=== PATIENT | female | born 1955 | race Caucasian/White ===

== ENCOUNTER 2017-12-08 15:15 | Emergency (ER) | payer OTHER, MEDICAID, SELFPAY ==
[2017-12-08 15:16] VITALS: BP 130/62; PULSE 95; RESP 18; TEMP 36.2; O2SAT 95; BMI 46.3
--- NOTE | 2017-12-08 15:51 | VDLE_ITS ---
Reason For Study: DVT RIGHT LEFT GSV is normal. GSV is normal. FV is compressible, spontaneous, phasic, FV is compressible, spontaneous, phasic, competent and demonstrates normal competent and demonstrates normal augmentation. augmentation. POP V is compressible, spontaneous, phasic, POP V is compressible, spontaneous, phasic, competent and demonstrates normal competent and demonstrates normal augmentation. augmentation. T/P Trunk is compressible. T/P Trunk is compressible. RT PTV is DILATED and noncompressible. PTV is compressible. *Unable to accurately assess CFV, SFJ and Unable to assess CFV, SFJ and PeroV d/t body PeroV d/t body habitus. habitus. Procedure Exam performed portable in ED. A preliminary report was called and/or faxed to ED. Interpretation Summary Acute deep vein thrombosis is noted in the right posterior tibial vein. The right femoral vein, popliteal vein, and tibio-peroneal trunk are patent and compressible. The left femoral vein, popliteal vein, tibio-peroneal trunk, and posterior tibial vein are patent and compressible. There is no evidence of acute deep vein thrombosis in the left lower extremity. The common femoral veins, peroneal veins, and sapheno-femoral junctions could not be assessed on either side due to the patient's body habitus. The greater saphenous veins appear bilaterally patent and compressible segmentally. Ordering Physician: Kamar Mcgrath Performed By: Roseann Gonzalez, BJ, RVT
--- NOTE | 2017-12-08 15:51 | CT_ITS ---
STUDY: CTA CHEST REASON FOR EXAM: Female, 62 years old. Short of breath with chest tightness and productive cough RADIATION DOSAGE (If Supplied By Facility): CTDIvol = ( 14.43 ) mGy, DLP = ( 620.66 ) mGycm TECHNIQUE: The examination was performed with the intravenous administration of 100 ml of Isovue 370 contrast material. Post-processing of the angiographic images was performed, with multiplanar reformation and 3D reconstruction. Individualized dose optimization techniques were used for this CT. COMPARISON: None. FINDINGS: Pulmonary arteries are mildly dilated which may be consistent with pulmonary hypertension. Normal enhancement of the main pulmonary artery and right and left pulmonary arteries. Normal enhancement of the bilateral peripheral pulmonary arteries. There is no demonstrated pulmonary embolism. Normal thoracic aorta and visualized great vessels. There is no demonstrated aortic dissection. Normal heart and pericardium. Normal mediastinum. Normal hilar regions. Normal visualized trachea and bronchi. The lungs are well expanded. Mild diffuse interstitial thickening noted most pronounced in the lower lobes. Lungs are clear of acute infiltration. There is a large calcified granuloma in right middle lobe. Normal pleura. Normal chest wall structures. Dorsal spine demonstrates spondylosis. Small hiatal hernia is present Normal visualized upper abdomen. CT/CTA Chest W/WO Contrast IMPRESSION: No evidence for pulmonary embolus Mild diffuse interstitial thickening but no focal infiltration Old granulomatous disease. Electronically Signed: Mg Ordaz MD at 18:38 EDT , Service support ,
--- NOTE | 2017-12-08 15:53 | EKG12_ITS ---
Test Reason : CP Blood Pressure : / mmHG Vent. Rate : 095 BPM Atrial Rate : 095 BPM P-R Int : 168 ms QRS Dur : 082 ms QT Int : 354 ms P-R-T Axes : 068 023 063 degrees QTc Int : 444 ms Normal sinus rhythm Low voltage QRS Borderline ECG Confirmed by LEN WICK ([id number]), online content editor ROMEL LUCAS ([id number]) on 12/20/2017 5:35:18 PM Referred By: BRIANNE Confirmed By:LEN WICK
--- NOTE | 2017-12-08 15:56 | ED.VISSUMM ---
- ER Visit Summary Date of Service: 12/08/17 Chief Complaint: Shortness of breath, cough History of Present Illness: The patient is a 62 F with a history of asthma, DVT, diabetes, and hypertension. She reports burning chest pain and shortness of breath that started 3 days ago and gradually got worse. Worse with exertion. She also reports a cough with occasional green sputum. She takes Eliquis for DVTs. She is not sure if she had a PE before. She does report increasing swelling and pain in her legs especially on the left. She also reports redness and swelling on her right foot. No fevers. No nausea or vomiting. She is out of her inhalers. Physical Examination: Afebrile and vital signs unremarkable. Patient is sitting and appears in no acute distress. HEENT exam unremarkable. Lungs show wheezing throughout all blankenship. Heart regular. Abdomen soft. Legs are diffusely tender especially on the left near her medial thigh. She also has some minimal erythema and tenderness to her right dorsal foot. Pulses strong and equal. Test Results: EKG, labs, CTA, and ultrasound pending. Emergency Department Course and Treatment: Was placed on a monitor and treated with a DuoNeb while awaiting results. EKG showed sinus rhythm at a rate of 95. No sign of acute ischemia or infarction. Hemoglobin 10.8, roughly stable. Chem panel and troponin normal. Ultrasound showed a right side posterior tibial DVT. The patient had this previously. The rest of the US exam was limited. CTA showed no PE, no infiltrate. She does have old chronic changes. Patient was improved on reevaluation. She was complaining of her cough and sore throat. This is likely an infectious process, possibly bronchitis. She had a normal stress test about 8 months ago. She was 95% on room air. I will have her follow-up with her doctor as an outpatient. Treatment Plan: Symptomatic care at home, albuterol Disposition: Discharged Impression: 1. Acute bronchitis This note was generated with [employer] dictation software. It may contain incorrect words, spelling, and punctuation that were not noted in review of the chart prior to signing ED Disposition - Plan for ED Patient: Disposition: Home or Assisted Living Chief Complaint: Shortness of Breath Instructions: ED Bronchitis Asthmatic Prescriptions: Albuterol Inhaler [Ventolin Hfa] 2 puff INHALATION Q4H PRN PRN #1 inhaler PRN Reason: Wheezing Referrals: Bronson Hunt DO [Primary Care Provider] -
--- NOTE | 2017-12-08 15:59 | ED.DCSUM_ITS ---
- ER Visit Summary Date of Service: 12/08/17 Chief Complaint: Shortness of breath, cough History of Present Illness: The patient is a 62 F with a history of asthma, DVT , diabetes, and hypertension. She reports burning chest pain and shortness of breath that started 3 days ago and gradually got worse. Worse with exertion. She also reports a cough with occasional green sputum. She takes Eliquis for DVTs. She is not sure if she had a PE before. She does report increasing swelling and pain in her legs especially on the left. She also reports redness and swelling on her right foot. No fevers. No nausea or vomiting. She is out of her inhalers. Physical Examination: Afebrile and vital signs unremarkable. Patient is sitting and appears in no acute distress. HEENT exam unremarkable. Lungs show wheezing throughout all blankenship. Heart regular. Abdomen soft. Legs are diffusely tender especially on the left near her medial thigh. She also has some minimal erythema and tenderness to her right dorsal foot. Pulses strong and equal. Test Results: EKG, labs, CTA, and ultrasound pending. Emergency Department Course and Treatment: Was placed on a monitor and treated with a DuoNeb while awaiting results. EKG showed sinus rhythm at a rate of 95. No sign of acute ischemia or infarction. Hemoglobin 10.8, roughly stable. Chem panel and troponin normal. Ultrasound showed a right side posterior tibial DVT. The patient had this previously. The rest of the US exam was limited. CTA showed no PE, no infiltrate. She does have old chronic changes. Patient was improved on reevaluation. She was complaining of her cough and sore throat. This is likely an infectious process, possibly bronchitis. She had a normal stress test about 8 months ago. She was 95% on room air. I will have her follow-up with her doctor as an outpatient. Treatment Plan: Symptomatic care at home, albuterol Disposition: Discharged Impression: 1. Acute bronchitis This note was generated with [employer] dictation software. It may contain incorrect words, spelling, and punctuation that were not noted in review of the chart prior to signing ED Disposition - Plan for ED Patient: Disposition: Home or Assisted Living Chief Complaint: Shortness of Breath Instructions: ED Bronchitis Asthmatic Prescriptions: Albuterol Inhaler [Ventolin Hfa] 2 puff INHALATION Q4H PRN PRN #1 inhaler PRN Reason: Wheezing Referrals: Bronson Hunt DO [Primary Care Provider] -
[2017-12-08 16:02] VITALS: PULSE 90; RESP 18; O2SAT 95
[2017-12-08] MEDS: Ipratropium/Albuterol Sulfate 3 ML AMPUL.NEB INHALATION (16:02)
[2017-12-08 16:47] LABS: Absolute Lymphocyte Count 1.93 X10^3/ul (0.83-4.51); Absolute Neutrophil Count 5.1 X10^3/uL (2.0-7.7); Basophil# 0.03 X10^3/uL; Basophil% 0.4 % (0-1); Eosinophil# 0.73 X10^3/uL; Eosinophils% 8.6 % (0-5); Hematocrit 35.8 % (37-47); Hemoglobin 10.8 g/dl (12.0-15.0); Lymphocyte # 1.93 X10^3/ul (4.0); Lymphocyte % 22.6 % (19-41); Mean Corp Hgb Conc 30.2 g/gl (32-36); Mean Corpuscular Hgb 27.7 pg (27.0-32.0); Mean Corpuscular Volume 91.8 fL (81-99); Mean Platelet Vol. 8.7 fl (6.2-12.0); Monocyte# 0.74 X10^3/uL; Monocyte% 8.7 % (0-10); Neutrophil # 5.09 X10^3/uL (2.7-7.7); Neutrophil % 59.6 % (47-70); Platelet Count 172 K/mm3 (150-450); RBC Distribution Width CV 15.7 % (11.6-14.6); RBC Distribution Width SD 51.2 fl (35.1-43.9); White Blood Count 8.5 K/mm3 (4.4-11.0)
[2017-12-08 16:58] LABS: POSITIVE COUNT NO; POSITIVE DIFFERENTIAL NO; POSITIVE MORPHOLOGY NO
[2017-12-08 17:06] LABS: Anion Gap 10 (5-15); BUN 19 mg/dL (7-18); BUN/Creat Ratio 18.6 RATIO (10-20); Calcium,Total 8.8 mg/dL (8.5-10.1); Chloride 105 mmol/L (98-107); Creatinine, Serum 1.02 mg/dL (0.55-1.02); EST Glomerular Filtration Rate 59 mL/min (>60); Est Glom Filt Rate - Afr Amer 71 mL/min (>60); Estimated Creatinine Clearance 96.39 ml/min; Glucose 95 mg/dL (74-106); Potassium 4.8 mmol/L (3.5-5.1); Sodium Level 144 mmol/L (136-145)
[2017-12-08 17:38] VITALS: BP 110/86; PULSE 91; RESP 15; O2SAT 94
--- NOTE | 2017-12-08 19:34 | ED.DEP ---
ED Disposition - Plan for ED Patient: Chief Complaint: Shortness of Breath Instructions: ED Bronchitis Asthmatic Prescriptions: Albuterol Inhaler [Ventolin Hfa] 2 puff INHALATION Q4H PRN PRN #1 inhaler PRN Reason: Wheezing Referrals: Bronson Hunt DO [Primary Care Provider] -
[2017-12-08 19:47] VITALS: BP 112/52; PULSE 80; RESP 18; O2SAT 94
--- NOTE | 2017-12-09 10:28 | CM.ED ---
ED CALLBACK: Follow-up call placed to patient. Patient states she is feeling about the same as yesterday. She states her cough is more productive today, with thick green mucus. Patient states her roommate currently has bronchitis, but is unsure if her roommate is being treated with antibiotics or not. She denies shortness of breath and fever. Patient states she did use her inhaler about one hour ago and it did help open things up a bit. Encouraged patient to schedule an appointment with Dr. Hunt. Offered to make appointment for the patient. The patient states her roommate drives her to her appointments usually and is not home right now. She will talk to her roommate prior to scheduling. I informed patient that if she calls [facility], her [employer] insurance is likely to offer free transportation with 24-48 hour notice. Patient states understanding. Patient accepts my call back number with instruction to call if she needs any assistance at all.
== END 2017-12-08 19:55 | disposition home or self-care (01) ==
LOC: ED 16:42
PROVIDERS: Emergency Provider Emergency Medicine; Family Provider Student in an Organized Health Care Education/Training Program; PCP Student in an Organized Health Care Education/Training Program
DX: J20.9 Acute bronchitis, unspecified (principal); J45.909 Unspecified asthma, uncomplicated; E11.9 Type 2 diabetes mellitus without complications; I10 Essential (primary) hypertension; M79.89 Other specified soft tissue disorders; M79.605 Pain in left leg; M79.604 Pain in right leg; D64.9 Anemia, unspecified; Z79.01 Long term (current) use of anticoagulants; Z79.84 Long term (current) use of oral hypoglycemic drugs; Z79.82 Long term (current) use of aspirin; Z79.899 Other long term (current) drug therapy; Z86.718 Personal history of other venous thrombosis and embolism; Z87.891 Personal history of nicotine dependence
CPT/HCPCS: 71275; 80048; 84484; 85025; 93005; 93970; 94640; 99285; J7030; J7040; Q9967

== ENCOUNTER 2017-12-30 16:13 | Inpatient (IN) | payer OTHER, MEDICAID, SELFPAY ==
[2017-12-30] VITALS (13 sets, daily range): BP systolic 67–104; BP diastolic 41–71; PULSE 71–100; RESP 12–24; TEMP 36.2–36.8; O2SAT 92–98; BMI 44.4; BMI 45.0
--- NOTE | 2017-12-30 16:50 | EKG12_ITS ---
Test Reason : HYPOTENSION Blood Pressure : / mmHG Vent. Rate : 079 BPM Atrial Rate : 079 BPM P-R Int : 180 ms QRS Dur : 078 ms QT Int : 384 ms P-R-T Axes : 051 023 056 degrees QTc Int : 440 ms Normal sinus rhythm Low voltage QRS Borderline ECG Confirmed by LEN WICK ([id number]), legal editor SRINI ADAMS ([id number]) on 01/03/2018 10:20:01 AM Referred By: AMY Confirmed By:LEN WICK
--- NOTE | 2017-12-30 16:52 | ED.VISSUMM ---
- ER Visit Summary Date of Service: 12/30/17 Chief Complaint: Low blood pressure History of Present Illness: The patient is a 62 F sent from office of Dr. Kwon for blood pressure in the 70s. Patient normal blood pressure in the 90s. Complains of lightheaded symptoms. No recent vomiting or diarrhea. States decrease oral fluid intake. No urinary symptoms. States had a nonproductive cough for a week. No fever, chills, sweats. Denies accidentally taken extra medications from home. Denies any recent changes in her medications. She had a cortisone injection to her left knee today in the office. She ambulate with a cane, she is able to ambulate from the office to the emergency department. Physical Examination: General: Alert and oriented ?3, no acute distress HEENT: Normocephalic, atraumatic. Moist mucosa membranes Neck: supple, nontender. Cardiovascular: Regular rate and rhythm, no murmurs Respiratory: Normal breath sounds, symmetric, no distress Abdomen: Soft, nontender, nondistended Extremities: Nontender, no edema, pulses intact ?4 Neuro: no focal neurological deficits. Test Results: EKG sinus rate of [address] or T-wave changes. Chest x-ray no acute findings. Labs no white count 10.3 hemoglobin 0.1. Creatinine 1.39. INR 1.4. Lactic acid 3.1. Blood culture ?2 pending. Urine did no leukocytes nitrites and rate in 100 WBCs. Urine culture pending. Emergency Department Course and Treatment: Patient blood pressure was low in the ED, she was given IV fluid bolus. Orthostatics were negative. Workup initiated with sepsis protocol due to her low blood pressure. She responded to fluids, however workup no lactic acidosis with a UTI. She is meeting severe sepsis criteria. Reevaluation patient blood pressure 100/71. This is higher than her reported baseline. However, with patient meeting severe sepsis and UTI, I do feel she will benefit from inpatient management. Spoke with hospitalist, Dr. Leigh who will admit. Treatment Plan: [] Disposition: Admission Impression: Severe sepsis, UTI, transient hypotension This note was generated with [employer] software. It may contain incorrect words, spelling, and punctuation that were not noted in review of the chart prior to signing ED Disposition - Plan for ED Patient: Disposition: Acute Care Hospital [facility] Chief Complaint: Hypotension Diagnosis: Severe sepsis, Urinary tract infection, Transient hypotension Referrals: Bronson Hunt DO [Primary Care Provider] -
--- NOTE | 2017-12-30 16:58 | RAD_ITS ---
STUDY: X-RAY CHEST REASON FOR EXAM: Female, 62 years old. Hypertension TECHNIQUE: AP portable COMPARISON: April 07, 2016 FINDINGS: The lungs are clear and expanded. Small calcified granuloma in the right middle lobe There is no demonstrated pleural abnormality. Borderline cardiomegaly.. Normal mediastinum and maxine. Normal visualized pulmonary arteries. Normal visualized aortic arch and descending thoracic aorta. Dorsal spine demonstrates spondylosis Normal visualized ribs, clavicles, and shoulders. There is no demonstrated abnormality of the visualized soft tissue structures of the upper abdomen. RAD/Chest 1 View (Portable) IMPRESSION: Old granulomatous disease. No acute cardiopulmonary pathology Electronically Signed: Mg Ordaz MD at 17:28 EDT , Service support ,
[2017-12-30] MEDS: 0.9% Normal Saline 1,000 ML IV.SOLN. 1000 ML IV (17:02)
[2017-12-30 17:14] LABS: Absolute Lymphocyte Count 3.42 X10^3/ul (0.83-4.51); Absolute Neutrophil Count 5.7 X10^3/uL (2.0-7.7); Basophil# 0.03 X10^3/uL; Basophil% 0.3 % (0-1); Eosinophils% 2.9 % (0-5); Hematocrit 36.2 % (37-47); Hemoglobin 11.2 g/dl (12.0-15.0); Lymphocyte # 3.42 X10^3/ul (4.0); Lymphocyte % 33.1 % (19-41); Mean Corp Hgb Conc 30.9 g/gl (32-36); Mean Corpuscular Hgb 27.2 pg (27.0-32.0); Mean Corpuscular Volume 87.9 fL (81-99); Mean Platelet Vol. 9.1 fl (6.2-12.0); Monocyte# 0.88 X10^3/uL; Monocyte% 8.5 % (0-10); Neutrophil % 55.1 % (47-70); Platelet Count 201 K/mm3 (150-450); RBC Distribution Width CV 15.4 % (11.6-14.6); RBC Distribution Width SD 49.6 fl (35.1-43.9); Red Blood Count 4.12 M/mm3 (4.2-5.4); White Blood Count 10.3 K/mm3 (4.4-11.0)
[2017-12-30 17:15] LABS: POSITIVE COUNT NO; POSITIVE DIFFERENTIAL NO; POSITIVE MORPHOLOGY NO
[2017-12-30 17:19] LABS: International Normalized Ratio 1.4; Prothrombin Time (Protime)PT. 16.7 SECONDS (11.7-14.9)
[2017-12-30 17:20] LABS: Partial Thromboplast Time 27.9 Seconds (24.1-36.2)
[2017-12-30 17:36] LABS: ALB/GLOB Ratio 0.8 RATIO (0.9-2.4); AST(SGOT) 18 U/L (15-37); Alanine Aminotransfer ALT/SGPT 38 U/L (13-56); Albumin, Serum 3.4 g/dL (3.2-5.0); Alkaline Phosphatase 91 U/L (45-117); Anion Gap 6 (5-15); BUN 28 mg/dL (7-18); BUN/Creat Ratio 20.1 RATIO (10-20); Calcium,Total 9.3 mg/dL (8.5-10.1); Chloride 105 mmol/L (98-107); Creatinine, Serum 1.39 mg/dL (0.55-1.02); EST Glomerular Filtration Rate 41 mL/min (>60); Est Glom Filt Rate - Afr Amer 50 mL/min (>60); Estimated Creatinine Clearance 67.74 ml/min; Globulin 4.1 g/dL (2.2-4.2); Glucose 145 mg/dL (74-106); Potassium 4.9 mmol/L (3.5-5.1); Protein, Total 7.5 g/dL (6.4-8.2); Sodium Level 136 mmol/L (136-145)
[2017-12-30 17:40] LABS: Lactic Acid 3.1 mmol/L (0.4-2.0)
--- NOTE | 2017-12-30 17:41 | ED.RN ---
LAB CALLED LACTIC 3.1
[2017-12-30] MEDS: 0.9% Normal Saline 1,000 ML 999 ML IV (18:00)
[2017-12-30 19:05] LABS: Mucous, Urine 0 SEEN /hpf (<or=2+); Red Blood Cells-Urine 0 SEEN /hpf (0-5)
[2017-12-30 19:15] LABS: Color, Urine Yellow (Yellow); Glucose, Dipstick Normal (Normal); Ketone-Dipstick Negative (Negative); Leukocyte Esterase-Dipstick 500 /ul (Negative); Nitrite-Dipstick Positive (Negative); Occult Blood-Urine 25 /ul (Negative); Protein-Dipstick 100 mg/dl (Negative); Urine Clarity Sl. Cloudy (Clear); Urine Urobilinogen 1 mg/dl (Normal)
[2017-12-30 19:16] LABS: Urine Bilirubin Dipstick 6 mg/dL (Negative)
[2017-12-30 19:33] LABS: White Blood Cells >100 SEEN /hpf (0-5)
[2017-12-30 19:34] LABS: Bacteria 3+ /hpf (None Seen); Squamous Epithelial Cells - UA 10-25 SEEN /hpf (5-10)
[2017-12-30] MEDS: 0.9% Normal Saline 1,000 ML 150 ML IV (20:02)
[2017-12-30] MEDS: Ceftriaxone 1 GM/50 ML BAG IV (20:02)
[2017-12-30 20:04] LABS: Reflex Lactate? Y
--- NOTE | 2017-12-30 20:27 | HP.PCM_ITS ---
Problem List (1) Severe sepsis Status: Acute (2) Urinary tract infection Status: Acute (3) Transient hypotension Status: Inactive (4) Hypertension Status: Inactive (5) Type II diabetes mellitus Status: Chronic (6) Fibromyalgia Status: Chronic (7) Chest pain Status: Inactive (8) Microcytic anemia Status: Inactive (9) Hypocalcemia Status: Inactive (10) Hypokalemia Status: Inactive (11) Abdominal pain Status: Inactive (12) Shortness of breath Status: Resolved (13) Nonproductive cough Status: Resolved History of Present Illness Date of Admission: 12/30/17 Chief Complaint: Hypotension in physician office today The patient is a 62 year old F with history of recurrent UTI, last one a few months ago was sent to ER by Dr. Kwon office hypotension. In the office today, her blood pressure was recorded systolic 70 mmHg ?2. Patient has lightheadedness, dizziness since morning today. Patient had left knee steroid injection today. Patient denies lower urinary tract symptoms including increased frequency, urgency, nocturia or burning micturition. Patient is chronically incontinent. She was transferred to [facility] for septic shock secondary to UTI in [facility] last year 2016. She does not remember the UTI organism but probably she was on vasopressor had a right jugular line as per the daughter. As per the daughter, no urinary tract obstruction was found on detail workup there In ER today, her blood pressure was low 87/45 but no tachycardia. She has second liter of normal saline bolus in progress and last blood pressure is 102/ 54. Her orthostatic changes was negative. Blood work in the ER is remarkable for creatinine 1.39, BUN 28 suggestive of dehydration. Lactic acid 3.1. Glucose 145. UA is positive of leukocyte esterase, nitrite and WBC more than 100 cells per hpf. [] Past Medical History Past Medical History (Chronic Problems): Chronic Problems (This Medical Record has been edited. Action required.) Type II diabetes mellitus (Chronic) Fibromyalgia (Chronic) Medical History: Medical History (This Medical Record has been edited. Action required.) Diabetes E11.9 Hypertension I10 Allergies aztreonam Allergy (Verified 12/30/17 16:16) Unknown Carbapenems Allergy (Verified 12/30/17 16:16) Unknown meperidine Allergy (Verified 12/30/17 16:16) Unknown Penicillins Allergy (Verified 12/30/17 16:16) Unknown Quinolones Allergy (Verified 12/30/17 16:16) Unknown talampicillin Allergy (Verified 12/30/17 16:16) Unknown tetracycline Allergy (Verified 12/30/17 16:16) Anaphylaxis tigecycline Allergy (Verified 12/30/17 16:16) Unknown Home Medications: Ambulatory Orders Medication Instructions Recorded Albuterol Inhaler [Ventolin Hfa] 1 - 2 puff INHALATION Q4H PRN PRN 10/01/15 Fenofibrate [Lofibra] 160 mg PO DAILY 10/01/15 Loratadine [Claritin] 10 mg PO DAILY 10/01/15 Nitrofurantoin Macrocrystals 100 mg PO Q12 04/07/16 [Macrobid] Guaifenesin/Codeine [Robitussin AC] 10 ml PO Q6H PRN PRN #240 ml 04/09/16 apixaban 5 mg tablet 5 mg PO BID 07/14/17 aspirin 81 mg tablet,delayed 81 mg PO DAILY 07/14/17 release atorvastatin 80 mg tablet 80 mg PO QHS 07/14/17 cholecalciferol (vitamin D3) 50,000 unit PO MO 07/14/17 50,000 unit capsule fluoxetine 20 mg capsule 20 mg PO DAILY 07/14/17 fluticasone 50 mcg/actuation nasal 2 spray INTRANASAL DAILY 07/14/17 spray,suspension ipratropium-albuterol 0.5 mg-3 3 ml INHALATION Q8H 07/14/17 mg(2.5 mg base)/3 mL nebulization soln isosorbide mononitrate ER 30 mg 30 mg PO QAM 07/14/17 tablet,extended release 24 hr lisinopril 20 mg tablet 20 mg PO DAILY 07/14/17 magnesium oxide 400 mg capsule 400 mg PO BID cap 07/14/17 metformin 1,000 mg tablet 1,000 mg PO BID 07/14/17 multivitamin tablet 1 tab PO DAILY 07/14/17 nitroglycerin 0.4 mg sublingual 0.4 mg SUBLINGUAL Q5M PRN 07/14/17 tablet omega-3 fatty acids 1,000 mg 1,000 mg PO BID 07/14/17 capsule omeprazole 40 mg capsule,delayed 40 mg PO DAILY 07/14/17 release spironolactone 25 mg tablet 25 mg PO DAILY 07/14/17 tizanidine 4 mg capsule 4 mg PO Q6H PRN PRN 07/14/17 Albuterol Inhaler [Ventolin Hfa] 2 puff INHALATION Q4H PRN PRN #1 12/08/17 inhaler Diclofenac Sodium [Voltaren] 2 gm TP 4X/DAY 12/08/17 Epinephrine [Epi Pen] 0.3 mg SQ PRN PRN 12/08/17 Ezetimibe [Zetia] 10 mg PO DAILY 12/08/17 Ferrous Sulfate 325 mg PO TIDCM 12/08/17 Gabapentin [Neurontin] 900 mg PO TID 12/08/17 Glimepiride [Amaryl] 4 mg PO BID 12/08/17 Hydrocodone Bitart/Apap 5-325 1 tablet PO Q4H PRN PRN 12/08/17 [[place] 5MG-325MG] Multivitamins,Ther W-Minerals 1 tablet PO BIDCM 12/08/17 [Multivitamin With Minerals] Surgical History: tonsillectomy, - - Right knee surgery, left foot surgery, tubal ligation Psychiatric History: No pertinent psych hx CHILD MONITOR History: No pertinent CHILD MONITOR history Smoking Status: Former smoker - *Family History Maternal Family History: Family History (This Medical Record has been edited. Action required.) Mother Hypertension History Items: Hypertension Paternal Family History: Family History (This Medical Record has been edited. Action required.) Mother Hypertension History Items: High Cholesterol, Heart Disease, - - anemia Review of Systems Constitutional: Reports: Malaise, Weakness. Denies: Chills, Fever HEENT: Denies: Head Aches, Sinus Congestion, Sinus Drainage Cardiovascular: Reports: Edema, Light Headedness. Denies: Chest Pain, Chest Pressure, Chest Tightness, Palpitations Respiratory: Denies: Cough, Shortness of breath at rest, Sputum production Gastrointestinal: Denies: Abdominal Pain, Nausea, Vomiting Genitourinary: Denies: Dysuria Musculoskeletal: Reports: Joint Pain, Joint stiffness. Denies: Joint Tenderness Skin: Denies: Rash, Wounds Neurological: Denies: Numbness, Tingling, Focal weakness Psychiatric: Denies: Anxiety, Depression, Homicidal Ideations, Suicidal Ideations Hematologic/ Lymphatic: Denies: Easy Bruising, Easy Bleeding VTE Information - Inpt Only VTE Present on Admission: No VTE Mechan Device Prophylaxis: Thigh High SONDRA Hose VTE Pharm Prophylaxis ordered?: No Reason prophylaxis not ordered:: Procedure Not Indicated - On Eliquis for chronic DVT. Patient Problems: Active and Suspected Problems (This Medical Record has been edited. Action required.) Severe sepsis (Acute) Urinary tract infection (Acute) - Physical Exam General: Alert, Oriented x3, Cooperative HEENT: Atraumatic, PERRLA, EOMI, Normocephalic Oral: Dry Mucosa Neck: Supple, No JVD, Negative Carotid Bruits Lungs: Clear to auscultation, No rhonchi, No wheeze, No rales, Diminished Cardiovascular: Regular rate, Regular Rhythm, Normal S1, Normal S2, No murmurs Abdomen: Bowel Sounds Present, Soft, Non Tender, Non-Distended Extremities: Capillary Refill Less than 3 Seconds, Edema Skin: No rashes, No breakdown Musculoskeletal: Arthritic Changes, Muscle Wasting, Tenderness - Mild tenderness at the left knee because he has steroid injection today Neurological: Cranial nerves II-XII grossly intact Psych/Mental Status: Normal Affect, Appropriate Vital Signs Temp Pulse Resp BP Pulse Ox 98.3 F 73 19 H 102/54 L 98 12/30/17 17:01 12/30/17 20:20 12/30/17 20:20 12/30/17 20:20 12/30/17 20:20 Oxygen Flow Rate (L/min) 2 Oxygen Delivery Method Room Air Weight: 219 lb 12.814 oz Body Mass Index (BMI) 44.4 Laboratory Tests Past 24 Hrs 12/30/17 12/30/17 12/30/17 16:46 16:46 16:46 WBC 10.3 RBC 4.12 L Hgb 11.2 L Hct 36.2 L MCV 87.9 MCH 27.2 MCHC 30.9 L RDW 15.4 H RDW Differential 49.6 H Plt Count 201 MPV 9.1 Immature Gran % (Auto) 0.100 Neut % (Auto) 55.1 Lymph % (Auto) 33.1 [place] % (Auto) 8.5 Eos % (Auto) 2.9 Baso % (Auto) 0.3 Absolute Neuts (auto) 5.7 Absolute Lymphs (auto) 3.42 Total Counted Not Reportable PT 16.7 H INR 1.4 APTT 27.9 Sodium 136 Potassium 4.9 Chloride 105 Carbon Dioxide 25.0 Anion Gap 6 BUN 28 H Creatinine 1.39 H Estim Creat Clear Calc 67.74 Est GFR (MDRD) Af Amer 50 L Est GFR (MDRD) Non-Af 41 L BUN/Creatinine Ratio 20.1 H Glucose 145 H Lactic Acid Calcium 9.3 Total Bilirubin 0.20 AST 18 ALT 38 Alkaline Phosphatase 91 Total Protein 7.5 Albumin 3.4 Globulin 4.1 Albumin/Globulin Ratio 0.8 L Urine Color Urine Clarity Urine pH Ur Specific [place] Urine Protein Urine Glucose (UA) Urine Ketones Urine Occult Blood Urine Nitrite Urine Bilirubin Urine Urobilinogen Ur Leukocyte Esterase Urine RBC Urine WBC Ur Squamous Epith Cells Urine Bacteria Urine Mucus 12/30/17 12/30/17 16:46 18:53 WBC RBC Hgb Hct MCV MCH MCHC RDW RDW Differential Plt Count MPV Immature Gran % (Auto) Neut % (Auto) Lymph % (Auto) [place] % (Auto) Eos % (Auto) Baso % (Auto) Absolute Neuts (auto) Absolute Lymphs (auto) Total Counted PT INR APTT Sodium Potassium Chloride Carbon Dioxide Anion Gap BUN Creatinine Estim Creat Clear Calc Est GFR (MDRD) Af Amer Est GFR (MDRD) Non-Af BUN/Creatinine Ratio Glucose Lactic Acid 3.1 H Calcium Total Bilirubin AST ALT Alkaline Phosphatase Total Protein Albumin Globulin Albumin/Globulin Ratio Urine Color Yellow Urine Clarity Sl. Cloudy Urine pH 6.0 Ur Specific [place] 1.020 Urine Protein 100 H Urine Glucose (UA) Normal Urine Ketones Negative Urine Occult Blood 25 H Urine Nitrite Positive H Urine Bilirubin 6 H Urine Urobilinogen 1 H Ur Leukocyte Esterase 500 H Urine RBC 0 SEEN Urine WBC >100 SEEN Ur Squamous Epith Cells 10-25 SEEN Urine Bacteria 3+ Urine Mucus 0 SEEN Assessment/Plan All Active Problems (This Medical Record has been edited. Action required.) Severe sepsis (Acute) Urinary tract infection (Acute) Shortness of breath (Resolved) Nonproductive cough (Resolved) The patient is a 62 year old F with history of recurrent UTI, last one a few months ago was sent to ER by Dr. Kwon office hypotension. In the office today, her blood pressure was recorded systolic 70 mmHg ?2. Patient has lightheadedness, dizziness since morning today. Patient had left knee steroid injection today. Patient denies lower urinary tract symptoms including increased frequency, urgency, nocturia or burning micturition. Patient is chronically incontinent. She was transferred to [facility] for septic shock secondary to UTI in [place] last year 2016. She does not remember the UTI organism but probably she was on vasopressor had a right jugular line as per the daughter. As per the daughter, no urinary tract obstruction was found on detail workup there In ER today, her blood pressure was low 87/45 but no tachycardia. She has second liter of normal saline bolus in progress and last blood pressure is 102/ 54. Her orthostatic changes was negative. Blood work in the ER is remarkable for creatinine 1.39, BUN 28 suggestive of dehydration. Lactic acid 3.1. Glucose 145. UA is positive of leukocyte esterase, nitrite and WBC more than 100 cells per hpf. 1. Severe sepsis (hypotension, lactic acid 3.1), most probably secondary to UTI : Patient is being admitted on PCU. On child monitor. Monitor intake and output. 2. Acute on recurrent UTI: Based on the previous culture in September 2015 and November 2016 when urine culture grew E. coli sensitive to cephalosporin and she tolerated Rocephin in the past, started on Rocephin in the ER and will continue it. 3. Prerenal azotemia and acute kidney injury probably from dehydration and hypotension/prerenal etiology: Creatinine is mildly elevated 1.39 from baseline 1.0. On IV fluid normal saline. If kidney function does not improve or features of obstructive uropathy, can order kidney and bladder ultrasound . 4. Diabetes mellitus type 2: Hold metformin and glimepiride. Accu-Chek before meals and at bedtime and cover with NovoLog sliding scale. A1c tomorrow a.m. 5. Other chronic comorbidities include dyslipidemia, rheumatoid arthritis/ degenerative joint disease, history of hypertension but currently hypotension, multiple allergies: Patient is on EpiPen. Home medication reconciliation done. 6. History of chronic and recurrent DVT: Patient on Eliquis 5 mg twice daily. Continue Eliquis. Bilateral SONDRA hose. Laboratory Results 12/30/17 16:46: WBC 10.3, RBC 4.12 L, Hgb 11.2 L, Hct 36.2 L, MCV 87.9, MCH 27.2 , MCHC 30.9 L, RDW 15.4 H, RDW Differential 49.6 H, Plt Count 201, MPV 9.1, Immature Gran % (Auto) 0.100, Neut % (Auto) 55.1, Lymph % (Auto) 33.1, [place] % ( Auto) 8.5, Eos % (Auto) 2.9, Baso % (Auto) 0.3, Absolute Neuts (auto) 5.7, Absolute Lymphs (auto) 3.42, Total Counted Not Reportable 12/30/17 16:46: PT 16.7 H, INR 1.4, APTT 27.9 12/30/17 16:46: Sodium 136, Potassium 4.9, Chloride 105, Carbon Dioxide 25.0, Anion Gap 6, BUN 28 H, Creatinine 1.39 H, Estim Creat Clear Calc 67.74, Est GFR (MDRD) Af Amer 50 L, Est GFR (MDRD) Non-Af 41 L, BUN/Creatinine Ratio 20.1 H, Glucose 145 H, Calcium 9.3, Total Bilirubin 0.20, AST 18, ALT 38, Alkaline Phosphatase 91, Total Protein 7.5, Albumin 3.4, Globulin 4.1, Albumin/Globulin Ratio 0.8 L 12/30/17 16:46: Lactic Acid 3.1 H 12/30/17 18:53: Urine Color Yellow, Urine Clarity Sl. Cloudy, Urine pH 6.0, Ur Specific [place] 1.020, Urine Protein 100 H, Urine Glucose (UA) Normal, Urine Ketones Negative, Urine Occult Blood 25 H, Urine Nitrite Positive H, Urine Bilirubin 6 H, Urine Urobilinogen 1 H, Ur Leukocyte Esterase 500 H, Urine RBC 0 SEEN, Urine WBC >100 SEEN, Ur Squamous Epith Cells 10-25 SEEN, Urine Bacteria 3+ , Urine Mucus 0 SEEN 12/30/17 20:27: Lactic Acid Pending Clinical Impression(s) from Imaging Studies Chest X-Ray 12/30/17 16:58 IMPRESSION: Old granulomatous disease. No acute cardiopulmonary pathology Code Visit Inpatient E&M: 62672 Init Hosp L3
[2017-12-30 21:06] LABS: Lactic Acid 2.4 mmol/L (0.4-2.0)
--- NOTE | 2017-12-30 21:10 | ED.RN ---
lab called with critical lab results. lactic acid 2.4. Dr. Leigh made aware. verbal order to repeat in the morning
[2017-12-30] MEDS: Atorvastatin Calcium 80 MG Tablet PO (21:47)
[2017-12-30] MEDS: oxyCODONE 5 MG Tablet PO (21:47)
[2017-12-30] MEDS: Insulin Lispro 100 UNIT/ML INSULN.PEN SQ (22:19)
[2017-12-30 22:46] LABS: Bedside Glucose 312 mg/dL (70-110)
[2017-12-30] MEDS: Gabapentin 600 MG Tablet PO (22:59)
[2017-12-30] MEDS: Magnesium Oxide 400 MG Tablet PO (22:59)
[2017-12-30] MEDS: Omega-3 Acid Ethyl Esters 1 GM Capsule PO (22:59)
[2017-12-30 23:32] LABS: Reflex Lactate? Y
[2017-12-31] VITALS (15 sets, daily range): BP systolic 88–140; BP diastolic 35–77; PULSE 64–89; RESP 16–20; TEMP 36.4–37.3; O2SAT 94–96
[2017-12-31 00:51] LABS: Lactic Acid 2.9 mmol/L (0.4-2.0)
[2017-12-31] MEDS: 0.9% Normal Saline 1,000 ML 150 ML IV ×4 (02:01→23:23)
[2017-12-31 06:55] LABS: Bedside Glucose 376 mg/dL (70-110)
[2017-12-31] MEDS: Ipratropium/Albuterol Sulfate 3 ML AMPUL.NEB INHALATION ×3 (07:04→23:12)
[2017-12-31 07:47] LABS: Absolute Lymphocyte Count 0.71 X10^3/ul (0.83-4.51); Absolute Neutrophil Count 7.9 X10^3/uL (2.0-7.7); Hematocrit 32.3 % (37-47); Hemoglobin 9.8 g/dl (12.0-15.0); Lymphocyte # 0.71 X10^3/ul (4.0); Lymphocyte % 8.1 % (19-41); Mean Corp Hgb Conc 30.3 g/gl (32-36); Mean Corpuscular Hgb 27.7 pg (27.0-32.0); Mean Corpuscular Volume 91.2 fL (81-99); Mean Platelet Vol. 9.4 fl (6.2-12.0); Monocyte# 0.14 X10^3/uL; Monocyte% 1.6 % (0-10); Neutrophil # 7.93 X10^3/uL (2.7-7.7); Neutrophil % 90.3 % (47-70); Platelet Count 155 K/mm3 (150-450); RBC Distribution Width CV 15.2 % (11.6-14.6); RBC Distribution Width SD 49.4 fl (35.1-43.9); Red Blood Count 3.54 M/mm3 (4.2-5.4); White Blood Count 8.8 K/mm3 (4.4-11.0)
[2017-12-31 07:49] LABS: POSITIVE COUNT NO; POSITIVE DIFFERENTIAL NO; POSITIVE MORPHOLOGY NO
[2017-12-31 08:03] LABS: Anion Gap 7 (5-15); BUN 33 mg/dL (7-18); BUN/Creat Ratio 26.8 RATIO (10-20); Calcium,Total 7.8 mg/dL (8.5-10.1); Chloride 108 mmol/L (98-107); Creatinine, Serum 1.23 mg/dL (0.55-1.02); EST Glomerular Filtration Rate 47 mL/min (>60); Est Glom Filt Rate - Afr Amer 57 mL/min (>60); Estimated Creatinine Clearance 77.63 ml/min; Glucose 378 mg/dL (74-106); Potassium 6.7 mmol/L (3.5-5.1); Sodium Level 137 mmol/L (136-145)
[2017-12-31] MEDS: Insulin Lispro 100 UNIT/ML INSULN.PEN SQ ×4 (08:11→21:52)
[2017-12-31] MEDS: Ferrous Sulfate 325 MG Tablet PO ×3 (08:12→15:46)
[2017-12-31] MEDS: Aspirin E.C. 81 MG Tablet PO (08:12)
[2017-12-31] MEDS: Multivitamins,Ther W-Minerals Tablet 1 TABLET PO ×2 (08:12→15:46)
[2017-12-31] MEDS: Gabapentin 300 MG Capsule PO (08:13)
[2017-12-31] MEDS: APIXABAN 5 MG TABLET PO ×2 (08:13→21:52)
[2017-12-31 08:32] LABS: Hemoglobin A1c 7.7 % (4.2-6.3)
[2017-12-31 09:53] LABS: Anion Gap 4 (5-15); BUN 32 mg/dL (7-18); BUN/Creat Ratio 28.8 RATIO (10-20); Calcium,Total 7.5 mg/dL (8.5-10.1); Chloride 109 mmol/L (98-107); Creatinine, Serum 1.11 mg/dL (0.55-1.02); EST Glomerular Filtration Rate 53 mL/min (>60); Est Glom Filt Rate - Afr Amer 64 mL/min (>60); Estimated Creatinine Clearance 86.02 ml/min; Glucose 368 mg/dL (74-106); Potassium 5.9 mmol/L (3.5-5.1); Sodium Level 135 mmol/L (136-145)
[2017-12-31 10:50] LABS: Bedside Glucose 348 mg/dL (70-110)
[2017-12-31] MEDS: Ceftriaxone 1 GM/50 ML BAG IV (11:05)
[2017-12-31] MEDS: Loratadine 10 MG Tablet PO (11:09)
[2017-12-31] MEDS: Ezetimibe 10 MG Tablet PO (11:10)
[2017-12-31] MEDS: Fluticasone 0.05% 1 SPRAY NASAL.SRY 2 SPRAY NASAL (11:10)
[2017-12-31] MEDS: Fenofibrate 145 MG Tablet PO (11:11)
[2017-12-31] MEDS: Omega-3 Acid Ethyl Esters 1 GM Capsule PO ×2 (11:12→21:52)
[2017-12-31] MEDS: FLUoxetine 20 MG Capsule PO (11:12)
[2017-12-31] MEDS: Magnesium Oxide 400 MG Tablet PO ×2 (11:12→21:52)
[2017-12-31] MEDS: Pantoprazole Sodium 40 MG Tablet PO (11:12)
[2017-12-31] MEDS: Sodium Polystyrene Sulfonate 15 GM/60 ML UDC 30 GM PO (11:35)
--- NOTE | 2017-12-31 12:33 | PN_ITS ---
Patient Problems: Active and Suspected Problems (This Medical Record has been edited. Action required.) Severe sepsis (Acute) Urinary tract infection (Acute) Subjective: Patient seen and examined. Resting in chair in no acute distress. Patient states she feels tired. Denies urinary symptoms. Denies fever, chills. No other complaints at this time. - Physical Exam General: Alert, Oriented x3, Cooperative, No apparent distress HEENT: Atraumatic, PERRLA, EOMI, Normocephalic Neck: Supple, No JVD, Negative Carotid Bruits Lungs: Clear to auscultation, Normal air movement Cardiovascular: Regular rate, Regular Rhythm, Normal S1, Normal S2, No murmurs Abdomen: Bowel Sounds Present, Soft, Non Tender, Non-Distended, Obese Extremities: No clubbing, No cyanosis, No edema, Capillary Refill Less than 3 Seconds Skin: No rashes, No breakdown Musculoskeletal: No Tenderness to Palpation of Joints or Extremities Neurological: Cranial nerves II-XII grossly intact, Neuro grossly intact Psych/Mental Status: Normal Affect, Appropriate Vital Signs Temp Pulse Resp BP Pulse Ox 98.3 F 69 16 140/77 H 94 12/31/17 12:00 12/31/17 12:00 12/31/17 12:00 12/31/17 12:00 12/31/17 12:00 Oxygen Flow Rate (L/min) 2 Oxygen Delivery Method Room Air Weight: 101.1 kg Body Mass Index (BMI) 45.0 Intake and Output for Last 24 Hours 12/29/17 12/30/17 12/31/17 23:59 23:59 23:59 Intake Total 634 / 634 2341 / 2341 Balance 634 / 634 2341 / 2341 Laboratory Tests Past 24 Hrs 12/30/17 12/31/17 12/31/17 20:27 00:09 05:52 WBC Cancelled Corrected WBC Cancelled RBC Cancelled Hgb Cancelled Hct Cancelled MCV Cancelled MCH Cancelled MCHC Cancelled RDW Cancelled RDW Differential Cancelled Plt Count Cancelled MPV Cancelled Immature Gran % (Auto) Cancelled Neut % (Auto) Cancelled Lymph % (Auto) Cancelled [place] % (Auto) Cancelled Eos % (Auto) Cancelled Baso % (Auto) Cancelled Immature Gran # (Auto) Cancelled Absolute Neuts (auto) Cancelled Absolute Lymphs (auto) Cancelled Absolute Monos (auto) Cancelled Total Counted Cancelled Neutrophils % (Manual) Cancelled Band Neutrophils % Cancelled Lymphocytes % (Manual) Cancelled Monocytes % (Manual) Cancelled Eosinophils % (Manual) Cancelled Basophils % (Manual) Cancelled Metamyelocytes % Cancelled Myelocytes % Cancelled Promyelocytes % Cancelled Blast Cells % Cancelled Plasma Cell % (Manual) Cancelled Other Cells % Cancelled Lymphocytes # Cancelled Nucleated RBCs/100 WBC Cancelled Differential Comment Cancelled Diff Path Review Cancelled Hypersegmented Neuts Cancelled Atypical Lymphocytes Cancelled Reactive Lymphocytes Cancelled Smudge Cells Cancelled Eosinophilia # Cancelled Basophilia # Cancelled Toxic Granulation Cancelled Dohle Bodies Cancelled Patience Rods Cancelled Platelet Estimate Cancelled Plt Morphology Comment Cancelled RBC Morphology Cancelled Polychromasia Cancelled Hypochromasia Cancelled Poikilocytosis Cancelled Basophilic Stippling Cancelled Anisocytosis Cancelled Microcytosis Cancelled Macrocytosis Cancelled Spherocytes Cancelled Sickle Cells Cancelled Target Cells Cancelled Tear Drop Cells Cancelled Ovalocytes Cancelled Stomatocytes Cancelled [place] Bodies Cancelled Fabiola Cells Cancelled Bite Cells Cancelled Acanthocytes (Spur) Cancelled Rouleaux Cancelled Schistocytes Cancelled Sodium Potassium Chloride Carbon Dioxide Anion Gap BUN Creatinine Estim Creat Clear Calc Est GFR (MDRD) Af Amer Est GFR (MDRD) Non-Af BUN/Creatinine Ratio Glucose Hemoglobin A1c Lactic Acid 2.4 H 2.9 H Calcium 12/31/17 12/31/17 12/31/17 05:52 05:52 05:52 WBC Corrected WBC RBC Hgb Hct MCV MCH MCHC RDW RDW Differential Plt Count MPV Immature Gran % (Auto) Neut % (Auto) Lymph % (Auto) [place] % (Auto) Eos % (Auto) Baso % (Auto) Immature Gran # (Auto) Absolute Neuts (auto) Absolute Lymphs (auto) Absolute Monos (auto) Total Counted Neutrophils % (Manual) Band Neutrophils % Lymphocytes % (Manual) Monocytes % (Manual) Eosinophils % (Manual) Basophils % (Manual) Metamyelocytes % Myelocytes % Promyelocytes % Blast Cells % Plasma Cell % (Manual) Other Cells % Lymphocytes # Nucleated RBCs/100 WBC Differential Comment Diff Path Review Hypersegmented Neuts Atypical Lymphocytes Reactive Lymphocytes Smudge Cells Eosinophilia # Basophilia # Toxic Granulation Dohle Bodies Patience Rods Platelet Estimate Plt Morphology Comment RBC Morphology Polychromasia Hypochromasia Poikilocytosis Basophilic Stippling Anisocytosis Microcytosis Macrocytosis Spherocytes Sickle Cells Target Cells Tear Drop Cells Ovalocytes Stomatocytes [place] Bodies Fabiola Cells Bite Cells Acanthocytes (Spur) Rouleaux Schistocytes Sodium Cancelled Potassium Cancelled Chloride Cancelled Carbon Dioxide Cancelled Anion Gap Cancelled BUN Cancelled Creatinine Cancelled Estim Creat Clear Calc Cancelled Est GFR (MDRD) Af Amer Cancelled Est GFR (MDRD) Non-Af Cancelled BUN/Creatinine Ratio Cancelled Glucose Cancelled Hemoglobin A1c Cancelled Lactic Acid Cancelled Calcium Cancelled 12/31/17 12/31/17 12/31/17 07:30 07:30 07:30 WBC 8.8 Corrected WBC RBC 3.54 L Hgb 9.8 L Hct 32.3 L MCV 91.2 MCH 27.7 MCHC 30.3 L RDW 15.2 H RDW Differential 49.4 H Plt Count 155 MPV 9.4 Immature Gran % (Auto) 0.000 Neut % (Auto) 90.3 H Lymph % (Auto) 8.1 L [place] % (Auto) 1.6 Eos % (Auto) 0.0 Baso % (Auto) 0.0 Immature Gran # (Auto) Absolute Neuts (auto) 7.9 H Absolute Lymphs (auto) 0.71 L Absolute Monos (auto) Total Counted Not Reportable Neutrophils % (Manual) Band Neutrophils % Lymphocytes % (Manual) Monocytes % (Manual) Eosinophils % (Manual) Basophils % (Manual) Metamyelocytes % Myelocytes % Promyelocytes % Blast Cells % Plasma Cell % (Manual) Other Cells % Lymphocytes # Nucleated RBCs/100 WBC Differential Comment Diff Path Review Hypersegmented Neuts Atypical Lymphocytes Reactive Lymphocytes Smudge Cells Eosinophilia # Basophilia # Toxic Granulation Dohle Bodies Patience Rods Platelet Estimate Plt Morphology Comment RBC Morphology Polychromasia Hypochromasia Poikilocytosis Basophilic Stippling Anisocytosis Microcytosis Macrocytosis Spherocytes Sickle Cells Target Cells Tear Drop Cells Ovalocytes Stomatocytes [place] Bodies Fabiola Cells Bite Cells Acanthocytes (Spur) Rouleaux Schistocytes Sodium 137 Potassium 6.7 H* Chloride 108 H Carbon Dioxide 22.0 Anion Gap 7 BUN 33 H Creatinine 1.23 H Estim Creat Clear Calc 77.63 Est GFR (MDRD) Af Amer 57 L Est GFR (MDRD) Non-Af 47 L BUN/Creatinine Ratio 26.8 H Glucose 378 H Hemoglobin A1c 7.7 H Lactic Acid Calcium 7.8 L 12/31/17 12/31/17 07:30 09:32 WBC Corrected WBC RBC Hgb Hct MCV MCH MCHC RDW RDW Differential Plt Count MPV Immature Gran % (Auto) Neut % (Auto) Lymph % (Auto) [place] % (Auto) Eos % (Auto) Baso % (Auto) Immature Gran # (Auto) Absolute Neuts (auto) Absolute Lymphs (auto) Absolute Monos (auto) Total Counted Neutrophils % (Manual) Band Neutrophils % Lymphocytes % (Manual) Monocytes % (Manual) Eosinophils % (Manual) Basophils % (Manual) Metamyelocytes % Myelocytes % Promyelocytes % Blast Cells % Plasma Cell % (Manual) Other Cells % Lymphocytes # Nucleated RBCs/100 WBC Differential Comment Diff Path Review Hypersegmented Neuts Atypical Lymphocytes Reactive Lymphocytes Smudge Cells Eosinophilia # Basophilia # Toxic Granulation Dohle Bodies Patience Rods Platelet Estimate Plt Morphology Comment RBC Morphology Polychromasia Hypochromasia Poikilocytosis Basophilic Stippling Anisocytosis Microcytosis Macrocytosis Spherocytes Sickle Cells Target Cells Tear Drop Cells Ovalocytes Stomatocytes [place] Bodies [place] Cells Bite Cells Acanthocytes (Spur) Rouleaux Schistocytes Sodium 135 L Potassium 5.9 H Chloride 109 H Carbon Dioxide 22.0 Anion Gap 4 L BUN 32 H Creatinine 1.11 H Estim Creat Clear Calc 86.02 Est GFR (MDRD) Af Amer 64 Est GFR (MDRD) Non-Af 53 L BUN/Creatinine Ratio 28.8 H Glucose 368 H Hemoglobin A1c Lactic Acid 3.0 H Calcium 7.5 L POC Glucose 12/31/17 12/31/17 12/30/17 10:47 06:51 22:14 POC Glucose 348 H 376 H 312 H Medical Necessity - Tobacco Use Smoking Status: Former smoker Assessment/Plan All Active Problems (This Medical Record has been edited. Action required.) Severe sepsis (Acute) Urinary tract infection (Acute) Shortness of breath (Resolved) Nonproductive cough (Resolved) Patient is a 62-year-old female admitted 12/30/2017 due to hypotension which was found in her primary care physician's office. 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 1. Severe sepsis secondary to acute gram-negative UTI-urine culture showing gram-negative nehemias. Patient has history of E. coli in the previous urine cultures. Continue IV Rocephin. Recommend follow-up with urologist as outpatient given frequent UTIs with history of septic shock secondary to UTI November 2016. Patient states she had a mesh implant placed in 2003 or 2004 and states that mesh implants failed to work. She states she has had urinary incontinence since that time as well as recurrent UTIs. 2. Hyperkalemia-home spironolactone regimen on hold. Patient received Kayexalate 30 g ?1. Repeat potassium in a.m. 3. Acute kidney injury-suspect secondary to #1. Improved with IV fluids. Continue IV fluids. Trend BMP. 4. Hypotension-secondary to #1. Resolved. Continue IV fluids. 5. Type 2 diabetes mellitus-hold home oral regimen. Accu-Cheks before meals at bedtime with sliding scale insulin. Hemoglobin A1c 7.7%. 6. Hypertension-stable, continue current regimen. 7. Hyperlipidemia-continue statin, fenofibrate. 8. History of recurrent DVT on chronic anticoagulation with Eliquis-continue home Eliquis regimen. 9. Rheumatoid arthritis/degenerative joint disease/fibromyalgia-PRN pain regimen. PT/OT. 10. Chronic normochromic normocytic anemia-stable. Continue iron supplementation. 11. Depression-continue home fluoxetine regimen. DVT prophylaxis-Eliquis. This patient was seen by ORALIA Platt under the supervision of Dr. Tong.
--- NOTE | 2017-12-31 14:06 | CASEMGMT ---
See RN JOSE link. D/C PLAN: Undetermined. Pt would like to return home. Awaiting PT/OT eval. Pt had [facility] in the past and skilled stay @ [facility]. CM will continue to follow and assist with Discharge needs. Adrián BSN RN CM
[2017-12-31] MEDS: Acetaminophen 325 MG Tablet 650 MG PO (15:44)
[2017-12-31 16:25] LABS: Bedside Glucose 205 mg/dL (70-110)
[2017-12-31 18:22] LABS: Anion Gap 8 (5-15); BUN 24 mg/dL (7-18); BUN/Creat Ratio 21.6 RATIO (10-20); Calcium,Total 7.2 mg/dL (8.5-10.1); Chloride 111 mmol/L (98-107); Creatinine, Serum 1.11 mg/dL (0.55-1.02); EST Glomerular Filtration Rate 53 mL/min (>60); Est Glom Filt Rate - Afr Amer 64 mL/min (>60); Estimated Creatinine Clearance 86.02 ml/min; Glucose 201 mg/dL (74-106); Potassium 4.8 mmol/L (3.5-5.1); Sodium Level 138 mmol/L (136-145)
[2017-12-31] MEDS: Atorvastatin Calcium 80 MG Tablet PO (21:51)
[2017-12-31] MEDS: Gabapentin 600 MG Tablet PO (21:52)
[2017-12-31 22:00] LABS: Bedside Glucose 240 mg/dL (70-110)
[2018-01-01] VITALS (12 sets, daily range): BP systolic 115–166; BP diastolic 42–73; PULSE 78–91; RESP 16–18; TEMP 36.3–37; O2SAT 96–98
[2018-01-01] MEDS: 0.9% Normal Saline 1,000 ML 150 ML IV ×3 (05:55→19:37)
[2018-01-01 05:58] LABS: Hematocrit 33.3 % (37-47); Hemoglobin 9.9 g/dl (12.0-15.0); Mean Corp Hgb Conc 29.7 g/gl (32-36); Mean Corpuscular Hgb 27.5 pg (27.0-32.0); Mean Corpuscular Volume 92.5 fL (81-99); Mean Platelet Vol. 9.1 fl (6.2-12.0); Platelet Count 147 K/mm3 (150-450); RBC Distribution Width CV 15.2 % (11.6-14.6); RBC Distribution Width SD 49.6 fl (35.1-43.9); White Blood Count 5.7 K/mm3 (4.4-11.0)
[2018-01-01 05:59] LABS: Scan Indicated on CBC? Y/N NO
[2018-01-01 06:16] LABS: Anion Gap 4 (5-15); BUN 20 mg/dL (7-18); BUN/Creat Ratio 24.7 RATIO (10-20); Calcium,Total 7.6 mg/dL (8.5-10.1); Chloride 112 mmol/L (98-107); Creatinine, Serum 0.81 mg/dL (0.55-1.02); EST Glomerular Filtration Rate 77 mL/min (>60); Est Glom Filt Rate - Afr Amer 93 mL/min (>60); Estimated Creatinine Clearance 117.88 ml/min; Glucose 183 mg/dL (74-106); Potassium 4.4 mmol/L (3.5-5.1); Sodium Level 143 mmol/L (136-145)
[2018-01-01 06:51] LABS: Bedside Glucose 165 mg/dL (70-110)
[2018-01-01] MEDS: Ipratropium/Albuterol Sulfate 3 ML AMPUL.NEB INHALATION ×2 (07:43→15:03)
[2018-01-01] MEDS: oxyCODONE 5 MG Tablet PO ×3 (08:12→22:05)
[2018-01-01] MEDS: Magnesium Oxide 400 MG Tablet PO ×2 (08:13→22:06)
[2018-01-01] MEDS: APIXABAN 5 MG TABLET PO ×2 (08:13→22:04)
[2018-01-01] MEDS: Multivitamins,Ther W-Minerals Tablet 1 TABLET PO ×2 (08:13→16:36)
[2018-01-01] MEDS: Ferrous Sulfate 325 MG Tablet PO ×3 (08:14→16:36)
[2018-01-01] MEDS: Loratadine 10 MG Tablet PO (08:14)
[2018-01-01] MEDS: Omega-3 Acid Ethyl Esters 1 GM Capsule PO ×2 (08:14→22:07)
[2018-01-01] MEDS: FLUoxetine 20 MG Capsule PO (08:14)
[2018-01-01] MEDS: Gabapentin 300 MG Capsule PO (08:14)
[2018-01-01] MEDS: Ezetimibe 10 MG Tablet PO (08:14)
[2018-01-01] MEDS: Insulin Lispro 100 UNIT/ML INSULN.PEN SQ ×4 (08:15→22:05)
[2018-01-01] MEDS: Aspirin E.C. 81 MG Tablet PO (08:15)
[2018-01-01] MEDS: Pantoprazole Sodium 40 MG Tablet PO (08:15)
[2018-01-01] MEDS: Fluticasone 0.05% 1 SPRAY NASAL.SRY 2 SPRAY NASAL (08:15)
[2018-01-01] MEDS: Fenofibrate 145 MG Tablet PO (08:15)
[2018-01-01] MEDS: Ceftriaxone 1 GM/50 ML BAG IV (10:49)
--- NOTE | 2018-01-01 10:54 | CASEMGMT ---
Addendum entered by Jess Yen 01/01/18 12:59: SW spoke w/pt again this afternoon, her daughter Nalini is not yet here. SW asked pt about discharge plan, pt does not feel she can manage at home and wants a referral sent to [facility]. SW explained will have the SW on Wednesday follow up on this, send referral to [facility] and if they can take her, can start the precert. SW also explained will come back Wednesday and we can complete the POA forms at that time once pt has spoken w/her daughter. Pt in agreement with this plan. SW will follow up Wednesday w/referral to [facility] and to complete POA forms. THANIA Aguilar, ARCHITECTURE TECHNICIAN Original Note: SW met w/pt in room in regard to POA, pt would like to complete POA forms. Pt put her daughter Valentina as POA and Xin as alternate. Pt would like to ask her daughter Nalini if she can put her as the 2nd alternate. Pt does not want to complete living will at this time. Pt's daughter Nalini is to be here shortly, SW will check back w/pt. SW also asked pt about discharge plan, pt is not certain if she is able to return home or not. SW/JOSE will follow up on Wednesday if pt is still here and not able to return home. THANIA Aguilar, ARCHITECTURE TECHNICIAN
[2018-01-01] MEDS: Acetaminophen 325 MG Tablet 650 MG PO ×2 (10:55→22:05)
[2018-01-01 11:40] LABS: Bedside Glucose 213 mg/dL (70-110)
[2018-01-01 16:45] LABS: Bedside Glucose 220 mg/dL (70-110)
--- NOTE | 2018-01-01 16:48 | PN_ITS ---
Patient Problems: Active and Suspected Problems (This Medical Record has been edited. Action required.) Severe sepsis (Acute) Urinary tract infection (Acute) - Physical Exam General: Alert, Oriented x3, Cooperative HEENT: Atraumatic, PERRLA, EOMI, Normocephalic Oral: Moist Mucosa, No Gingival or Mucosal Lesions/ Ulcerations Neck: Supple, No JVD Lungs: Clear to auscultation, Normal air movement, No rhonchi, No wheeze Cardiovascular: Regular rate, Regular Rhythm, No murmurs, No Ectopic Activity Abdomen: Bowel Sounds Present, Soft, Non Tender, Non-Distended, No Hepato- splenomegaly, Obese Extremities: No clubbing, No cyanosis, No edema Skin: No rashes Musculoskeletal: No Tenderness to Palpation of Joints or Extremities, Arthritic Changes Lymphatic: No Cervical, Supraclavicular, or Inguinal Adenopathy Neurological: Cranial nerves II-XII grossly intact, Neuro grossly intact Psych/Mental Status: Normal Affect, Appropriate Vital Signs Temp Pulse Resp BP Pulse Ox 97.4 F L 81 16 166/68 H 96 01/01/18 08:24 01/01/18 15:13 01/01/18 15:05 01/01/18 08:24 01/01/18 08:24 Oxygen Flow Rate (L/min) 2 Oxygen Delivery Method Room Air Weight: 222 lb 14.197 oz Body Mass Index (BMI) 45.0 Intake and Output for Last 24 Hours 12/30/17 12/31/17 01/01/18 23:59 23:59 23:59 Intake Total 634 / 634 3783 / 3783 2061 Balance 634 / 634 3783 / 3783 2061 Laboratory Tests Past 24 Hrs 12/31/17 01/01/18 01/01/18 17:29 05:45 05:45 WBC 5.7 RBC 3.60 L Hgb 9.9 L Hct 33.3 L MCV 92.5 MCH 27.5 MCHC 29.7 L RDW 15.2 H RDW Differential 49.6 H Plt Count 147 L MPV 9.1 Sodium 138 143 Potassium 4.8 4.4 Chloride 111 H 112 H Carbon Dioxide 19.0 L 27.0 Anion Gap 8 4 L BUN 24 H 20 H Creatinine 1.11 H 0.81 Estim Creat Clear Calc 86.02 117.88 Est GFR (MDRD) Af Amer 64 93 Est GFR (MDRD) Non-Af 53 L 77 BUN/Creatinine Ratio 21.6 H 24.7 H Glucose 201 H 183 H Calcium 7.2 L 7.6 L POC Glucose 01/01/18 01/01/18 12/31/17 11:25 06:44 21:44 POC Glucose 213 H 165 H 240 H Diagnostic Data Chest X-Ray 12/30/17 16:58 IMPRESSION: Old granulomatous disease. No acute cardiopulmonary pathology Electronically Signed: Mg Ordaz MD at 17:28 EDT , Service support , Medical Necessity - Tobacco Use Smoking Status: Former smoker Assessment/Plan All Active Problems (This Medical Record has been edited. Action required.) Severe sepsis (Acute) Urinary tract infection (Acute) Shortness of breath (Resolved) Nonproductive cough (Resolved) Patient is a 62-year-old female admitted 12/30/2017 due to hypotension which was found in her primary care physician's office. 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 1. Severe sepsis secondary to acute gram-negative UTI-urine culture showing gram-negative nehemias. Patient has history of E. coli in the previous urine cultures. Continue IV Rocephin. Recommend follow-up with urologist as outpatient given frequent UTIs with history of septic shock secondary to UTI November 2016. Patient states she had a mesh implant placed in 2003 or 2004 and states that mesh implants failed to work. She states she has had urinary incontinence since that time as well as recurrent UTIs. 2. Hyperkalemia-home spironolactone regimen on hold. Patient received Kayexalate 30 g ?1. Repeat potassium in a.m. 3. Acute kidney injury-suspect secondary to #1. Improved with IV fluids. Continue IV fluids. Trend BMP. 4. Hypotension-secondary to #1. Resolved. Continue IV fluids. 5. Type 2 diabetes mellitus-hold home oral regimen. Accu-Cheks before meals at bedtime with sliding scale insulin. Hemoglobin A1c 7.7%. 6. Hypertension-stable, continue current regimen. 7. Hyperlipidemia-continue statin, fenofibrate. 8. History of recurrent DVT on chronic anticoagulation with Eliquis-continue home Eliquis regimen. 9. Rheumatoid arthritis/degenerative joint disease/fibromyalgia-PRN pain regimen. PT/OT. 10. Chronic normochromic normocytic anemia-stable. Continue iron supplementation. 11. Depression-continue home fluoxetine regimen. VTE prophylaxis: Eliquis PO GI prophylaxis: PPI po Patient is full code Disposition: patient had changed her mind, she now wants to go to SNF for rehab. Code Visit Inpatient E&M: 21910 Subs Hosp L2
[2018-01-01] MEDS: Docusate Sodium 100 MG Capsule 200 MG PO (22:05)
[2018-01-01] MEDS: Atorvastatin Calcium 80 MG Tablet PO (22:06)
[2018-01-01] MEDS: Gabapentin 600 MG Tablet PO (22:07)
[2018-01-01 22:16] LABS: Bedside Glucose 237 mg/dL (70-110)
[2018-01-02] VITALS (13 sets, daily range): BP systolic 140–155; BP diastolic 63–72; PULSE 71–87; RESP 16–18; TEMP 36.4–37.1; O2SAT 92–96
[2018-01-02] MEDS: 0.9% Normal Saline 1,000 ML 150 ML IV ×4 (01:50→23:15)
[2018-01-02 03:00] LABS: Bedside Glucose 157 mg/dL (70-110)
[2018-01-02 06:03] LABS: Hematocrit 33.9 % (37-47); Hemoglobin 10.2 g/dl (12.0-15.0); Mean Corp Hgb Conc 30.1 g/gl (32-36); Mean Corpuscular Hgb 27.9 pg (27.0-32.0); Mean Corpuscular Volume 92.9 fL (81-99); Mean Platelet Vol. 9.2 fl (6.2-12.0); Platelet Count 139 K/mm3 (150-450); RBC Distribution Width CV 15.5 % (11.6-14.6); RBC Distribution Width SD 50.3 fl (35.1-43.9); Red Blood Count 3.65 M/mm3 (4.2-5.4); White Blood Count 6.3 K/mm3 (4.4-11.0)
[2018-01-02 06:30] LABS: Anion Gap 4 (5-15); BUN 16 mg/dL (7-18); BUN/Creat Ratio 23.5 RATIO (10-20); Calcium,Total 7.9 mg/dL (8.5-10.1); Chloride 110 mmol/L (98-107); Creatinine, Serum 0.68 mg/dL (0.55-1.02); EST Glomerular Filtration Rate 93 mL/min (>60); Est Glom Filt Rate - Afr Amer 113 mL/min (>60); Estimated Creatinine Clearance 140.42 ml/min; Glucose 158 mg/dL (74-106); Potassium 4.9 mmol/L (3.5-5.1); Sodium Level 141 mmol/L (136-145)
[2018-01-02 06:42] LABS: Scan Indicated on CBC? Y/N NO
[2018-01-02 06:51] LABS: Bedside Glucose 147 mg/dL (70-110)
[2018-01-02] MEDS: Ipratropium/Albuterol Sulfate 3 ML AMPUL.NEB INHALATION ×3 (07:39→22:28)
[2018-01-02] MEDS: oxyCODONE 5 MG Tablet PO (09:02)
[2018-01-02] MEDS: Ezetimibe 10 MG Tablet PO (09:02)
[2018-01-02] MEDS: Ceftriaxone 1 GM/50 ML BAG IV (09:02)
[2018-01-02] MEDS: Pantoprazole Sodium 40 MG Tablet PO (09:03)
[2018-01-02] MEDS: Omega-3 Acid Ethyl Esters 1 GM Capsule PO ×2 (09:03→21:23)
[2018-01-02] MEDS: FLUoxetine 20 MG Capsule PO (09:03)
[2018-01-02] MEDS: Multivitamins,Ther W-Minerals Tablet 1 TABLET PO ×2 (09:03→16:26)
[2018-01-02] MEDS: Ferrous Sulfate 325 MG Tablet PO ×3 (09:03→16:26)
[2018-01-02] MEDS: Aspirin E.C. 81 MG Tablet PO (09:03)
[2018-01-02] MEDS: APIXABAN 5 MG TABLET PO ×2 (09:03→21:22)
[2018-01-02] MEDS: Magnesium Oxide 400 MG Tablet PO ×2 (09:03→21:24)
[2018-01-02] MEDS: Loratadine 10 MG Tablet PO (09:03)
[2018-01-02] MEDS: Gabapentin 300 MG Capsule PO (09:03)
[2018-01-02] MEDS: Fenofibrate 145 MG Tablet PO (09:03)
[2018-01-02] MEDS: Fluticasone 0.05% 1 SPRAY NASAL.SRY 2 SPRAY NASAL (09:04)
[2018-01-02] MEDS: Insulin Lispro 100 UNIT/ML INSULN.PEN SQ ×3 (11:37→21:22)
[2018-01-02 11:50] LABS: Bedside Glucose 193 mg/dL (70-110)
[2018-01-02] MEDS: DICLOFENAC SODIUM 100 GM GEL..GRAM. 2 APPLIC TP ×3 (13:20→21:25)
[2018-01-02 16:51] LABS: Bedside Glucose 195 mg/dL (70-110)
--- NOTE | 2018-01-02 17:17 | PN_ITS ---
Patient Problems: Active and Suspected Problems (This Medical Record has been edited. Action required.) Severe sepsis (Acute) Urinary tract infection (Acute) Subjective: She feels well this morning. No additional complains. She is afebrile, WBC is normal. - Physical Exam General: Alert, Oriented x3, Cooperative HEENT: Atraumatic, PERRLA, EOMI, Normocephalic Oral: Moist Mucosa, No Gingival or Mucosal Lesions/ Ulcerations Neck: Supple, No JVD Lungs: Clear to auscultation, Normal air movement, No rhonchi, No wheeze Cardiovascular: Regular rate, Regular Rhythm, No murmurs, No Ectopic Activity Abdomen: Bowel Sounds Present, Soft, Non Tender, Non-Distended, No Hepato- splenomegaly, Obese Extremities: No clubbing, No cyanosis, No edema Skin: No rashes Musculoskeletal: No Tenderness to Palpation of Joints or Extremities, Arthritic Changes Lymphatic: No Cervical, Supraclavicular, or Inguinal Adenopathy Neurological: Cranial nerves II-XII grossly intact, Neuro grossly intact Psych/Mental Status: Normal Affect, Appropriate - Physical Exam Vital Signs Temp Pulse Resp BP Pulse Ox 98.1 F 75 18 140/72 H 92 01/02/18 15:00 01/02/18 15:55 01/02/18 15:00 01/02/18 15:00 01/02/18 15:00 Oxygen Flow Rate (L/min) 2 Oxygen Delivery Method Room Air Weight: 222 lb 14.197 oz Body Mass Index (BMI) 45.0 Intake and Output for Last 24 Hours 12/31/17 01/01/18 01/02/18 23:59 23:59 23:59 Intake Total 3783 / 3783 3325 / 3325 3242 / 3242 Balance 3783 / 3783 3325 / 3325 3242 / 3242 Laboratory Tests Past 24 Hrs 01/02/18 01/02/18 05:40 05:40 WBC 6.3 RBC 3.65 L Hgb 10.2 L Hct 33.9 L MCV 92.9 MCH 27.9 MCHC 30.1 L RDW 15.5 H RDW Differential 50.3 H Plt Count 139 L MPV 9.2 Sodium 141 Potassium 4.9 Chloride 110 H Carbon Dioxide 27.0 Anion Gap 4 L BUN 16 Creatinine 0.68 Estim Creat Clear Calc 140.42 Est GFR (MDRD) Af Amer 113 Est GFR (MDRD) Non-Af 93 BUN/Creatinine Ratio 23.5 H Glucose 158 H Calcium 7.9 L POC Glucose 01/02/18 01/02/18 01/02/18 16:24 11:32 06:39 POC Glucose 195 H 193 H 147 H 01/02/18 01/01/18 02:55 22:03 POC Glucose 157 H 237 H Diagnostic Data Chest X-Ray 12/30/17 16:58 IMPRESSION: Old granulomatous disease. No acute cardiopulmonary pathology Electronically Signed: Mg Ordaz MD at 17:28 EDT , Service support , Medical Necessity - Tobacco Use Smoking Status: Former smoker Assessment/Plan All Active Problems (This Medical Record has been edited. Action required.) Severe sepsis (Acute) Urinary tract infection (Acute) Shortness of breath (Resolved) Nonproductive cough (Resolved) Patient is a 62-year-old female admitted 12/30/2017 due to hypotension which was found in her primary care physician's office. 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 1. Severe sepsis secondary to acute gram-negative UTI-urine culture showing gram-negative nehemias. Patient has history of E. coli in the previous urine cultures. Continue IV Rocephin. Recommend follow-up with urologist as outpatient given frequent UTIs with history of septic shock secondary to UTI November 2016. Patient states she had a mesh implant placed in 2003 or 2004 and states that mesh implants failed to work. She states she has had urinary incontinence since that time as well as recurrent UTIs. Culture showed klebsiella pneumoniae, sensitive to most of abx except for ampicillin, nitrofurantoin, and Bactrim. Continue ceftriaxone while in the hospital, and plan to discharge with oral cephalosporin. 2. Hyperkalemia-She was given Kayexalate x 1. Spironolactone 12.5 mg po qd is on hold. Monitor BMP. 3. Acute kidney injury-suspect secondary to #1. Improved with IV fluids. Continue IV fluids. Trend BMP. 4. Hypotension-secondary to #1. Resolved. Continue IV fluids. 5. Type 2 diabetes mellitus-hold home oral regimen. Accu-Cheks before meals at bedtime with sliding scale insulin. Hemoglobin A1c 7.7%. 6. Hypertension-stable, continue current regimen. 7. Hyperlipidemia-continue statin, fenofibrate. 8. History of recurrent DVT on chronic anticoagulation with Eliquis-continue home Eliquis regimen. 9. Rheumatoid arthritis/degenerative joint disease/fibromyalgia-PRN pain regimen. PT/OT. 10. Chronic normochromic normocytic anemia-stable. Continue iron supplementation. 11. Depression-continue home fluoxetine regimen. VTE prophylaxis: Eliquis PO GI prophylaxis: PPI po Patient is full code Disposition: patient had changed her mind, she now wants to go to SNF for rehab. Social service is aware. Code Visit Inpatient E&M: 38463 Subs Hosp L2
[2018-01-02] MEDS: Atorvastatin Calcium 80 MG Tablet PO (21:23)
[2018-01-02] MEDS: Gabapentin 600 MG Tablet PO (21:24)
[2018-01-02 21:35] LABS: Bedside Glucose 213 mg/dL (70-110)
[2018-01-02] MEDS: HYDROcodone Bitartrate/Apap 5/325 Tablet PO (22:48)
[2018-01-03 03:00] VITALS: BP 131/73; PULSE 78; RESP 16; TEMP 36.9; O2SAT 95
[2018-01-03 03:21] VITALS: PULSE 76
[2018-01-03] MEDS: 0.9% Normal Saline 1,000 ML 150 ML IV (06:05)
[2018-01-03 06:22] LABS: Hematocrit 35.1 % (37-47); Hemoglobin 10.5 g/dl (12.0-15.0); Mean Corp Hgb Conc 29.9 g/gl (32-36); Mean Corpuscular Hgb 27.1 pg (27.0-32.0); Mean Corpuscular Volume 90.7 fL (81-99); Mean Platelet Vol. 8.8 fl (6.2-12.0); Platelet Count 125 K/mm3 (150-450); RBC Distribution Width CV 15.6 % (11.6-14.6); RBC Distribution Width SD 51.5 fl (35.1-43.9); Red Blood Count 3.87 M/mm3 (4.2-5.4); White Blood Count 5.6 K/mm3 (4.4-11.0)
[2018-01-03 06:41] LABS: Scan Indicated on CBC? Y/N NO
[2018-01-03 06:42] LABS: Anion Gap 4 (5-15); BUN 13 mg/dL (7-18); BUN/Creat Ratio 19.1 RATIO (10-20); Calcium,Total 8.3 mg/dL (8.5-10.1); Chloride 109 mmol/L (98-107); Creatinine, Serum 0.68 mg/dL (0.55-1.02); EST Glomerular Filtration Rate 94 mL/min (>60); Est Glom Filt Rate - Afr Amer 113 mL/min (>60); Estimated Creatinine Clearance 140.42 ml/min; Glucose 165 mg/dL (74-106); Potassium 5.1 mmol/L (3.5-5.1); Sodium Level 142 mmol/L (136-145)
[2018-01-03 06:56] VITALS: PULSE 84
[2018-01-03 07:00] LABS: Bedside Glucose 146 mg/dL (70-110)
[2018-01-03 07:22] VITALS: PULSE 82; RESP 16; O2SAT 96
[2018-01-03] MEDS: Ipratropium/Albuterol Sulfate 3 ML AMPUL.NEB INHALATION (07:22)
[2018-01-03 09:00] VITALS: BP 154/56; PULSE 88; RESP 16; TEMP 36.9; O2SAT 94
[2018-01-03] MEDS: Fluticasone 0.05% 1 SPRAY NASAL.SRY 2 SPRAY NASAL (09:41)
[2018-01-03] MEDS: Ceftriaxone 1 GM/50 ML BAG IV (09:42)
[2018-01-03] MEDS: HYDROcodone Bitartrate/Apap 5/325 Tablet PO (09:42)
[2018-01-03] MEDS: DICLOFENAC SODIUM 100 GM GEL..GRAM. 2 APPLIC TP (09:42)
[2018-01-03] MEDS: Loratadine 10 MG Tablet PO (09:45)
[2018-01-03] MEDS: Multivitamins,Ther W-Minerals Tablet 1 TABLET PO (09:45)
[2018-01-03] MEDS: Ferrous Sulfate 325 MG Tablet PO ×2 (09:45→11:17)
[2018-01-03] MEDS: Gabapentin 300 MG Capsule PO (09:45)
[2018-01-03] MEDS: Magnesium Oxide 400 MG Tablet PO (09:45)
[2018-01-03] MEDS: Pantoprazole Sodium 40 MG Tablet PO (09:45)
[2018-01-03] MEDS: FLUoxetine 20 MG Capsule PO (09:45)
[2018-01-03] MEDS: Aspirin E.C. 81 MG Tablet PO (09:45)
[2018-01-03] MEDS: Ezetimibe 10 MG Tablet PO (09:45)
[2018-01-03] MEDS: APIXABAN 5 MG TABLET PO (09:45)
[2018-01-03] MEDS: Fenofibrate 145 MG Tablet PO (09:45)
[2018-01-03] MEDS: Omega-3 Acid Ethyl Esters 1 GM Capsule PO (09:45)
--- NOTE | 2018-01-03 09:55 | CASEMGMT ---
SW met w/pt, assisted pt in completing POA forms. Original and copies given to pt and copy placed on chart. We also reviewed discharge plan, pt now states she can return home, would like [facility], she has had [facility] in the past. SW let the SW and CM on PCU know that pt would like home health care w/[facility]. THANIA Aguilar, UTILITY WORKER PRODUCTION
[2018-01-03 11:05] VITALS: PULSE 82
[2018-01-03] MEDS: Insulin Lispro 100 UNIT/ML INSULN.PEN SQ (11:17)
--- NOTE | 2018-01-03 11:21 | PCM.DC ---
- Discharge Diagnoses Current Active Problems: Current Active and Chronic Problems (This Medical Record has been edited. Action required.) Severe sepsis (Acute) Urinary tract infection (Acute) Reason(s) for Visit for Discharge Instructions: Hypotension You will use the following diet at home:: Cardiac Your food should be the consistency of: Regular Your liquids should be the consistency of: Regular/Thin Discharge Activity: Return to Normal Activity Additional Instructions: Note changes to your medications. You have been taken off your spironolactone. Follow-up with your doctor on your blood pressure and blood work. He/she may want to restart this medication. You will be followed up also by home health team. Allergies/Adverse Reactions: Allergies aztreonam Allergy (Verified 12/30/17 16:16) Unknown Carbapenems Allergy (Verified 12/30/17 16:16) Unknown meperidine Allergy (Verified 12/30/17 16:16) Unknown Penicillins Allergy (Verified 12/30/17 16:16) Unknown Quinolones Allergy (Verified 12/30/17 16:16) Unknown talampicillin Allergy (Verified 12/30/17 16:16) Unknown tetracycline Allergy (Verified 12/30/17 16:16) Anaphylaxis tigecycline Allergy (Verified 12/30/17 16:16) Unknown Medications to take at Discharge Albuterol Inhaler [Ventolin Hfa] 1 - 2 puff INHALATION Q4H PRN PRN 10/01/15 Fenofibrate [Lofibra] 160 mg PO DAILY 10/01/15 Loratadine [Claritin] 10 mg PO QHS 10/01/15 Nitrofurantoin Macrocrystals [Macrobid] 100 mg PO Q12 04/07/16 Guaifenesin/Codeine [Robitussin AC] 10 ml PO Q6H PRN PRN #240 ml 04/09/16 apixaban 5 mg tablet 5 mg PO BID 07/14/17 aspirin 81 mg tablet,delayed release 81 mg PO DAILY 07/14/17 atorvastatin 80 mg tablet 80 mg PO QHS 07/14/17 cholecalciferol (vitamin D3) 50,000 unit capsule 50,000 unit PO MO 07/14/17 fluoxetine 20 mg capsule 20 mg PO DAILY 07/14/17 fluticasone 50 mcg/actuation nasal spray,suspension 2 spray INTRANASAL DAILY 07/14/17 ipratropium-albuterol 0.5 mg-3 mg(2.5 mg base)/3 mL nebulization soln 3 ml INHALATION Q8H 07/14/17 isosorbide mononitrate ER 30 mg tablet,extended release 24 hr 30 mg PO DAILY 07/14/17 lisinopril 20 mg tablet 20 mg PO DAILY 07/14/17 metformin 1,000 mg tablet 1,000 mg PO BID 07/14/17 multivitamin tablet 1 tab PO DAILY 07/14/17 nitroglycerin 0.4 mg sublingual tablet 0.4 mg SUBLINGUAL Q5M PRN 07/14/17 omega-3 fatty acids 1,000 mg capsule 1,000 mg PO BID 07/14/17 omeprazole 40 mg capsule,delayed release 40 mg PO QHS 07/14/17 tizanidine 4 mg capsule 4 mg PO Q6H PRN PRN 07/14/17 Albuterol Inhaler [Ventolin Hfa] 2 puff INHALATION Q4H PRN PRN #1 inhaler 12/08/17 Epinephrine [Epi Pen] 0.3 mg SQ PRN PRN 12/08/17 Ezetimibe [Zetia] 10 mg PO DAILY 12/08/17 Ferrous Sulfate 325 mg PO TIDCM 12/08/17 Gabapentin [Neurontin] 300 mg PO DAILY 12/08/17 Glimepiride [Amaryl] 4 mg PO BID 12/08/17 Hydrocodone Bitart/Apap 5-325 [[place] 5/325] 1 tablet PO Q4H PRN PRN 12/08/17 Multivitamins,Ther W-Minerals [Multivitamin With Minerals] 1 tablet PO BID 12/08/17 Gabapentin [Neurontin] 600 mg PO QHS 12/30/17 Amoxicillin/Potassium Clav [Augmentin 875-125 Tablet] 1 ea PO BID #10 tab 01/03/18 Magnesium Oxide [Mag-Ox 400] 400 mg PO BID #30 tab 01/03/18 The following prescriptions were given: Amoxicillin/Potassium Clav [Augmentin 875-125 Tablet] 1 ea PO BID #10 tab Magnesium Oxide [Mag-Ox 400] 400 mg PO BID #30 tab Orders to be completed after discharge: Basic Metabolic Profile (BMP) Location: Laboratory Primary Care Physician: Bronson Hunt DO [Primary Care Provider] - Please follow up with your Primary Care Physician in: in 1 week Please Follow Up With: Clifford Greco MD When: within 2 weeks Proposed Discharge Date: 01/03/18
--- NOTE | 2018-01-03 11:25 | DCINST_ITS ---
- Discharge Diagnoses Current Active Problems: Current Active and Chronic Problems (This Medical Record has been edited. Action required.) Severe sepsis (Acute) Urinary tract infection (Acute) Reason(s) for Visit for Discharge Instructions: Hypotension You will use the following diet at home:: Cardiac Your food should be the consistency of: Regular Your liquids should be the consistency of: Regular/Thin Discharge Activity: Return to Normal Activity Additional Instructions: Note changes to your medications. You have been taken off your spironolactone. Follow-up with your doctor on your blood pressure and blood work. He/she may want to restart this medication. You will be followed up also by home health team. Allergies/Adverse Reactions: Allergies aztreonam Allergy (Verified 12/30/17 16:16) Unknown Carbapenems Allergy (Verified 12/30/17 16:16) Unknown meperidine Allergy (Verified 12/30/17 16:16) Unknown Penicillins Allergy (Verified 12/30/17 16:16) Unknown Quinolones Allergy (Verified 12/30/17 16:16) Unknown talampicillin Allergy (Verified 12/30/17 16:16) Unknown tetracycline Allergy (Verified 12/30/17 16:16) Anaphylaxis tigecycline Allergy (Verified 12/30/17 16:16) Unknown Medications to take at Discharge Albuterol Inhaler [Ventolin Hfa] 1 - 2 puff INHALATION Q4H PRN PRN 10/01/15 Fenofibrate [Lofibra] 160 mg PO DAILY 10/01/15 Loratadine [Claritin] 10 mg PO QHS 10/01/15 Nitrofurantoin Macrocrystals [Macrobid] 100 mg PO Q12 04/07/16 Guaifenesin/Codeine [Robitussin AC] 10 ml PO Q6H PRN PRN #240 ml 04/09/16 apixaban 5 mg tablet 5 mg PO BID 07/14/17 aspirin 81 mg tablet,delayed release 81 mg PO DAILY 07/14/17 atorvastatin 80 mg tablet 80 mg PO QHS 07/14/17 cholecalciferol (vitamin D3) 50,000 unit capsule 50,000 unit PO MO 07/14/17 fluoxetine 20 mg capsule 20 mg PO DAILY 07/14/17 fluticasone 50 mcg/actuation nasal spray,suspension 2 spray INTRANASAL DAILY 09/26 ipratropium-albuterol 0.5 mg-3 mg(2.5 mg base)/3 mL nebulization soln 3 ml INHALATION Q8H 07/14/17 isosorbide mononitrate ER 30 mg tablet,extended release 24 hr 30 mg PO DAILY 09/26 lisinopril 20 mg tablet 20 mg PO DAILY 07/14/17 metformin 1,000 mg tablet 1,000 mg PO BID 07/14/17 multivitamin tablet 1 tab PO DAILY 07/14/17 nitroglycerin 0.4 mg sublingual tablet 0.4 mg SUBLINGUAL Q5M PRN 07/14/17 omega-3 fatty acids 1,000 mg capsule 1,000 mg PO BID 07/14/17 omeprazole 40 mg capsule,delayed release 40 mg PO QHS 07/14/17 tizanidine 4 mg capsule 4 mg PO Q6H PRN PRN 07/14/17 Albuterol Inhaler [Ventolin Hfa] 2 puff INHALATION Q4H PRN PRN #1 inhaler Epinephrine [Epi Pen] 0.3 mg SQ PRN PRN 12/08/17 Ezetimibe [Zetia] 10 mg PO DAILY 12/08/17 Ferrous Sulfate 325 mg PO TIDCM 12/08/17 Gabapentin [Neurontin] 300 mg PO DAILY 12/08/17 Glimepiride [Amaryl] 4 mg PO BID 12/08/17 Hydrocodone Bitart/Apap 5-325 [[place] 5/325] 1 tablet PO Q4H PRN PRN 12/08/17 Multivitamins,Ther W-Minerals [Multivitamin With Minerals] 1 tablet PO BID 12/08 Gabapentin [Neurontin] 600 mg PO QHS 12/30/17 Amoxicillin/Potassium Clav [Augmentin 875-125 Tablet] 1 ea PO BID #10 tab Magnesium Oxide [Mag-Ox 400] 400 mg PO BID #30 tab 01/03/18 The following prescriptions were given: Amoxicillin/Potassium Clav [Augmentin 875-125 Tablet] 1 ea PO BID #10 tab Magnesium Oxide [Mag-Ox 400] 400 mg PO BID #30 tab Orders to be completed after discharge: Basic Metabolic Profile (BMP) Location: Laboratory Primary Care Physician: Bronson Hunt DO [Primary Care Provider] - Please follow up with your Primary Care Physician in: in 1 week Please Follow Up With: Clifford Greco MD When: within 2 weeks Proposed Discharge Date: 01/03/18
--- NOTE | 2018-01-03 11:28 | PCM.DC.SUM ---
Discharge Date and Diagnosis Date of Admission: 12/30/17 Date of Discharge: 01/03/18 - Primary Discharge Diagnosis Active and Suspected Problems (This Medical Record has been edited. Action required.) Severe sepsis (Acute) Klebsiella pneumoniae urinary tract infection (Acute) Hyperkalemia Acute kidney injury Hypotension - Secondary Discharge Diagnosis Chronic Problems (This Medical Record has been edited. Action required.) Type II diabetes mellitus (Chronic) Fibromyalgia (Chronic) My thought arthritis Degenerative joint disease Chronic normocytic normochromic anemia Depression Hospital Course and Treatment Imaging Results: Clinical Impression(s) from Imaging Studies Chest X-Ray 12/30/17 16:58 IMPRESSION: Old granulomatous disease. No acute cardiopulmonary pathology Electronically Signed: Mg Ordaz MD at 17:28 EDT , Service support , None Operations: None Procedures: None Summary of Care Provided: 62-year-old female admitted on 12/30/2017 due to hypotension which was found in her primary care physician's office. 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 1. Severe sepsis secondary to acute Klebsiella pneumoniae UTI, managed on IV Rocephin. Discharged on p.o. Augmentin . Recommend follow-up with urologist as outpatient given frequent UTIs with history of septic shock secondary to UTI November 2016. Patient states she had a mesh implant placed in 2003 or 2004 and states that mesh implants failed to work. She states she has had urinary incontinence since that time as well as recurrent UTIs. 2. Hyperkalemia-She was given Kayexalate x 1. Spironolactone 12.5 mg po qd is on hold, will need repeat BMP in 3 days 3. Acute kidney injury-suspect secondary to #1. Improved with IV fluids. BMP in 3 days 4. Hypotension-secondary to #1. Resolved. Resumed on lisinopril, spironolactone was still held. 5. Type 2 diabetes mellitus, HbA1c 7.7, managed with Accu-Cheks before meals at bedtime with sliding scale insulin the hospital, home medications resumed on discharge. 6. Hypertension, regimen 7. Hyperlipidemia-continue statin, fenofibrate. 8. History of recurrent DVT on chronic anticoagulation with Eliquis-continue home Eliquis regimen. 9. Rheumatoid arthritis/degenerative joint disease/fibromyalgia-PRN pain regimen. PT/OT. 10. Chronic normochromic normocytic anemia-stable. Continue iron supplementation. 11. Depression-continue home fluoxetine regimen. Discharge Diet: Low fat/ Low Cholesterol, 2000 mg Sodium Diet, Carb Control Diet Discharge Activity: Return to Normal Activity Home Medications: Medications to take at Discharge Albuterol Inhaler [Ventolin Hfa] 1 - 2 puff INHALATION Q4H PRN PRN 10/01/15 Fenofibrate [Lofibra] 160 mg PO DAILY 10/01/15 Loratadine [Claritin] 10 mg PO QHS 10/01/15 Nitrofurantoin Macrocrystals [Macrobid] 100 mg PO Q12 04/07/16 Guaifenesin/Codeine [Robitussin AC] 10 ml PO Q6H PRN PRN #240 ml 04/09/16 apixaban 5 mg tablet 5 mg PO BID 07/14/17 aspirin 81 mg tablet,delayed release 81 mg PO DAILY 07/14/17 atorvastatin 80 mg tablet 80 mg PO QHS 07/14/17 cholecalciferol (vitamin D3) 50,000 unit capsule 50,000 unit PO MO 07/14/17 fluoxetine 20 mg capsule 20 mg PO DAILY 07/14/17 fluticasone 50 mcg/actuation nasal spray,suspension 2 spray INTRANASAL DAILY 07/14/17 ipratropium-albuterol 0.5 mg-3 mg(2.5 mg base)/3 mL nebulization soln 3 ml INHALATION Q8H 07/14/17 isosorbide mononitrate ER 30 mg tablet,extended release 24 hr 30 mg PO DAILY 07/14/17 lisinopril 20 mg tablet 20 mg PO DAILY 07/14/17 metformin 1,000 mg tablet 1,000 mg PO BID 07/14/17 multivitamin tablet 1 tab PO DAILY 07/14/17 nitroglycerin 0.4 mg sublingual tablet 0.4 mg SUBLINGUAL Q5M PRN 07/14/17 omega-3 fatty acids 1,000 mg capsule 1,000 mg PO BID 07/14/17 omeprazole 40 mg capsule,delayed release 40 mg PO QHS 07/14/17 tizanidine 4 mg capsule 4 mg PO Q6H PRN PRN 07/14/17 Albuterol Inhaler [Ventolin Hfa] 2 puff INHALATION Q4H PRN PRN #1 inhaler 12/08/17 Epinephrine [Epi Pen] 0.3 mg SQ PRN PRN 12/08/17 Ezetimibe [Zetia] 10 mg PO DAILY 12/08/17 Ferrous Sulfate 325 mg PO TIDCM 12/08/17 Gabapentin [Neurontin] 300 mg PO DAILY 12/08/17 Glimepiride [Amaryl] 4 mg PO BID 12/08/17 Hydrocodone Bitart/Apap 5-325 [[place] 5/325] 1 tablet PO Q4H PRN PRN 12/08/17 Multivitamins,Ther W-Minerals [Multivitamin With Minerals] 1 tablet PO BID 12/08/17 Gabapentin [Neurontin] 600 mg PO QHS 12/30/17 Amoxicillin/Potassium Clav [Augmentin 875-125 Tablet] 1 ea PO BID #10 tab 01/03/18 Magnesium Oxide [Mag-Ox 400] 400 mg PO BID #30 tab 01/03/18 Following Prescrptions Were Given to Patient: Amoxicillin/Potassium Clav [Augmentin 875-125 Tablet] 1 ea PO BID #10 tab Magnesium Oxide [Mag-Ox 400] 400 mg PO BID #30 tab Other Amb Orders: Basic Metabolic Profile (BMP) Location: Laboratory Primary Care Physician: Bronson Hunt DO [Primary Care Provider] - Please follow up with your Primary Care Physician in: in 1 week Please Follow Up With: Clifford Greco MD When: within 2 weeks Disposition: Home Minutes spent on discharge:: 40 Patient Condition:: Stable Medical Necessity - Tobacco Use Smoking Status: Former smoker Tobacco Use: Non-smoker Meaningful Use Info Meaningful Use Diagnoses (Choose all that apply): None applicable Code Visit Inpatient E&M: 29440 Disch Hosp
[2018-01-03 11:40] LABS: Bedside Glucose 233 mg/dL (70-110)
--- NOTE | 2018-01-03 11:53 | CASEMGMT ---
Addendum entered by Nalini Meek 01/03/18 15:04: Call back from [facility] and they are unsure if they can take pt at this time. This RN CM placed a call to [facility] to see what [facility] is in-network for pt at this time. Per Sarah at [facility], there is 'no network' and provides reference to [facility] guide at this time. [facility] updated on all at this time, voices understanding and states still unsure if able to take pt at this time. Referral faxed to [facility] at this time and call placed to Dorothy Harley at [facility] to notify her of referral, voices understanding. This RN CM then received a call back from Dorothy at [facility] at this time and she states that they will now take pt for RN, PT/OT. Dorothy Harley at [facility] notified at this time. Agustin SANCHEZ CM Original Note: Per Felipe IVORY, pt would now like to go home with HHC set up through [facility]. Call to [facility] and per representatives, [facility] is going out of business, will be closing in January, and can no longer take any further referrals. Pt updated at this time and states no preference on new [facility] at this time. Call to Maday at [facility] and she states that they can take pt at this time. Order in [facility] for RN, PT/OT at this time. Agustin SANCHEZ CM
--- NOTE | 2018-01-04 15:54 | CASEMGMT ---
LAURA GARCIA Discharge F/U Phone Call LACE: 13 Strata: 4 Discharge date: 01/03/18 Call date: 01/04/18 Call time: 1555 Attempted to reach pt without success at this time. Message left for pt to call this RN CM back when able. SStaten RN CM Admission dx: Severe Sepsis
== END 2018-01-03 14:28 | disposition home health service (06) | DRG 872 ==
LOC: ED 20:10 → PCU 20:25
PROVIDERS: Hospitalist; Internal Medicine; Nurse Practitioner Family; Admitting Provider Internal Medicine; Emergency Provider Emergency Medicine; Family Provider Student in an Organized Health Care Education/Training Program; PCP Student in an Organized Health Care Education/Training Program; Visit Provider Internal Medicine
DX: A41.9 Sepsis, unspecified organism (principal); N39.0 Urinary tract infection, site not specified; N17.9 Acute kidney failure, unspecified; Z68.42 Body mass index [BMI] 45.0-49.9, adult; R65.20 Severe sepsis without septic shock; E87.5 Hyperkalemia; E11.9 Type 2 diabetes mellitus without complications; I10 Essential (primary) hypertension; E78.5 Hyperlipidemia, unspecified; D64.9 Anemia, unspecified; F32.9 Major depressive disorder, single episode, unspecified; B96.1 Klebsiella pneumoniae [K. pneumoniae] as the cause of diseases classified elsewhere; R32 Unspecified urinary incontinence; Z87.440 Personal history of urinary (tract) infections; I95.9 Hypotension, unspecified; Z79.01 Long term (current) use of anticoagulants; M79.7 Fibromyalgia; M19.90 Unspecified osteoarthritis, unspecified site; Z87.891 Personal history of nicotine dependence; M06.9 Rheumatoid arthritis, unspecified; Z86.718 Personal history of other venous thrombosis and embolism; Z79.899 Other long term (current) drug therapy; Z79.84 Long term (current) use of oral hypoglycemic drugs; E66.9 Obesity, unspecified
CPT/HCPCS: 36415; 71045; 80048; 80053; 81001; 82962; 83036; 83605; 85025; 85027; 85610; 85730; 87040; 87077; 87086; 87088; 87186; 93005; 94640; 97110; 97116; 97162; 97166; 97530; 97535; 99285; J7030; J7040; A4216

== ENCOUNTER 2018-01-05 13:56 | Emergency (ER) | payer OTHER, MEDICAID, SELFPAY ==
[2018-01-05 14:01] VITALS: BP 96/53; PULSE 76; RESP 18; TEMP 36.8; O2SAT 94; BMI 44.4
--- NOTE | 2018-01-05 14:27 | EKG12_ITS ---
Test Reason : CP Blood Pressure : / mmHG Vent. Rate : 075 BPM Atrial Rate : 075 BPM P-R Int : 162 ms QRS Dur : 078 ms QT Int : 392 ms P-R-T Axes : 015 035 076 degrees QTc Int : 437 ms Normal sinus rhythm Normal ECG Confirmed by NOHEMI CHAU MD ([id number]), purchase request editor SRINI ADAMS ([id number] on 01/07/2018 9:16:59 AM Referred By: Confirmed By:NOHEMI CHUA MD
--- NOTE | 2018-01-05 14:27 | RAD_ITS ---
STUDY: X-RAY CHEST REASON FOR EXAM: Female, 62 years old. Chest pain. TECHNIQUE: Single frontal view of the chest. COMPARISON: December 30, 2017 FINDINGS: There is no new focal consolidation. There is a stable right infrahilar calcified nodule consistent with an underlying granuloma. The lungs remain hyperinflated. Normal size heart. Normal mediastinum and maxine. Normal visualized pulmonary arteries. Normal visualized aortic arch and descending thoracic aorta. Normal visualized thoracic spine. Normal visualized ribs, clavicles, and shoulders. There is no demonstrated abnormality of the visualized soft tissue structures of the upper abdomen. RAD/Chest 1 View (Portable) IMPRESSION: Stable examination demonstrating no acute cardiopulmonary process. Electronically Signed: Anne Marie Tapia MD at 14:57 EDT Tel , Service support ,
[2018-01-05 14:39] LABS: Absolute Lymphocyte Count 1.97 X10^3/ul (0.83-4.51); Absolute Neutrophil Count 4.1 X10^3/uL (2.0-7.7); Basophil# 0.02 X10^3/uL; Basophil% 0.3 % (0-1); Eosinophil# 0.45 X10^3/uL; Eosinophils% 6.4 % (0-5); Hematocrit 36.2 % (37-47); Hemoglobin 10.9 g/dl (12.0-15.0); Lymphocyte # 1.97 X10^3/ul (4.0); Lymphocyte % 27.8 % (19-41); Mean Corp Hgb Conc 30.1 g/gl (32-36); Mean Corpuscular Hgb 26.9 pg (27.0-32.0); Mean Corpuscular Volume 89.4 fL (81-99); Mean Platelet Vol. 9.2 fl (6.2-12.0); Monocyte# 0.56 X10^3/uL; Monocyte% 7.9 % (0-10); Neutrophil # 4.07 X10^3/uL (2.7-7.7); Neutrophil % 57.5 % (47-70); Platelet Count 163 K/mm3 (150-450); RBC Distribution Width CV 15.5 % (11.6-14.6); RBC Distribution Width SD 49.8 fl (35.1-43.9); Red Blood Count 4.05 M/mm3 (4.2-5.4); White Blood Count 7.1 K/mm3 (4.4-11.0)
[2018-01-05 14:41] LABS: POSITIVE COUNT NO; POSITIVE DIFFERENTIAL NO; POSITIVE MORPHOLOGY NO
[2018-01-05] MEDS: 0.9% Normal Saline 1,000 ML 150 ML IV (14:49)
[2018-01-05 14:53] LABS: Anion Gap 5 (5-15); BUN 9 mg/dL (7-18); BUN/Creat Ratio 11.6 RATIO (10-20); Calcium,Total 9.2 mg/dL (8.5-10.1); Chloride 101 mmol/L (98-107); Creatinine, Serum 0.77 mg/dL (0.55-1.02); EST Glomerular Filtration Rate 81 mL/min (>60); Est Glom Filt Rate - Afr Amer 98 mL/min (>60); Glucose 121 mg/dL (74-106); Sodium Level 141 mmol/L (136-145)
[2018-01-05 15:22] VITALS: BP 101/54; PULSE 80; RESP 20; O2SAT 95
[2018-01-05 16:24] LABS: Bacteria 0 SEEN /hpf (None Seen); Mucous, Urine 0 SEEN /hpf (<or=2+); Red Blood Cells-Urine 0 SEEN /hpf (0-5)
[2018-01-05 16:31] LABS: Color, Urine Yellow (Yellow); Glucose, Dipstick Normal (Normal); Ketone-Dipstick Negative (Negative); Leukocyte Esterase-Dipstick 25 /ul (Negative); Nitrite-Dipstick Negative (Negative); Occult Blood-Urine Negative /ul (Negative); Protein-Dipstick Negative (Negative); Specific Gravity, Urine 1.015 (1.002-1.030); Urine Bilirubin Dipstick Negative (Negative); Urine Clarity Cloudy (Clear); Urine Urobilinogen 1 mg/dl (Normal)
--- NOTE | 2018-01-05 16:36 | ED.DCSUM_ITS ---
- ER Visit Summary Date of Service: 01/05/18 Chief Complaint: Chest pain History of Present Illness: The patient is a 62 F reports onset of chest pain at 9:00 this morning. She describes an aching sensation in the midportion of her chest. She has mild shortness of breath. Patient was recently admitted for UTI and sepsis. She was discharged with a prescription for Augmentin but is allergic to it so therefore has not taken it. Patient is also currently on Eliquis secondary to a history of DVTs. She denies history of cardiac disease. Physical Examination: Blood pressure is 96/53, temperature 98.2, heart rate 76, respiratory rate 18, pulse ox 94% on room air. Patient sitting upright in bed no acute distress. Head neck examination is grossly unremarkable. Heart is regular rate and rhythm. Lung sounds are clear. Abdomen is soft, obese, nontender. Lower extremity examination was 2+ edema bilaterally that is symmetric. No significant calf tenderness. Test Results: Portable chest x-ray shows stable exam without acute process. EKG is sinus at 75 with no sign of ischemia. CBC was normal white count with hemoglobin 10.9. Chemistry studies are unremarkable. Troponin is less than 0.015. Emergency Department Course and Treatment: I was able to review the urine culture from her recent admission. Urine grew Klebsiella. Patient unfortunately has multiple antibiotic allergies. In the hospital she was treated with Rocephin. Culture is sensitive to cefazolin so she will be treated with Keflex. Patient is instructed to follow-up with primary care physician and return for any worsening symptoms or concerns. Treatment Plan: [] Disposition: Discharge Impression: 1. Chest pain, improved This note was generated with [employer] dictation software. It may contain incorrect words, spelling, and punctuation that were not noted in review of the chart prior to signing ED Disposition - Plan for ED Patient: Chief Complaint: Chest Pain Referrals: Bronson Hunt DO [Primary Care Provider] -
--- NOTE | 2018-01-05 16:36 | ED.DEP ---
ED Disposition - Plan for ED Patient: Disposition: Home or Assisted Living Chief Complaint: Chest Pain Instructions: ED Chest Pain Atypical Unkn Cause Prescriptions: Cephalexin [Keflex] 500 mg PO Q6 #20 capsule Referrals: Bronson Hunt DO [Primary Care Provider] - 5-7 Days
[2018-01-05 16:39] LABS: Hyaline Cast 0-5 SEEN /lpf (0-5)
[2018-01-05 16:41] LABS: Squamous Epithelial Cells - UA 10-25 SEEN /hpf (5-10); White Blood Cells 0-5 SEEN /hpf (0-5)
[2018-01-05 16:47] VITALS: BP 104/56; PULSE 76; RESP 18; O2SAT 95
[2018-01-05] MEDS: Cephalexin 250 MG Capsule 500 MG PO (16:53)
== END 2018-01-05 17:09 | disposition home or self-care (01) ==
PROVIDERS: Emergency Provider Emergency Medicine; Family Provider Student in an Organized Health Care Education/Training Program; PCP Student in an Organized Health Care Education/Training Program
DX: R07.9 Chest pain, unspecified (principal); J44.9 Chronic obstructive pulmonary disease, unspecified; E11.9 Type 2 diabetes mellitus without complications; I10 Essential (primary) hypertension; G47.33 Obstructive sleep apnea (adult) (pediatric); M79.1 Myalgia; E66.9 Obesity, unspecified; Z88.1 Allergy status to other antibiotic agents; Z79.01 Long term (current) use of anticoagulants; Z79.84 Long term (current) use of oral hypoglycemic drugs; Z79.82 Long term (current) use of aspirin; Z79.899 Other long term (current) drug therapy; Z86.718 Personal history of other venous thrombosis and embolism; Z86.2 Personal history of diseases of the blood and blood-forming organs and certain disorders involving the immune mechanism; Z87.440 Personal history of urinary (tract) infections; Z87.442 Personal history of urinary calculi; Z87.891 Personal history of nicotine dependence
CPT/HCPCS: 71045; 80048; 81001; 84484; 85025; 93005; 96360; 96361; 99285; J7030; A4216

== ENCOUNTER 2018-01-28 09:19 | Observation (INO) | payer OTHER, MEDICAID, SELFPAY ==
[2018-01-28] VITALS (10 sets, daily range): BP systolic 130–165; BP diastolic 62–81; PULSE 70–92; RESP 16–20; TEMP 36.6–37; O2SAT 91–96; BMI 46.3; BMI 46.0
--- NOTE | 2018-01-28 09:37 | EKG12_ITS ---
Test Reason : CHEST DISCOMFORT Blood Pressure : / mmHG Vent. Rate : 082 BPM Atrial Rate : 082 BPM P-R Int : 174 ms QRS Dur : 084 ms QT Int : 370 ms P-R-T Axes : 068 015 068 degrees QTc Int : 432 ms Normal sinus rhythm Normal ECG Confirmed by LEN WICK ([id number]), editorial writer ROMEL LUCAS ([id number]) on 02/01/2018 1:43:33 PM Referred By: SHERIF Confirmed By:LEN WICK
[2018-01-28 09:57] LABS: Absolute Lymphocyte Count 1.67 X10^3/ul (0.83-4.51); Absolute Neutrophil Count 4.1 X10^3/uL (2.0-7.7); Basophil# 0.02 X10^3/uL; Basophil% 0.3 % (0-1); Eosinophil# 0.27 X10^3/uL; Eosinophils% 4.2 % (0-5); Hemoglobin 10.7 g/dl (12.0-15.0); Lymphocyte # 1.67 X10^3/ul (4.0); Lymphocyte % 25.8 % (19-41); Mean Corp Hgb Conc 29.7 g/gl (32-36); Mean Corpuscular Hgb 26.4 pg (27.0-32.0); Mean Corpuscular Volume 88.9 fL (81-99); Mean Platelet Vol. 8.9 fl (6.2-12.0); Monocyte# 0.38 X10^3/uL; Monocyte% 5.9 % (0-10); Neutrophil # 4.12 X10^3/uL (2.7-7.7); Neutrophil % 63.6 % (47-70); Platelet Count 174 K/mm3 (150-450); RBC Distribution Width CV 15.4 % (11.6-14.6); RBC Distribution Width SD 49.6 fl (35.1-43.9); Red Blood Count 4.05 M/mm3 (4.2-5.4); White Blood Count 6.5 K/mm3 (4.4-11.0)
[2018-01-28 09:59] LABS: POSITIVE COUNT NO; POSITIVE DIFFERENTIAL NO; POSITIVE MORPHOLOGY NO
[2018-01-28 10:09] LABS: Anion Gap 5 (5-15); BUN 14 mg/dL (7-18); BUN/Creat Ratio 13.3 RATIO (10-20); Calcium,Total 9.5 mg/dL (8.5-10.1); Chloride 102 mmol/L (98-107); Creatinine, Serum 1.05 mg/dL (0.55-1.02); EST Glomerular Filtration Rate 57 mL/min (>60); Est Glom Filt Rate - Afr Amer 69 mL/min (>60); Estimated Creatinine Clearance 93.46 ml/min; Glucose 180 mg/dL (74-106); Potassium 5.9 mmol/L (3.5-5.1); Sodium Level 136 mmol/L (136-145)
[2018-01-28 10:15] LABS: Bacteria 0 SEEN /hpf (None Seen); Mucous, Urine 0 SEEN /hpf (<or=2+)
--- NOTE | 2018-01-28 10:18 | ED.VISSUMM ---
- ER Visit Summary Date of Service: 01/28/18 Chief Complaint: [Abnormal labs] History of Present Illness: The patient is a 62 F [presents to the emergency department with complaint of abnormal labs. Patient states that she got a call from her primary care physician this morning telling her to come to the emergency department because she had an elevated potassium. Patient describes fatigue. Patient currently being treated for urinary tract infection. Patient describes some lower abdominal discomfort/pressure. Patient denies fever. Patient is a diabetic and has a history of hypertension. Patient has history of DVT. Patient does not take home potassium.] Physical Examination: [HEENT-PERRLA, EOMI. Cranial nerves II through XII grossly intact. TMs clear. Mucous membranes moist. No adenopathy. Cardiovascular-regular rate and rhythm without murmur or ectopy Lungs-clear to auscultation, chest wall stable without crepitus or subcu emphysema Abdomen-normoactive bowel sounds, soft. Patient has mild suprapubic tenderness on palpation. There is no rebound, rigidity, or perineal signs. Extremities-intact ?4, normal range of motion, normal pulses, atraumatic] Test Results: [CBC with differential obtained showed a white blood cell count of 6.5, hemoglobin 10.7, hematocrit 36, platelets 174. Chemistry showed a sodium 136, potassium 5.9, chloride 102, CO2 29, glucose 180, BUN 14, creatinine 1.05. EKG obtained showed a sinus rhythm with a ventricular rate of 82 bpm with some slightly peaked T waves when compared with prior EKG. Urinalysis ordered and pending.] Emergency Department Course and Treatment: [Patient was given Kayexalate in the emergency department as well as sodium bicarb, insulin and glucose, and calcium chloride.] Treatment Plan: Admit] Disposition: Admit [] Impression: [Hyperkalemia] This note was generated with [employer] dictation software. It may contain incorrect words, spelling, and punctuation that were not noted in review of the chart prior to signing ED Disposition - Plan for ED Patient: Chief Complaint: Abn Labs Referrals: Bronson Hunt DO [Primary Care Provider] -
[2018-01-28 10:22] LABS: Color, Urine Yellow (Yellow); Glucose, Dipstick Normal (Normal); Ketone-Dipstick Negative (Negative); Leukocyte Esterase-Dipstick Negative /ul (Negative); Nitrite-Dipstick Negative (Negative); Occult Blood-Urine Negative /ul (Negative); Protein-Dipstick Negative (Negative); Urine Bilirubin Dipstick Negative (Negative); Urine Clarity Sl. Cloudy (Clear); Urine Urobilinogen Normal (Normal)
[2018-01-28] MEDS: 0.9% Normal Saline 1,000 ML 150 ML IV ×3 (10:25→20:29)
[2018-01-28 10:32] LABS: Red Blood Cells-Urine 0-5 SEEN /hpf (0-5); Squamous Epithelial Cells - UA 0-5 SEEN /hpf (5-10); White Blood Cells 0-5 SEEN /hpf (0-5)
--- NOTE | 2018-01-28 10:38 | PCM.HP.STD ---
Problem List (1) Hyperkalemia Status: Acute (2) Hypertension Status: Chronic (3) Type II diabetes mellitus Status: Chronic (4) Fibromyalgia Status: Chronic (5) Microcytic anemia Status: Chronic (6) BMI greater than 40 Status: Chronic History of Present Illness Date of Admission: 01/28/18 Chief Complaint: Abnormal labs The patient is a 62 year old F with past medical history significant for diabetes mellitus type 2, obesity with BMI of 46 recently treated for acute cystitis with Bactrim who was sent to the ED on account of abnormal labs. Patient was reported to have a potassium of 6.1 on her follow-up labs. Repeat potassium obtained in the ED was 5.9 treatment she did in the ED and patient admitted to monitored bed for subsequent management Past Medical History Past Medical History (Chronic Problems): Chronic Problems (This Medical Record has been edited. Action required.) BMI greater than 40 (Chronic) Hypertension (Chronic) Type II diabetes mellitus (Chronic) Fibromyalgia (Chronic) Microcytic anemia (Chronic) Medical History: Medical History (This Medical Record has been edited. Action required.) Diabetes E11.9 Hypertension I10 Allergies aztreonam Allergy (Verified 01/28/18 09:25) Unknown bee venom protein (honey bee) Allergy (Verified 01/28/18 09:25) Anaphylaxis Carbapenems Allergy (Verified 01/28/18 09:25) Unknown ciprofloxacin [From Cipro] Allergy (Verified 01/28/18 09:25) Anaphylaxis meperidine Allergy (Verified 01/28/18 09:25) Unknown Penicillins Allergy (Verified 01/28/18 09:25) Hives Quinolones Allergy (Verified 01/28/18 09:25) Unknown talampicillin Allergy (Verified 01/28/18 09:25) Unknown tetracycline Allergy (Verified 01/28/18 09:25) Anaphylaxis tigecycline Allergy (Verified 01/28/18 09:25) Unknown Home Medications: Ambulatory Orders Medication Instructions Recorded Albuterol Inhaler [Ventolin Hfa] 1 - 2 puff INHALATION Q4H PRN PRN 10/01/15 Fenofibrate [Lofibra] 160 mg PO DAILY 10/01/15 Loratadine [Claritin] 10 mg PO QHS 10/01/15 aspirin 81 mg tablet,delayed 81 mg PO DAILY 07/14/17 release atorvastatin 80 mg tablet 80 mg PO QHS 07/14/17 cholecalciferol (vitamin D3) 2,000 unit PO MO 07/14/17 50,000 unit capsule fluoxetine 20 mg capsule 20 mg PO DAILY 07/14/17 fluticasone 50 mcg/actuation nasal 2 spray INTRANASAL DAILY 07/14/17 spray,suspension ipratropium-albuterol 0.5 mg-3 3 ml INHALATION BID 07/14/17 mg(2.5 mg base)/3 mL nebulization soln isosorbide mononitrate ER 30 mg 30 mg PO DAILY 07/14/17 tablet,extended release 24 hr lisinopril 20 mg tablet 20 mg PO BID 07/14/17 metformin 1,000 mg tablet 1,000 mg PO BID 07/14/17 nitroglycerin 0.4 mg sublingual 0.4 mg SUBLINGUAL Q5M PRN 07/14/17 tablet omega-3 fatty acids 1,000 mg 1,000 mg PO BID 07/14/17 capsule omeprazole 40 mg capsule,delayed 40 mg PO QHS 07/14/17 release tizanidine 4 mg capsule 4 mg PO Q6H PRN PRN 07/14/17 Epinephrine [Epi Pen] 0.3 mg SQ PRN PRN 12/08/17 Ezetimibe [Zetia] 10 mg PO DAILY 12/08/17 Ferrous Sulfate 325 mg PO TIDCM 12/08/17 Gabapentin [Neurontin] 300 mg PO TID 12/08/17 Glimepiride [Amaryl] 4 mg PO BID 12/08/17 Hydrocodone Bitart/Apap 5-325 1 tablet PO Q6H PRN PRN 12/08/17 [[place] 5/325] Multivitamins,Ther W-Minerals 1 tablet PO BID 12/08/17 [Multivitamin With Minerals] Magnesium Oxide [Mag-Ox 400] 400 mg PO BID #30 tab 01/03/18 Cephalexin [Keflex] 500 mg PO Q6 #20 capsule 01/05/18 Alendronate Sodium [Fosamax] 70 mg PO DAILY 01/28/18 Amlactin 1 applic TOPICAL PRN PRN 01/28/18 Smz/Tmp Ds [Bactrim Ds] 1 tablet PO BID 01/28/18 Surgical History: tonsillectomy, - - Right knee surgery, left foot surgery, tubal ligation Psychiatric History: No pertinent psych hx MANAGER CCU History: No pertinent MANAGER CCU history Smoking Status: Never smoker - *Family History Maternal Family History: Family History (This Medical Record has been edited. Action required.) Mother Hypertension History Items: Hypertension Paternal Family History: Family History (This Medical Record has been edited. Action required.) Mother Hypertension History Items: High Cholesterol, Heart Disease, - - anemia Review of Systems Constitutional: Denies: Anorexia, Chills, Fever, Night Sweats, Weight Change HEENT: Denies: Head Aches, Sinus Congestion, Sinus Drainage Cardiovascular: Denies: Chest Pain, Orthopnea, Palpitations, Paroxysmal Noc. Dyspnea Respiratory: Denies: Cough, Shortness of breath at rest, Shortness of breath upon exertion, Sputum production Gastrointestinal: Denies: Abdominal Pain, Hematemesis, Hematochezia, Nausea, Melena, Vomiting Genitourinary: Denies: Dysuria, Frequency, Hematuria, Urgency Musculoskeletal: Denies: Joint Pain, Joint Tenderness Skin: Denies: Rash Neurological: Denies: Focal weakness, Numbness, Tingling Psychiatric: Denies: Homicidal Ideations, Suicidal Ideations Hematologic/ Lymphatic: Denies: Easy Bruising, Easy Bleeding VTE Information - Inpt Only VTE Present on Admission: No VTE Mechan Device Prophylaxis: Knee High SONDRA Hose VTE Pharm Prophylaxis ordered?: Yes Patient Problems: Active and Suspected Problems (This Medical Record has been edited. Action required.) Hyperkalemia (Acute) Objective: GENERAL: cooperative HEENT: Clear conjunctiva, NECK; supple, normal thyroid, CHEST: Diminished to auscultation bilaterally, HEART: Regular S1 S2, no audible murmurs ABDOMEN: soft, non-tender, normoactive bowel sounds, RECTAL: deferred EXTREMITIES: No edema, no clubbing, no cyanosis. TABLE GAMES SHIFT MANAGER: Awake; no lateralizing signs. SKIN: No Rash - Physical Exam Vital Signs Temp Pulse Resp BP Pulse Ox 98.4 F 92 17 149/81 H 93 01/28/18 09:20 01/28/18 10:32 01/28/18 10:32 01/28/18 10:32 01/28/18 10:32 Oxygen Delivery Method Room Air Weight: 103.9 kg Body Mass Index (BMI) 46.3 Laboratory Tests Past 24 Hrs 01/28/18 01/28/18 01/28/18 09:48 09:48 10:10 WBC 6.5 RBC 4.05 L Hgb 10.7 L Hct 36.0 L MCV 88.9 MCH 26.4 L MCHC 29.7 L RDW 15.4 H RDW Differential 49.6 H Plt Count 174 MPV 8.9 Immature Gran % (Auto) 0.200 Neut % (Auto) 63.6 Lymph % (Auto) 25.8 [place] % (Auto) 5.9 Eos % (Auto) 4.2 Baso % (Auto) 0.3 Absolute Neuts (auto) 4.1 Absolute Lymphs (auto) 1.67 Total Counted Not Reportable Sodium 136 Potassium 5.9 H Chloride 102 Carbon Dioxide 29.0 Anion Gap 5 BUN 14 Creatinine 1.05 H Estim Creat Clear Calc 93.46 Est GFR (MDRD) Af Amer 69 Est GFR (MDRD) Non-Af 57 L BUN/Creatinine Ratio 13.3 Glucose 180 H Calcium 9.5 Urine Color Yellow Urine Clarity Sl. Cloudy Urine pH 7.0 Ur Specific [place] 1.010 Urine Protein Negative Urine Glucose (UA) Normal Urine Ketones Negative Urine Occult Blood Negative Urine Nitrite Negative Urine Bilirubin Negative Urine Urobilinogen Normal Ur Leukocyte Esterase Negative Urine RBC 0-5 SEEN Urine WBC 0-5 SEEN Ur Squamous Epith Cells 0-5 SEEN Urine Bacteria 0 SEEN Urine Mucus 0 SEEN Assessment/Plan All Active Problems (This Medical Record has been edited. Action required.) Severe sepsis (Acute) Urinary tract infection (Acute) Hyperkalemia (Acute) Shortness of breath (Resolved) Nonproductive cough (Resolved) Patient is a 62-year-old lady admitted with abnormal labs ~ hyperkalemia 1. Hyperkalemia ; Secondary to patient being on Bactrim treatment was initiated in the emergency department. Subsequently admitted to a monitored bed for monitoring 2. Diabetes mellitus type II: Controlled; patient's oral hypoglycemics held. Placed on Accu-Cheks a.c. and at bedtime and covered with sliding scale insulin 3. Dyslipidemia-patient is on statin therapy, continued at home dose 4. Hypertension-stable, continued current regimen except for lisinopril in view of patient hypokalemia 5. Morbid obesity with BMI of 46; lifestyle modification including weight loss advised. 6. 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 7. Rheumatoid arthritis 8. Degenerative joint disease 9. Fibromyalgia-PRN pain regimen. 10. Chronic normochromic normocytic anemia-stable. Continue iron supplementation. 12. Depression-continue home fluoxetine regimen. 13. DVT prophylaxis patient Lovenox Active Medications Acetaminophen (Tylenol) 650 mg PO Q6H PRN PRN PRN Reason: Mild Pain (scale 0-3)/T>100.7 Al Hydroxide/Mg Hydroxide (Mylanta Ii) 30 ml PO Q6H PRN PRN PRN Reason: Gastric Burning Albuterol/Ipratropium (Duoneb) 3 ml INHALATION BID.RT FRANKY Aspirin (Ecotrin) 81 mg PO DAILYCM FRANKY Atorvastatin Calcium (Lipitor) 80 mg PO QHS [facility] Cholecalciferol (Vitamin D) 2,000 unit PO Mo@1000 FRANKY Dextrose (D50w Syringe) 0 gm IV X1 PRN; Protocol PRN Reason: Hypoglycemia Ezetimibe (Zetia) 10 mg PO DAILY [facility] Epinephrine HCl (Epi Pen) 0.3 mg IM PRN PRN PRN Reason: ALLERGIC REACTION Fenofibrate (Tricor) 145 mg PO DAILY [facility] Ferrous Sulfate (Ferrous Sulfate) 325 mg PO TIDCM [facility] Fluoxetine HCl (Prozac) 20 mg PO DAILY [facility] Fluticasone Propionate (Flonase Nasal [place]) 2 spray NASAL DAILY [facility] Gabapentin (Neurontin) 300 mg PO TIDCM [facility] Glucagon () 1 mg IM .X1 PRN PRN Reason: Hypoglycemia Sodium Chloride () 1,000 mls @ 150 mls/hr IV .Q6H40M [facility] Last Admin: 01/28/18 10:25 Dose: 150 mls/hr Insulin Human Lispro (Humalog Kwikpen (Bkc)) 0 unit SQ ACHS [facility] PRN Reason: Protocol Isosorbide Mononitrate (Imdur) 30 mg PO DAILY [facility] Lisinopril (Zestril) 20 mg PO BID [facility] Loratadine (Claritin) 10 mg PO QHS [facility] Magnesium Hydroxide (Milk Of Magnesia) 30 ml PO DAILY PRN PRN Reason: Constipation Magnesium Oxide (Mag-Ox 400) 400 mg PO BID [facility] Multivitamins/Minerals (Multivitamin With Minerals) 1 tablet PO BID [facility] Nitroglycerin (Nitrostat) 0.4 mg SUBLINGUAL Q5M PRN PRN Reason: CHEST PAIN Non-Formulary Medication (Amlactin) 1 applic TOPICAL PRN PRN PRN Reason: ITCHING Non-Formulary Medication (Omeprazole [Omeprazole]) 40 mg PO QHS [facility] Non-Formulary Medication (Tizanidine Hcl [Zanaflex]) 4 mg PO Q6H PRN PRN PRN Reason: MUSCLE PAIN Ondansetron HCl (Zofran) 4 mg IV Q8H PRN PRN PRN Reason: Nausea Oxycodone HCl (Oxyir) 5 mg PO Q4H PRN PRN PRN Reason: Moderate Pain (pain scale 4-5) Code Visit OBSV E&M: 80947 Initial observation care L3
[2018-01-28] MEDS: Calcium Chloride 1 GM/10 ML Syringe IV (10:41)
[2018-01-28] MEDS: Dextrose 50%-Water 25 GM/50 ML DISP.SYRIN IV (10:42)
[2018-01-28] MEDS: Sodium Bicarbonate 8.4% 50 ML Syringe 50 MEQ IV (10:42)
--- NOTE | 2018-01-28 11:00 | NURSING ---
CALLED ER CHARGE TO SAY PT COULD COME UP AT 1100
[2018-01-28 12:41] LABS: Bedside Glucose 116 mg/dL (70-110)
[2018-01-28 12:54] LABS: Anion Gap 8 (5-15); BUN 13 mg/dL (7-18); BUN/Creat Ratio 14.5 RATIO (10-20); Calcium,Total 10.3 mg/dL (8.5-10.1); Chloride 104 mmol/L (98-107); EST Glomerular Filtration Rate 68 mL/min (>60); Est Glom Filt Rate - Afr Amer 82 mL/min (>60); Glucose 135 mg/dL (74-106); Potassium 5.6 mmol/L (3.5-5.1); Sodium Level 139 mmol/L (136-145)
--- NOTE | 2018-01-28 13:02 | CASEMGMT ---
PCU membership secretary received a call from [facility] stating that pt is currently active with them. Call to Maday at [facility] and she states pt is active for RN, PT/OT. Resumption of care order placed at this time and green sheet left on chart. SStmichell SANCHEZ CM
[2018-01-28] MEDS: Sodium Polystyrene Sulfonate 15 GM/60 ML UDC 30 GM PO (13:46)
[2018-01-28 16:35] LABS: Anion Gap 6 (5-15); BUN 15 mg/dL (7-18); BUN/Creat Ratio 14.3 RATIO (10-20); Calcium,Total 10.1 mg/dL (8.5-10.1); Chloride 106 mmol/L (98-107); Creatinine, Serum 1.05 mg/dL (0.55-1.02); EST Glomerular Filtration Rate 57 mL/min (>60); Est Glom Filt Rate - Afr Amer 69 mL/min (>60); Estimated Creatinine Clearance 92.92 ml/min; Glucose 87 mg/dL (74-106); Potassium 5.5 mmol/L (3.5-5.1); Sodium Level 143 mmol/L (136-145)
[2018-01-28] MEDS: Gabapentin 300 MG Capsule PO (16:45)
[2018-01-28] MEDS: Multivitamins,Ther W-Minerals Tablet 1 TABLET PO (16:45)
[2018-01-28] MEDS: Ferrous Sulfate 325 MG Tablet PO (16:45)
[2018-01-28] MEDS: oxyCODONE 5 MG Tablet PO (16:47)
[2018-01-28] MEDS: Glucerna Shake 120 ML LIQUID PO ×2 (16:48→21:25)
[2018-01-28 16:51] LABS: Bedside Glucose 88 mg/dL (70-110)
[2018-01-28] MEDS: Loratadine 10 MG Tablet PO (21:25)
[2018-01-28] MEDS: Pantoprazole Sodium 40 MG Tablet PO (21:26)
[2018-01-28] MEDS: Atorvastatin Calcium 80 MG Tablet PO (21:26)
[2018-01-28] MEDS: Magnesium Oxide 400 MG Tablet PO (21:26)
[2018-01-28] MEDS: tiZANidine HCl 2 MG Tablet 4 MG PO (21:29)
[2018-01-28 22:16] LABS: Bedside Glucose 126 mg/dL (70-110)
[2018-01-28] MEDS: Ipratropium/Albuterol Sulfate 3 ML AMPUL.NEB INHALATION (23:25)
[2018-01-29 03:02] VITALS: PULSE 67
[2018-01-29] MEDS: 0.9% Normal Saline 1,000 ML 150 ML IV (03:20)
[2018-01-29 03:22] VITALS: BP 110/58; PULSE 83; RESP 16; TEMP 36.7; O2SAT 92
[2018-01-29 06:47] LABS: Anion Gap 8 (5-15); BUN 20 mg/dL (7-18); BUN/Creat Ratio 21.3 RATIO (10-20); Calcium,Total 8.4 mg/dL (8.5-10.1); Chloride 107 mmol/L (98-107); Creatinine, Serum 0.94 mg/dL (0.55-1.02); EST Glomerular Filtration Rate 65 mL/min (>60); Est Glom Filt Rate - Afr Amer 78 mL/min (>60); Estimated Creatinine Clearance 103.79 ml/min; Glucose 186 mg/dL (74-106); Potassium 5.2 mmol/L (3.5-5.1); Sodium Level 139 mmol/L (136-145)
[2018-01-29 06:53] VITALS: PULSE 84; RESP 19
[2018-01-29] MEDS: Ipratropium/Albuterol Sulfate 3 ML AMPUL.NEB INHALATION (06:53)
[2018-01-29 07:01] LABS: Bedside Glucose 176 mg/dL (70-110)
[2018-01-29 07:24] VITALS: PULSE 77
--- NOTE | 2018-01-29 08:03 | PCM.DC ---
- Discharge Diagnoses Current Active Problems: Current Active and Chronic Problems (This Medical Record has been edited. Action required.) Hyperkalemia (Acute) BMI greater than 40 (Chronic) You will use the following diet at home:: Calorie/Carbohydrate Controlled (specify 1200, 1400, etc) - 1800 todd, Cardiac Your food should be the consistency of: Regular Discharge Activity: Return to Normal Activity Weight Bearing Status: Weight bearing as tolerated Call your doctor if you observe: Fever of 101 or Higher, Shortness of breath, Dizziness, Fainting spells, Chest pain, Increased palpitations (irregular heartbeat), Uncontrolled pain Allergies/Adverse Reactions: Allergies aztreonam Allergy (Verified 01/28/18 09:25) Unknown bee venom protein (honey bee) Allergy (Verified 01/28/18 09:25) Anaphylaxis Carbapenems Allergy (Verified 01/28/18 09:25) Unknown ciprofloxacin [From Cipro] Allergy (Verified 01/28/18 09:25) Anaphylaxis meperidine Allergy (Verified 01/28/18 09:25) Unknown Penicillins Allergy (Verified 01/28/18 09:25) Hives Quinolones Allergy (Verified 01/28/18 09:25) Unknown talampicillin Allergy (Verified 01/28/18 09:25) Unknown tetracycline Allergy (Verified 01/28/18 09:25) Anaphylaxis tigecycline Allergy (Verified 01/28/18 09:25) Unknown Medications to take at Discharge Albuterol Inhaler [Ventolin Hfa] 1 - 2 puff INHALATION Q4H PRN PRN 10/01/15 Fenofibrate [Lofibra] 160 mg PO DAILY 10/01/15 Loratadine [Claritin] 10 mg PO QHS 10/01/15 aspirin 81 mg tablet,delayed release 81 mg PO DAILY 07/14/17 atorvastatin 80 mg tablet 80 mg PO QHS 07/14/17 cholecalciferol (vitamin D3) 50,000 unit capsule 2,000 unit PO MO 07/14/17 fluoxetine 20 mg capsule 20 mg PO DAILY 07/14/17 fluticasone 50 mcg/actuation nasal spray,suspension 2 spray INTRANASAL DAILY 07/14/17 ipratropium-albuterol 0.5 mg-3 mg(2.5 mg base)/3 mL nebulization soln 3 ml INHALATION BID 07/14/17 isosorbide mononitrate ER 30 mg tablet,extended release 24 hr 30 mg PO DAILY 07/14/17 lisinopril 20 mg tablet 20 mg PO BID 07/14/17 metformin 1,000 mg tablet 1,000 mg PO BID 07/14/17 nitroglycerin 0.4 mg sublingual tablet 0.4 mg SUBLINGUAL Q5M PRN 07/14/17 omega-3 fatty acids 1,000 mg capsule 1,000 mg PO BID 07/14/17 omeprazole 40 mg capsule,delayed release 40 mg PO QHS 07/14/17 tizanidine 4 mg capsule 4 mg PO Q6H PRN PRN 07/14/17 Epinephrine [Epi Pen] 0.3 mg SQ PRN PRN 12/08/17 Ezetimibe [Zetia] 10 mg PO DAILY 12/08/17 Ferrous Sulfate 325 mg PO TIDCM 12/08/17 Gabapentin [Neurontin] 300 mg PO TID 12/08/17 Glimepiride [Amaryl] 4 mg PO BID 12/08/17 Hydrocodone Bitart/Apap 5-325 [[place] 5/325] 1 tablet PO Q6H PRN PRN 12/08/17 Multivitamins,Ther W-Minerals [Multivitamin With Minerals] 1 tablet PO BID 12/08/17 Magnesium Oxide [Mag-Ox 400] 400 mg PO BID #30 tab 01/03/18 Cephalexin [Keflex] 500 mg PO Q6 #20 capsule 01/05/18 Alendronate Sodium [Fosamax] 70 mg PO DAILY 01/28/18 Amlactin 1 applic TOPICAL PRN PRN 01/28/18 Smz/Tmp Ds [Bactrim Ds] 1 tablet PO BID 01/28/18 Primary Care Physician: Bronson Hunt DO [Primary Care Provider] - Please follow up with your Primary Care Physician in: 1 week. Test Results: Test results from this visit will be discussed in further detail at your follow-up appointment, if applicable.
[2018-01-29 08:35] VITALS: BP 113/63; PULSE 81; RESP 17; TEMP 36.9; O2SAT 94
[2018-01-29] MEDS: oxyCODONE 5 MG Tablet PO (08:42)
[2018-01-29] MEDS: Aspirin E.C. 81 MG Tablet PO (08:43)
[2018-01-29] MEDS: Ferrous Sulfate 325 MG Tablet PO (08:43)
[2018-01-29] MEDS: Gabapentin 300 MG Capsule PO (08:44)
[2018-01-29] MEDS: Multivitamins,Ther W-Minerals Tablet 1 TABLET PO (08:44)
[2018-01-29] MEDS: Glucerna Shake 120 ML LIQUID PO (08:45)
[2018-01-29] MEDS: Magnesium Oxide 400 MG Tablet PO (08:45)
[2018-01-29] MEDS: Isosorbide Mononitrate 30 MG Tablet PO (08:45)
[2018-01-29] MEDS: Ezetimibe 10 MG Tablet PO (08:46)
[2018-01-29] MEDS: FLUoxetine 20 MG Capsule PO (08:46)
[2018-01-29] MEDS: Fenofibrate 145 MG Tablet PO (08:47)
[2018-01-29] MEDS: Insulin Lispro 100 UNIT/ML INSULN.PEN SQ (10:06)
--- NOTE | 2018-01-29 15:14 | PCM.DC.SUM ---
Discharge Date and Diagnosis Date of Admission: 01/28/18 Date of Discharge: 01/29/18 - Primary Discharge Diagnosis Hyperkalemia without EKG changes. - Secondary Discharge Diagnosis Chronic Problems (This Medical Record has been edited. Action required.) BMI greater than 40 (Chronic) Hypertension (Chronic) Type II diabetes mellitus (Chronic) Fibromyalgia (Chronic) Microcytic anemia (Chronic) Hospital Course and Treatment Operations: None Procedures: None Summary of Care Provided: Patient seen and examined on the day of discharge and appeared to be stable to be discharged home. She denies any significant complaints. Her vital signs are stable. - Physical Exam General: Alert, Oriented x3, Cooperative, No apparent distress. HEENT: Atraumatic, PERRLA, EOMI. Neck: Supple, No JVD, Negative Carotid Bruits, Trachea Midline, Thyroid Normal. Lungs: Clear to auscultation, Normal air movement, No rhonchi, No wheeze, No rales. Cardiovascular: Regular rate, Regular Rhythm, Normal S1, Normal S2, PMI Normal. Abdomen: Bowel Sounds Present, Soft, Non Tender, Non-Distended, No Hepato-splenomegaly. Extremities: No clubbing, No cyanosis, No edema Skin: No rashes, No breakdown Neurological: Neuro grossly intact Vital Signs are stable. Hospital course: The patient is a 62 year old F was admitted because of hyperkalemia that was found on blood work that she had as outpatient. Patient was treated recently for acute cystitis with Bactrim and she had a follow-up blood work that revealed potassium 6.1. Repeat potassium in the emergency department on the day of admission was 5.9 there was no evidence of acute changes on admission due to hypokalemia. This hyperkalemia attributed to Bactrim which patient has been taking as outpatient for recent history of acute cystitis. She was treated with IV fluids, received Kayexalate, IV insulin with D50, IV calcium chloride and sodium bicarbonate and she received that treatment in the emergency department. Her potassium came down from 5.9 on admission down to 5.2 this morning on the day of discharge. Her vitals remained stable. Her urinalysis revealed cloudy urine, negative for nitrite, negative for leukocyte esterase, there was only 0-5 WBCs and no bacteria seen. Patient discharged home in a stable medical condition, discharged on her medication without any changes, order given to repeat BMP in 5 days. Bactrim discontinued, I called the patient on her cell phone at [phone] and I requested her to stop taking Bactrim and I informed her that her urine analysis was clean without evidence of acute cystitis. Recommended follow-up with PCP in 1 week. Discharge Activity: Return to Normal Activity Weight Bearing Status: Weight bearing as tolerated Call your doctor if you observe: Fever of 101 or Higher, Shortness of breath, Dizziness, Fainting spells, Chest pain, Increased palpitations (irregular heartbeat), Uncontrolled pain Home Medications: Medications to take at Discharge Albuterol Inhaler [Ventolin Hfa] 1 - 2 puff INHALATION Q4H PRN PRN 10/01/15 Fenofibrate [Lofibra] 160 mg PO DAILY 10/01/15 Loratadine [Claritin] 10 mg PO QHS 10/01/15 aspirin 81 mg tablet,delayed release 81 mg PO DAILY 07/14/17 atorvastatin 80 mg tablet 80 mg PO QHS 07/14/17 cholecalciferol (vitamin D3) 50,000 unit capsule 2,000 unit PO MO 07/14/17 fluoxetine 20 mg capsule 20 mg PO DAILY 07/14/17 fluticasone 50 mcg/actuation nasal spray,suspension 2 spray INTRANASAL DAILY 07/14/17 ipratropium-albuterol 0.5 mg-3 mg(2.5 mg base)/3 mL nebulization soln 3 ml INHALATION BID 07/14/17 isosorbide mononitrate ER 30 mg tablet,extended release 24 hr 30 mg PO DAILY 07/14/17 lisinopril 20 mg tablet 20 mg PO BID 07/14/17 metformin 1,000 mg tablet 1,000 mg PO BID 07/14/17 nitroglycerin 0.4 mg sublingual tablet 0.4 mg SUBLINGUAL Q5M PRN 07/14/17 omega-3 fatty acids 1,000 mg capsule 1,000 mg PO BID 07/14/17 omeprazole 40 mg capsule,delayed release 40 mg PO QHS 07/14/17 tizanidine 4 mg capsule 4 mg PO Q6H PRN PRN 07/14/17 Epinephrine [Epi Pen] 0.3 mg SQ PRN PRN 12/08/17 Ezetimibe [Zetia] 10 mg PO DAILY 12/08/17 Ferrous Sulfate 325 mg PO TIDCM 12/08/17 Gabapentin [Neurontin] 300 mg PO TID 12/08/17 Glimepiride [Amaryl] 4 mg PO BID 12/08/17 Hydrocodone Bitart/Apap 5-325 [[place] 5/325] 1 tablet PO Q6H PRN PRN 12/08/17 Multivitamins,Ther W-Minerals [Multivitamin With Minerals] 1 tablet PO BID 12/08/17 Magnesium Oxide [Mag-Ox 400] 400 mg PO BID #30 tab 01/03/18 Cephalexin [Keflex] 500 mg PO Q6 #20 capsule 01/05/18 Alendronate Sodium [Fosamax] 70 mg PO DAILY 01/28/18 Amlactin 1 applic TOPICAL PRN PRN 01/28/18 Smz/Tmp Ds [Bactrim Ds] 1 tablet PO BID 01/28/18 Primary Care Physician: Bronson Hunt DO [Primary Care Provider] - Please follow up with your Primary Care Physician in: 1 week. Disposition: Home Minutes spent on discharge:: 26 Patient Condition:: Stable Medical Necessity - Tobacco Use Smoking Status: Never smoker Meaningful Use Info Meaningful Use Diagnoses (Choose all that apply): None applicable Code Visit OBSV E&M: 09484 Observation care discharge
--- NOTE | 2018-01-29 15:22 | DS.PCM_ITS ---
Discharge Date and Diagnosis Date of Admission: 01/28/18 Date of Discharge: 01/29/18 - Primary Discharge Diagnosis Hyperkalemia without EKG changes. - Secondary Discharge Diagnosis Chronic Problems (This Medical Record has been edited. Action required.) BMI greater than 40 (Chronic) Hypertension (Chronic) Type II diabetes mellitus (Chronic) Fibromyalgia (Chronic) Microcytic anemia (Chronic) Hospital Course and Treatment Operations: None Procedures: None Summary of Care Provided: Patient seen and examined on the day of discharge and appeared to be stable to be discharged home. She denies any significant complaints. Her vital signs are stable. - Physical Exam General: Alert, Oriented x3, Cooperative, No apparent distress. HEENT: Atraumatic, PERRLA, EOMI. Neck: Supple, No JVD, Negative Carotid Bruits, Trachea Midline, Thyroid Normal. Lungs: Clear to auscultation, Normal air movement, No rhonchi, No wheeze, No rales. Cardiovascular: Regular rate, Regular Rhythm, Normal S1, Normal S2, PMI Normal. Abdomen: Bowel Sounds Present, Soft, Non Tender, Non-Distended, No Hepato- splenomegaly. Extremities: No clubbing, No cyanosis, No edema Skin: No rashes, No breakdown Neurological: Neuro grossly intact Vital Signs are stable. Hospital course: The patient is a 62 year old F was admitted because of hyperkalemia that was found on blood work that she had as outpatient. Patient was treated recently for acute cystitis with Bactrim and she had a follow-up blood work that revealed potassium 6.1. Repeat potassium in the emergency department on the day of admission was 5.9 there was no evidence of acute changes on admission due to hypokalemia. This hyperkalemia attributed to Bactrim which patient has been taking as outpatient for recent history of acute cystitis. She was treated with IV fluids, received Kayexalate, IV insulin with D50, IV calcium chloride and sodium bicarbonate and she received that treatment in the emergency department. Her potassium came down from 5.9 on admission down to 5.2 this morning on the day of discharge. Her vitals remained stable. Her urinalysis revealed cloudy urine, negative for nitrite, negative for leukocyte esterase, there was only 0-5 WBCs and no bacteria seen. Patient discharged home in a stable medical condition, discharged on her medication without any changes, order given to repeat BMP in 5 days. Bactrim discontinued, I called the patient on her cell phone at [phone] and I requested her to stop taking Bactrim and I informed her that her urine analysis was clean without evidence of acute cystitis. Recommended follow-up with PCP in 1 week. Discharge Activity: Return to Normal Activity Weight Bearing Status: Weight bearing as tolerated Call your doctor if you observe: Fever of 101 or Higher, Shortness of breath, Dizziness, Fainting spells, Chest pain, Increased palpitations (irregular heartbeat), Uncontrolled pain Home Medications: Medications to take at Discharge Albuterol Inhaler [Ventolin Hfa] 1 - 2 puff INHALATION Q4H PRN PRN 10/01/15 Fenofibrate [Lofibra] 160 mg PO DAILY 10/01/15 Loratadine [Claritin] 10 mg PO QHS 10/01/15 aspirin 81 mg tablet,delayed release 81 mg PO DAILY 07/14/17 atorvastatin 80 mg tablet 80 mg PO QHS 07/14/17 cholecalciferol (vitamin D3) 50,000 unit capsule 2,000 unit PO MO 07/14/17 fluoxetine 20 mg capsule 20 mg PO DAILY 07/14/17 fluticasone 50 mcg/actuation nasal spray,suspension 2 spray INTRANASAL DAILY 09/26 ipratropium-albuterol 0.5 mg-3 mg(2.5 mg base)/3 mL nebulization soln 3 ml INHALATION BID 07/14/17 isosorbide mononitrate ER 30 mg tablet,extended release 24 hr 30 mg PO DAILY 09/26 lisinopril 20 mg tablet 20 mg PO BID 07/14/17 metformin 1,000 mg tablet 1,000 mg PO BID 07/14/17 nitroglycerin 0.4 mg sublingual tablet 0.4 mg SUBLINGUAL Q5M PRN 07/14/17 omega-3 fatty acids 1,000 mg capsule 1,000 mg PO BID 07/14/17 omeprazole 40 mg capsule,delayed release 40 mg PO QHS 07/14/17 tizanidine 4 mg capsule 4 mg PO Q6H PRN PRN 07/14/17 Epinephrine [Epi Pen] 0.3 mg SQ PRN PRN 12/08/17 Ezetimibe [Zetia] 10 mg PO DAILY 12/08/17 Ferrous Sulfate 325 mg PO TIDCM 12/08/17 Gabapentin [Neurontin] 300 mg PO TID 12/08/17 Glimepiride [Amaryl] 4 mg PO BID 12/08/17 Hydrocodone Bitart/Apap 5-325 [[place] 5/325] 1 tablet PO Q6H PRN PRN 12/08/17 Multivitamins,Ther W-Minerals [Multivitamin With Minerals] 1 tablet PO BID 12/08 Magnesium Oxide [Mag-Ox 400] 400 mg PO BID #30 tab 01/03/18 Cephalexin [Keflex] 500 mg PO Q6 #20 capsule 01/05/18 Alendronate Sodium [Fosamax] 70 mg PO DAILY 01/28/18 Amlactin 1 applic TOPICAL PRN PRN 01/28/18 Smz/Tmp Ds [Bactrim Ds] 1 tablet PO BID 01/28/18 Primary Care Physician: Bronson Hunt DO [Primary Care Provider] - Please follow up with your Primary Care Physician in: 1 week. Disposition: Home Minutes spent on discharge:: 26 Patient Condition:: Stable Medical Necessity - Tobacco Use Smoking Status: Never smoker Meaningful Use Info Meaningful Use Diagnoses (Choose all that apply): None applicable Code Visit OBSV E&M: 94778 Observation care discharge
== END 2018-01-29 08:03 | disposition home health service (06) ==
LOC: ED 10:10 → PCU 12:00
PROVIDERS: Admitting Provider Internal Medicine; Emergency Provider Emergency Medicine; Family Provider Student in an Organized Health Care Education/Training Program; PCP Student in an Organized Health Care Education/Training Program; Visit Provider Hospitalist
DX: E87.5 Hyperkalemia (principal); E11.9 Type 2 diabetes mellitus without complications; I10 Essential (primary) hypertension; M79.7 Fibromyalgia; D50.9 Iron deficiency anemia, unspecified; Z86.718 Personal history of other venous thrombosis and embolism; Z79.899 Other long term (current) drug therapy; Z79.82 Long term (current) use of aspirin; Z87.440 Personal history of urinary (tract) infections; E66.01 Morbid (severe) obesity due to excess calories; Z68.42 Body mass index [BMI] 45.0-49.9, adult; Z71.3 Dietary counseling and surveillance; M06.9 Rheumatoid arthritis, unspecified; M19.90 Unspecified osteoarthritis, unspecified site; E78.5 Hyperlipidemia, unspecified
CPT/HCPCS: 36415; 80048; 81001; 82962; 85025; 93005; 94640; 96361; 96374; 96375; 97802; 99218; 99282; J7030; G0378

== ENCOUNTER 2018-02-03 12:17 | Outpatient (RCR) | payer OTHER, MEDICAID, SELFPAY ==
[2018-01-15 13:22] LABS: Color, Urine Yellow (Yellow); Glucose, Dipstick Normal (Normal); Ketone-Dipstick Negative (Negative); Leukocyte Esterase-Dipstick 500 /ul (Negative); Nitrite-Dipstick Positive (Negative); Occult Blood-Urine 25 /ul (Negative); Protein-Dipstick 30 mg/dl (Negative); Urine Bilirubin Dipstick Negative (Negative); Urine Clarity Cloudy (Clear); Urine Urobilinogen Normal (Normal)
[2018-01-15 13:36] LABS: Bacteria 3+ /hpf (None Seen); Mucous, Urine 1+ /hpf (<or=2+); Red Blood Cells-Urine 0-5 SEEN /hpf (0-5); Squamous Epithelial Cells - UA 0-5 SEEN /hpf (5-10); White Blood Cells 25-50 SEEN /hpf (0-5)
[2018-02-03 13:13] LABS: Anion Gap 7 (5-15); BUN 17 mg/dL (7-18); BUN/Creat Ratio 22.4 RATIO (10-20); Calcium,Total 9.2 mg/dL (8.5-10.1); Chloride 105 mmol/L (98-107); Creatinine, Serum 0.76 mg/dL (0.55-1.02); EST Glomerular Filtration Rate 82 mL/min (>60); Est Glom Filt Rate - Afr Amer 100 mL/min (>60); Glucose 126 mg/dL (74-106); Potassium 4.8 mmol/L (3.5-5.1); Sodium Level 139 mmol/L (136-145)
== END 2018-02-08 23:59 ==
LOC: HHLAB 12:17
PROVIDERS: Hospitalist; Family Provider Student in an Organized Health Care Education/Training Program; PCP Student in an Organized Health Care Education/Training Program; Visit Provider Student in an Organized Health Care Education/Training Program
DX: N39.0 Urinary tract infection, site not specified (principal); A41.9 Sepsis, unspecified organism
CPT/HCPCS: 80048; 81001; 87077; 87086; 87088; 87186

== ENCOUNTER 2018-02-25 13:11 | Outpatient (RCR) | payer OTHER, MEDICAID, SELFPAY ==
[2018-02-25 13:52] LABS: Anion Gap 13 (5-15); BUN 13 mg/dL (7-18); BUN/Creat Ratio 16.3 RATIO (10-20); Calcium,Total 8.8 mg/dL (8.5-10.1); Chloride 103 mmol/L (98-107); EST Glomerular Filtration Rate 78 mL/min (>60); Est Glom Filt Rate - Afr Amer 94 mL/min (>60); Glucose 192 mg/dL (74-106); Potassium 4.6 mmol/L (3.5-5.1); Sodium Level 143 mmol/L (136-145)
[2018-02-25 14:00] LABS: Hemoglobin A1c 7.1 % (4.2-6.3)
== END 2018-03-11 23:59 ==
LOC: HHLAB 13:11
PROVIDERS: Family Provider Student in an Organized Health Care Education/Training Program; PCP Student in an Organized Health Care Education/Training Program; Visit Provider Student in an Organized Health Care Education/Training Program
DX: E11.9 Type 2 diabetes mellitus without complications (principal); E87.5 Hyperkalemia
CPT/HCPCS: 80048; 83036

== ENCOUNTER 2018-06-05 21:21 | Inpatient (IN) | payer OTHER, MEDICAID, SELFPAY ==
[2018-06-05 21:22] VITALS: BP 163/71; PULSE 103; RESP 16; TEMP 37.7; O2SAT 90; BMI 44.4
--- NOTE | 2018-06-05 21:47 | EKG12_ITS ---
Test Reason : COMPLAINT Blood Pressure : / mmHG Vent. Rate : 098 BPM Atrial Rate : 098 BPM P-R Int : 168 ms QRS Dur : 086 ms QT Int : 350 ms P-R-T Axes : 064 054 047 degrees QTc Int : 446 ms Normal sinus rhythm Normal ECG Confirmed by TOMA CARRERO, NOHEMI ([id number]), state editor SRINI ADAMS ([id number] on 06/07/2018 4:27:39 PM Referred By: TYESHA Confirmed By:NOHEMI CHUA MD
--- NOTE | 2018-06-05 21:55 | RAD_ITS ---
STUDY: X-RAY CHEST REASON FOR EXAM: Female, 63 years old. Complaining of urinary frequency and fever. TECHNIQUE: Single frontal view of the chest. COMPARISON: January 05, 2018 FINDINGS: There is no new focal consolidation. There is a stable right infrahilar calcified focus system with an underlying granuloma. Normal size heart. Normal mediastinum and maxine. Normal visualized pulmonary arteries. Normal visualized aortic arch and descending thoracic aorta. Normal visualized thoracic spine. Normal visualized ribs, clavicles, and shoulders. There is no demonstrated abnormality of the visualized soft tissue structures of the upper abdomen. RAD/Chest 1 View (Portable) IMPRESSION: Stable examination demonstrating no acute cardiopulmonary process. Electronically Signed: Anne Marie Tapia MD at 22:45 EST Tel , Service support ,
[2018-06-05] MEDS: Acetaminophen 325 MG Tablet 650 MG PO (22:10)
[2018-06-05] MEDS: 0.9% Normal Saline 1,000 ML 150 ML IV (22:10)
[2018-06-05 22:17] LABS: Absolute Lymphocyte Count 0.56 X10^3/ul (0.83-4.51); Basophil# 0.04 X10^3/uL; Basophil% 0.5 % (0-1); Eosinophil# 0.16 X10^3/uL; Eosinophils% 1.9 % (0-5); Hematocrit 35.2 % (37-47); Hemoglobin 11.2 g/dl (12.0-15.0); Lymphocyte # 0.56 X10^3/ul (4.0); Lymphocyte % 6.5 % (19-41); Mean Corp Hgb Conc 31.8 g/gl (32-36); Mean Corpuscular Hgb 26.8 pg (27.0-32.0); Mean Corpuscular Volume 84.2 fL (81-99); Mean Platelet Vol. 9.4 fl (6.2-12.0); Monocyte# 0.83 X10^3/uL; Monocyte% 9.7 % (0-10); Neutrophil # 6.97 X10^3/uL (2.7-7.7); Neutrophil % 81.3 % (47-70); Platelet Count 159 K/mm3 (150-450); Red Blood Count 4.18 M/mm3 (4.2-5.4); White Blood Count 8.6 K/mm3 (4.4-11.0)
[2018-06-05 22:19] LABS: Differential Indicated SCAN CRITERIA MET; POSITIVE COUNT NO; POSITIVE DIFFERENTIAL YES; POSITIVE MORPHOLOGY NO
[2018-06-05 22:23] LABS: Mucous, Urine 0 SEEN /hpf (<or=2+)
[2018-06-05 22:28] LABS: Color, Urine Yellow (Yellow); Glucose, Dipstick 1000 mg/dl (Normal); Ketone-Dipstick Negative (Negative); Leukocyte Esterase-Dipstick 500 /ul (Negative); Nitrite-Dipstick Positive (Negative); Occult Blood-Urine 250 /ul (Negative); Protein-Dipstick 100 mg/dl (Negative); Urine Bilirubin Dipstick Negative (Negative); Urine Clarity Cloudy (Clear); Urine Urobilinogen 1 mg/dl (Normal)
[2018-06-05 22:32] LABS: Anion Gap 9 (5-15); BUN 20 mg/dL (7-18); BUN/Creat Ratio 18.5 RATIO (10-20); Calcium,Total 8.5 mg/dL (8.5-10.1); Chloride 96 mmol/L (98-107); Creatinine, Serum 1.08 mg/dL (0.55-1.02); EST Glomerular Filtration Rate 55 mL/min (>60); Est Glom Filt Rate - Afr Amer 66 mL/min (>60); Estimated Creatinine Clearance 86.17 ml/min; Glucose 377 mg/dL (74-106); Potassium 4.5 mmol/L (3.5-5.1); Sodium Level 132 mmol/L (136-145)
[2018-06-05 22:38] LABS: Platelet Estimate ADEQUATE (ADEQ); Red Cell Morphology NORM C+C NORMAL (NORM C&C)
[2018-06-05 22:40] LABS: Bacteria 3+ /hpf (None Seen); Red Blood Cells-Urine 25-50 SEEN /hpf (0-5); White Blood Cells >100 SEEN /hpf (0-5)
[2018-06-05 22:42] LABS: Squamous Epithelial Cells - UA 5-10 SEEN /hpf (5-10)
[2018-06-05 22:48] LABS: Lactic Acid 2.2 mmol/L (0.4-2.0)
--- NOTE | 2018-06-05 22:49 | ED.RN ---
lab resulted lactic 2.2, physician notified
--- NOTE | 2018-06-05 23:00 | ED.DCSUM_ITS ---
- ER Visit Summary Date of Service: 06/05/18 Chief Complaint: Urinary frequency, fever History of Present Illness: The patient is a 63 F with right flank pain for the past 3 days. She reports mild increased urinary frequency. She denies dysuria. She has had mild cough. Fever has been noted over the past 2 days and her last dose of Motrin was about 10 hours prior to evaluation. Patient has a history of diabetes, hypertension, rheumatoid arthritis, fibromyalgia. She was admitted in November of this year with sepsis secondary to UTI. Physical Examination: Blood pressure is 163/71, temperature 99.9, heart rate 103, respiratory rate 16, pulse ox 90% on room air. The time of my examination her pulse ox is 85% on room air and she is placed on 3 L nasal cannula. Patient is lying in bed. She is nontoxic appearing. Head neck examination is unremarkable. Heart is regular rate and rhythm. Lungs sounds are slightly diminished at the bases. No wheezes or rhonchi. Abdomen is soft with no reproducible tenderness. Hypoactive bowel sounds are noted. Skin examination was no rash or lesions. She has strong distal pulses throughout. Test Results: Portable chest x-ray shows no acute process. EKG is sinus at 98 with no sign of ischemia. CBC was normal white count, but left shift is noted with 81% neutrophils. Hemoglobin is 11.2. Chemistry studies reveal glucose of 377 with corresponding sodium of 132. Renal function is unremarkable. Urinalysis returns positive for nitrites with greater than 100 white cells and 3+ bacteria. Lactate is slightly elevated at 2.2. Urine and blood cultures have been sent. Emergency Department Course and Treatment: Patient is given Tylenol and IV fluids. Following completion of blood work IV fluid bolus has been ordered and a dose of IV Rocephin. Patient will be admitted for further treatment. Treatment Plan: [] Disposition: Admit Impression: 1. Cystitis 2. Hypoxia 3. Elevated lactate This note was generated with [employer] dictation software. It may contain incorrect words, spelling, and punctuation that were not noted in review of the chart prior to signing ED Disposition - Plan for ED Patient: Chief Complaint: Complaint Referrals: Bronson Hunt DO [Primary Care Provider] -
[2018-06-05] MEDS: Ceftriaxone 1 GM/50 ML BAG IV (23:13)
[2018-06-05] MEDS: 0.9% Normal Saline 1,000 ML 999 ML IV (23:14)
[2018-06-05 23:22] VITALS: BP 134/58; PULSE 94; RESP 23; TEMP 38; O2SAT 94
--- NOTE | 2018-06-05 23:37 | PCM.HP.STD ---
Problem List (1) Severe sepsis Status: Acute (2) Urinary tract infection Status: Acute Qualifiers: Urinary tract infection type: acute pyelonephritis Qualified Code(s): N10 - Acute pyelonephritis (3) HLD (hyperlipidemia) Status: Chronic Qualifiers: Hyperlipidemia type: unspecified Qualified Code(s): E78.5 - Hyperlipidemia, unspecified (4) Asthma Status: Chronic Qualifiers: Asthma severity: unspecified severity Asthma persistence: unspecified Asthma complication type: unspecified Qualified Code(s): J45.909 - Unspecified asthma, uncomplicated (5) BMI greater than 40 Status: Chronic (6) Hypertension Status: Chronic Qualifiers: Hypertension type: essential hypertension Qualified Code(s): I10 - Essential (primary) hypertension (7) Type II diabetes mellitus Status: Chronic Qualifiers: Diabetes mellitus skilled nursing insulin use: without skilled nursing use Diabetes mellitus complication status: with unspecified complications Qualified Code(s): E11.8 - Type 2 diabetes mellitus with unspecified complications (8) Fibromyalgia Status: Chronic History of Present Illness Date of Admission: 06/05/18 Chief Complaint: R Flank pain, dysuria, fever The patient is a 63 y/o F w/ PMHx: SHRUTHI not using CPAP, Morbid Obesity, Diabetes mellitus type II, HTN, HLD, Allergic Rhinitis, Fe Deficiency Anemia who presents to the [facility] ED on 06/05/18 with R flank pain, urinary frequency, foul smelling urine and fever x 48 hours, progressively worsening fatigue and weakness associated. In the ED patient also noted to have intermittent hypoxia, noted to have poor effort secondary to her abdominal and flank pain and additionally notes she normally sleeps in a chair as well as SHRUTHI history. Work-up in the ED work-up included T 100.4, heart rate 103, BP 134/58, respiratory rate 16, 90% on room air initially--> 94% on 2 L nasal cannula, CBC with WBC 8.6, hemoglobin 11.2, platelet 159 with mild left shift, BMP with sodium 132, chloride 96, BUN/creatinine 20/1.08, glucose 377, lactic acid 2.2, urinalysis notable for urinary tract infection, CXR without acute findings, urine culture and blood culture x 2 pending per ED. In the ED patient administered IV Rocephin, Tylenol, normal saline. Past Medical History Past Medical History (Chronic Problems): Chronic Problems (This Medical Record has been edited. Action required.) BMI greater than 40 (Chronic) HLD (hyperlipidemia) (Chronic) Asthma (Chronic) Hypertension (Chronic) Type II diabetes mellitus (Chronic) Fibromyalgia (Chronic) Microcytic anemia (Chronic) Medical History: Medical History (This Medical Record has been edited. Action required.) Diabetes E11.9 Hypertension I10 Allergies aztreonam Allergy (Verified 06/05/18 21:25) Unknown bee venom protein (honey bee) Allergy (Verified 06/05/18 21:25) Anaphylaxis Carbapenems Allergy (Verified 06/05/18 21:25) Unknown ciprofloxacin [From Cipro] Allergy (Verified 06/05/18 21:25) Anaphylaxis meperidine Allergy (Verified 06/05/18 21:25) Unknown Penicillins Allergy (Verified 06/05/18 21:25) Hives Quinolones Allergy (Verified 06/05/18 21:25) Unknown talampicillin Allergy (Verified 06/05/18 21:25) Unknown tetracycline Allergy (Verified 06/05/18 21:25) Anaphylaxis tigecycline Allergy (Verified 06/05/18 21:25) Unknown Home Medications: Ambulatory Orders Medication Instructions Recorded Albuterol Inhaler [Ventolin Hfa] 1 - 2 puff INHALATION Q4H PRN PRN 10/01/15 Fenofibrate [Lofibra] 160 mg PO DAILY 10/01/15 Loratadine [Claritin] 10 mg PO QHS 10/01/15 aspirin 81 mg tablet,delayed 81 mg PO DAILY 07/14/17 release atorvastatin 80 mg tablet 80 mg PO QHS 07/14/17 cholecalciferol (vitamin D3) 2,000 unit PO MO 07/14/17 50,000 unit capsule fluoxetine 20 mg capsule 20 mg PO DAILY 07/14/17 fluticasone 50 mcg/actuation nasal 2 spray INTRANASAL DAILY 07/14/17 spray,suspension ipratropium-albuterol 0.5 mg-3 3 ml INHALATION BID 07/14/17 mg(2.5 mg base)/3 mL nebulization soln isosorbide mononitrate ER 30 mg 30 mg PO DAILY 07/14/17 tablet,extended release 24 hr lisinopril 20 mg tablet 20 mg PO BID 07/14/17 metformin 1,000 mg tablet 1,000 mg PO BID 07/14/17 nitroglycerin 0.4 mg sublingual 0.4 mg SUBLINGUAL Q5M PRN 07/14/17 tablet omega-3 fatty acids 1,000 mg 1,000 mg PO BID 07/14/17 capsule omeprazole 40 mg capsule,delayed 40 mg PO QHS 07/14/17 release tizanidine 4 mg capsule 4 mg PO Q6H PRN PRN 07/14/17 Epinephrine [Epi Pen] 0.3 mg SQ PRN PRN 12/08/17 Ezetimibe [Zetia] 10 mg PO DAILY 12/08/17 Ferrous Sulfate 325 mg PO TIDCM 12/08/17 Gabapentin [Neurontin] 300 mg PO TID 12/08/17 Glimepiride [Amaryl] 4 mg PO BID 12/08/17 Multivitamins,Ther W-Minerals 1 tablet PO BID 12/08/17 [Multivitamin With Minerals] Magnesium Oxide [Mag-Ox 400] 400 mg PO BID #30 tab 01/03/18 Alendronate Sodium [Fosamax] 70 mg PO DAILY 01/28/18 Amlactin 1 applic TOPICAL PRN PRN 01/28/18 Surgical History: tonsillectomy, - - Right knee surgery, left foot surgery, tubal ligation. Psychiatric History: No pertinent psych hx PHYSICIAN OFFICE REP History: No pertinent PHYSICIAN OFFICE REP history Lives: Friends - Patient lives with friends. Smoking Status: Never smoker Tobacco Use: Non-smoker Alcohol: None Drugs: None - *Family History Maternal Family History: Family History (This Medical Record has been edited. Action required.) Mother Hypertension History Items: Hypertension Paternal Family History: Family History (This Medical Record has been edited. Action required.) Mother Hypertension History Items: High Cholesterol, Heart Disease, - - anemia Review of Systems Constitutional: Reports: Anorexia, Chills, Fever, Malaise, Weakness, Fatigue. Denies: Weight Change HEENT: Denies: Head Aches, Sinus Congestion, Sinus Drainage Cardiovascular: Denies: Chest Pain, Palpitations Respiratory: Reports: Cough. Denies: Shortness of breath at rest, Sputum production Gastrointestinal: Reports: Abdominal Pain. Denies: Nausea, Vomiting Genitourinary: Reports: Dysuria, Frequency Musculoskeletal: Reports: Back Pain. Denies: Joint Pain, Joint Tenderness Skin: Denies: Rash, Wounds Neurological: Denies: Numbness, Tingling, Focal weakness Psychiatric: Reports: Anxiety, Depression. Denies: Homicidal Ideations, Suicidal Ideations Hematologic/ Lymphatic: Reports: Anemia. Denies: Easy Bruising, Easy Bleeding VTE Information - Inpt Only VTE Present on Admission: No VTE Mechan Device Prophylaxis: SCD's VTE Pharm Prophylaxis ordered?: Yes Subjective: Seated upright in the ED bed, fatigued and ill-appearing. Objective: Physical Examination: General: awake, alert, oriented x 3 and cooperative, seated upright in the ED bed fatigued and ill-appearing. Skin: normal color, turgor, no icterus, cyanosis. HEENT: AT/NC, EOMI, PERRLA, dry MM, no carotid bruits or JVD noted. Lungs: Breath sounds bilaterally, greater bilateral bases, poor effort, no rales, ronchi or wheezing. Heart: Tachycardic with regular rhythm; no gallop, rub audible. Abdomen: soft, right lower quadrant severe tenderness especially with palpation of the flank, ND, normal BS, no HSM. Extremities: no cyanosis, clubbing, or edema. Neurological: patient awake, alert, oriented x 3; cognitive function intact; pupils equally reactive to light and accomodation; cranial nerves II-XII grossly normal, moving all 4 extremities, no focal deficits, strength severely globally decreased secondary to acute presentation. Psychiatric: affect appears fatigued, no acute evidence of depressive or anxiety feelings. - Physical Exam Vital Signs Temp Pulse Resp BP Pulse Ox 100.4 F H 94 23 H 134/58 H 94 06/05/18 23:22 06/05/18 23:22 06/05/18 23:22 06/05/18 23:22 06/05/18 23:22 Oxygen Flow Rate (L/min) 2 Oxygen Delivery Method Nasal Cannula Weight: 220 lb Body Mass Index (BMI) 44.4 Laboratory Tests Past 24 Hrs 06/05/18 06/05/18 06/05/18 21:47 22:02 22:02 WBC 8.6 RBC 4.18 L Hgb 11.2 L Hct 35.2 L MCV 84.2 MCH 26.8 L MCHC 31.8 L RDW 16.0 H RDW Differential 48.0 H Plt Count 159 MPV 9.4 Immature Gran % (Auto) 0.100 Neut % (Auto) 81.3 H Lymph % (Auto) 6.5 L [place] % (Auto) 9.7 Eos % (Auto) 1.9 Baso % (Auto) 0.5 Absolute Neuts (auto) 7.0 Absolute Lymphs (auto) 0.56 L Total Counted Not Reportable Differential Comment SEE COMMENT Platelet Estimate ADEQUATE RBC Morphology NORM C+C Sodium 132 L Potassium 4.5 Chloride 96 L Carbon Dioxide 27.0 Anion Gap 9 BUN 20 H Creatinine 1.08 H Estim Creat Clear Calc 86.17 Est GFR (MDRD) Af Amer 66 Est GFR (MDRD) Non-Af 55 L BUN/Creatinine Ratio 18.5 Glucose 377 H Lactic Acid 2.2 H Calcium 8.5 Urine Color Urine Clarity Urine pH Ur Specific [place] Urine Protein Urine Glucose (UA) Urine Ketones Urine Occult Blood Urine Nitrite Urine Bilirubin Urine Urobilinogen Ur Leukocyte Esterase Urine RBC Urine WBC Ur Squamous Epith Cells Urine Bacteria Urine Mucus 06/05/18 22:15 WBC RBC Hgb Hct MCV MCH MCHC RDW RDW Differential Plt Count MPV Immature Gran % (Auto) Neut % (Auto) Lymph % (Auto) [place] % (Auto) Eos % (Auto) Baso % (Auto) Absolute Neuts (auto) Absolute Lymphs (auto) Total Counted Differential Comment Platelet Estimate RBC Morphology Sodium Potassium Chloride Carbon Dioxide Anion Gap BUN Creatinine Estim Creat Clear Calc Est GFR (MDRD) Af Amer Est GFR (MDRD) Non-Af BUN/Creatinine Ratio Glucose Lactic Acid Calcium Urine Color Yellow Urine Clarity Cloudy Urine pH 5.0 Ur Specific [place] 1.010 Urine Protein 100 H Urine Glucose (UA) 1000 H Urine Ketones Negative Urine Occult Blood 250 H Urine Nitrite Positive H Urine Bilirubin Negative Urine Urobilinogen 1 H Ur Leukocyte Esterase 500 H Urine RBC 25-50 SEEN Urine WBC >100 SEEN Ur Squamous Epith Cells 5-10 SEEN Urine Bacteria 3+ Urine Mucus 0 SEEN Assessment/Plan All Active Problems (This Medical Record has been edited. Action required.) Severe sepsis (Acute) Urinary tract infection (Acute) Hyperkalemia (Acute) Shortness of breath (Resolved) Nonproductive cough (Resolved) The patient is a 63 y/o F w/ PMHx: SHRUTHI not using CPAP, Morbid Obesity, Diabetes mellitus type II, HTN, HLD, Allergic Rhinitis, Fe Deficiency Anemia who presents to the [facility] ED on 06/05/18 with R flank pain, urinary frequency, foul smelling urine and fever x 48 hours, progressively worsening fatigue and weakness associated. (1) Acute Severe Sepsis secondary to Acute Complicated UTI, Suspected Actually Pyelonephritis: ED work-up included T 100.4, heart rate 103, BP 134/58, respiratory rate 16, 90% on room air initially--> 94% on 2 L nasal cannula, CBC with WBC 8.6, hemoglobin 11.2, platelet 159 with mild left shift, BMP with sodium 132, chloride 96, BUN/creatinine 20/1.08, glucose 377, lactic acid 2.2, urinalysis notable for urinary tract infection, CXR without acute findings, urine culture and blood culture x 2 pending per ED. Will admit to [facility] w/ telemetry, UA upon ED evaluation remarkable, pending UCx, continue IVFs, monitor I/Os, continue IV Rocephin w/ transition as able pending sensitivities and speciation. Bld cx x 2 obtained in the ED. Given findings and does have history of nephrolithiasis will obtain CT to evaluate for calculi. (2) Hypoxia, Unclear Etiology: In the ED noted intermittent hypoxia, does have SHRUTHI and normally sleeps upright she notes in chair and laying in the ED bed, likely poor effort secondary to acute pain additionally, CXR without acute findings, does have underlying pulmonary disease, will maintain on ATC duoneb, PRN albuterol, utilize her CPAP. If needed may consider repeat CXR in AM. (3) Hyponatremia, hypovolemic, mild: Admission sodium 132, BUN/creatinine 20/1.08, likely secondary to acute presentation with dehydration, will continue to hydrate, repeat BMP in a.m. (4) Hypertension: Continue home regimen including lisinopril, isosorbide, PRN hydralazine. (5) Hyperlipidemia: Continue home statin regimen. (6) Anxiety and depression: Continue home fluoxetine regimen. (7) Diabetes mellitus type II: Hold oral home regimen, continue home insulin regimen, ADA diet, accu checks w/ ISS. (8) Iron deficiency anemia: Admission hemoglobin 11.2, will continue home iron supplementation. (9) Morbid Obesity: Weight loss and lifestyle changes encouraged, nutrition consulted. (10) SHRUTHI: CPAP nightly. (11) Chronic Asthma: HOB, IS, ATC Duoneb, PRN Albuterol. (12) DVT Prophylaxis: SCDs, lovenox. Code Visit Inpatient E&M: 56364 Init Hosp L3
[2018-06-06] VITALS (21 sets, daily range): BP systolic 92–131; BP diastolic 44–61; PULSE 74–91; RESP 16–24; TEMP 36.6–37.1; O2SAT 92–98; BMI 44.4; BMI 44.8
--- NOTE | 2018-06-06 01:06 | CT_ITS ---
HISTORY: RT FLANK PAIN, SEPSIS, UIT, FEVER TECHNIQUE: Helically acquired images were obtained of the abdomen and pelvis without oral or IV contrast as per renal stone protocol. A radiation dose optimization technique was used for this scan. IV Contrast dosage and agent: None. Oral contrast: None. COMPARISON: 10/01/2015 FINDINGS: Both kidneys are normal in position. Several [id number] 2 mm calyceal stones at the lower pole of the right kidney and a similar 2 mm calyceal stone at the lower pole of the left kidney. The right kidney shows mild perinephric edema together with long segment mild periureteral edema on the right compatible with recently passed stone. No hydronephrosis or hydroureter is seen. The pelvis shows small calcified phleboliths and additional small periureteral phleboliths are present without definite intraluminal ureteral stone on this non-infusion exam. No urinary bladder stones identified. Left renal 3.8 cm water density cortical cyst at the midpole. Lower thorax: Lung bases appear clear. By CT, the gallbladder is negative. No biliary dilatation. Generalized hepatomegaly together with inferior elongation of the right hepatic lobe as seen with developmental Naty's lobe. Fatty liver infiltration. Several small calcified hepatic granulomas, unchanged. Mild splenomegaly. The pancreas shows no CT abnormality. Adrenal glands are not enlarged. Abdominal aorta is normal in caliber. No ascites or retroperitoneal lymphadenopathy. GI tract: No obstruction. The appendix is negative. Pelvis: Anteverted uterus which is normal in size. The pelvis shows no free fluid or lymphadenopathy. No urinary bladder stones are seen. CT/Abdomen/Pelvis without Cont IMPRESSION: 1. Right perinephric and right periureteral mild edema compatible with recently passed stone. 2. No current findings of hydronephrosis or hydroureter. 3. Bilateral small nonobstructing renal stones. 4. Hepatosplenomegaly. Fatty liver. No ascites. Individualized dose optimization techniques were used for this CT. at 0418 Reported and signed by: Ata Clifford MD Electronically Signed: Ata Clifford, at 4:16 EST Tel , Service support ,
--- NOTE | 2018-06-06 01:33 | CPS ---
Asked pt if she wears CPAP and she stated no. She told nurse that she had a sleep study and it was bad but when she went back it wasn't bad anymore. Asked pt is she wants to wear a CPAP and pt refused.
[2018-06-06 01:36] LABS: Magnesium 1.2 mg/dL (1.6-2.6)
[2018-06-06 02:31] LABS: Reflex Lactate? Y
[2018-06-06] MEDS: 0.9% Normal Saline 1,000 ML 125 ML IV ×3 (03:08→22:15)
[2018-06-06] MEDS: 0.9% NaCl Peripheral Flush Adult/Peds IV (03:08)
[2018-06-06 03:50] LABS: Lactic Acid 2.6 mmol/L (0.4-2.0)
[2018-06-06] MEDS: 0.9% Normal Saline 1,000 ML 999 ML IV ×2 (04:11→15:50)
[2018-06-06] MEDS: Ipratropium/Albuterol Sulfate 3 ML AMPUL.NEB INHALATION ×3 (06:37→19:58)
[2018-06-06] MEDS: Gabapentin 300 MG Capsule PO ×3 (06:50→22:15)
--- NOTE | 2018-06-06 06:57 | PCM.PROGNOTE ---
Objective: The patient is a 63-year-old female with a past medical history of SHRUTHI (not compliant with CPAP), morbid obesity, nephrolithiasis, CAD, diabetes mellitus type 2, hypertension, hyperlipidemia, allergic rhinitis and iron deficiency anemia who presented to the emergency department at [facility] on 06/05/2018 complaining of right flank pain, urinary frequency, foul-smelling urine and fever for the preceding 48 hours. Temp in the emergency room was 100.4 ?F and the heart rate was 103. Blood pressure was within normal limits and she was 90% saturated on room air and 94% saturated on a 2 L nasal cannula. White blood cell count was 8.6 with 81% neutrophils. Hemoglobin was mildly decreased at 11.2 and platelets were within normal limits. Sodium was low at 132 and the chloride was 96. BUN was 20 with a creatinine of 1.08. Initial lactic acid was elevated at 2.2 and the second lactic acid was 2.6. Magnesium was low at 1.2. A UA showed greater than 100 WBCs per high-power field with 3+ bacteria. There were 5-10 squamous epithelial cells. Chest x-ray showed no infiltrates and a calcified granuloma in the right hilum is stable. CT scan of the abdomen and pelvis showed mild perinephric stranding/edema of the right kidney along with mild periureteral edema(probably due to passing stone recently). There was no hydronephrosis and no hydroureter. There were multiple small stones in both kidneys. There was fatty infiltration of the liver. She was admitted to the hospital for severe sepsis secondary to acute complicated urinary tract infection. She received IV Rocephin in the emergency room and this was continued. Day #2 Rocephin T-max 100.4 ?F, current temp 97.9. Initial blood pressure in the emergency room was 163/71 and the blood pressures have been decreasing overnight. The most recent blood pressure was 99/55 but recheck a few hours later was 131/62. All lab was personally reviewed. White blood cell count today is 8.5 with 75% neutrophils. Hemoglobin has dropped to 10.4 with hydration. RDW is increased at 16.4 and the MCV is 85. Creatinine is 1.03 today, down from 1.08 at admission. Blood and urine cultures are pending. Blood sugars are not adequately controlled. She complains of nausea but has not had emesis. She has pain in her right abdomen and the right flank. She complains of shortness of breath but this is primarily when she is lying flat. She has had a sleep study in the past and has obstructive sleep apnea but cannot afford CPAP. She does not wear oxygen at home. She has a mild nonproductive cough. She denies CP. She sees a slate cutter operator and tells me that she has angina....she has never been cath'd but, she takes NTG at home. PHYSICAL EXAM: GENERAL: alert, oriented X 3, Cooperative, she looks ill ORAL: dry mucosa, no mucosal lesions NECK: No JVD, supple, trachea midline, no carotid bruits LUNGS: CTA, symmetric chest expansion, no accessory muscle, no conversational dyspnea, decreased breath sounds-likely secondary to body habitus HEART: RRR, Normal S1 and S2, no rub, no gallop, no murmur ABDOMEN: soft, obese, the abdomen is tender to palpation primarily on the right side, ND, BS are decreased, no guarding with palpation EXTREMITIES: no edema, no cyanosis, no calf tenderness, dorsalis pedis pulses are 3/3 bilaterally SKIN: No rashes, no breakdown NEUROLOGIC: no focal neurologic deficits PSYCH: appropriate, flat affect, pleasant - Physical Exam Vital Signs Temp Pulse Resp BP Pulse Ox 97.9 F 78 18 99/55 L 92 06/06/18 05:14 06/06/18 06:38 06/06/18 06:38 06/06/18 05:14 06/06/18 06:38 Oxygen Flow Rate (L/min) 1 Oxygen Delivery Method Nasal Cannula Weight: 222 lb 0.088 oz Body Mass Index (BMI) 44.8 Intake and Output for Last 24 Hours 06/04/18 06/05/18 06/06/18 23:59 23:59 23:59 Intake Total 1245 / 1245 Output Total 100 / 100 Balance 1145 / 1145 Laboratory Tests Past 24 Hrs 06/05/18 06/05/18 06/05/18 21:47 22:02 22:02 WBC 8.6 RBC 4.18 L Hgb 11.2 L Hct 35.2 L MCV 84.2 MCH 26.8 L MCHC 31.8 L RDW 16.0 H RDW Differential 48.0 H Plt Count 159 MPV 9.4 Immature Gran % (Auto) 0.100 Neut % (Auto) 81.3 H Lymph % (Auto) 6.5 L [place] % (Auto) 9.7 Eos % (Auto) 1.9 Baso % (Auto) 0.5 Absolute Neuts (auto) 7.0 Absolute Lymphs (auto) 0.56 L Total Counted Not Reportable Differential Comment SEE COMMENT Platelet Estimate ADEQUATE RBC Morphology NORM C+C Sodium 132 L Potassium 4.5 Chloride 96 L Carbon Dioxide 27.0 Anion Gap 9 BUN 20 H Creatinine 1.08 H Estim Creat Clear Calc 86.17 Est GFR (MDRD) Af Amer 66 Est GFR (MDRD) Non-Af 55 L BUN/Creatinine Ratio 18.5 Glucose 377 H Lactic Acid 2.2 H Calcium 8.5 Magnesium Urine Color Urine Clarity Urine pH Ur Specific [place] Urine Protein Urine Glucose (UA) Urine Ketones Urine Occult Blood Urine Nitrite Urine Bilirubin Urine Urobilinogen Ur Leukocyte Esterase Urine RBC Urine WBC Ur Squamous Epith Cells Urine Bacteria Urine Mucus 06/05/18 06/05/18 06/06/18 22:02 22:15 02:44 WBC RBC Hgb Hct MCV MCH MCHC RDW RDW Differential Plt Count MPV Immature Gran % (Auto) Neut % (Auto) Lymph % (Auto) [place] % (Auto) Eos % (Auto) Baso % (Auto) Absolute Neuts (auto) Absolute Lymphs (auto) Total Counted Differential Comment Platelet Estimate RBC Morphology Sodium Potassium Chloride Carbon Dioxide Anion Gap BUN Creatinine Estim Creat Clear Calc Est GFR (MDRD) Af Amer Est GFR (MDRD) Non-Af BUN/Creatinine Ratio Glucose Lactic Acid 2.6 H Calcium Magnesium 1.2 L Urine Color Yellow Urine Clarity Cloudy Urine pH 5.0 Ur Specific [place] 1.010 Urine Protein 100 H Urine Glucose (UA) 1000 H Urine Ketones Negative Urine Occult Blood 250 H Urine Nitrite Positive H Urine Bilirubin Negative Urine Urobilinogen 1 H Ur Leukocyte Esterase 500 H Urine RBC 25-50 SEEN Urine WBC >100 SEEN Ur Squamous Epith Cells 5-10 SEEN Urine Bacteria 3+ Urine Mucus 0 SEEN Medical Necessity - Tobacco Use Smoking Status: Former smoker Tobacco Use: Non-smoker Assessment/Plan All Active Problems (This Medical Record has been edited. Action required.) Severe sepsis (Acute) Urinary tract infection (Acute) Hyperkalemia (Acute) Shortness of breath (Resolved) Nonproductive cough (Resolved) Impressions 1. Severe sepsis secondary to complicated urinary tract infection/pyelonephritis-likely due to passage of kidney stone on the right with perinephric edema and periureteral edema 2. Diabetes mellitus type 2-uncontrolled 3. Morbid obesity 4. Obstructive sleep apnea-untreated with CPAP 5. Nephrolithiasis 6. Hypertension 7. Hyperlipidemia 8. Iron deficiency anemia 9. Reported history of angina 10. Hyponatremia-resolved 11. Hypomagnesemia Continue Rocephin-await blood and urine culture Stressed the importance of using the incentive spirometer for 10 breaths every hour while awake Supplemental oxygen to keep the O2 between 89 and 93 Check a hemoglobin A1c Start Lantus twice daily and increase the sliding insulin scale to high Continue IV fluids Recheck lactic acid Limit sedating medications as much as possible Continue SCDs and Enoxaparin for DVT prophylaxis Continue pantoprazole for GI prophylaxis Recheck lab in the a.m. Code Visit Inpatient E&M: [id number] [facility] Hosp L3
[2018-06-06 07:05] LABS: Bedside Glucose 274 mg/dL (70-110)
[2018-06-06 07:34] LABS: Absolute Lymphocyte Count 1.31 X10^3/ul (0.83-4.51); Absolute Neutrophil Count 6.4 X10^3/uL (2.0-7.7); Basophil# 0.01 X10^3/uL; Basophil% 0.1 % (0-1); Eosinophils% 1.2 % (0-5); Hematocrit 33.9 % (37-47); Hemoglobin 10.4 g/dl (12.0-15.0); Lymphocyte # 1.31 X10^3/ul (4.0); Lymphocyte % 15.4 % (19-41); Mean Corp Hgb Conc 30.7 g/gl (32-36); Mean Corpuscular Hgb 26.1 pg (27.0-32.0); Mean Platelet Vol. 9.7 fl (6.2-12.0); Monocyte# 0.67 X10^3/uL; Monocyte% 7.9 % (0-10); Neutrophil # 6.38 X10^3/uL (2.7-7.7); Neutrophil % 75.2 % (47-70); Platelet Count 162 K/mm3 (150-450); RBC Distribution Width CV 16.4 % (11.6-14.6); RBC Distribution Width SD 50.2 fl (35.1-43.9); Red Blood Count 3.99 M/mm3 (4.2-5.4); White Blood Count 8.5 K/mm3 (4.4-11.0)
[2018-06-06 07:36] LABS: POSITIVE COUNT NO; POSITIVE DIFFERENTIAL NO; POSITIVE MORPHOLOGY NO
[2018-06-06 07:43] LABS: Anion Gap 8 (5-15); BUN 21 mg/dL (7-18); BUN/Creat Ratio 20.4 RATIO (10-20); Chloride 100 mmol/L (98-107); Creatinine, Serum 1.03 mg/dL (0.55-1.02); EST Glomerular Filtration Rate 58 mL/min (>60); Est Glom Filt Rate - Afr Amer 70 mL/min (>60); Estimated Creatinine Clearance 91.18 ml/min; Glucose 286 mg/dL (74-106); Potassium 4.2 mmol/L (3.5-5.1); Sodium Level 135 mmol/L (136-145)
[2018-06-06] MEDS: Insulin Lispro 100 UNIT/ML INSULN.PEN SC ×4 (07:54→22:16)
[2018-06-06] MEDS: Ferrous Sulfate 325 MG Tablet PO ×2 (07:55→16:49)
[2018-06-06] MEDS: FLUoxetine 20 MG Capsule PO (10:39)
[2018-06-06] MEDS: Aspirin E.C. 81 MG Tablet PO (10:40)
[2018-06-06] MEDS: Enoxaparin 30 MG/0.3 ML Syringe SC (10:40)
[2018-06-06] MEDS: Glucerna Shake 120 ML LIQUID PO ×2 (10:43→13:15)
[2018-06-06] MEDS: Fluticasone 0.05% 1 SPRAY NASAL.SRY 2 SPRAY NASAL (10:50)
[2018-06-06 11:01] LABS: Bedside Glucose 293 mg/dL (70-110)
[2018-06-06 11:52] LABS: Hemoglobin A1c 8.7 % (4.2-6.3)
--- NOTE | 2018-06-06 12:36 | CASEMGMT ---
SW met w/pt in room in regard to how she is managing at home and discharge plan. PCP: Dr. Hunt Specialists: sees a harness mender and urologist at [facility] in their specialty center, she cannot remember their names. She also plans to follow up at [facility]. Pt has not been there yet, states other appointments have interfered w/her getting there. SW offered to make an appointment, pt declined, states will follow up on her own. Preferred Pharmacy: [facility] Insurance: , Medicaid Living Will/HPOA: POA form on chart, SW reviewed w/pt. She states the daughters should be in the opposite order on the form, but declined to complete forms again, she states they would work together and it should be fine. Copy on chart. LNOK: Pt has two daughters and a granddaughter, reports daughters are supportive. Living arrangements: Pt states a couple is living w/her, and they will be moving next door. It is the same building where she is so they share the rent and utility costs. The helps pt with cleaning and dishes, and warming her meals. They will continue to assist pt even after they move next door. Transportation: The in the couple lives w/pt takes pt to appointments. DME/HHC: Pt has a walker and cane, pt has a nebulizer. Pt does not have a C-pap, has never had a C-pap. Pt states did have a sleep study in [place] but has no interest in getting a C-pap. Pt also has [employer], Brandie Rogers is her director case management. Pt has only Mom's meals and a life alert button through [employer]. SW spoke w/pt about discharge plan, pt states can manage at home as things are, does not feel she needs any aide services at this time. Pt states will speak w/Brandie about getting aide services should she feel she needs them in the future. SW also asked pt about SNF or HHC, pt declines the need for either of these at this time. Pt has had [facility] and has been to [facility] in the past. SW did call Brandie Rogers and left her a message letting her know that pt is here. Discharge plan: Home at discharge. No homegoing needs anticipated. THANIA Aguilar, PERSONAL COMPUTER NETWORK ANALYST
[2018-06-06] MEDS: oxyCODONE 5 MG Tablet PO (15:53)
[2018-06-06 16:56] LABS: Bedside Glucose 336 mg/dL (70-110)
[2018-06-06] MEDS: Lisinopril 20 MG Tablet PO (22:15)
[2018-06-06] MEDS: Pantoprazole Sodium 40 MG Tablet PO (22:15)
[2018-06-06] MEDS: Loratadine 10 MG Tablet PO (22:15)
[2018-06-06] MEDS: Atorvastatin Calcium 80 MG Tablet PO (22:15)
[2018-06-06] MEDS: Ceftriaxone 1 GM/50 ML BAG IV (22:18)
[2018-06-06 22:30] LABS: Bedside Glucose 258 mg/dL (70-110)
[2018-06-07] VITALS (17 sets, daily range): BP systolic 84–118; BP diastolic 34–66; PULSE 70–88; RESP 16–20; TEMP 36.7–37.2; O2SAT 88–98
[2018-06-07] MEDS: oxyCODONE 5 MG Tablet PO (02:08)
[2018-06-07] MEDS: Gabapentin 300 MG Capsule PO ×3 (05:47→22:01)
[2018-06-07] MEDS: 0.9% Normal Saline 1,000 ML 125 ML IV ×3 (05:53→21:59)
[2018-06-07 07:00] LABS: Bedside Glucose 242 mg/dL (70-110)
[2018-06-07 07:20] LABS: Basophil# 0.03 X10^3/uL; Basophil% 0.3 % (0-1); Eosinophil# 0.55 X10^3/uL; Hematocrit 32.1 % (37-47); Hemoglobin 9.6 g/dl (12.0-15.0); Lymphocyte % 15.2 % (19-41); Mean Corp Hgb Conc 29.9 g/gl (32-36); Mean Corpuscular Hgb 25.7 pg (27.0-32.0); Mean Corpuscular Volume 85.8 fL (81-99); Mean Platelet Vol. 9.8 fl (6.2-12.0); Monocyte# 1.17 X10^3/uL; Monocyte% 12.7 % (0-10); Neutrophil # 6.03 X10^3/uL (2.7-7.7); Neutrophil % 65.7 % (47-70); Platelet Count 185 K/mm3 (150-450); RBC Distribution Width CV 16.6 % (11.6-14.6); RBC Distribution Width SD 50.9 fl (35.1-43.9); Red Blood Count 3.74 M/mm3 (4.2-5.4); White Blood Count 9.2 K/mm3 (4.4-11.0)
[2018-06-07 07:25] LABS: POSITIVE COUNT NO; POSITIVE DIFFERENTIAL NO; POSITIVE MORPHOLOGY NO
[2018-06-07] MEDS: Ipratropium/Albuterol Sulfate 3 ML AMPUL.NEB INHALATION ×4 (07:27→19:56)
[2018-06-07 07:43] LABS: ALB/GLOB Ratio 0.5 RATIO (0.9-2.4); AST(SGOT) 21 U/L (15-37); Alanine Aminotransfer ALT/SGPT 29 U/L (13-56); Albumin, Serum 2.4 g/dL (3.2-5.0); Alkaline Phosphatase 125 U/L (45-117); Anion Gap 10 (5-15); BUN 18 mg/dL (7-18); BUN/Creat Ratio 16.8 RATIO (10-20); Calcium,Total 7.6 mg/dL (8.5-10.1); Chloride 104 mmol/L (98-107); Cholesterol 95 mg/dL (200); Creatinine, Serum 1.07 mg/dL (0.55-1.02); EST Glomerular Filtration Rate 55 mL/min (>60); Est Glom Filt Rate - Afr Amer 67 mL/min (>60); Estimated Creatinine Clearance 87.77 ml/min; Globulin 4.4 g/dL (2.2-4.2); Glucose 240 mg/dL (74-106); High Density Lipoprotein 36 mg/dL; Magnesium 1.8 mg/dL (1.6-2.6); Phosphorus 2.3 mg/dL (2.5-4.9); Potassium 4.4 mmol/L (3.5-5.1); Protein, Total 6.8 g/dL (6.4-8.2); Sodium Level 138 mmol/L (136-145); Triglycerides 208 mg/dL; Very Low Density Lipoprotein 42 mg/dL (5-40)
--- NOTE | 2018-06-07 07:56 | NURSING ---
BP THIS AM 89/46 - TEXT SENT TO DR BUNCH REGARDING SAME.
[2018-06-07] MEDS: Insulin Lispro 100 UNIT/ML INSULN.PEN SC ×4 (08:22→22:03)
[2018-06-07] MEDS: Aspirin E.C. 81 MG Tablet PO (08:23)
[2018-06-07] MEDS: Ferrous Sulfate 325 MG Tablet PO ×3 (08:23→17:13)
[2018-06-07] MEDS: Isosorbide Mononitrate 30 MG Tablet PO (08:23)
[2018-06-07] MEDS: Fluticasone 0.05% 1 SPRAY NASAL.SRY 2 SPRAY NASAL (08:23)
[2018-06-07] MEDS: FLUoxetine 20 MG Capsule PO (08:24)
[2018-06-07] MEDS: Acetaminophen 325 MG Tablet 650 MG PO ×2 (09:36→17:14)
[2018-06-07] MEDS: Enoxaparin 30 MG/0.3 ML Syringe SC (09:38)
--- NOTE | 2018-06-07 09:41 | NURSING ---
DR SMITH HERE ON UNIT - MD MADE AWARE PT BP NOW 90/43. MS TO ADJUST MEDICATIONS.
[2018-06-07 11:41] LABS: Bedside Glucose 338 mg/dL (70-110)
--- NOTE | 2018-06-07 12:27 | NURSING ---
REPLACED O2 1L NC
[2018-06-07] MEDS: Cefazolin 1 GM/50 ML BAG IV ×2 (14:20→21:59)
--- NOTE | 2018-06-07 15:13 | NURSING ---
1400 LATE ENTRY - BP 84/34. DT LUIS MADE AWARE - ORDERED TO CONTINUE TO MONITOR BP MEDS WERE ADJUSTED TODAY.
--- NOTE | 2018-06-07 16:28 | PCM.PROGNOTE ---
Subjective: Patient seen and examined today, patient requests that her SCDs be discontinued, urine culture grew out E. coli that was sensitive to multiple antibiotics, Rocephin was stopped today and I placed her on Ancef. Patient voices no complaints to this examiner today otherwise. Patient's white blood cell count was normal at 9.2. - Physical Exam General: Alert, Oriented x3, Cooperative, No apparent distress, Well developed, Well nourished HEENT: Atraumatic, PERRLA, EOMI, Normocephalic Oral: Moist Mucosa Neck: Supple, Trachea Midline, Thyroid Normal Size and Texture Lungs: Clear to auscultation, Normal air movement, No rhonchi, No wheeze, No rales Cardiovascular: Regular rate, Regular Rhythm, Normal S1, Normal S2, No murmurs, No Ectopic Activity Abdomen: Bowel Sounds Present, Soft, Non Tender, Non-Distended, Obese, No hernias noted Extremities: No clubbing, No cyanosis, No edema, Capillary Refill Less than 3 Seconds Skin: No rashes, No breakdown Musculoskeletal: No Tenderness to Palpation of Joints or Extremities Neurological: Cranial nerves II-XII grossly intact, Neuro grossly intact, Sensory exam intact to light touch and pain, Coordination normal Psych/Mental Status: Normal Affect, Appropriate, Alert and oriented to time, place, person, mood and affect Vital Signs Temp Pulse Resp BP Pulse Ox 98.3 F 88 20 H 84/34 L 93 06/07/18 14:00 06/07/18 14:55 06/07/18 14:55 06/07/18 14:00 06/07/18 14:00 Oxygen Flow Rate (L/min) 1 Oxygen Delivery Method Nasal Cannula Weight: 100.7 kg Body Mass Index (BMI) 44.8 Intake and Output for Last 24 Hours 06/05/18 06/06/18 06/07/18 23:59 23:59 23:59 Intake Total 5495 / 5495 3552 / 3552 Output Total 600 / 600 Balance 4895 / 4895 3552 / 3552 Microbiology Past 72 Hours 06/05/18 22:15 Urine Culture - Final Urine, Catheterized Presumptive E. coli Laboratory Tests Past 24 Hrs 06/07/18 06/07/18 06:35 06:35 WBC 9.2 RBC 3.74 L Hgb 9.6 L Hct 32.1 L MCV 85.8 MCH 25.7 L MCHC 29.9 L RDW 16.6 H RDW Differential 50.9 H Plt Count 185 MPV 9.8 Immature Gran % (Auto) 0.100 Neut % (Auto) 65.7 Lymph % (Auto) 15.2 L [place] % (Auto) 12.7 H Eos % (Auto) 6.0 H Baso % (Auto) 0.3 Absolute Neuts (auto) 6.0 Absolute Lymphs (auto) 1.40 Total Counted Not Reportable Sodium 138 Potassium 4.4 Chloride 104 Carbon Dioxide 24.0 Anion Gap 10 BUN 18 Creatinine 1.07 H Estim Creat Clear Calc 87.77 Est GFR (MDRD) Af Amer 67 Est GFR (MDRD) Non-Af 55 L BUN/Creatinine Ratio 16.8 Glucose 240 H Calcium 7.6 L Phosphorus 2.3 L Magnesium 1.8 Total Bilirubin 0.40 AST 21 ALT 29 Alkaline Phosphatase 125 H Total Protein 6.8 Albumin 2.4 L Globulin 4.4 H Albumin/Globulin Ratio 0.5 L Triglycerides 208 H Cholesterol 95 LDL Cholesterol 17 VLDL Cholesterol 42 H HDL Cholesterol 36 L POC Glucose 06/07/18 06/07/18 06/06/18 11:34 06:52 22:12 POC Glucose 338 H 242 H 258 H 06/06/18 16:47 POC Glucose 336 H Medical Necessity - Tobacco Use Smoking Status: Former smoker Tobacco Use: Non-smoker Assessment/Plan All Active Problems (This Medical Record has been edited. Action required.) Severe sepsis (Acute) Urinary tract infection (Acute) Hyperkalemia (Acute) Shortness of breath (Resolved) Nonproductive cough (Resolved) #1 acute severe sepsis secondary to E. coli cystitis-again patient's antibiotic was changed to Ancef #2 acute cystitis secondary to E. coli #3 type 2 diabetes #4 hypertension #5 morbid obesity #6 fibromyalgia #7 obstructive sleep apnea #8 anxiety and depression #9 chronic asthma #10 stage III chronic kidney disease secondary to type 2 diabetes Code Visit Inpatient E&M: 44317 Subs Hosp L2
[2018-06-07 16:35] LABS: Bedside Glucose 355 mg/dL (70-110)
--- NOTE | 2018-06-07 17:22 | CHAPLAIN ---
Type of Pastoral Visit _x__ Initial Visit ___ Follow-up Visit ___ On-call Visit ___ General Patient Visit ___ Spiritual Assessment ___ Family Conference ___ Bereavement ___ Rapid Response ___ Code Blue ___ Other (describe below) Pastoral Care Referral From _x__ Patient ___ Family ___ Nurse ___ Physician ___ Typing Checker ___ Machine Rope Maker ___ Other (describe below) Sacrament/Intervention ___ Active listening ___ Anointing ___ Yarsani ___ Bereavement ___ Communion ___ Torie exploration ___ ___ Life review _x__ Prayer ___ Reconciliation ___ Sacrament of Sick _x__ Supportive presence ___ Wedding ___ Other (describe below) Pastoral Comments patient was welcoming but had a difficult time with staying awake and focused; pt requested prayer support for her health
[2018-06-07] MEDS: Pantoprazole Sodium 40 MG Tablet PO (22:04)
[2018-06-07] MEDS: Loratadine 10 MG Tablet PO (22:04)
[2018-06-07] MEDS: Atorvastatin Calcium 80 MG Tablet PO (22:04)
[2018-06-07 23:56] LABS: Bedside Glucose 284 mg/dL (70-110)
[2018-06-08] VITALS (15 sets, daily range): BP systolic 114–151; BP diastolic 54–72; PULSE 70–93; RESP 17–20; TEMP 36.7–38.6; O2SAT 93–96
[2018-06-08] MEDS: oxyCODONE 5 MG Tablet PO (00:10)
[2018-06-08] MEDS: Magnesium Hydroxide 30 ML UDC PO (03:43)
[2018-06-08] MEDS: 0.9% Normal Saline 1,000 ML 125 ML IV (06:09)
[2018-06-08] MEDS: Cefazolin 1 GM/50 ML BAG IV ×2 (06:09→14:19)
[2018-06-08] MEDS: Gabapentin 300 MG Capsule PO ×3 (06:09→22:20)
[2018-06-08] MEDS: Acetaminophen 325 MG Tablet 650 MG PO ×2 (06:10→20:49)
[2018-06-08 06:35] LABS: Bedside Glucose 257 mg/dL (70-110)
[2018-06-08] MEDS: Ipratropium/Albuterol Sulfate 3 ML AMPUL.NEB INHALATION ×5 (06:45→22:40)
[2018-06-08] MEDS: Insulin Lispro 100 UNIT/ML INSULN.PEN SC ×4 (08:14→22:20)
[2018-06-08] MEDS: Aspirin E.C. 81 MG Tablet PO (08:15)
[2018-06-08] MEDS: Fluticasone 0.05% 1 SPRAY NASAL.SRY 2 SPRAY NASAL (08:16)
[2018-06-08] MEDS: Ferrous Sulfate 325 MG Tablet PO ×3 (08:16→16:17)
[2018-06-08] MEDS: Enoxaparin 30 MG/0.3 ML Syringe SC (08:17)
[2018-06-08] MEDS: FLUoxetine 20 MG Capsule PO (08:18)
[2018-06-08 08:20] LABS: Absolute Neutrophil Count 3.7 X10^3/uL (2.0-7.7); Basophil# 0.05 X10^3/uL; Basophil% 0.9 % (0-1); Eosinophil# 0.49 X10^3/uL; Eosinophils% 8.4 % (0-5); Hematocrit 29.9 % (37-47); Hemoglobin 8.9 g/dl (12.0-15.0); Mean Corp Hgb Conc 29.8 g/gl (32-36); Mean Corpuscular Hgb 25.2 pg (27.0-32.0); Mean Corpuscular Volume 84.7 fL (81-99); Mean Platelet Vol. 9.1 fl (6.2-12.0); Monocyte# 0.48 X10^3/uL; Monocyte% 8.3 % (0-10); Neutrophil # 3.67 X10^3/uL (2.7-7.7); Neutrophil % 63.2 % (47-70); Platelet Count 133 K/mm3 (150-450); RBC Distribution Width CV 16.8 % (11.6-14.6); RBC Distribution Width SD 51.9 fl (35.1-43.9); Red Blood Count 3.53 M/mm3 (4.2-5.4); White Blood Count 5.8 K/mm3 (4.4-11.0)
[2018-06-08 08:21] LABS: POSITIVE COUNT NO; POSITIVE DIFFERENTIAL NO; POSITIVE MORPHOLOGY NO
[2018-06-08 08:35] LABS: Anion Gap 5 (5-15); BUN 18 mg/dL (7-18); BUN/Creat Ratio 20.6 RATIO (10-20); Calcium,Total 7.6 mg/dL (8.5-10.1); Chloride 107 mmol/L (98-107); Creatinine, Serum 0.87 mg/dL (0.55-1.02); EST Glomerular Filtration Rate 70 mL/min (>60); Est Glom Filt Rate - Afr Amer 85 mL/min (>60); Estimated Creatinine Clearance 107.95 ml/min; Glucose 311 mg/dL (74-106); Potassium 4.9 mmol/L (3.5-5.1); Sodium Level 136 mmol/L (136-145)
[2018-06-08 11:36] LABS: Bedside Glucose 292 mg/dL (70-110)
--- NOTE | 2018-06-08 13:32 | PCM.PN.HOSP ---
Subjective: Patient seen and examined. She was sitting up in bed. She complained of generalised malaise. She denied any fever, chills, cough, chest pain, SOB, abdominal pain, diarrhea or vomiting. Her abdomen was noticeably distended, and she said distension had during her admission. She is passing gas but says she is constipated. She doesnt want an enema. Labs and vitals reviewed. Vitals/I&O's: Vital Signs Temp Pulse Resp BP Pulse Ox 98.3 F 78 18 133/66 H 94 06/08/18 13:14 06/08/18 13:14 06/08/18 13:14 06/08/18 13:14 06/08/18 13:14 Oxygen Flow Rate (L/min) 1 Oxygen Delivery Method Nasal Cannula Weight: 222 lb 0.088 oz Body Mass Index (BMI) 44.8 Intake and Output for Last 24 Hours 06/06/18 06/07/18 06/08/18 23:59 23:59 23:59 Intake Total 5495 / 5495 5249 / 5249 1571 / 1571 Output Total 600 / 600 200 / 200 Balance 4895 / 4895 5249 / 5249 1371 / 1371 General: Alert, Oriented x3, Cooperative, No apparent distress HEENT: Atraumatic, PERRLA, EOMI, Normocephalic Oral: Moist Mucosa Neck: Supple, No JVD, Negative Carotid Bruits Lungs: Clear to auscultation, Normal air movement, No rhonchi, No wheeze, No rales Cardiovascular: Regular rate, Regular Rhythm, Normal S1, Normal S2, No murmurs Abdomen: Bowel Sounds Present, Soft, Non Tender, Distended Extremities: No clubbing, No cyanosis, No edema, Capillary Refill Less than 3 Seconds Skin: No rashes, No breakdown Musculoskeletal: No Tenderness to Palpation of Joints or Extremities Lymphatic: No Cervical, Supraclavicular, or Inguinal Adenopathy Neurological: Cranial nerves II-XII grossly intact Psych/Mental Status: Normal Affect, Appropriate, Alert and oriented to time, place, person, mood and affect Microbiology Past 72 Hours 06/05/18 22:15 Urine, Catheterized Urine Culture - Final Presumptive E. coli Laboratory Results 06/07/18 16:14: POC Glucose 355 H 06/07/18 21:58: POC Glucose 284 H 06/08/18 06:31: POC Glucose 257 H 06/08/18 08:00: WBC 5.8, RBC 3.53 L, Hgb 8.9 L, Hct 29.9 L, MCV 84.7, MCH 25.2 L, MCHC 29.8 L, RDW 16.8 H, RDW Differential 51.9 H, Plt Count 133 L, MPV 9.1, Immature Gran % (Auto) 0.200, Neut % (Auto) 63.2, Lymph % (Auto) 19.0, [place] % (Auto) 8.3, Eos % (Auto) 8.4 H, Baso % (Auto) 0.9, Absolute Neuts (auto) 3.7, Absolute Lymphs (auto) 1.10, Total Counted Not Reportable 06/08/18 08:00: Sodium 136, Potassium 4.9, Chloride 107, Carbon Dioxide 24.0, Anion Gap 5, BUN 18, Creatinine 0.87, Estim Creat Clear Calc 107.95, Est GFR (MDRD) Af Amer 85, Est GFR (MDRD) Non-Af 70, BUN/Creatinine Ratio 20.6 H, Glucose 311 H, Calcium 7.6 L 06/08/18 11:27: POC Glucose 292 H Diagnostic Data Chest X-Ray 06/05/18 21:55 IMPRESSION: Stable examination demonstrating no acute cardiopulmonary process. Electronically Signed: Anne Marie Tapia MD at 22:45 EST Tel , Service support , Abdomen/Pelvis CT 06/06/18 01:06 IMPRESSION: 1. Right perinephric and right periureteral mild edema compatible with recently passed stone. 2. No current findings of hydronephrosis or hydroureter. 3. Bilateral small nonobstructing renal stones. 4. Hepatosplenomegaly. Fatty liver. No ascites. Individualized dose optimization techniques were used for this CT. at 2014 Reported and signed by: Ata Clifford MD Electronically Signed: Ata Clifford, at 4:16 EST Tel , Service support , Current Medications Acetaminophen (Tylenol) 650 mg PO Q6H PRN PRN PRN Reason: Mild Pain (scale 0-3)/T>100.7 Last Admin: 06/08/18 06:10 Dose: 650 mg Al Hydroxide/Mg Hydroxide (Mylanta Ii) 30 ml PO Q6H PRN PRN PRN Reason: Gastric burning Albuterol Sulfate (Ventolin Aerosols) 2.5 mg INHALATION Q2H PRN PRN PRN Reason: dyspnea, wheezing Albuterol/Ipratropium (Duoneb) 3 ml INHALATION Q4HWA.RT [facility] Last Admin: 06/08/18 10:57 Dose: 3 ml Aspirin (Ecotrin) 81 mg PO DAILY [facility] Last Admin: 06/08/18 08:15 Dose: 81 mg Atorvastatin Calcium (Lipitor) 80 mg PO QHS [facility] Last Admin: 06/07/18 22:04 Dose: 80 mg Enoxaparin Sodium (Lovenox) 30 mg SC DAILY@1000 [facility] Last Admin: 06/08/18 08:17 Dose: 30 mg Ferrous Sulfate (Ferrous Sulfate) 325 mg PO TIDCM [facility] Last Admin: 06/08/18 11:40 Dose: 325 mg Fluoxetine HCl (Prozac) 20 mg PO DAILY [facility] Last Admin: 06/08/18 08:18 Dose: 20 mg Fluticasone Propionate (Flonase Nasal [place]) 2 spray NASAL DAILY [facility] Last Admin: 06/08/18 08:16 Dose: 2 spray Gabapentin (Neurontin) 300 mg PO TID [facility] Last Admin: 06/08/18 06:09 Dose: 300 mg Hydralazine HCl (Apresoline Iv) 10 mg IV Q4H PRN PRN PRN Reason: SBP > 160 Sodium Chloride () 250 mls @ 15 mls/hr IV .[id number] PRN PRN Reason: SALINE FLUSH Sodium Chloride () 1,000 mls @ 125 mls/hr IV .Q8H [facility] Last Admin: 06/08/18 06:09 Dose: 125 mls/hr Cefazolin Sodium () 1 gm in 50 mls @ 100 mls/hr IV Q8 [facility] Last Admin: 06/08/18 06:09 Dose: 100 mls/hr Insulin Glargine (Lantus (Bkc)) 10 units SC DAILY [facility] Last Admin: 06/08/18 08:17 Dose: 10 u Insulin Glargine (Lantus (Bkc)) 6 units SC QHS [facility] Last Admin: 06/07/18 22:02 Dose: 6 units Insulin Human Lispro (Humalog Kwikpen (Bkc)) 0 unit SC ACHS [facility]; Protocol Last Admin: 06/08/18 11:40 Dose: 9 u Loratadine (Claritin) 10 mg PO QHS [facility] Last Admin: 06/07/18 22:04 Dose: 10 mg Magnesium Hydroxide (Milk Of Magnesia) 30 ml PO DAILY PRN PRN PRN Reason: Constipation Last Admin: 06/08/18 03:43 Dose: 30 ml Morphine Sulfate () 2 - 4 mg IV Q3H PRN PRN PRN Reason: Severe Pain (pain scale 6-10) Morphine Sulfate () 1 - 2 mg IV Q4H PRN PRN PRN Reason: Moderate Pain (pain scale 4-5) Ondansetron HCl (Zofran) 4 mg IV Q8H PRN PRN PRN Reason: NAUSEA Oxycodone HCl (Oxyir) 5 mg PO Q4H PRN PRN PRN Reason: Moderate Pain (pain scale 4-5) Last Admin: 06/08/18 00:10 Dose: 5 mg Pantoprazole Sodium (Protonix) 40 mg PO QHS [facility] Last Admin: 06/07/18 22:04 Dose: 40 mg Promethazine HCl (Phenergan) 12.5 mg IV Q6H PRN PRN PRN Reason: NAUSEA/VOMITING Sodium Chloride () 5 - 30 ml IV UD PRN PRN Reason: SALINE FLUSH Last Admin: 06/06/18 03:08 Dose: 10 ml Tizanidine HCl (Zanaflex) 4 mg PO Q6H PRN PRN Medical Necessity - Tobacco Use Smoking Status: Former smoker Tobacco Use: Non-smoker Assessment/Plan All Active Problems (This Medical Record has been edited. Action required.) Severe sepsis (Acute) Urinary tract infection (Acute) Hyperkalemia (Acute) Shortness of breath (Resolved) Nonproductive cough (Resolved) 1. Sepsis due to UTI Resolved. UA showed 3+ bacteria more than 100 white blood cells per high-power field. Urine cultured E. coli. She initially on IV Rocephin and is now on Ancef. Complains only of constipation. Is now afebrile; on IV ancef will switch to PO augmentin for a 7 day course. 2. Type 2 diabetes mellitus: blood sugars poorly controlled. On lantus 6IU qhs and 10Iu daily. ISS. Accuchecks ACHS resume metformin 3. Hypertension: lisinopril on hold since admission. BP has been well controlled, with episodes of asymptomatic hypotension.Will monitor 4. Fibromyalgia: on gabapentin 5. Constipation: on milk of magnesia. Doesnt want an enema. Give senokot 6. SHRUTHI 7. Hyperlipidemia: on statin and ezetimibe 8.Elevated Cr: resolved. Cr was 1.08 on admission; baseline is ~ 0.8. Cr now 0.87, back to her baseline. Didnt meet criteria for TAE on admission. Will monitor 9 anxiety and depression: on fluoxetine 10 chronic asthma:on breathing treatments 11. Osteoporosis: on alendronate 12. Fatty liver: per CT scan. CT scan showed hepatosplenomegaly, and fatty liver. No ascites. To follow up with PCP and weatherseal technician upon discharge. DVT prophylaxis: lovenox Disposition: for dc home tomorrow Code Visit Inpatient E&M: 01753 Subs Hosp L2
--- NOTE | 2018-06-08 13:37 | PN_ITS ---
Subjective: Patient seen and examined. She was sitting up in bed. She complained of generalised malaise. She denied any fever, chills, cough, chest pain, SOB, a bdominal pain, diarrhea or vomiting. Her abdomen was noticeably distended, and she said distension had during her admission. She is passing gas but says she is constipated. She doesnt want an enema. Labs and vitals reviewed. Vitals/I&O's: Vital Signs Temp Pulse Resp BP Pulse Ox 98.3 F 78 18 133/66 H 94 06/08/18 13:14 06/08/18 13:14 06/08/18 13:14 06/08/18 13:14 06/08/18 13:14 Oxygen Flow Rate (L/min) 1 Oxygen Delivery Method Nasal Cannula Weight: 222 lb 0.088 oz Body Mass Index (BMI) 44.8 Intake and Output for Last 24 Hours 06/06/18 06/07/18 06/08/18 23:59 23:59 23:59 Intake Total 5495 / 5495 5249 / 5249 1571 / 1571 Output Total 600 / 600 200 / 200 Balance 4895 / 4895 5249 / 5249 1371 / 1371 General: Alert, Oriented x3, Cooperative, No apparent distress HEENT: Atraumatic, PERRLA, EOMI, Normocephalic Oral: Moist Mucosa Neck: Supple, No JVD, Negative Carotid Bruits Lungs: Clear to auscultation, Normal air movement, No rhonchi, No wheeze, No rales Cardiovascular: Regular rate, Regular Rhythm, Normal S1, Normal S2, No murmurs Abdomen: Bowel Sounds Present, Soft, Non Tender, Distended Extremities: No clubbing, No cyanosis, No edema, Capillary Refill Less than 3 Seconds Skin: No rashes, No breakdown Musculoskeletal: No Tenderness to Palpation of Joints or Extremities Lymphatic: No Cervical, Supraclavicular, or Inguinal Adenopathy Neurological: Cranial nerves II-XII grossly intact Psych/Mental Status: Normal Affect, Appropriate, Alert and oriented to time, place, person, mood and affect Microbiology Past 72 Hours 06/05/18 22:15 Urine, Catheterized Urine Culture - Final Presumptive E. coli Laboratory Results 06/07/18 16:14: POC Glucose 355 H 06/07/18 21:58: POC Glucose 284 H 06/08/18 06:31: POC Glucose 257 H 06/08/18 08:00: WBC 5.8, RBC 3.53 L, Hgb 8.9 L, Hct 29.9 L, MCV 84.7, MCH 25.2 L , MCHC 29.8 L, RDW 16.8 H, RDW Differential 51.9 H, Plt Count 133 L, MPV 9.1, Immature Gran % (Auto) 0.200, Neut % (Auto) 63.2, Lymph % (Auto) 19.0, [place] % (Auto) 8.3, Eos % (Auto) 8.4 H, Baso % (Auto) 0.9, Absolute Neuts (auto) 3.7, Absolute Lymphs (auto) 1.10, Total Counted Not Reportable 06/08/18 08:00: Sodium 136, Potassium 4.9, Chloride 107, Carbon Dioxide 24.0, Anion Gap 5, BUN 18, Creatinine 0.87, Estim Creat Clear Calc 107.95, Est GFR (MDRD) Af Amer 85, Est GFR (MDRD) Non-Af 70, BUN/Creatinine Ratio 20.6 H, Glucose 311 H, Calcium 7.6 L 06/08/18 11:27: POC Glucose 292 H Diagnostic Data Chest X-Ray 06/05/18 21:55 IMPRESSION: Stable examination demonstrating no acute cardiopulmonary process. Electronically Signed: Anne Marie Tapia MD at 22:45 EST Tel , Service support , Abdomen/Pelvis CT 06/06/18 01:06 IMPRESSION: 1. Right perinephric and right periureteral mild edema compatible with recently passed stone. 2. No current findings of hydronephrosis or hydroureter. 3. Bilateral small nonobstructing renal stones. 4. Hepatosplenomegaly. Fatty liver. No ascites. Individualized dose optimization techniques were used for this CT. at 1818 Reported and signed by: Ata Clifford MD Electronically Signed: Ata Clifford, at 4:16 EST Tel , Service support , Current Medications Acetaminophen (Tylenol) 650 mg PO Q6H PRN PRN PRN Reason: Mild Pain (scale 0-3)/T>100.7 Last Admin: 06/08/18 06:10 Dose: 650 mg Al Hydroxide/Mg Hydroxide (Mylanta Ii) 30 ml PO Q6H PRN PRN PRN Reason: Gastric burning Albuterol Sulfate (Ventolin Aerosols) 2.5 mg INHALATION Q2H PRN PRN PRN Reason: dyspnea, wheezing Albuterol/Ipratropium (Duoneb) 3 ml INHALATION Q4HWA.RT [facility] Last Admin: 06/08/18 10:57 Dose: 3 ml Aspirin (Ecotrin) 81 mg PO DAILY [facility] Last Admin: 06/08/18 08:15 Dose: 81 mg Atorvastatin Calcium (Lipitor) 80 mg PO QHS [facility] Last Admin: 06/07/18 22:04 Dose: 80 mg Enoxaparin Sodium (Lovenox) 30 mg SC DAILY@1000 [facility] Last Admin: 06/08/18 08:17 Dose: 30 mg Ferrous Sulfate (Ferrous Sulfate) 325 mg PO TIDCM [facility] Last Admin: 06/08/18 11:40 Dose: 325 mg Fluoxetine HCl (Prozac) 20 mg PO DAILY [facility] Last Admin: 06/08/18 08:18 Dose: 20 mg Fluticasone Propionate (Flonase Nasal [place]) 2 spray NASAL DAILY [facility] Last Admin: 06/08/18 08:16 Dose: 2 spray Gabapentin (Neurontin) 300 mg PO TID [facility] Last Admin: 06/08/18 06:09 Dose: 300 mg Hydralazine HCl (Apresoline Iv) 10 mg IV Q4H PRN PRN PRN Reason: SBP > 160 Sodium Chloride () 250 mls @ 15 mls/hr IV .[id number] PRN PRN Reason: SALINE FLUSH Sodium Chloride () 1,000 mls @ 125 mls/hr IV .Q8H [facility] Last Admin: 06/08/18 06:09 Dose: 125 mls/hr Cefazolin Sodium () 1 gm in 50 mls @ 100 mls/hr IV Q8 [facility] Last Admin: 06/08/18 06:09 Dose: 100 mls/hr Insulin Glargine (Lantus (Bkc)) 10 units SC DAILY [facility] Last Admin: 06/08/18 08:17 Dose: 10 u Insulin Glargine (Lantus (Bkc)) 6 units SC QHS [facility] Last Admin: 06/07/18 22:02 Dose: 6 units Insulin Human Lispro (Humalog Kwikpen (Bkc)) 0 unit SC ACHS [facility]; Protocol Last Admin: 06/08/18 11:40 Dose: 9 u Loratadine (Claritin) 10 mg PO QHS [facility] Last Admin: 06/07/18 22:04 Dose: 10 mg Magnesium Hydroxide (Milk Of Magnesia) 30 ml PO DAILY PRN PRN PRN Reason: Constipation Last Admin: 06/08/18 03:43 Dose: 30 ml Morphine Sulfate () 2 - 4 mg IV Q3H PRN PRN PRN Reason: Severe Pain (pain scale 6-10) Morphine Sulfate () 1 - 2 mg IV Q4H PRN PRN PRN Reason: Moderate Pain (pain scale 4-5) Ondansetron HCl (Zofran) 4 mg IV Q8H PRN PRN PRN Reason: NAUSEA Oxycodone HCl (Oxyir) 5 mg PO Q4H PRN PRN PRN Reason: Moderate Pain (pain scale 4-5) Last Admin: 06/08/18 00:10 Dose: 5 mg Pantoprazole Sodium (Protonix) 40 mg PO QHS [facility] Last Admin: 06/07/18 22:04 Dose: 40 mg Promethazine HCl (Phenergan) 12.5 mg IV Q6H PRN PRN PRN Reason: NAUSEA/VOMITING Sodium Chloride () 5 - 30 ml IV UD PRN PRN Reason: SALINE FLUSH Last Admin: 06/06/18 03:08 Dose: 10 ml Tizanidine HCl (Zanaflex) 4 mg PO Q6H PRN PRN Medical Necessity - Tobacco Use Smoking Status: Former smoker Tobacco Use: Non-smoker Assessment/Plan All Active Problems (This Medical Record has been edited. Action required.) Severe sepsis (Acute) Urinary tract infection (Acute) Hyperkalemia (Acute) Shortness of breath (Resolved) Nonproductive cough (Resolved) 1. Sepsis due to UTI * Resolved. UA showed 3+ bacteria more than 100 white blood cells per high-po wer field. Urine cultured E. coli. * She initially on IV Rocephin and is now on Ancef. Complains only of constipation. * Is now afebrile; on IV ancef * will switch to PO augmentin for a 7 day course. * * 2. Type 2 diabetes mellitus: * blood sugars poorly controlled. On lantus 6IU qhs and 10Iu daily. ISS. Accuchecks ACHS * resume metformin 3. Hypertension: lisinopril on hold since admission. BP has been well controlled, with episodes of asymptomatic hypotension.Will monitor 4. Fibromyalgia: on gabapentin 5. Constipation: on milk of magnesia. Doesnt want an enema. Give senokot 6. SHRUTHI 7. Hyperlipidemia: on statin and ezetimibe 8.Elevated Cr: * resolved. * Cr was 1.08 on admission; baseline is ~ 0.8. * Cr now 0.87, back to her baseline. Didnt meet criteria for TAE on admission. * Will monitor 9 anxiety and depression: on fluoxetine 10 chronic asthma:on breathing treatments 11. Osteoporosis: on alendronate 12. Fatty liver: * per CT scan. CT scan showed hepatosplenomegaly, and fatty liver. * No ascites. * To follow up with PCP and aircraft refueller upon discharge. * DVT prophylaxis: lovenox Disposition: for dc home tomorrow Code Visit Inpatient E&M: 69148 Subs Hosp L2
[2018-06-08 16:25] LABS: Bedside Glucose 263 mg/dL (70-110)
[2018-06-08] MEDS: Cephalexin 500 MG Capsule PO (22:20)
[2018-06-08] MEDS: Pantoprazole Sodium 40 MG Tablet PO (22:20)
[2018-06-08] MEDS: Loratadine 10 MG Tablet PO (22:20)
[2018-06-08] MEDS: Atorvastatin Calcium 80 MG Tablet PO (22:20)
[2018-06-09] VITALS (11 sets, daily range): BP systolic 127–156; BP diastolic 69–77; PULSE 78–87; RESP 18–20; TEMP 36.7–37.2; O2SAT 87–97
[2018-06-09 00:16] LABS: Bedside Glucose 358 mg/dL (70-110)
[2018-06-09] MEDS: Albuterol 2.5 MG/3 ML VIAL.NEB. INHALATION (04:30)
[2018-06-09 06:10] LABS: Absolute Lymphocyte Count 1.01 X10^3/ul (0.83-4.51); Absolute Neutrophil Count 5.4 X10^3/uL (2.0-7.7); Basophil# 0.05 X10^3/uL; Basophil% 0.6 % (0-1); Eosinophil# 0.57 X10^3/uL; Eosinophils% 7.4 % (0-5); Hematocrit 30.6 % (37-47); Hemoglobin 9.3 g/dl (12.0-15.0); Lymphocyte # 1.01 X10^3/ul (4.0); Mean Corp Hgb Conc 30.4 g/gl (32-36); Mean Corpuscular Hgb 25.9 pg (27.0-32.0); Mean Corpuscular Volume 85.2 fL (81-99); Mean Platelet Vol. 9.4 fl (6.2-12.0); Monocyte# 0.72 X10^3/uL; Monocyte% 9.3 % (0-10); Neutrophil # 5.37 X10^3/uL (2.7-7.7); Neutrophil % 69.3 % (47-70); Platelet Count 178 K/mm3 (150-450); RBC Distribution Width CV 16.2 % (11.6-14.6); RBC Distribution Width SD 49.2 fl (35.1-43.9); Red Blood Count 3.59 M/mm3 (4.2-5.4); White Blood Count 7.8 K/mm3 (4.4-11.0)
[2018-06-09] MEDS: Gabapentin 300 MG Capsule PO ×2 (06:11→14:33)
[2018-06-09 06:19] LABS: BUN 13 mg/dL (7-18); Creatinine, Serum 0.84 mg/dL (0.55-1.02); Estimated Creatinine Clearance 111.81 ml/min; Glucose 265 mg/dL (74-106)
[2018-06-09 06:20] LABS: Anion Gap 6 (5-15); BUN/Creat Ratio 15.5 RATIO (10-20); Calcium,Total 8.6 mg/dL (8.5-10.1); Chloride 106 mmol/L (98-107); EST Glomerular Filtration Rate 73 mL/min (>60); Est Glom Filt Rate - Afr Amer 89 mL/min (>60); Potassium 4.6 mmol/L (3.5-5.1); Sodium Level 141 mmol/L (136-145)
[2018-06-09 06:36] LABS: POSITIVE COUNT NO; POSITIVE DIFFERENTIAL NO; POSITIVE MORPHOLOGY NO
[2018-06-09] MEDS: Insulin Lispro 100 UNIT/ML INSULN.PEN SC ×2 (06:50→11:00)
[2018-06-09 06:55] LABS: Bedside Glucose 282 mg/dL (70-110)
[2018-06-09] MEDS: Acetaminophen 325 MG Tablet 650 MG PO (08:45)
[2018-06-09] MEDS: FLUoxetine 20 MG Capsule PO (09:30)
[2018-06-09] MEDS: Aspirin E.C. 81 MG Tablet PO (09:30)
[2018-06-09] MEDS: Ferrous Sulfate 325 MG Tablet PO ×2 (09:31→12:06)
[2018-06-09] MEDS: Fluticasone 0.05% 1 SPRAY NASAL.SRY 2 SPRAY NASAL (09:34)
[2018-06-09] MEDS: Cephalexin 500 MG Capsule PO (09:36)
[2018-06-09] MEDS: Enoxaparin 30 MG/0.3 ML Syringe SC (09:37)
[2018-06-09] MEDS: oxyCODONE 5 MG Tablet PO (10:00)
[2018-06-09] MEDS: Ipratropium/Albuterol Sulfate 3 ML AMPUL.NEB INHALATION (10:20)
--- NOTE | 2018-06-09 10:28 | PCA ---
This audio visual secretary called to make an appointment for pulmonary to see either doctor Pinzon or Luis. Doctor Marietta asked me to get it within 2 weeks and they didnt have one open until July 20 at 745. They also added her on the cancellation list so they will call the patient if there is a cancellation before her appointment.
--- NOTE | 2018-06-09 10:37 | DCINST_ITS ---
- Discharge Diagnoses Current Active Problems: Current Active and Chronic Problems (This Medical Record has been edited. Action required.) HLD (hyperlipidemia) (Chronic) Asthma (Chronic) Reason(s) for Visit for Discharge Instructions: Fever, flank pain You will use the following diet at home:: Calorie/Carbohydrate Controlled (specify 1200, 1400, etc), Cardiac Your food should be the consistency of: Regular Your liquids should be the consistency of: Regular/Thin Discharge Activity: Return to Normal Activity Additional Instructions: Take note of changes to medications. Notes that he was started on insulin because her blood sugars were elevated. When you resume your home oral diabetes medicines, your blood sugars may be decreasing and you may need to monitor that closely. You may need to back off insulin if your blood sugar is less than 180. You will be discharged on oxygen. Keep away from open flames. You will need to follow-up with the lung doctors. Continue to use your inhalers. Allergies/Adverse Reactions: Allergies aztreonam Allergy (Verified 06/05/18 21:25) Unknown bee venom protein (honey bee) Allergy (Verified 06/05/18 21:25) Anaphylaxis Carbapenems Allergy (Verified 06/05/18 21:25) Unknown ciprofloxacin [From Cipro] Allergy (Verified 06/05/18 21:25) Anaphylaxis meperidine Allergy (Verified 06/05/18 21:25) Unknown Penicillins Allergy (Verified 06/08/18 14:42) Swelling Quinolones Allergy (Verified 06/05/18 21:25) Unknown talampicillin Allergy (Verified 06/05/18 21:25) Unknown tetracycline Allergy (Verified 06/05/18 21:25) Anaphylaxis tigecycline Allergy (Verified 06/06/18 01:28) Hives Medications to take at Discharge Albuterol Inhaler [Ventolin Hfa] 1 - 2 puff INHALATION Q4H PRN PRN 10/01/15 Fenofibrate [Lofibra] 160 mg PO DAILY 10/01/15 Loratadine [Claritin] 10 mg PO QHS 10/01/15 aspirin 81 mg tablet,delayed release 81 mg PO DAILY 07/14/17 atorvastatin 80 mg tablet 80 mg PO QHS 07/14/17 cholecalciferol (vitamin D3) 50,000 unit capsule 2,000 unit PO MO 07/14/17 fluoxetine 20 mg capsule 20 mg PO DAILY 07/14/17 fluticasone 50 mcg/actuation nasal spray,suspension 2 spray INTRANASAL DAILY 07/14/17 ipratropium-albuterol 0.5 mg-3 mg(2.5 mg base)/3 mL nebulization soln 3 ml INHALATION BID 07/14/17 isosorbide mononitrate ER 30 mg tablet,extended release 24 hr 30 mg PO DAILY 07/14/17 lisinopril 20 mg tablet 20 mg PO BID 07/14/17 metformin 1,000 mg tablet 1,000 mg PO BID 07/14/17 nitroglycerin 0.4 mg sublingual tablet 0.4 mg SUBLINGUAL Q5M PRN 07/14/17 omega-3 fatty acids 1,000 mg capsule 1,000 mg PO BID 07/14/17 omeprazole 40 mg capsule,delayed release 40 mg PO QHS 07/14/17 tizanidine 4 mg capsule 4 mg PO Q6H PRN PRN 07/14/17 Epinephrine [Epi Pen] 0.3 mg SQ PRN PRN 12/08/17 Ezetimibe [Zetia] 10 mg PO DAILY 12/08/17 Ferrous Sulfate 325 mg PO TIDCM 12/08/17 Gabapentin [Neurontin] 300 mg PO TID 12/08/17 Glimepiride [Amaryl] 4 mg PO BID 12/08/17 Multivitamins,Ther W-Minerals [Multivitamin With Minerals] 1 tablet PO BID 12/08/17 Magnesium Oxide [Mag-Ox 400] 400 mg PO BID #30 tab 01/03/18 Alendronate Sodium [Fosamax] 70 mg PO DAILY 01/28/18 Cephalexin [Keflex] 500 mg PO Q12 #8 capsule 06/09/18 Insulin Glargine [Lantus SoloStar Pen] 10 units SC DAILY #1 pen 06/09/18 Insulin Glargine [Lantus SoloStar Pen] 10 units SC QHS #1 pen 06/09/18 The following prescriptions were given: Cephalexin [Keflex] 500 mg PO Q12 #8 capsule Insulin Glargine [Lantus SoloStar Pen] 10 units SC QHS #1 pen Insulin Glargine [Lantus SoloStar Pen] 10 units SC DAILY #1 pen Orders to be completed after discharge: Basic Metabolic Profile (BMP) Time Frame: 1 Week, Location: Laboratory Primary Care Physician: Bronson Hunt DO [Primary Care Provider] - Please follow up with your Primary Care Physician in: within 2 weeks Test Results: Test results from this visit will be discussed in further detail at your follow- up appointment, if applicable. Please Follow Up With: Edgar Pinzon MD When: within 2 weeks Proposed Discharge Date: 06/09/18
--- NOTE | 2018-06-09 10:46 | DS.PCM_ITS ---
Discharge Date and Diagnosis Date of Admission: 06/05/18 Date of Discharge: 06/09/18 - Primary Discharge Diagnosis Sepsis secondary to E. coli UTI Acute complicated UTI Suspected acute right pyelonephritis Type II DM, poorly controlled Constipation Elevated creatinine Fatty liver - Secondary Discharge Diagnosis Chronic Problems (This Medical Record has been edited. Action required.) BMI greater than 40 (Chronic) HLD (hyperlipidemia) (Chronic) Asthma (Chronic) Hypertension (Chronic) Type II diabetes mellitus (Chronic) Fibromyalgia (Chronic) Microcytic anemia (Chronic) Anxiety/depression Hospital Course and Treatment Imaging Results: Clinical Impression(s) from Imaging Studies Chest X-Ray 06/05/18 21:55 IMPRESSION: Stable examination demonstrating no acute cardiopulmonary process. Electronically Signed: Anne Marie Tapia MD at 22:45 EST Tel , Service support , Abdomen/Pelvis CT 06/06/18 01:06 IMPRESSION: 1. Right perinephric and right periureteral mild edema compatible with recently passed stone. 2. No current findings of hydronephrosis or hydroureter. 3. Bilateral small nonobstructing renal stones. 4. Hepatosplenomegaly. Fatty liver. No ascites. Individualized dose optimization techniques were used for this CT. at 0418 Reported and signed by: Ata Clifford MD Electronically Signed: Ata Clifford, at 4:16 EST Tel , Service support , None Operations: None Procedures: None Summary of Care Provided: The patient is a 63 year old F with past medical history of SHRUTHI not using CPAP, morbid obesity, type II DM, hypertension, hyperlipidemia who comes in with complaints of right flank pain as well as urinary frequency and urgency and foul-smelling urine and fever ongoing for 2 days prior to admission. Patient was found to be febrile in the emergency room temperature of 100.4, tachycardic. Lactic acid was 2.2. Urinalysis was remarkable for UTI. Urine cultures grew E. coli. Blood cultures were negative. Abdominal pelvic CT showed right perinephric and right periurethral mild edema compatible with stone, no hydronephrosis or hydroureter seen. Hepatosplenomeg kimberlee with fatty liver without ascites was seen. Patient was managed on IV cefazolin with no complications. She was discharged on Keflex to complete 1 week treatment. Her blood sugar was uncontrolled on admission, his Amaryl and metformin were held for slightly elevated creatinine. At discharge, she was continued on her Amaryl and metformin as her renal function had returned to normal. She was also discharged on 10 units of Lantus nightly. She was educated about signs of hypoglycemia and asked to keep a log of her blood sugars and follow-up with her primary care doctor in 1-2 weeks. She was asked to hold off Lantus if her blood sugars were less than 180. She will follow-up with her primary care doctor for further evaluation for the fatty liver. Patient was found to require oxygen and qualified for home oxygen on discharge. She will follow-up with her assembler gold frame within 2 weeks. History of SHRUTHI and possible COPD/asthma. Subjective: On the day of discharge, patient felt well. Denied any chest pain no dizziness or palpitations. She did qualify for home oxygen. She was saturating at 87% on ambulation and improved to 92% with 2 L. She was 91% at rest on room air - Physical Exam General: Alert, Oriented x3, Cooperative, No apparent distress, - - On 2 L of oxygen HEENT: Atraumatic, PERRLA, EOMI, Normocephalic Oral: Moist Mucosa Neck: Supple, No JVD, Negative Carotid Bruits Lungs: Normal air movement, Diminished - The lung bases Cardiovascular: Regular rate, Regular Rhythm, Normal S1, Normal S2, No murmurs Abdomen: Bowel Sounds Present, Soft, Non Tender, Non-Distended, No Hepato- splenomegaly Extremities: Edema - Trace bilateral Skin: No rashes, No breakdown Musculoskeletal: No Tenderness to Palpation of Joints or Extremities Lymphatic: No Cervical, Supraclavicular, or Inguinal Adenopathy Neurological: Cranial nerves II-XII grossly intact, Neuro grossly intact Psych/Mental Status: Normal Affect, Appropriate Vital Signs Temp Pulse Resp BP Pulse Ox 98.9 F 80 20 H 153/77 H 94 06/09/18 08:22 06/09/18 10:21 06/09/18 10:21 06/09/18 08:22 06/09/18 10:20 Oxygen Flow Rate (L/min) 1 Oxygen Delivery Method Nasal Cannula Weight: 100.7 kg Body Mass Index (BMI) 44.8 Intake and Output for Last 24 Hours 06/07/18 06/08/18 06/09/18 23:59 23:59 23:59 Intake Total 5249 / 5249 2003 Output Total 200 / 200 Balance 5249 / 5249 1804 / 1804 Microbiology Past 72 Hours 06/05/18 22:15 Urine Culture - Final Urine, Catheterized Presumptive E. coli Laboratory Tests Past 24 Hrs 06/09/18 06/09/18 05:35 05:35 WBC 7.8 RBC 3.59 L Hgb 9.3 L Hct 30.6 L MCV 85.2 MCH 25.9 L MCHC 30.4 L RDW 16.2 H RDW Differential 49.2 H Plt Count 178 MPV 9.4 Immature Gran % (Auto) 0.400 Neut % (Auto) 69.3 Lymph % (Auto) 13.0 L Stoddard % (Auto) 9.3 Eos % (Auto) 7.4 H Baso % (Auto) 0.6 Absolute Neuts (auto) 5.4 Absolute Lymphs (auto) 1.01 Total Counted Not Reportable Sodium 141 Potassium 4.6 Chloride 106 Carbon Dioxide 29.0 Anion Gap 6 BUN 13 Creatinine 0.84 Estim Creat Clear Calc 111.81 Est GFR (MDRD) Af Amer 89 Est GFR (MDRD) Non-Af 73 BUN/Creatinine Ratio 15.5 Glucose 265 H Calcium 8.6 POC Glucose 06/09/18 06/08/18 06/08/18 06:49 22:13 16:15 POC Glucose 282 H 358 H 263 H 06/08/18 11:27 POC Glucose 292 H Discharge Diet: Low fat/ Low Cholesterol, 2000 mg Sodium Diet, Carb Control Diet Discharge Activity: Return to Normal Activity Home Medications: Medications to take at Discharge Albuterol Inhaler [Ventolin Hfa] 1 - 2 puff INHALATION Q4H PRN PRN 10/01/15 Fenofibrate [Lofibra] 160 mg PO DAILY 10/01/15 Loratadine [Claritin] 10 mg PO QHS 10/01/15 aspirin 81 mg tablet,delayed release 81 mg PO DAILY 07/14/17 atorvastatin 80 mg tablet 80 mg PO QHS 07/14/17 cholecalciferol (vitamin D3) 50,000 unit capsule 2,000 unit PO MO 07/14/17 fluoxetine 20 mg capsule 20 mg PO DAILY 07/14/17 fluticasone 50 mcg/actuation nasal spray,suspension 2 spray INTRANASAL DAILY 07/14/17 ipratropium-albuterol 0.5 mg-3 mg(2.5 mg base)/3 mL nebulization soln 3 ml INHALATION BID 07/14/17 isosorbide mononitrate ER 30 mg tablet,extended release 24 hr 30 mg PO DAILY 07/14/17 lisinopril 20 mg tablet 20 mg PO BID 07/14/17 metformin 1,000 mg tablet 1,000 mg PO BID 07/14/17 nitroglycerin 0.4 mg sublingual tablet 0.4 mg SUBLINGUAL Q5M PRN 07/14/17 omega-3 fatty acids 1,000 mg capsule 1,000 mg PO BID 07/14/17 omeprazole 40 mg capsule,delayed release 40 mg PO QHS 07/14/17 tizanidine 4 mg capsule 4 mg PO Q6H PRN PRN 07/14/17 Epinephrine [Epi Pen] 0.3 mg SQ PRN PRN 12/08/17 Ezetimibe [Zetia] 10 mg PO DAILY 12/08/17 Ferrous Sulfate 325 mg PO TIDCM 12/08/17 Gabapentin [Neurontin] 300 mg PO TID 12/08/17 Glimepiride [Amaryl] 4 mg PO BID 12/08/17 Multivitamins,Ther W-Minerals [Multivitamin With Minerals] 1 tablet PO BID 12/08/17 Magnesium Oxide [Mag-Ox 400] 400 mg PO BID #30 tab 01/03/18 Alendronate Sodium [Fosamax] 70 mg PO DAILY 01/28/18 Cephalexin [Keflex] 500 mg PO Q12 #8 cap 06/09/18 Insulin Glargine [Lantus SoloStar Pen] 10 units SUBCUT DAILY #1 pen 06/09/18 Following Prescrptions Were Given to Patient: Cephalexin [Keflex] 500 mg PO Q12 #8 cap Insulin Glargine [Lantus SoloStar Pen] 10 units SUBCUT DAILY #1 pen Other Amb Orders: Basic Metabolic Profile (BMP) Time Frame: 1 Week, Location: Laboratory Primary Care Physician: Bronson Hunt DO [Primary Care Provider] - Please follow up with your Primary Care Physician in: within 2 weeks Please Follow Up With: Edgar Pinzon MD When: within 2 weeks Disposition: Home with Home Health Minutes spent on discharge:: 40 Patient Condition:: Stable Medical Necessity - Tobacco Use Smoking Status: Former smoker Tobacco Use: Non-smoker Meaningful Use Info Meaningful Use Diagnoses (Choose all that apply): None applicable Code Visit Inpatient E&M: 81977 Disch Hosp
[2018-06-09] MEDS: Magnesium Hydroxide 30 ML UDC PO (10:47)
--- NOTE | 2018-06-09 10:55 | CPS ---
ambulated patient on room air, patient sat dropped to 87%. Put the patient on 2 lpm, and she maintained 90-92% with ambulation. physician aware.
[2018-06-09 11:10] LABS: Bedside Glucose 311 mg/dL (70-110)
--- NOTE | 2018-06-09 11:47 | PCA ---
Doctor isacc office called had a cancellation so her appointment is June 28 at 215
--- NOTE | 2018-06-09 14:28 | CASEMGMT ---
Social Work Note SW placed a call to pt's CM at [facility] Suhailemerson Rogers and left her a message that pt is being discharged home today. Nalini Nation [employer] DESIGN ENGINEER, SALES MGR
--- NOTE | 2018-06-10 16:52 | CASEMGMT ---
LAURA GARCIA Discharge Follow-up Phone Call: RODRIGO: Jinny Strata: 4 Call Date: 06/10/18 Discharge Date: 06/09/18 Time of Call: [id number] Duration: 7 minutes ? Admitting Diagnosis: Sepsis due to UTI This LAURA GARCIA contacted pt via telephone for DC follow-up. Pt denies any specific complaints. States her health motorcoach driver from the [facility] was to see her today. She set up pt's medications, checked her blood sugar and BP. Pt states blood sugar was 180. States the health motorcoach driver wrote this down. Pt states she occasionally takes her own blood sugar but not on a regular basis. Encouraged pt to check her blood sugar and to record it so she can show her DR what they have been doing and can adjust her insulin as needed. Pt states she has not received her medications yet. States her son will be taking the prescriptions to the pharmacy [facility] to get them filled. Reviewed need for pt to get her Keflex as this is her antibiotic that she should be taking twice daily. Pt expressed understanding and stated she would take it as soon as her son brings them to her. Reviewed need for lab work and follow-up with Dr. Hunt in one week which she expressed understanding and stated she would get her lab work done when she went to visit Dr. Hunt. Reviewed appointment date and time with Dr. Pinzon. Pt denied any further questions or concerns. Isaura Chang RN
== END 2018-06-09 16:56 | disposition home or self-care (01) | DRG 720 ==
LOC: ED 22:02 → PCU 06-06 00:17 → MS3 06-08 13:57
PROVIDERS: Internal Medicine; Student in an Organized Health Care Education/Training Program; Admitting Provider Family Medicine; Emergency Provider Emergency Medicine; Family Provider Student in an Organized Health Care Education/Training Program; PCP Student in an Organized Health Care Education/Training Program; Visit Provider Internal Medicine
DX: A41.51 Sepsis due to Escherichia coli [E. coli] (principal); E87.1 Hypo-osmolality and hyponatremia; N10 Acute pyelonephritis; E11.65 Type 2 diabetes mellitus with hyperglycemia; E66.01 Morbid (severe) obesity due to excess calories; Z68.41 Body mass index [BMI] 40.0-44.9, adult; J45.909 Unspecified asthma, uncomplicated; R09.02 Hypoxemia; G47.33 Obstructive sleep apnea (adult) (pediatric); K76.0 Fatty (change of) liver, not elsewhere classified; D50.9 Iron deficiency anemia, unspecified; E78.5 Hyperlipidemia, unspecified; K59.00 Constipation, unspecified; F32.9 Major depressive disorder, single episode, unspecified; F41.9 Anxiety disorder, unspecified; M79.7 Fibromyalgia; Z79.899 Other long term (current) drug therapy; Z87.891 Personal history of nicotine dependence; Z79.84 Long term (current) use of oral hypoglycemic drugs; I10 Essential (primary) hypertension; R65.20 Severe sepsis without septic shock; E83.42 Hypomagnesemia; Z88.0 Allergy status to penicillin; Z79.83 Long term (current) use of bisphosphonates; M81.0 Age-related osteoporosis without current pathological fracture
CPT/HCPCS: 36415; 71045; 74176; 80048; 80053; 80061; 81001; 82962; 83036; 83605; 83735; 84100; 85025; 87040; 87086; 87088; 87186; 93005; 94640; 97166; 97802; 97803; 99283; J7030; J7040; A4216

== ENCOUNTER → 2018-07-18 10:18 | Outpatient (CLI) | payer OTHER, MEDICAID, SELFPAY ==
[2018-06-28 14:11] VITALS: BMI 44.4
[2018-07-18 11:19] VITALS: PULSE 100; PULSE 109; PULSE 110; PULSE 120; PULSE 76; PULSE 86; PULSE 99; O2SAT 86; O2SAT 89; O2SAT 91; O2SAT 92; O2SAT 93; O2SAT 94
--- NOTE | 2018-07-18 11:21 | CPS ---
Patient came in on 2 lpm pulse dose oxygen. Took patient off O2 for 12 minutes lowest SpO2 90%. SpO2 92% when starting walk on room air. Patient quickly dropped to 86% when she started walking. Placed patient on her home O2 tank at 2 lpm pulse dose for the rest of testing.
--- NOTE | 2018-07-18 12:53 | PCM.PSN.6M ---
PSN 6 Minute Walk Test - 6 Minute Walk Test 6 Minute Walk Test: 6 Minute Walk Test PSN:6-Minute Walk Test Start: 07/18/18 11:18 Freq: Status: Active Protocol: [id number] Document 07/18/18 11:19 RASHMI (Rec: 07/18/18 11:23 RASHMI [id number]) 6 Minute Walk Test Date Performed 07/18/18 Time Performed 11:00 Height 4 ft 11 in Weight: 97.522 kg Weight in Pounds 215.[address]: Edgar Pinzon Assistive device used: Cane Pre-test Oxygen Delivery Method Room Air Pulse Ox (%) 92 Pulse Rate (60-100 beats/min) 76 Dyspnea Liban Scale (0-10) 1 Exertion Liban Scale (6-20) 6 1st minute Oxygen Delivery Method Room Air Pulse Ox (%) 86 Pulse Rate (60-100 beats/min) 99 Number of Rests Taken 1 2nd minute Oxygen Flow Rate (L/min) (L/min) 2 Oxygen Delivery Method Nasal Cannula Pulse Ox (%) 93 Pulse Rate (60-100 beats/min) 100 3rd minute Oxygen Flow Rate (L/min) (L/min) 2 Oxygen Delivery Method Nasal Cannula Pulse Ox (%) 91 Pulse Rate (60-100 beats/min) 110 H Number of Rests Taken 1 4th minute Oxygen Flow Rate (L/min) (L/min) 2 Oxygen Delivery Method Nasal Cannula Pulse Ox (%) 92 Pulse Rate (60-100 beats/min) 109 H 5th minute Oxygen Flow Rate (L/min) (L/min) 2 Oxygen Delivery Method Nasal Cannula Pulse Ox (%) 91 Pulse Rate (60-100 beats/min) 109 H 6th minute Oxygen Flow Rate (L/min) (L/min) 2 Oxygen Delivery Method Nasal Cannula Pulse Ox (%) 89 Pulse Rate (60-100 beats/min) 120 H Dyspnea Liban Scale (0-10) 5 Exertion Liban Scale (6-20) 14 Post-test Oxygen Flow Rate (L/min) (L/min) 2 Oxygen Delivery Method Nasal Cannula Pulse Ox (%) 94 Pulse Rate (60-100 beats/min) 86 Full Laps Walked 4 Partial Lap, Number of Tiles Walked 188 Total Distance Walked (ft) 424 07/18/18 11:21 Cardiopulmonary Services by Sonia Davis Patient came in on 2 lpm pulse dose oxygen. Took patient off O2 for 12 minutes lowest SpO2 90%. SpO2 92% when starting walk on room air. Patient quickly dropped to 86% when she started walking. Placed patient on her home O2 tank at 2 lpm pulse dose for the rest of testing. Initialized on 07/18/18 11:21 - END OF NOTE - Interpretation Interpretation: The patient was able to ambulate only 424 feet over the course of 6 minutes. The patient was initiated on room air and saturating 92%, but desaturated to 86% in the second minute. Patient was placed on 2 L pulse dose with improvement to 94% and saturations remained above 89% for the remaining distance travel. Patient did have tachycardia as high as 120 bpm despite 2 breaks. These findings are consistent with a respiratory limitation exercise tolerance. - Recommendations Recommendations: The patient requires no supplemental oxygen at rest, but should be using 2 L pulse dose with any exertion.
== END ==
PROVIDERS: Family Provider Student in an Organized Health Care Education/Training Program; PCP Student in an Organized Health Care Education/Training Program; Referring Provider Internal Medicine Critical Care Medicine; Visit Provider Internal Medicine Critical Care Medicine
DX: G47.10 Hypersomnia, unspecified (principal); R09.02 Hypoxemia
CPT/HCPCS: 94618

== ENCOUNTER → 2018-07-21 09:16 | Outpatient (CLI) | payer OTHER, MEDICAID, SELFPAY ==
[2018-06-28 14:11] VITALS: BMI 44.4
--- NOTE | 2018-07-21 14:19 | PFTCOMP ---
COMPLETE PULMONARY FUNCTION TEST INTERPRETATION Brief HPI: Patient is a 63 year old female, currently under the care of myself, who presents to [facility] for complete pulmonary function tests secondary to diagnosis of dyspnea. Respiratory therapist reports good effort and reproducible results. Interpretation: Forced expiration spirometry shows a moderate large airways obstructive ventilatory defect with an FEV1 of 61% predicted. There is a significant bronchodilator response in FVC and FEV1 by strict ATS criteria. Spirograms are of good quality and plateau slowly, indicating slowly emptying areas of the lungs. The respiratory flow volume loop shows decreased expiratory flow rates at all lung volumes consistent with airway obstruction. Lung volumes by body plethysmography show a normal total lung capacity at 4.46 L, 115% predicted. FRC and RV are elevated out of proportion. Lung volume measurements are consistent with air-trapping. Diffusion capacity by carbon monoxide is at the lower limit of normal at 75% predicted. The airway resistance is elevated. No previous pulmonary function tests were available for review. Impression: Partially reversible moderate large airways obstructive ventilatory defect resulting in air trapping and consistent with COPD/asthma overlap syndrome
== END ==
PROVIDERS: Family Provider Student in an Organized Health Care Education/Training Program; PCP Student in an Organized Health Care Education/Training Program; Referring Provider Internal Medicine Critical Care Medicine; Visit Provider Internal Medicine Critical Care Medicine
DX: R09.02 Hypoxemia (principal); G47.10 Hypersomnia, unspecified
CPT/HCPCS: 94060; 94726; 94729

== ENCOUNTER → 2018-08-12 10:46 | Outpatient (CLI) | payer OTHER, MEDICAID, SELFPAY ==
[2018-06-28 14:11] VITALS: BMI 44.4
--- NOTE | 2018-08-12 10:48 | ECHOD_ITS ---
Reason For Study: PHTN Procedure This was a 2D Doppler, Color Flow transthoracic echocardiogram. Exam performed in department. Left Ventricle Normal size and thickness. The estimated ejection fraction is 65 %. Stage 1 diastolic dysfunction. No regional wall motion abnormalities noted. Right Ventricle Mildly dilated right ventricle. Normal systolic function. Atria Normal left atrium. Normal right atrium. Normal atrial septum. Mitral Valve The mitral valve is structurally normal. No prolapse or stenosis seen. Tricuspid Valve Normal tricuspid valve. Trivial tricuspid valve insufficiency. Right ventricular systolic pressure estimated to be 37 mmHg. Mild pulmonary hypertension. Aortic Valve Normal aortic valve. Trisinus/trileaflet aortic valve. Pulmonic Valve Normal pulmonic valve. Great Vessels Normal aortic root. Normal arch. Normal inferior vena cava. Inferior vena cava collapse with sniff. Pericardium/Pleural No pericardial effusion. MMode/2D Measurements & Calculations LVIDd: 5.2 cm IVSd: 0.90 cm Ao root diam: 3.3 cm LVIDs: 2.9 cm LVPWd: 0.98 cm RVDd: 3.7 cm FS: 43.8 % LAV(MOD-bp): 57.6 ml LA A4 area: 19.5 cm2 LA dimension(2D): 3.9 cm LAV(MOD-bp) Indexed: 30.0 ml/m2 LAV(MOD-sp2): 56.6 ml LAV(MOD-sp4): 56.4 ml RA A4 area: 17.9 cm2 Doppler Measurements & Calculations MV E max kamaljit: 80.9 cm/sec Lat Peak E' Kamaljit: 10.3 cm/sec Med Peak E' Kamaljit: 6.7 cm/sec MV A max kamaljit: 124.2 cm/sec E/E' lat: 7.8 E/E' med: 12.1 MV E/A: 0.65 Ao V2 max: 148.3 cm/sec LV V1 max: 119.7 cm/sec PA V2 max: 127.9 cm/sec Ao max P.8 mmHg LV V1 max P.6 mmHg TR max kamaljit: 271.0 cm/sec TR max P.5 mmHg Interpretation Summary The estimated ejection fraction is 65 %. Stage 1 diastolic dysfunction. Trivial tricuspid valve insufficiency. Right ventricular systolic pressure estimated to be 37 mmHg. Mild pulmonary hypertension. Compared to echo report dated 10/02/2015, LV function has remained the same and RVSP has decreased from 49 to 37 mm Hg. Ordering Physician: Edgar Pinzon Referring Physician: Bronson Scruggs Performed By: Mallika Miranda RDCS, RVT
== END ==
PROVIDERS: Family Provider Student in an Organized Health Care Education/Training Program; PCP Student in an Organized Health Care Education/Training Program; Referring Provider Internal Medicine Critical Care Medicine; Visit Provider Internal Medicine Critical Care Medicine
DX: I27.20 Pulmonary hypertension, unspecified (principal)
CPT/HCPCS: 93306

== ENCOUNTER → 2018-08-22 20:08 | Outpatient (CLI) | payer OTHER, MEDICAID, SELFPAY ==
[2018-06-28 14:11] VITALS: BMI 44.4
== END ==
PROVIDERS: Family Provider Student in an Organized Health Care Education/Training Program; PCP Student in an Organized Health Care Education/Training Program; Referring Provider Internal Medicine Critical Care Medicine; Visit Provider Internal Medicine Critical Care Medicine
DX: G47.10 Hypersomnia, unspecified (principal)
CPT/HCPCS: 95810

== ENCOUNTER → 2018-10-03 20:24 | Outpatient (CLI) | payer OTHER, MEDICAID, SELFPAY ==
[2018-06-28 14:11] VITALS: BMI 44.4
== END ==
PROVIDERS: Family Provider Student in an Organized Health Care Education/Training Program; PCP Student in an Organized Health Care Education/Training Program; Referring Provider Nurse Practitioner Acute Care; Visit Provider Nurse Practitioner Acute Care
DX: G47.33 Obstructive sleep apnea (adult) (pediatric) (principal)
CPT/HCPCS: 95811

== ENCOUNTER 2018-10-07 17:58 | Observation (INO) | payer OTHER, MEDICAID, SELFPAY ==
[2018-06-28 14:11] VITALS: BMI 44.4
[2018-10-07] VITALS (8 sets, daily range): BP systolic 113–134; BP diastolic 58–77; PULSE 63–75; RESP 14–20; TEMP 36.8; O2SAT 93–99; BMI 42.8
--- NOTE | 2018-10-07 20:20 | EKG12_ITS ---
Test Reason : CP Blood Pressure : / mmHG Vent. Rate : 068 BPM Atrial Rate : 068 BPM P-R Int : 166 ms QRS Dur : 086 ms QT Int : 392 ms P-R-T Axes : 080 070 068 degrees QTc Int : 416 ms Normal sinus rhythm Normal ECG Confirmed by CAROLINE CARRERO, STEPHANIE ([id number]), international editorial producer TONIO GARRISON ([id number]) on 10/10/2018 1:54:04 PM Referred By: Chuy Tong Confirmed By:STEPHANIE VELAZQUEZ MD
--- NOTE | 2018-10-07 20:21 | ED.VISSUMM ---
- ER Visit Summary Date of Service: 10/07/18 Chief Complaint: fatigue and hypotension History of Present Illness: The patient is a 63 F who presents for 1 day of fatigue and low blood pressure. Patient states that this morning she began having a headache. She checked her blood pressure around noon and it was 104/44. She checked it again shortly before coming to the emergency department was 95/50. She is been having intermittent chest pain all day, worse just prior to arrival. She describes it as chest pressure. She called her doctor because of the low blood pressure was told to come to the emergency room. Patient states her headache has improved since the morning. She is also having abdominal pain because she has hungry. She denies fever, shortness of breath or other symptoms. Patient has history of diabetes, angina and migraines. Family history of coronary artery disease. Physical Examination: Vital signs: afebrile, hemodynamically stable, no hypoxia on room air General: well nourished, well developed, in no distress Skin: warm, dry, no rash, no pallor HEENT: normocephalic and atraumatic; PERRL, EOMI, moist mucous membranes Cardiovascular: regular rate and rhythm without murmurs, no peripheral edema, 2+ pulses all distal extremities Respiratory: No increased work of breathing, lungs are clear to auscultation bilaterally, no rales, rhonchi or wheezing Abdominal: Abdomen is soft, nontender with normoactive bowel sounds, no guarding or rebound, no masses MSK: Moves all extremities, no deformities, normal strength Neuro: Awake and alert, oriented ?4. No facial droop, sensation and motor function intact and symmetric Test Results: [ Abnormal Lab Results 10/07/18 10/07/18 10/07/18 20:37 20:37 21:02 WBC 8.4 RBC 4.71 Hgb 12.0 Hct 39.0 MCV 82.8 MCH 25.5 L MCHC 30.8 L RDW 15.4 H RDW Differential 46.1 H Plt Count 183 MPV 9.2 Immature Gran % (Auto) 0.100 Neut % (Auto) 54.3 Lymph % (Auto) 34.8 [place] % (Auto) 7.3 Eos % (Auto) 3.1 Baso % (Auto) 0.4 Absolute Neuts (auto) 4.6 Absolute Lymphs (auto) 2.92 Total Counted Not Reportable Sodium 132 L Potassium 4.7 Chloride 97 L Carbon Dioxide 32.0 Anion Gap 3 L BUN 30 H Creatinine 0.88 Estim Creat Clear Calc 101.91 Est GFR (MDRD) Af Amer 84 Est GFR (MDRD) Non-Af 69 BUN/Creatinine Ratio 34.0 H Glucose 316 H Calcium 9.1 Troponin I < 0.015 Urine Color Yellow Urine Clarity Sl. Cloudy Urine pH 6.0 Ur Specific [place] 1.020 Urine Protein 15 H Urine Glucose (UA) 250 H Urine Ketones Negative Urine Occult Blood Negative Urine Nitrite Negative Urine Bilirubin Negative Urine Urobilinogen Normal Ur Leukocyte Esterase 500 H Urine RBC 0-5 SEEN Urine WBC 10-25 SEEN Ur Squamous Epith Cells 0-5 SEEN Urine Bacteria RARE Urine Mucus 0 SEEN Clinical Impression(s) from Imaging Studies Chest X-Ray 10/07/18 21:10 IMPRESSION: No acute process Electronically Signed: Emmanuel Kang, at 23:21 EDT Tel , Service support , Medications Given Discontinued Medications Acetaminophen (Tylenol) 1,000 mg PO X1 ONE Stop: 10/07/18 20:41 Last Admin: 10/07/18 20:46 Dose: 1,000 mg Aspirin (Aspirin, Baby) 324 mg PO X1 STA Stop: 10/07/18 20:21 Last Admin: 10/07/18 20:29 Dose: 324 mg Sodium Chloride () 1,000 mls @ 1,000 mls/hr IV .Q1H ONE Stop: 10/07/18 21:19 Last Admin: 10/07/18 20:31 Dose: 1,000 mls/hr Nitroglycerin (Nitrostat) 0.4 mg SUBLINGUAL Q5M FRANKY Stop: 10/07/18 20:41 Last Admin: 10/07/18 20:45 Dose: 0.4 mg Admin: 10/07/18 20:37 Dose: 0.4 mg Admin: 10/07/18 20:31 Dose: 0.4 mg Emergency Department Course and Treatment: Patient presents with multiple complaints, mainly concern for fatigue, headache, low blood pressure, and chest pain that is been intermittent throughout the day. Patient's physical examination is unremarkable, however her complaint of chest pain is concerning given that she is got risk factors and she is 63. Patient was given aspirin and nitro. She had no improvement with the nitroglycerin. She was given Tylenol for her headache. EKG showed sinus rhythm without any ischemic changes. Troponin negative. Labs otherwise unremarkable. Because patient is having the chest discomfort, has multiple comorbidities, and is 63, she is a moderate risk for 30-day MACE. She was discussed with hospitalist for admission for further chest pain workup. He remained normotensive during her emergency department workup and had no evidence of hypotension. Treatment Plan: [] Disposition: [] Impression: Chest pain This note was generated with [employer] dictation software. It may contain incorrect words, spelling, and punctuation that were not noted in review of the chart prior to signing ED Disposition - Plan for ED Patient: Disposition: Acute Care [facility]
[2018-10-07] MEDS: Aspirin 81 MG TAB.CHEW 324 MG PO (20:29)
[2018-10-07] MEDS: 0.9% Normal Saline 1,000 ML 1000 ML IV (20:31)
[2018-10-07] MEDS: Acetaminophen 500 MG Tablet 1000 MG PO (20:46)
[2018-10-07 20:53] LABS: Absolute Lymphocyte Count 2.92 X10^3/ul (0.83-4.51); Absolute Neutrophil Count 4.6 X10^3/uL (2.0-7.7); Basophil# 0.03 X10^3/uL; Basophil% 0.4 % (0-1); Eosinophil# 0.26 X10^3/uL; Eosinophils% 3.1 % (0-5); Lymphocyte # 2.92 X10^3/ul (4.0); Lymphocyte % 34.8 % (19-41); Mean Corp Hgb Conc 30.8 g/gl (32-36); Mean Corpuscular Hgb 25.5 pg (27.0-32.0); Mean Corpuscular Volume 82.8 fL (81-99); Mean Platelet Vol. 9.2 fl (6.2-12.0); Monocyte# 0.61 X10^3/uL; Monocyte% 7.3 % (0-10); Neutrophil # 4.57 X10^3/uL (2.7-7.7); Neutrophil % 54.3 % (47-70); POSITIVE COUNT NO; POSITIVE DIFFERENTIAL NO; POSITIVE MORPHOLOGY NO; Platelet Count 183 K/mm3 (150-450); RBC Distribution Width CV 15.4 % (11.6-14.6); RBC Distribution Width SD 46.1 fl (35.1-43.9); Red Blood Count 4.71 M/mm3 (4.2-5.4); White Blood Count 8.4 K/mm3 (4.4-11.0)
[2018-10-07 21:04] LABS: Anion Gap 3 (5-15); BUN 30 mg/dL (7-18); Calcium,Total 9.1 mg/dL (8.5-10.1); Chloride 97 mmol/L (98-107); Creatinine, Serum 0.88 mg/dL (0.55-1.02); EST Glomerular Filtration Rate 69 mL/min (>60); Est Glom Filt Rate - Afr Amer 84 mL/min (>60); Estimated Creatinine Clearance 101.91 ml/min; Glucose 316 mg/dL (74-106); Potassium 4.7 mmol/L (3.5-5.1); Sodium Level 132 mmol/L (136-145)
[2018-10-07 21:05] LABS: Mucous, Urine 0 SEEN /hpf (<or=2+)
--- NOTE | 2018-10-07 21:10 | RAD_ITS ---
STUDY: X-RAY CHEST REASON FOR EXAM: Female, 63 years old. Hypotension TECHNIQUE: AP and lateral chest COMPARISON: 06/05/2018 FINDINGS: The lungs are clear and expanded. There is no demonstrated pleural abnormality. There is a stable right infrahilar calcified granuloma. Normal size heart. Normal mediastinum and maxine. Normal visualized pulmonary arteries. Normal visualized aortic arch and descending thoracic aorta. Normal visualized thoracic spine. Normal visualized ribs, clavicles, and shoulders. There is no demonstrated abnormality of the visualized soft tissue structures of the upper abdomen. RAD/Chest PA and Lateral IMPRESSION: No acute process Electronically Signed: Emmanuel Kang, at 23:21 EDT Tel , Service support ,
[2018-10-07 21:12] LABS: Color, Urine Yellow (Yellow); Glucose, Dipstick 250 mg/dl (Normal); Ketone-Dipstick Negative (Negative); Leukocyte Esterase-Dipstick 500 /ul (Negative); Nitrite-Dipstick Negative (Negative); Occult Blood-Urine Negative /ul (Negative); Protein-Dipstick 15 mg/dl (Negative); Urine Bilirubin Dipstick Negative (Negative); Urine Clarity Sl. Cloudy (Clear); Urine Urobilinogen Normal (Normal)
[2018-10-07 21:22] LABS: White Blood Cells 10-25 SEEN /hpf (0-5)
[2018-10-07 21:23] LABS: Bacteria RARE /hpf (None Seen); Red Blood Cells-Urine 0-5 SEEN /hpf (0-5); Squamous Epithelial Cells - UA 0-5 SEEN /hpf (5-10)
--- NOTE | 2018-10-07 23:57 | PCM.HP.STD ---
Problem List (1) Chest pain Status: Inactive Qualifiers: Chest pain type: precordial pain Qualified Code(s): R07.2 - Precordial pain History of Present Illness Date of Admission: 10/07/18 Chief Complaint: Chest pain, headache The patient is a 63 year old F was seen in the emergency room at [facility] after being instructed to go there for evaluation of what the patient felt was low blood pressure at home. Upon arrival to the emergency room, it was noted that the patient's blood pressure was normal. Patient is a poor informant overall. Patient also complained of vague headache and chest pain that she described as feeling like someone sitting on her chest. Patient stated the chest pain started at 6 PM tonight while she was sitting, patient has a history of COPD and is on 2 L of oxygen at all times. Workup in the emergency room included a CBC that was unremarkable, patient's chemistry panel revealed a BUN of 30, sodium of 132, sugar of 316. Patient's troponin was normal. Patient's urinalysis showed 10-25 WBCs with rare bacteria and 0-5 RBCs. EKG was obtained which showed a normal sinus rhythm without any evidence of ischemia, she is chest x-ray showed no acute process. Patient will be placed in observation status on PCU for chest pain, enzymes will be cycled, patient will undergo a resting nuclear stress test tomorrow if her enzymes remain negative. Etiology of the patient's headache is unknown at this time, patient will be monitored. Past Medical History Past Medical History (Chronic Problems): Chronic Problems (Last Reviewed 09/22/18 @ 10:21 by Priscila Miguel) SHRUTHI (obstructive sleep apnea) (Chronic) Hypersomnia (Chronic) Hypoxia (Chronic) BMI greater than 40 (Chronic) HLD (hyperlipidemia) (Chronic) Asthma (Chronic) Hypertension (Chronic) Type II diabetes mellitus (Chronic) Fibromyalgia (Chronic) Medical History: Medical History (Last Reviewed 09/22/18 @ 10:21 by Priscila Miguel) Diabetes E11.9 Pneumonia J18.9 Depression F32.9 Hypertension I10 Osteoarthritis M19.90 Pulmonary embolism I26.99 Rheumatoid arthritis M06.9 Allergies aztreonam Allergy (Verified 10/07/18 18:02) Unknown bee venom protein (honey bee) Allergy (Verified 10/07/18 18:02) Anaphylaxis Carbapenems Allergy (Verified 10/07/18 18:02) Unknown ciprofloxacin [From Cipro] Allergy (Verified 10/07/18 18:02) Anaphylaxis meperidine Allergy (Verified 10/07/18 18:02) Unknown Penicillins Allergy (Verified 10/07/18 18:02) Swelling Quinolones Allergy (Verified 10/07/18 18:02) Unknown talampicillin Allergy (Verified 10/07/18 18:02) Unknown tetracycline Allergy (Verified 10/07/18 18:02) Anaphylaxis tigecycline Allergy (Verified 10/07/18 18:02) Hives Home Medications: Ambulatory Orders Medication Instructions Recorded Albuterol Inhaler [Ventolin Hfa] 1 - 2 puff INHALATION Q4H PRN PRN 10/01/15 Fenofibrate [Lofibra] 160 mg PO DAILY 10/01/15 Loratadine [Claritin] 10 mg PO QHS 10/01/15 aspirin 81 mg tablet,delayed 81 mg PO DAILY 07/14/17 release atorvastatin 80 mg tablet 80 mg PO QHS 07/14/17 cholecalciferol (vitamin D3) 2,000 unit PO MO 07/14/17 50,000 unit capsule fluoxetine 20 mg capsule 20 mg PO DAILY 07/14/17 fluticasone propionate 50 2 spray INTRANASAL DAILY 07/14/17 mcg/actuation nasal spray,suspension ipratropium-albuterol 0.5 mg-3 3 ml INHALATION BID 07/14/17 mg(2.5 mg base)/3 mL nebulization soln isosorbide mononitrate ER 30 mg 30 mg PO DAILY 07/14/17 tablet,extended release 24 hr lisinopril 20 mg tablet 20 mg PO BID 07/14/17 nitroglycerin 0.4 mg sublingual 0.4 mg SUBLINGUAL Q5M PRN 07/14/17 tablet omeprazole 40 mg capsule,delayed 40 mg PO QHS 07/14/17 release tizanidine 4 mg capsule 4 mg PO Q6H PRN PRN 07/14/17 Epi Pen (for allergic rxn) 0.3 mg SQ PRN PRN 12/08/17 Ezetimibe [Zetia] 10 mg PO DAILY 12/08/17 Ferrous Sulfate 325 mg PO TIDCM 12/08/17 Gabapentin [Neurontin] 300 mg PO TID 12/08/17 Multivitamins,Ther W-Minerals 1 tab PO BID 12/08/17 [Multivitamin With Minerals] Magnesium Oxide [Mag-Ox 400] 400 mg PO BID #30 tab 01/03/18 Alendronate Sodium [Fosamax] 70 mg PO DAILY 01/28/18 Ammonium Lactate [Amlactin] 1 applic TOPICAL DAILY PRN 10/07/18 Apixaban [Eliquis] 5 mg PO BID 10/07/18 Insulin Glargine [Lantus SoloStar 28 units SC QHS 10/07/18 Pen] Surgical History: Surgical History (Last Reviewed 09/22/18 @ 10:21 by Priscila Miguel) H/O right knee surgery Z98.890 1991 H/O tubal ligation Z98.51 1996 History of tonsillectomy Z90.89 S/P foot surgery, left Z98.890 1990 Surgical History: cataract, tonsillectomy, - - Right knee surgery, left foot surgery, tubal ligation. 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 OFFICER history Lives: Alone Smoking Status: Former smoker Tobacco Use: Non-smoker Alcohol: None Drugs: None - *Family History Maternal Family History: Family History (Last Reviewed 09/22/18 @ 10:21 by Priscila Miguel) Mother Hypertension Dementia Father Heart disease Hypertension HLD (hyperlipidemia) History Items: Hypertension Paternal Family History: Family History (Last Reviewed 09/22/18 @ 10:21 by Priscila Miguel) Mother Hypertension Dementia Father Heart disease Hypertension HLD (hyperlipidemia) History Items: High Cholesterol, Heart Disease, - - anemia Review of Systems Constitutional: Denies: Anorexia, Chills, Fever, Night Sweats, Malaise, Weakness, Weight Change, Fatigue Eyes: Denies: Blurred vision, Cataracts, Conjunctivae Inflammation, Double vision, Drainage HEENT: Reports: Head Aches. Denies: Dysphasia, Ear Pain, Eye Pain, Hearing Changes, Nasal bleeding, Nasal Congestion, Post Nasal Drip Cardiovascular: Reports: Chest Pain, Heaviness. Denies: Claudication, Chest Pressure, Chest Tightness, Edema, Light Headedness, Orthopnea, Palpitations, Paroxysmal Noc. Dyspnea, Syncope Respiratory: Denies: Cough, Hemoptysis, Shortness of breath at rest, Shortness of breath upon exertion Gastrointestinal: Denies: Abdominal Pain, Constipation, Diarrhea, Hematemesis, Hematochezia, Nausea, Melena, Vomiting Genitourinary: Denies: Dysuria, Frequency, Hematuria, Hesitancy, Urgency Gynecological: Denies: Breast symptoms Musculoskeletal: Denies: Back Pain, Foot Pain, Hand Pain, Joint Pain, Joint stiffness, Joint swelling, Joint Tenderness, Leg Pain Skin: Denies: Dryness, Jaundice, Pruritis, Rash Neurological: Denies: Blurred vision, Double vision, Slurred speech, Difficulty swallowing, Focal weakness, Headaches, Incoordination, Numbness, Tingling Psychiatric: Denies: Anxiety, Depression, Homicidal Ideations, Suicidal Ideations Endocrine: Denies: Change in Body Habitus, Heat/ Cold Intolerance, Polydipsia, Polyuria Hematologic/ Lymphatic: Denies: Adenopathy, Anemia, Easy Bruising, Easy Bleeding, Petechiae, Purpura VTE Information - Inpt Only VTE Present on Admission: No VTE Mechan Device Prophylaxis: None VTE Pharm Prophylaxis ordered?: No Reason prophylaxis not ordered:: Medical Contraindication - Patient on Xarelto - Physical Exam General: Alert, Oriented x3, Cooperative, No apparent distress, Well developed, Well nourished HEENT: Atraumatic, PERRLA, EOMI, Normocephalic Oral: Moist Mucosa Neck: Supple, No JVD, Negative Carotid Bruits, No Nuchal Rigidity, Trachea Midline, Thyroid Normal Size and Texture Lungs: Clear to auscultation, Normal air movement, No rhonchi, No wheeze, No rales Cardiovascular: Regular rate, Regular Rhythm, Normal S1, Normal S2, No murmurs, No Ectopic Activity, PMI Normal, No rub noted, No Gallop Abdomen: Bowel Sounds Present, Soft, Non Tender, Non-Distended, No hernias noted Extremities: No clubbing, No cyanosis, No edema, Capillary Refill Less than 3 Seconds Skin: No rashes, No breakdown Musculoskeletal: No Tenderness to Palpation of Joints or Extremities Neurological: Cranial nerves II-XII grossly intact, Neuro grossly intact, Sensory exam intact to light touch and pain, Coordination normal Psych/Mental Status: Normal Affect, Appropriate, Alert and oriented to time, place, person, mood and affect Vital Signs Temp Pulse Resp BP Pulse Ox 98.2 F 63 14 115/58 L 96 10/07/18 18:02 10/07/18 23:51 10/07/18 23:51 10/07/18 23:51 10/07/18 23:51 Oxygen Flow Rate (L/min) 2 Oxygen Delivery Method Nasal Cannula Weight: 96.162 kg Body Mass Index (BMI) 42.8 Laboratory Tests Past 24 Hrs 10/07/18 10/07/18 10/07/18 20:37 20:37 21:02 WBC 8.4 RBC 4.71 Hgb 12.0 Hct 39.0 MCV 82.8 MCH 25.5 L MCHC 30.8 L RDW 15.4 H RDW Differential 46.1 H Plt Count 183 MPV 9.2 Immature Gran % (Auto) 0.100 Neut % (Auto) 54.3 Lymph % (Auto) 34.8 [place] % (Auto) 7.3 Eos % (Auto) 3.1 Baso % (Auto) 0.4 Absolute Neuts (auto) 4.6 Absolute Lymphs (auto) 2.92 Total Counted Not Reportable Sodium 132 L Potassium 4.7 Chloride 97 L Carbon Dioxide 32.0 Anion Gap 3 L BUN 30 H Creatinine 0.88 Estim Creat Clear Calc 101.91 Est GFR (MDRD) Af Amer 84 Est GFR (MDRD) Non-Af 69 BUN/Creatinine Ratio 34.0 H Glucose 316 H Calcium 9.1 Troponin I < 0.015 Urine Color Yellow Urine Clarity Sl. Cloudy Urine pH 6.0 Ur Specific [place] 1.020 Urine Protein 15 H Urine Glucose (UA) 250 H Urine Ketones Negative Urine Occult Blood Negative Urine Nitrite Negative Urine Bilirubin Negative Urine Urobilinogen Normal Ur Leukocyte Esterase 500 H Urine RBC 0-5 SEEN Urine WBC 10-25 SEEN Ur Squamous Epith Cells 0-5 SEEN Urine Bacteria RARE Urine Mucus 0 SEEN Assessment/Plan All Active Problems (Last Reviewed 09/22/18 @ 10:21 by Priscila Miguel) Severe sepsis (Resolved) Urinary tract infection (Resolved) Hyperkalemia (Resolved) Microcytic anemia (Resolved) Shortness of breath (Resolved) Nonproductive cough (Resolved) #1 chest pain-etiology unclear-patient will be placed in observation status on PCU, cardiac enzymes will be cycled, she will undergo a resting nuclear stress test tomorrow if her enzymes remain negative. #2 cephalgia-etiology unclear, continue to monitor patient #3 chronic hypoxic respiratory failure-patient is on O2 at home #4 type 2 diabetes #5 pyuria-patient has no symptoms of urinary tract infection, I will repeat the patient's urinalysis tomorrow #6 hypertension #7 past history of pulmonary embolism-patient is currently on Eliquis #8 hyperlipidemia Code Visit OBSV E&M: 22137 Initial observation care L3
[2018-10-08] VITALS (11 sets, daily range): BP systolic 116–125; BP diastolic 51–70; PULSE 60–70; RESP 14–18; TEMP 36.6–37; O2SAT 95–98; BMI 44.6
[2018-10-08 02:11] LABS: Bedside Glucose 247 mg/dL (70-110)
[2018-10-08] MEDS: Acetaminophen 325 MG Tablet 650 MG PO ×2 (04:09→11:49)
[2018-10-08 04:42] LABS: Hematocrit 37.9 % (37-47); Hemoglobin 11.6 g/dl (12.0-15.0); Mean Corp Hgb Conc 30.6 g/gl (32-36); Mean Corpuscular Hgb 25.8 pg (27.0-32.0); Mean Corpuscular Volume 84.2 fL (81-99); Mean Platelet Vol. 9.3 fl (6.2-12.0); Platelet Count 167 K/mm3 (150-450); RBC Distribution Width CV 15.2 % (11.6-14.6); RBC Distribution Width SD 45.8 fl (35.1-43.9); White Blood Count 7.7 K/mm3 (4.4-11.0)
[2018-10-08 04:45] LABS: Scan Indicated on CBC? Y/N NO
[2018-10-08 04:49] LABS: International Normalized Ratio 1.2; Prothrombin Time (Protime)PT. 14.7 SECONDS (11.7-14.9)
[2018-10-08 04:51] LABS: Partial Thromboplast Time 26.2 Seconds (24.1-36.2)
[2018-10-08 05:06] LABS: Anion Gap 8 (5-15); BUN 27 mg/dL (7-18); BUN/Creat Ratio 37.5 RATIO (10-20); Calcium,Total 8.9 mg/dL (8.5-10.1); Chloride 102 mmol/L (98-107); Creatinine, Serum 0.72 mg/dL (0.55-1.02); EST Glomerular Filtration Rate 87 mL/min (>60); Est Glom Filt Rate - Afr Amer 106 mL/min (>60); Estimated Creatinine Clearance 130.05 ml/min; Glucose 208 mg/dL (74-106); Potassium 4.2 mmol/L (3.5-5.1); Sodium Level 137 mmol/L (136-145)
[2018-10-08] MEDS: Gabapentin 300 MG Capsule PO ×2 (06:02→14:30)
[2018-10-08] MEDS: Aspirin E.C. 81 MG Tablet PO (06:02)
[2018-10-08] MEDS: Lisinopril 20 MG Tablet PO (06:03)
[2018-10-08 06:51] LABS: Bedside Glucose 192 mg/dL (70-110)
[2018-10-08] MEDS: Ipratropium/Albuterol Sulfate 3 ML AMPUL.NEB INHALATION (06:57)
[2018-10-08 08:03] LABS: Mucous, Urine 0 SEEN /hpf (<or=2+); Red Blood Cells-Urine 0 SEEN /hpf (0-5)
[2018-10-08 08:19] LABS: Color, Urine Yellow (Yellow); Glucose, Dipstick Normal (Normal); Ketone-Dipstick Negative (Negative); Leukocyte Esterase-Dipstick 100 /ul (Negative); Nitrite-Dipstick Negative (Negative); Occult Blood-Urine Negative /ul (Negative); Protein-Dipstick Negative (Negative); Specific Gravity, Urine 1.015 (1.002-1.030); Urine Bilirubin Dipstick Negative (Negative); Urine Clarity Clear (Clear); Urine Urobilinogen Normal (Normal)
[2018-10-08 08:35] LABS: Bacteria 1+ /hpf (None Seen); Squamous Epithelial Cells - UA 0-5 SEEN /hpf (5-10); White Blood Cells 0-5 SEEN /hpf (0-5)
[2018-10-08] MEDS: Isosorbide Mononitrate 30 MG Tablet PO (11:47)
[2018-10-08] MEDS: Insulin Lispro 100 UNIT/ML INSULN.PEN SC (11:48)
--- NOTE | 2018-10-08 11:48 | STRESSREP ---
Stress Test Report Date: 10-08-18 Procedure: Pharmacologic stress nuclear imaging study Indications: Chest pain Consent: Per the patient Procedure: The patient underwent pharmacologic (Regadenoson) evaluation with a peak heart rate of 100 beats per minute (62 %predicted maximal heart rate) and a peak blood pressure of 132/82 mmHg. The baseline ECG demonstrated normal sinus rhythm. The peak pharmacologic ECG demonstrated no obvious ECG changes. There were no cardiac dysrhythmias pretest, during pharmacologic infusion, or recovery. There was no complaint of chest discomfort during pharmacologic infusion or recovery. The examination was discontinued secondary to completion of protocol. Impression: 1. Pharmacologic (Regadenoson) evaluation 2. Peak pharmacologic ECG with no obvious ECG changes. 3. There were no cardiac dysrhythmias pretest, during pharmacologic infusion, or recovery. 4. Nuclear images pending Myocardial perfusion imaging study: Technique: The patient was injected with 14.2 millicuries of technetium 99m Cardiolite and subsequently rest SPECT Cardiolite nuclear imaging was obtained in the horizontal long, vertical long, and short axis views. The patient underwent pharmacologic (Regadenoson) evaluation with a peak heart rate of 100 beats per minute (62 % percent predicted maximal heart rate) and a peak blood pressure of 132/82 mmHg. The patient was injected with 42.5 millicuries of technetium 99m Cardiolite and subsequently stress SPECT Cardiolite nuclear imaging was obtained in the horizontal long, vertical long, and short axis views. A gated Cardiolite study at peak stress was obtained. Interpretation: Rest and stress SPECT Cardiolite nuclear imaging status post realignment, normalization, and attenuation correction demonstrate relative uniform tracer uptake and myocardial perfusion appearing within normal limits. There are no myocardial perfusion deficits appreciated on the resting or stress polar map images.. There is end systolic thickening and brightening. The gated Cardiolite study demonstrates myocardial thickening and inward wall motion. The reported LVEF is 66 %. Impression: 1. Rest and stress SPECT Cardiolite nuclear imaging demonstrate relative uniform tracer uptake and myocardial perfusion appearing within normal limits. 2. The gated Cardiolite study reports an LVEF of 66%. This note was generated with [employer] software. It may contain incorrect words, spelling, and punctuation that were not noted in checking the note before signing.
[2018-10-08] MEDS: 0.9% NaCl Peripheral Flush Adult/Peds IV (11:50)
[2018-10-08 12:01] LABS: Bedside Glucose 254 mg/dL (70-110)
--- NOTE | 2018-10-08 13:09 | PCM.DC ---
You will use the following diet at home:: Calorie/Carbohydrate Controlled (specify 1200, 1400, etc) Discharge Activity: Return to Normal Activity Allergies/Adverse Reactions: Allergies aztreonam Allergy (Verified 10/07/18 18:02) Unknown bee venom protein (honey bee) Allergy (Verified 10/07/18 18:02) Anaphylaxis Carbapenems Allergy (Verified 10/07/18 18:02) Unknown ciprofloxacin [From Cipro] Allergy (Verified 10/07/18 18:02) Anaphylaxis meperidine Allergy (Verified 10/07/18 18:02) Unknown Penicillins Allergy (Verified 10/07/18 18:02) Swelling Quinolones Allergy (Verified 10/07/18 18:02) Unknown talampicillin Allergy (Verified 10/07/18 18:02) Unknown tetracycline Allergy (Verified 10/07/18 18:02) Anaphylaxis tigecycline Allergy (Verified 10/07/18 18:02) Hives Medications to take at Discharge Albuterol Inhaler [Ventolin Hfa] 1 - 2 puff INHALATION Q4H PRN PRN 10/01/15 Fenofibrate [Lofibra] 160 mg PO DAILY 10/01/15 Loratadine [Claritin] 10 mg PO QHS 10/01/15 aspirin 81 mg tablet,delayed release 81 mg PO DAILY 07/14/17 atorvastatin 80 mg tablet 80 mg PO QHS 07/14/17 cholecalciferol (vitamin D3) 50,000 unit capsule 2,000 unit PO MO 07/14/17 fluoxetine 20 mg capsule 20 mg PO DAILY 07/14/17 fluticasone propionate 50 mcg/actuation nasal spray,suspension 2 spray INTRANASAL DAILY 07/14/17 ipratropium-albuterol 0.5 mg-3 mg(2.5 mg base)/3 mL nebulization soln 3 ml INHALATION BID 07/14/17 isosorbide mononitrate ER 30 mg tablet,extended release 24 hr 30 mg PO DAILY 07/14/17 lisinopril 20 mg tablet 20 mg PO BID 07/14/17 nitroglycerin 0.4 mg sublingual tablet 0.4 mg SUBLINGUAL Q5M PRN 07/14/17 omeprazole 40 mg capsule,delayed release 40 mg PO QHS 07/14/17 tizanidine 4 mg capsule 4 mg PO Q6H PRN PRN 07/14/17 Epi Pen (for allergic rxn) 0.3 mg SQ PRN PRN 12/08/17 Ezetimibe [Zetia] 10 mg PO DAILY 12/08/17 Ferrous Sulfate 325 mg PO BID 12/08/17 Gabapentin [Neurontin] 300 mg PO TID 12/08/17 Multivitamins,Ther W-Minerals [Multivitamin With Minerals] 1 tab PO BID 12/08/17 Magnesium Oxide [Mag-Ox 400] 400 mg PO BID #30 tab 01/03/18 Alendronate Sodium [Fosamax] 70 mg PO DAILY 01/28/18 Ammonium Lactate [Amlactin] 1 applic TOPICAL DAILY PRN 10/07/18 Apixaban [Eliquis] 5 mg PO BID 10/07/18 Insulin Glargine [Lantus SoloStar Pen] 28 units SC QHS 10/07/18 [place]-3 Fatty Acids [Fish Oil Concentrate] 1,000 mg PO DAILY 10/08/18 Primary Care Physician: Bronson Hunt DO [Primary Care Provider] - Please follow up with your Primary Care Physician in: 1 Week Test Results: Test results from this visit will be discussed in further detail at your follow-up appointment, if applicable. Proposed Discharge Date: 10/08/18
--- NOTE | 2018-10-08 13:16 | DS.PCM_ITS ---
Discharge Date and Diagnosis Date of Admission: 10/07/18 Date of Discharge: 10/08/18 - Primary Discharge Diagnosis 1. Non-cardiac Chest pain, ACS ruled out 2. Urinary symptoms with history of recurrent UTIs, urinalysis unremarkable 3. Cephalgia, resolved 4. Chronic hypoxic respiratory failure secondary to chronic COPD/asthma overlap syndrome 5. Type 2 diabetes mellitus 6. History of pulmonary embolism/recurrent DVT on chronic anticoagulation with Eliquis 7. Hypertension 8. Hyperlipidemia 9. SHRUTHI 10. Obesity 11. Rheumatoid arthritis/degenerative joint disease/fibromyalgia 12. Chronic normochromic normocytic anemia 13. Depression - Secondary Discharge Diagnosis Chronic Problems (Last Reviewed 09/22/18 @ 10:21 by Priscila Miguel) SHRUTHI (obstructive sleep apnea) (Chronic) Hypersomnia (Chronic) Hypoxia (Chronic) BMI greater than 40 (Chronic) HLD (hyperlipidemia) (Chronic) Asthma (Chronic) Hypertension (Chronic) Type II diabetes mellitus (Chronic) Fibromyalgia (Chronic) Hospital Course and Treatment Imaging Results: Diagnostic Data Chest X-Ray 10/07/18 21:10 IMPRESSION: No acute process Electronically Signed: Emmanuel Kang, at 23:21 EDT Tel , Service support , Operations: None Procedures: Stress test Summary of Care Provided: The patient is a 63 year old F admitted 10/07/2018 due to chest pain and headache. 1. Non-cardiac Chest pain, ACS ruled out-troponin negative. EKG without ST-T changes. Patient underwent stress test which was negative for ischemia. Patient had recent echocardiogram as well in August 2018 which showed an EF of 65%, stage I diastolic dysfunction, RVSP estimated to be 37 mmHg. Suspect chest pain musculoskeletal in nature versus GERD. Recommended increased PPI if chest discomfort continued. However, patient reports chest pain was very brief in nature. Follow-up with primary care physician in 1 week. 2. Urinary symptoms with history of recurrent UTIs, urinalysis unremarkable- patient reports she completed antibiotic therapy 3 days ago. She continues to complain of dysuria. Urinalysis benign. Recommend referral to Dr. Vallse, female urology as outpatient given ongoing urinary symptom complaints and history of frequent UTIs. 3. Cephalgia, resolved 4. Chronic hypoxic respiratory failure to chronic COPD/asthma overlap syndrome- continue outpatient follow-up with Dr. Pinzon. 5. Type 2 diabetes mellitus-continue home insulin regimen. 6. History of pulmonary embolism/recurrent DVT on chronic anticoagulation with Eliquis 7. Hypertension-stable, continue current regimen. 8. Hyperlipidemia-continue statin. 9. SHRUTHI-continue CPAP regimen. 10. Obesity-encouraged diet and lifestyle modifications. 11. Rheumatoid arthritis/degenerative joint disease/fibromyalgia 12. Chronic normochromic normocytic anemia-stable. 13. Depression-continue home fluoxetine regimen. Patient seen and examined prior to discharge. Physical assessment as noted below. Patient is stable for discharge with follow up recommendations as noted above. This patient was seen by ORALIA Platt under the supervision of Dr. Koroma. - Physical Exam Vital Signs Temp Pulse Resp BP Pulse Ox 97.9 F 70 17 125/60 H 95 10/08/18 08:10 10/08/18 11:55 10/08/18 08:10 10/08/18 08:10 10/08/18 08:10 Oxygen Flow Rate (L/min) 2 Oxygen Delivery Method Nasal Cannula Weight: 221 lb 5.506 oz Body Mass Index (BMI) 44.6 Intake and Output for Last 24 Hours 10/06/18 10/07/18 10/08/18 23:59 23:59 23:59 Intake Total 130 / 130 Balance 130 / 130 Laboratory Tests Past 24 Hrs 10/07/18 10/07/18 10/07/18 20:37 20:37 21:02 WBC 8.4 RBC 4.71 Hgb 12.0 Hct 39.0 MCV 82.8 MCH 25.5 L MCHC 30.8 L RDW 15.4 H RDW Differential 46.1 H Plt Count 183 MPV 9.2 Immature Gran % (Auto) 0.100 Neut % (Auto) 54.3 Lymph % (Auto) 34.8 [place] % (Auto) 7.3 Eos % (Auto) 3.1 Baso % (Auto) 0.4 Absolute Neuts (auto) 4.6 Absolute Lymphs (auto) 2.92 Total Counted Not Reportable PT INR APTT Sodium 132 L Potassium 4.7 Chloride 97 L Carbon Dioxide 32.0 Anion Gap 3 L BUN 30 H Creatinine 0.88 Estim Creat Clear Calc 101.91 Est GFR (MDRD) Af Amer 84 Est GFR (MDRD) Non-Af 69 BUN/Creatinine Ratio 34.0 H Glucose 316 H Calcium 9.1 Troponin I < 0.015 Urine Color Yellow Urine Clarity Sl. Cloudy Urine pH 6.0 Ur Specific [place] 1.020 Urine Protein 15 H Urine Glucose (UA) 250 H Urine Ketones Negative Urine Occult Blood Negative Urine Nitrite Negative Urine Bilirubin Negative Urine Urobilinogen Normal Ur Leukocyte Esterase 500 H Urine RBC 0-5 SEEN Urine WBC 10-25 SEEN Ur Squamous Epith Cells 0-5 SEEN Urine Bacteria RARE Urine Mucus 0 SEEN 10/08/18 10/08/18 10/08/18 01:13 04:15 04:15 WBC 7.7 RBC 4.50 Hgb 11.6 L Hct 37.9 MCV 84.2 MCH 25.8 L MCHC 30.6 L RDW 15.2 H RDW Differential 45.8 H Plt Count 167 MPV 9.3 Immature Gran % (Auto) Neut % (Auto) Lymph % (Auto) [place] % (Auto) Eos % (Auto) Baso % (Auto) Absolute Neuts (auto) Absolute Lymphs (auto) Total Counted PT INR APTT Sodium Potassium Chloride Carbon Dioxide Anion Gap BUN Creatinine Estim Creat Clear Calc Est GFR (MDRD) Af Amer Est GFR (MDRD) Non-Af BUN/Creatinine Ratio Glucose Calcium Troponin I < 0.015 < 0.015 Urine Color Urine Clarity Urine pH Ur Specific [place] Urine Protein Urine Glucose (UA) Urine Ketones Urine Occult Blood Urine Nitrite Urine Bilirubin Urine Urobilinogen Ur Leukocyte Esterase Urine RBC Urine WBC Ur Squamous Epith Cells Urine Bacteria Urine Mucus 10/08/18 10/08/18 10/08/18 04:15 04:15 07:55 WBC RBC Hgb Hct MCV MCH MCHC RDW RDW Differential Plt Count MPV Immature Gran % (Auto) Neut % (Auto) Lymph % (Auto) [place] % (Auto) Eos % (Auto) Baso % (Auto) Absolute Neuts (auto) Absolute Lymphs (auto) Total Counted PT 14.7 INR 1.2 APTT 26.2 Sodium 137 Potassium 4.2 Chloride 102 Carbon Dioxide 27.0 Anion Gap 8 BUN 27 H Creatinine 0.72 Estim Creat Clear Calc 130.05 Est GFR (MDRD) Af Amer 106 Est GFR (MDRD) Non-Af 87 BUN/Creatinine Ratio 37.5 H Glucose 208 H Calcium 8.9 Troponin I Urine Color Yellow Urine Clarity Clear Urine pH 6.0 Ur Specific [place] 1.015 Urine Protein Negative Urine Glucose (UA) Normal Urine Ketones Negative Urine Occult Blood Negative Urine Nitrite Negative Urine Bilirubin Negative Urine Urobilinogen Normal Ur Leukocyte Esterase 100 H Urine RBC 0 SEEN Urine WBC 0-5 SEEN Ur Squamous Epith Cells 0-5 SEEN Urine Bacteria 1+ Urine Mucus 0 SEEN POC Glucose 10/08/18 10/08/18 10/08/18 11:32 06:45 02:03 POC Glucose 254 H 192 H 247 H Discharge Diet: Low fat/ Low Cholesterol, 1800 Calorie Control Diet, Carb Control Diet Discharge Activity: Return to Normal Activity Home Medications: Medications to take at Discharge Albuterol Inhaler [Ventolin Hfa] 1 - 2 puff INHALATION Q4H PRN PRN 10/01/15 Fenofibrate [Lofibra] 160 mg PO DAILY 10/01/15 Loratadine [Claritin] 10 mg PO QHS 10/01/15 aspirin 81 mg tablet,delayed release 81 mg PO DAILY 07/14/17 atorvastatin 80 mg tablet 80 mg PO QHS 07/14/17 cholecalciferol (vitamin D3) 50,000 unit capsule 2,000 unit PO MO 07/14/17 fluoxetine 20 mg capsule 20 mg PO DAILY 07/14/17 fluticasone propionate 50 mcg/actuation nasal spray,suspension 2 spray INTRANASAL DAILY 07/14/17 ipratropium-albuterol 0.5 mg-3 mg(2.5 mg base)/3 mL nebulization soln 3 ml INHALATION BID 07/14/17 isosorbide mononitrate ER 30 mg tablet,extended release 24 hr 30 mg PO DAILY 07/14/17 lisinopril 20 mg tablet 20 mg PO BID 07/14/17 nitroglycerin 0.4 mg sublingual tablet 0.4 mg SUBLINGUAL Q5M PRN 07/14/17 omeprazole 40 mg capsule,delayed release 40 mg PO QHS 07/14/17 tizanidine 4 mg capsule 4 mg PO Q6H PRN PRN 07/14/17 Epi Pen (for allergic rxn) 0.3 mg SQ PRN PRN 12/08/17 Ezetimibe [Zetia] 10 mg PO DAILY 12/08/17 Ferrous Sulfate 325 mg PO BID 12/08/17 Gabapentin [Neurontin] 300 mg PO TID 12/08/17 Multivitamins,Ther W-Minerals [Multivitamin With Minerals] 1 tab PO BID 12/08/17 Magnesium Oxide [Mag-Ox 400] 400 mg PO BID #30 tab 01/03/18 Alendronate Sodium [Fosamax] 70 mg PO DAILY 01/28/18 Ammonium Lactate [Amlactin] 1 applic TOPICAL DAILY PRN 10/07/18 Apixaban [Eliquis] 5 mg PO BID 10/07/18 Insulin Glargine [Lantus SoloStar Pen] 28 units SC QHS 10/07/18 [place]-3 Fatty Acids [Fish Oil Concentrate] 1,000 mg PO DAILY 10/08/18 Primary Care Physician: Bronson Hunt DO [Primary Care Provider] - Please follow up with your Primary Care Physician in: 1 Week Disposition: Home Minutes spent on discharge:: 35 Patient Condition:: Stable Medical Necessity - Tobacco Use Smoking Status: Former smoker Tobacco Use: Non-smoker Meaningful Use Info Meaningful Use Diagnoses (Choose all that apply): None applicable
[2018-10-08] MEDS: APIXABAN 5 MG TABLET PO (14:28)
== END 2018-10-08 13:10 | disposition home or self-care (01) ==
LOC: ED 20:49 → PCU 10-08 00:04
PROVIDERS: Admitting Provider Internal Medicine; Emergency Provider Emergency Medicine; Family Provider Student in an Organized Health Care Education/Training Program; PCP Student in an Organized Health Care Education/Training Program; Referring Provider Internal Medicine; Visit Provider Internal Medicine
DX: R07.89 Other chest pain (principal); J44.9 Chronic obstructive pulmonary disease, unspecified; J96.11 Chronic respiratory failure with hypoxia; R51 Headache; I95.9 Hypotension, unspecified; M79.7 Fibromyalgia; I10 Essential (primary) hypertension; E78.5 Hyperlipidemia, unspecified; G47.33 Obstructive sleep apnea (adult) (pediatric); M19.90 Unspecified osteoarthritis, unspecified site; M06.9 Rheumatoid arthritis, unspecified; Z79.01 Long term (current) use of anticoagulants; Z79.4 Long term (current) use of insulin; Z79.899 Other long term (current) drug therapy; Z79.82 Long term (current) use of aspirin; Z99.81 Dependence on supplemental oxygen; Z86.711 Personal history of pulmonary embolism; Z87.891 Personal history of nicotine dependence; E11.65 Type 2 diabetes mellitus with hyperglycemia; E66.01 Morbid (severe) obesity due to excess calories; Z68.41 Body mass index [BMI] 40.0-44.9, adult; Z71.3 Dietary counseling and surveillance; Z86.718 Personal history of other venous thrombosis and embolism; F32.9 Major depressive disorder, single episode, unspecified; D64.9 Anemia, unspecified
CPT/HCPCS: 36415; 71046; 78452; 80048; 81001; 82962; 84484; 85025; 85027; 85610; 85730; 87077; 87086; 87088; 87186; 93005; 93017; 94640; 96360; 96361; 99218; 99251; 99285; A9500; J7030; A4216; G0378; G0463; J2785

== ENCOUNTER → 2018-10-14 09:52 | Outpatient (CLI) | payer OTHER, MEDICAID, SELFPAY ==
[2018-10-08 00:50] VITALS: BMI 44.6
== END ==
PROVIDERS: Family Provider Student in an Organized Health Care Education/Training Program; PCP Student in an Organized Health Care Education/Training Program; Referring Provider Nurse Practitioner Acute Care; Visit Provider Nurse Practitioner Acute Care
DX: G47.33 Obstructive sleep apnea (adult) (pediatric) (principal)

== ENCOUNTER → 2018-11-08 13:38 | Outpatient (CLI) | payer OTHER, MEDICAID, SELFPAY ==
[2018-11-01 10:01] VITALS: BMI 44.4
== END ==
PROVIDERS: Family Provider Student in an Organized Health Care Education/Training Program; PCP Student in an Organized Health Care Education/Training Program; Referring Provider Internal Medicine Critical Care Medicine; Visit Provider Internal Medicine Critical Care Medicine
DX: G47.33 Obstructive sleep apnea (adult) (pediatric) (principal)
CPT/HCPCS: 98960; G0463

== ENCOUNTER 2019-01-02 11:09 | Day surgery (SDC) | payer OTHER, MEDICAID, SELFPAY ==
[2018-10-08 00:50] VITALS: BMI 44.6
[2018-11-01 10:01] VITALS: BMI 44.4
--- NOTE | 2018-12-29 18:26 | HP.PCM_ITS ---
History and Physical Date of Admission: 01/02/19 HISTORY AND PHYSICAL ? Latonya Valverde 1955 ? REFERRING PHYSICIAN: ??Bronson Hunt, DO ? CHIEF COMPLAINT: ??Consult (Colonoscopy consult) ? HPI: The patient is a 63 year old female referred for endoscopy. ?Latonya notes occasional constipation and straining with bowel movements. Patient denies any weight changes, blood in stools, black tarry stools or abdominal pain.??Denies?family history of colon issues. ?The patient notes no upper GI complaints. ?She is a former tobacco user and does smoke cannabis at night. ? Latonya?has not?undergone prior endoscopy. ? ? Patient's past medical history is significant for asthma, recurrent UTIs, insulin-dependent type II diabetes mellitus, neuropathy, fibromyalgia, history of MRSA infection, history of E. Coli sepsis, history of DVT for which she is maintained on Eliquis. ?Patient is oxygen-dependent, uses this continuously at home. ?She follows with Dr. Hunt for her chronic medical conditions. ? Of note, patient was recently hospitalized for workup of atypical chest pain, those notes form [facility] are reviewed. ?She had EKG at admission which showed normal sinus rhythm with no significant ST or T wave changes. ?Chest xray showed no acute process. ??Serial cardiac enzymes were negative. ?She had a stress test on 10/08/18 that was negative for ischemia. ??Patient was noted to have mild anemia on CBC during her hospitalization. ? ? PAST?MEDICAL?HISTORY PAST MEDICAL HISTORY Diagnosis Date ? Arthritis of knee, degenerative ? ? b/L ? Asthma ? ? Cutaneous abscess of buttock 01/31/2016 ? Depression 10/10/2015 ? DVT (deep venous thrombosis) (HCC) ? ? 2010 ? Essential hypertension 10/10/2015 ? Fibromyalgia 10/10/2015 ? Gallstones 10/10/2015 ? Mild tetrahydrocannabinol (THC) abuse ? ? patient admitted to use 02/24/2017 ? Neuropathy (HCC) ? ? due to diabetes ? RLS (restless legs syndrome) ? ? 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 ? PAST?SURGICAL?HISTORY PAST SURGICAL HISTORY Procedure Laterality Date ? OTHER Left 1991 ? arthroscopic, Left toe surgery ? TKR COMPOSITE Right 1991 ? TONSILLECTOMY HX ? ? ? Childhood ? TUBAL LIGATION HX ? 1995 ? ? CURRENT?MEDICATIONS ? Current Outpatient Medications: insulin glargine (LANTUS SOLOSTAR, BASAGLAR KWIKPEN) 100 unit/mL (3 mL) inpn Inject 40 Units subcutaneously daily at bedtime. budesonide-formoterol (SYMBICORT) 80-4.5 mcg/actuation inhaler Inhale 2 Puffs as instructed twice daily. FLUoxetine HCl (PROZAC) 40 mg capsule Take 1 capsule by mouth once daily. albuterol (PROVENTIL) 2.5 mg /3 mL (0.083 %) nebulizer solution Use 3 mL via nebulizer every 6 hours as needed for Wheezing/Shortness of Breath. COMPOUNDED PRESCRIPTION Portable pulse oximetry device aspirin, enteric coated (ASPIR-LOW) 81 mg EC tablet Take 1 tablet by mouth once daily. ibuprofen (MOTRIN) 600 mg tablet Take 1 tablet by mouth every 6 hours as needed for Pain. multivitamin/iron/folic acid(CENTRAL-DESHAUN 18 MG-400 MCG TABLET) Take 1 tablet by mouth twice daily with meals. apixaban (ELIQUIS) 5 mg tab(s) Take 1 tablet by mouth twice daily. loratadine (CLARITIN) 10 mg tablet Take 1 tablet by mouth once daily. ezetimibe (ZETIA) 10 mg tablet Take 1 tablet by mouth once daily. albuterol HFA (VENTOLIN HFA) 90 mcg/actuation inhaler INHALE 2 PUFFS BY MOUTH EVERY FOUR HOURS NEEDED FOR WHEEZING OR SHORTNESS OF BREATH fluticasone (FLONASE) 50 mcg/actuation nasal spray Use 2 Sprays in each nostril once daily. Rinse mouth after use. lancets (FREESTYLE LANCETS) [facility] blood sugar(s) 2 times daily. ?Dx: Type 2 DM - Uncontrolled E11.65 ?Insulin: Yes magnesium oxide (MAG-OX) 400 mg (241.3 mg magnesium) tablet Take 1 tablet by mouth twice daily. Omeprazole 40 mg capsule Take 1 capsule by mouth twice daily. lisinopril (ZESTRIL, PRINIVIL) 20 mg tablet Take 1 tablet by mouth once daily. insulin needles, DISPOSABLE, (PEN NEEDLE) 31 gauge x 5/16 ndle Use one needle per dose per day. Ell.9 . ??Insulin: yes gabapentin (NEURONTIN) 300 mg capsule 300mg in AM, 300mg in afternoon and 600mg at bedtime Fish Oil-[place]-3 Fatty Acids 340-1,000 mg cap Take 1 capsule by mouth once daily. Incontinence Pad, Liner, Disp (BLADDER CONTROL PAD EXTRA PLUS) pads 3 bags of liners for 1 month supplyMixed incontinence and obesity COMPOUNDED PRESCRIPTION Dx: mixed urinary incontinence, obesity ?Cloth bed pads Diaper,Brief, Adult,Disposable (ENTRUST PLUS UNDERGARMENTS) misc 200 zzPiece as needed. Dx; N39.498 ondansetron orally disintegrating (ZOFRAN ODT) 4 mg disintegrating tablet Take 1 tablet by mouth every 6 hours as needed for Nausea/Vomiting. EPINEPHrine (EPIPEN) 0.3 mg/0.3 mL auto-injector Inject 0.3 mL subcutaneously as directed. Give 1 injection into side of thigh for allergic reaction. Repeat dose in 5-15 min if not improving. cholecalciferol (VITAMIN D3) 2,000 unit tablet Take 1 tablet by mouth once daily. ipratropium-albuterol (DUONEB) 0.5 mg-3 mg(2.5 mg base)/3 mL nebu Inhale 3 mL as instructed twice daily. Unit dose pack atorvastatin (LIPITOR) 80 mg tablet take 1 tablet by mouth once daily isosorbide mononitrate ER (IMDUR) 30 mg 24 hr tablet take 1 tablet by mouth once daily nitroglycerin sublingual (NITROQUICK) 0.4 mg SL tablet Dissolve 1 tablet under the tongue every 5 minutes as needed for Chest Pain. Call 911 if pain does not resolve or changes ammonium lactate (AMLACTIN) 12 % lotion Apply 1 application to affected area as needed. alendronate (FOSAMAX) 70 mg tablet Take 70 mg by mouth. ? No current facility-administered medications for this visit.? ? ALLERGIES:?Penicillins; Aztreonam; Bee Sting; Carbapenems; Doxycycline; Meperidine; Quinolones; Talampicillin; Tigecycline ? PERSONAL HISTORY:? SOCIAL?HISTORY Social History ??Socioeconomic History ?Marital status: Single ?Spouse name: Not on file ?Number of children: 3 ?Years of education: Not on file ?Highest education level: Not on file ??Social Needs ?Financial resource strain: Not on file ?Food insecurity - worry: Not on file ?Food insecurity - inability: Not on file ?Transportation needs - medical: Not on file ?Transportation needs - non-medical: Not on file ??Occupational History ?Occupation: Disability ??Tobacco Use ?Smoking status: Former Smoker ?Packs/day: 0.75 ?Years: 40.00 ?Pack years: 30 ?Quit date: 12/06/2014 ?Years since quittin.9 ?Smokeless tobacco: Never Used ??Substance and Sexual Activity ?Alcohol use: No ?Drug use: No ?Sexual activity: Not Currently ??Other Topics ?Concerns: ?Not on file ??Social History Narrative ?Not on file ? FAMILY HISTORY:? FAMILY?HISTORY FAMILY HISTORY Problem Relation Age of Onset ? other (Dementia) Mother ? ? Heart Father ?CHF ? Hyperlipidemia Father ? ? Hypertension Father ? ? Arthritis Father ? ? REVIEW OF SYMPTOMS: ??The review of systems data was entered by the nurse and reviewed by me ? Nursing Notes: Osmel Cuenca LPN ?10/31/2018 ?9:04 AM ?Signed REVIEW OF SYSTEMS: ?General:???The patient denies fatigue, denies weight loss, denies weight gain, denies feeling hot, and denies feelings of cold. ?Eyes: ?The patient NOTES glaucoma, NOTES eye injury/surgery, wears glasses or contacts. ?Ear/Nose/Throat: ?The patient NOTES allergies, denies hayfever, denies ear infections, and denies bloody noses. ?Cardiovascular: ?The patient denies chest pain, NOTES heart disease, NOTES high blood pressure,denies cardiac stent, denies prior heart attack, denies irregular heart beat, NOTES high cholesterol, ?denies poor circulation, denies heart failure, other cardiac issues, denies claudication, denies cold feet, denies peripheral arterial stent. ?Respiratory: ?The patient denies tuberculosis, denies pneumonia, denies frequent cough, denies pulmonary embolism, NOTES shortness of breath, and denies coughing up blood. ?Gastrointestinal: ?The patient denies difficulty swallowing, denies acid reflux, denies ulcers, denies vomiting, denies jaundice/hepatitis, NOTES gallbladder problems, denies black or tarry stools, denies hemorrhoids, denies bleeding from rectum, denies diverticulitis, denies constipation, denies diarrhea, denies loss of stool control, and denies hernias. ?Kidney/Bladder: ?The patient NOTES kidney stones, NOTES urine infections, and denies bloody urine. ?Skin: ?The patient denies a history of skin cancer, denies bleeding/changing moles, and denies a history of skin rash. ?Neurologic: ?The patient denies a history of epilepsy/convulsions, NOTES headaches, denies head/spinal injuries, and denies stroke/TIA. ?Psychiatric: ?The patient denies psychiatric medications, NOTES depression, and denies voices, denies substance abuse. ?Endocrine: ?The patient denies thyroid disorders, NOTES diabetes, and denies hormonal problems. ?Hematologic: ?The patient denies a history of bruising, denies bleeding, and denies anemia, NOTES blood clots. ?Infections: ?The patient notes a history of measles and mumps, denies rheumatic fever, and denies sexually transmitted diseases. ?Musculoskeletal: ?The patient denies back pain/injury, denies back problems, denies sciatica, NOTES knee/foot trouble, NOTES arthritis, or denies gout. ? ? When was patient's last Mammogram screening? N/A ? ?Last Colonoscopy: ?n/a ? Osmel Cuenca LPN? I have confirmed and edited as necessary, the PFSH and ROS obtained by others. ? ? PHYSICAL EXAMINATION: ? General: ?The patient is 63 year old female, well nourished, well hydrated in no acute distress. ?The patient is oriented to time, place, and person. ? VITALS:?Blood pressure 122/64, pulse 98, temperature 36.8 ?C (98.2 ?F), temperature source Temporal Artery, height 149.9 cm (4' 11), weight 100.6 kg (221 lb 12.8 oz), SpO2 92 %.?Body mass index is 44.8 kg/m?.? ? HEENT: ?Normal cephalic, ataumatic, pupils are equally round, sclera are a nicteric, mucous membranes are moist, oropharynx is clear. ?Neck has no masses, asymmetry or lymphadenopathy. ? ? Respiratory: ?Clear to auscultation and percussion. ?Normal respiratory excursion and pattern. ? Cardiac: ?Examination is regular rate and rhythm. ?Normal S1/S2 ? Abdominal exam: ?Soft, nontender, ?with no palpable masses. ?No hepatosplenomegaly. ?No palpable hernias. ? Extremities: ?no clubbing, cyanosis or edema. ?No adenopathy. ? LABORATORY VALUES: As Noted ? RADIOLOGIC STUDIES: ?As Noted ? ? Assessment ? IMPRESSION:?encounter for colonoscopy. ?Recent anemia-recommend EGD in addition to colonoscopy ? PLAN: ?I have reviewed my findings with the surgeon. ?Will plan for upper and lower?endoscopy. ??We discussed the risks and benefits of the planned endoscopy. ?I have informed the patient that complications can occur including failure to complete the endoscopy and perforation. ?The patient had the opportunity to ask questions concerning the planned endoscopy. ?My staff has also explained the procedure to the patient in understandable terms and has given the patient printed material concerning the procedure. ?The patient freely consents to surgery. ? I plan to use?Golytely?bowel preparation ? Patient instructed to contact PCP for instructions regarding diabetic medication, which may require adjustment during bowel preparation and/or day of procedure. ?She may continue her other routine medications, including her anticoagulation, as usual ? The patient has medical comorbidities for which we will plan for the procedure to be performed under Monitored Anesthetic Care. ? ? Diagnoses:?(Z12.11) Special screening for malignant neoplasm of colon ?(primary encounter diagnosis) (D64.9) Anemia, unspecified type (F12.90) Marijuana use (Z87.891) Former smoker (Z79.01) On continuous oral anticoagulation ? ? Emma Yoon PA-C
[2019-01-02] VITALS (8 sets, daily range): BP systolic 106–150; BP diastolic 45–56; PULSE 68–83; RESP 16–18; TEMP 36.2–36.6; O2SAT 96–100; BMI 44.8
[2019-01-02 11:50] LABS: Bedside Glucose 182 mg/dL (70-110)
--- NOTE | 2019-01-02 12:00 | GASB_PTH ---
PATIENT: FELICITAS CURRY LOC: EN U#:[id number] AGE/SX: 63/F ROOM: RE01/02/[address]: Dr. Sulaiman Nieves MD : 1955 BED: DIS: 01/02/2019 SPEC #: [id number] RECD: 01/02/19 15:01 STATUS: NEIL DOT #: [id number] SHILOH: 01/02/19 12:[address]: Sulaiman Nieves DEPT: SURGICAL PATHOLOGY RECD BY: Shen Vargas ENTERED: 01/03/19 09:33 SP TYPE: Gastric Bx OTHR DR: Dr. Bronson Hunt DO Tissues: A - Gastric mucous membrane B - Gastric mucous membrane Procedures: Special Stain Group II Surgery Specimen Level IV Alcian Blue/PAS (control) HEADER OPERATION[place] [place] DIAGNOSIS: Anemia TISSUE SUBMITTED: A - Antral biopsy for histo and H. pylori, B - GE junction biopsy MICROSCOPIC DIAGNOSIS A. Antral biopsy: Mild chronic active gastritis. See comment. B. GE junction biopsy: Squamogastric GE junction mucosa showing mild chronic inflammation and reflux changes. Special stain Alcian blue/PAS negative for definitive intestinal type goblet cells (patchy nonspecific staining present). Negative for dysplasia. FA:will 01/04/19 COMMENT A. The results of immunohistochemistry for Helicobacter pylori will be reported separately ([id number]). MICROSCOPIC DESCRIPTION Slides are reviewed. GROSS DESCRIPTION A - Received in fixative is one container labeled with the patient's name and designated antral biopsy. The specimen consists of a single pinkish-vogel biopsy fragment measuring up to 2 mm in greatest dimension. The specimen is totally submitted in one cassette. B - Received in fixative is one container labeled with the patient's name and designated GE junction biopsy. The specimen consists of a single pinkish-vogel biopsy fragment measuring up to 2 mm in greatest dimension. The specimen is totally submitted in one cassette. / FA:will 01/03/19 TC:3 CPT: 01574 x2, [id number]
--- NOTE | 2019-01-02 12:00 | IMM_PTH ---
PATIENT: FELICITAS CURRY LOC: EN U#:[id number] AGE/SX: 63/F ROOM: RE01/02/[address]: Dr. Sulaiman Nieves MD : 1955 BED: DIS: 01/02/2019 SPEC #: [id number] RECD: 01/04/19 10:12 STATUS: NEIL REQ #: [id number] SHILOH: 01/02/19 12:[address]: Sulaiman Nieves DEPT: IMMUNOHISTOCHEMISTRY RECD BY: Laura Ziegler ENTERED: 01/04/19 10:12 SP TYPE: IMMUNO OTHR DR: Dr. Bronson Hunt DO Tissues: A - Stomach, NOS Procedures: H Pylori (initial) PHYSICIAN & INSTITUTION [place] [id number] SPECIMEN INFORMATION: Tissue Source: A - Antral biopsy Clinical Info: Anemia Specimen Number: [id number] CPT code: 52191 METHODOLOGY: Deparaffinized sections of prefer/formalin-fixed tissue or PAP/DQ stained slides are incubated with monoclonal/polyclonal antibodies/oligonucleotide probes. Localization is made via biotin free immunoperoxidase method. Appropriate controls are performed and reacted as expected. Results on target cell population are indicated in the following table: RESULTS: ANTIBODY / CLONE RESULT Block A H Pylori (polyclonal) negative These tests were developed and their performance characteristics determined by [facility]. They may not have been cleared or approved by the U.S. Food and Drug Administration. The FDA has determined that such clearance or approval is not necessary. INTERPRETATION: A. Antral biopsy: Negative for Helicobacter pylori organisms. FA:will 01/04/19
--- NOTE | 2019-01-02 13:05 | OP.ENDO_ITS ---
01/02/2019 Bronson Hunt [address] [id number] Re : Upper GI endoscopy procedure for Latonya Valverde Dear Dr. Hunt This procedure was performed on Wednesday, January 02, 2019. My impressions and recommendations are as follows: Impressions : - Normal examined jejunum. - Normal examined duodenum. - Normal antrum. Biopsied. - Non-severe reflux esophagitis. Biopsied. Recommendations : - Await pathology results. - Telephone nurse practitioner for pathology results in 1 week. - Continue present medications. My findings are described in the full procedure note, which is enclosed. If I can be of further assistance, please feel free to contact me at Doctor phone number(s): , Work: . Sincerely, Sulaiman Nieves MD 01/02/2019 1:04:36 PM This report has been signed electronically.
--- NOTE | 2019-01-02 13:06 | OP.ENDO_ITS ---
01/02/2019 Bronson Hunt [address] [id number] Re : Colonoscopy procedure for Latonya Valverde Dear Dr. Hunt This procedure was performed on Wednesday, January 02, 2019. My impressions and recommendations are as follows: Impressions : - Preparation of the colon was fair. - The entire examined colon is normal on direct and retroflexion views. - No specimens collected. Recommendations : - Discharge patient to home. - Resume previous diet. - Continue present medications. - Repeat colonoscopy in 5 years for screening purposes. My findings are described in the full procedure note, which is enclosed. If I can be of further assistance, please feel free to contact me at Doctor phone number(s): , Work: . Sincerely, Sulaiman Nieves MD 01/02/2019 1:06:21 PM This report has been signed electronically.
== END 2019-01-02 14:07 | disposition home or self-care (01) ==
LOC: EN 11:09 → AC 11:11
PROVIDERS: Family Provider Student in an Organized Health Care Education/Training Program; PCP Student in an Organized Health Care Education/Training Program; Referring Provider Student in an Organized Health Care Education/Training Program; Visit Provider Surgery
PROC: 0DJD8ZZ Inspection of Lower Intestinal Tract, Via Natural or Artificial Opening Endoscopic (ICD-10-PCS; CPT 45378; principal; 2019-01-02 11:55)
DX: Z12.11 Encounter for screening for malignant neoplasm of colon (principal); D50.9 Iron deficiency anemia, unspecified; K20.9 Esophagitis, unspecified; K59.00 Constipation, unspecified; E11.40 Type 2 diabetes mellitus with diabetic neuropathy, unspecified; I10 Essential (primary) hypertension; E78.00 Pure hypercholesterolemia, unspecified; M06.9 Rheumatoid arthritis, unspecified; M79.7 Fibromyalgia; D64.9 Anemia, unspecified; J45.909 Unspecified asthma, uncomplicated; G47.30 Sleep apnea, unspecified; F32.9 Major depressive disorder, single episode, unspecified; F41.9 Anxiety disorder, unspecified; E66.9 Obesity, unspecified; Z78.0 Asymptomatic menopausal state; Z79.4 Long term (current) use of insulin; Z79.01 Long term (current) use of anticoagulants; Z79.899 Other long term (current) drug therapy; Z99.81 Dependence on supplemental oxygen; Z86.718 Personal history of other venous thrombosis and embolism; Z86.14 Personal history of Methicillin resistant Staphylococcus aureus infection; Z87.440 Personal history of urinary (tract) infections; Z87.891 Personal history of nicotine dependence
CPT/HCPCS: 43239; 45378; 82962; 88305; 88313; 88342; J7120

== ENCOUNTER 2019-05-16 14:15 | Inpatient (IN) | payer OTHER, MEDICAID, SELFPAY ==
[2019-03-02 11:18] VITALS: BMI 44.8
[2019-05-16] VITALS (9 sets, daily range): BP systolic 105–115; BP diastolic 41–51; PULSE 55–72; RESP 15–20; TEMP 36.4–36.6; O2SAT 96–99; BMI 46.4
--- NOTE | 2019-05-16 14:25 | EKG12_ITS ---
Test Reason : DIZZINESS Blood Pressure : / mmHG Vent. Rate : 068 BPM Atrial Rate : 068 BPM P-R Int : 176 ms QRS Dur : 090 ms QT Int : 406 ms P-R-T Axes : 058 027 070 degrees QTc Int : 431 ms Normal sinus rhythm Normal ECG Confirmed by TOMA CARRERO, NOHEMI ([id number]), editor producer BJ BERRY ([id number]) on 05/23/2019 2:07:29 PM Referred By: Lianet Serrano Confirmed By:NOHEMI CHUA MD
--- NOTE | 2019-05-16 14:33 | RAD_ITS ---
STUDY: X-RAY CHEST REASON FOR EXAM: Female, 64 years old. Dizziness. Chest pain and shortness of breath. TECHNIQUE: Single AP portable view of the chest. COMPARISON: Comparison is made with prior study dated October 07, 2018. FINDINGS: EKG electrodes are seen. Scattered calcified granulomas. There is no demonstrated pleural abnormality. Normal size heart. Calcified granuloma in the right infrahilar region. Normal visualized pulmonary arteries. Normal visualized aortic arch and descending thoracic aorta. Normal visualized thoracic spine. Normal visualized ribs, clavicles, and shoulders. There is no demonstrated abnormality of the visualized soft tissue structures of the upper abdomen. RAD/Chest 1 View (Portable) IMPRESSION: No acute abnormality is seen. Electronically Signed: Anival Montano, at 14:48 EST , Service support ,
--- NOTE | 2019-05-16 14:47 | ED.VIS.GEN ---
History of Present Illness Chief Complaint: Dizziness Detail of Chief Complaint: Low pulse ox, low blood pressure and shortness of breath Onset: - - Uncertain Context: - - Uncertain Timing: Continuous, Waxes and wanes Quality: History of COPD, obstructive sleep apnea Location: Generalized Current Severity: Mild Maximum Severity: Moderate Worsened by: Activity and standing Relieved by: Nothing Associated Symptoms: No fever or chills. No chest pain. Narrative: Patient is a 64-year-old woman who presents from clinic because of low blood pressure, low pulse ox, shortness of breath. Patient does have cough which is nonproductive. Patient is on oxygen by nasal cannula 2 L continuously. She denies fever, chills night sweats. She denies headache, visual, ocular auditory symptoms. No trouble speech or swallowing. She complains of vague abdominal pain with nausea without diarrhea. She denies black or maroon stool. She denies dysuria, frequency, urgency hematuria. There is remote history of DVT. She states her legs are chronically discolored and swollen. Prior similar symptoms: Yes Recent Illness/Hospitalization: No - Past Medical History (1) Asthma Status: Chronic (2) Asthma with COPD (chronic obstructive pulmonary disease) Status: Chronic (3) Essential hypertension Status: Chronic (4) HLD (hyperlipidemia) Status: Chronic (5) Hypersomnia Status: Chronic (6) Hypoxia Status: Chronic (7) SHRUTHI (obstructive sleep apnea) Status: Chronic (8) Type II diabetes mellitus Status: Chronic Past Medical History - Allergies and Home Meds Allergies/Adverse Reactions: Allergies aztreonam Allergy (Verified 05/16/19 14:17) Unknown bee venom protein (honey bee) Allergy (Verified 05/16/19 14:17) Anaphylaxis Carbapenems Allergy (Verified 05/16/19 14:17) Unknown ciprofloxacin [From Cipro] Allergy (Verified 05/16/19 14:17) Anaphylaxis meperidine Allergy (Verified 05/16/19 14:17) Unknown Penicillins Allergy (Verified 05/16/19 14:17) Swelling Quinolones Allergy (Verified 05/16/19 14:17) Unknown talampicillin Allergy (Verified 05/16/19 14:17) Unknown tetracycline Allergy (Verified 05/16/19 14:17) Anaphylaxis tigecycline Allergy (Verified 05/16/19 14:17) Hives Primary Care Physician: Bronson Hunt DO [Primary Care Provider] - Prior records reviewed: Yes Surgical History: cataract, tonsillectomy, - - Right knee surgery, left foot surgery, tubal ligation. Lives: With Family Smoking Status: Former smoker Alcohol: None Drugs: None - Family History Maternal Family History: Family History (Last Reviewed 03/02/19 @ 11:23 by ORALIA Eid) Mother Hypertension Dementia Father Heart disease Hypertension HLD (hyperlipidemia) Family History: Reports: Hypertension Paternal Family History: Family History (Last Reviewed 03/02/19 @ 11:23 by ORALIA Eid) Mother Hypertension Dementia Father Heart disease Hypertension HLD (hyperlipidemia) Family History: Reports: High Cholesterol, Heart Disease, - Review of Systems General: Reports: Chills, Malaise. Denies: Fever, Subjective Eyes: Denies: Visual changes - left, Visual changes - right, Diplopia Cardiovascular: Denies: Chest pain, Palpitations, Heart racing, -, - Respiratory: Reports: Dyspnea, Cough, Dyspnea on exertion, Orthopnea. Denies: Sputum Gastrointestinal: Denies: Abdominal pain, Nausea, Vomiting, Diarrhea, Melena, Hematochezia Genitourinary: Denies: Dysuria, Hematuria, Frequency Musculoskeletal: Reports: Swelling. Denies: Myalgias, Arthralgias, Neck pain, Back pain, Extremity Pain, -, - Skin: Denies: Rash, Wounds Neurological: Reports: Weakness. Denies: Headache, Parasthesia, Numbness, -, - Hematologic: Denies: Easy bruising, Easy bleeding Allergy: Denies: Uticaria, Swelling of the mouth Physical Exam Vital Signs/Narrative: Vital Signs Temp Pulse Resp BP Pulse Ox 05/16/19 14:17 97.6 F L 59 L 18 106/51 L 97 Inital Vital Signs reviewed: Yes General: Well nourished, Well developed, Obese, Acute Distress Head: Normocephalic, Atraumatic Eyes: Perrl, EOMI. Negative for: Pale conjunctiva, Scleral icterus ENT: Moist mucous membranes, No rhinorrhea, TM's clear Neck: Supple, Nontender, No lymphadenopathy, No JVD Cardiovascular: Regular rhythm, Normal S1, Normal S2, Bradycardia Respiratory: Chest nontender, Wheezing. Negative for: No distress, CTA bilaterally Abdomen: Soft, Nontender, Nondistended, Normal bowel sounds, No masses Rectal: Deferred Back: Nontender, Normal Inspection. Negative for: CVA tenderness Extremities: Nontender, Edema Skin: Normal color, No rash, No Trauma. Negative for: Cyanosis, Diaphoresis, Jaundice Neurological: Alert, Oriented x3, Cranial nerves II-XII grossly intact, Normal Strength, Normal Sensation Psychological: Normal affect, Normal Mood Diagnostic/Tx/Re-eval Chest X-Ray - ED: 1 View, Read by ED Physician, Read by Radiologist, Unchanged, Normal, Heart, Mediastinum, Bony Structures, No Acute Disease, Chronic Changes Impressions Chest X-Ray 05/16/19 14:33 IMPRESSION: No acute abnormality is seen. Electronically Signed: Anival Dusty, at 14:48 EST , Service support , 05/16/19 14:33 Chest 1 View (Portable) [RAD] Stat Laboratory Results 05/16/19 05/16/19 05/16/19 14:40 14:40 14:40 WBC 6.8 RBC 4.14 L Hgb 10.9 L Hct 36.8 L MCV 88.9 MCH 26.3 L MCHC 29.6 L RDW Std Deviation 50.4 H RDW Coeff of Eddi 15.5 H Plt Count 172 MPV 8.9 Immature Gran % (Auto) 0.100 Neut % (Auto) 66.7 Lymph % (Auto) 22.1 Collier % (Auto) 7.5 Eos % (Auto) 3.2 Baso % (Auto) 0.4 Absolute Neuts (auto) 4.6 Absolute Lymphs (auto) 1.51 Nucleated RBC % 0 Sodium 137 Potassium 6.5 H* Chloride 107 Carbon Dioxide 27.0 Anion Gap 3 L BUN 40 H Creatinine 1.43 H Estim Creat Clear Calc 67.18 Est GFR (MDRD) Af Amer 48 L Est GFR (MDRD) Non-Af 40 L BUN/Creatinine Ratio 28.0 H Glucose 207 H Lactic Acid 1.5 Calcium 8.8 Troponin I < 0.015 B-Natriuretic Peptide 05/16/19 14:40 WBC RBC Hgb Hct MCV MCH MCHC RDW Std Deviation RDW Coeff of Eddi Plt Count MPV Immature Gran % (Auto) Neut % (Auto) Lymph % (Auto) Collier % (Auto) Eos % (Auto) Baso % (Auto) Absolute Neuts (auto) Absolute Lymphs (auto) Nucleated RBC % Sodium Potassium Chloride Carbon Dioxide Anion Gap BUN Creatinine Estim Creat Clear Calc Est GFR (MDRD) Af Amer Est GFR (MDRD) Non-Af BUN/Creatinine Ratio Glucose Lactic Acid Calcium Troponin I B-Natriuretic Peptide 5.7 Calcium is elevated 6.5. Patient was treated with 5 units of insulin IV push, D50 and albuterol. Since CO2 is normal she did not receive bicarb. Since there are no acute EKG changes compared to prior EKG dated October 08, 2018 she did not receive calcium chloride. - EKG Initial EKG Interpretation: Sinus Rhythm - Sinus rhythm ventricular rate 68. AR interval 176 ms. QS duration 90 ms. QS duration 406 ms. Dema normal. EKG is normal. - Medical Decision Making Patient's blood pressure is unremarkable at this time. Her hypotension may represent orthostatic hypotension. Chest x-ray was obtained because a complaint of cough dyspnea and history of COPD. CBC was obtained to rule out anemia and white count. Because of her past history troponin and BNP were ordered as well to evaluate for cardiac ischemia and possible heart failure. BNP may be elevated secondary to right heart failure secondary to obstructive sleep apnea and pulmonary hypertension. States she does not use salt substitutes. She has not had any bananas, oranges etc. to explain her elevated potassium. She states she has not had problems with elevated potassium in the past. Prior creatinine was 0.72. ED Disposition - Plan for ED Patient: Disposition: Acute Care [facility] Diagnosis: Acute hyperkalemia, COPD exacerbation, Transient hypotension, Hyperglycemia due to type 2 diabetes mellitus, TAE (acute kidney injury) Referrals: Bronson Hunt DO [Primary Care Provider] -
[2019-05-16 14:53] LABS: Absolute Lymphocyte Count 1.51 X10^3/uL (0.83-4.51); Absolute Neutrophil Count 4.6 X10^3/uL (2.0-7.7); Basophil# 0.03 X10^3/uL; Basophil% 0.4 % (0-1); Eosinophil# 0.22 X10^3/uL; Eosinophils% 3.2 % (0-5); Hematocrit 36.8 % (37-47); Hemoglobin 10.9 g/dL (12.0-15.0); Lymphocyte # 1.51 X10^3/ul (4.0); Lymphocyte % 22.1 % (19-41); Mean Corp Hgb Conc 29.6 g/dL (32-36); Mean Corpuscular Hgb 26.3 pg (27.0-32.0); Mean Corpuscular Volume 88.9 fL (81-99); Mean Platelet Vol. 8.9 fl (6.2-12.0); Monocyte# 0.51 X10^3/uL; Monocyte% 7.5 % (0-10); NRBC Flagged by Analyzer 0 % (0-5); Neutrophil # 4.56 X10^3/uL (2.7-7.7); Neutrophil % 66.7 % (47-70); Platelet Count 172 K/mm3 (150-450); RBC Distribution Width CV 15.5 % (11.6-14.6); RBC Distribution Width SD 50.4 fl (35.1-43.9); Red Blood Count 4.14 M/mm3 (4.2-5.4); White Blood Count 6.8 K/mm3 (4.4-11.0)
[2019-05-16 15:16] LABS: Lactic Acid 1.5 mmol/L (0.4-2.0)
--- NOTE | 2019-05-16 15:17 | ED.RN ---
potassium 6.[address] lab[address] dr ordoñez aware
[2019-05-16 15:18] LABS: Anion Gap 3 (5-15); BUN 40 mg/dL (7-18); Calcium,Total 8.8 mg/dL (8.5-10.1); Chloride 107 mmol/L (98-107); Creatinine, Serum 1.43 mg/dL (0.55-1.02); EST Glomerular Filtration Rate 40 mL/min (>60); Est Glom Filt Rate - Afr Amer 48 mL/min (>60); Estimated Creatinine Clearance 67.18 ml/min; Glucose 207 mg/dL (74-106); Potassium 6.5 mmol/L (3.5-5.1); Sodium Level 137 mmol/L (136-145)
[2019-05-16 15:21] LABS: BNP,B-Type NATRIURETIC PEPTIDE 5.7 pg/mL (0-100)
[2019-05-16] MEDS: Albuterol 2.5 MG/3 ML VIAL.NEB. INHALATION ×2 (15:31→19:27)
[2019-05-16] MEDS: Insulin Lispro 5 UNIT in Syringe 0 ML 3 UNIT IV (15:46)
[2019-05-16] MEDS: Dextrose 50%-Water 25 GM/50 ML DISP.SYRIN IV (15:46)
--- NOTE | 2019-05-16 16:10 | PCM.HP.STD ---
Problem List (1) TAE (acute kidney injury) Status: Acute (2) Acute hyperkalemia Status: Acute (3) Chronic respiratory failure with hypoxia Status: Chronic (4) DVT (deep venous thrombosis) Status: Chronic (5) Pulmonary emboli Status: Chronic (6) Essential hypertension Status: Chronic (7) Asthma with COPD (chronic obstructive pulmonary disease) Status: Chronic (8) SHRUTHI (obstructive sleep apnea) Status: Chronic (9) HLD (hyperlipidemia) Status: Chronic Qualifiers: Hyperlipidemia type: unspecified Qualified Code(s): E78.5 - Hyperlipidemia, unspecified (10) Type II diabetes mellitus Status: Chronic Qualifiers: Diabetes mellitus mcfp insulin use: without adjunct faculty for medical terminology use Diabetes mellitus complication status: with unspecified complications (11) Marijuana abuse Status: Chronic History of Present Illness Date of Admission: 05/16/19 Chief Complaint: abdominal discomfort The patient is a 64 year old F with pmhx of asthma/copd overlap with chronic hypoxic respiratory failure baseline 2lpm, SHRUTHI which she does not use CPAP/Bipap for, pt of Dr. Pinzon, hx PE/DVT for which she is on eliquis, Dmt2 with morbid obesity, RA/Fibromyalgia, depression, RLS, who presents to the ER with c/o abdominal discomfort. She began feeling unwell last night with midabdominal discomfort stating her tummy hurts. She later developed diarrhea and some black stools. She was worried that her potassium was high as this has happened to her in the past and felt similar. Today she also had some SOB while walking and said that despite her home o2 she was under 90% on SpO2. She has had no fevers/chills, no cough, mild sinus congestion, no sore throat. She has no LH/dizziness/Palpitations. She came to the ER and was found to have Potassium elevated at 6.5 and received IV insulin, d50, and albuterol. She complains of being cold, and ongoing tummy ache. She no longer smokes cigarettes, but still smokes marijuana to help her sleep.[] Past Medical History Past Medical History (Chronic Problems): Chronic Problems (Last Reviewed 03/02/19 @ 11:23 by CATA EidC) COPD exacerbation (Chronic) Chronic respiratory failure with hypoxia (Chronic) DVT (deep venous thrombosis) (Chronic) Pulmonary emboli (Chronic) Marijuana abuse (Chronic) Essential hypertension (Chronic) Asthma with COPD (chronic obstructive pulmonary disease) (Chronic) SHRUTHI (obstructive sleep apnea) (Chronic) Hypersomnia (Chronic) Hypoxia (Chronic) HLD (hyperlipidemia) (Chronic) Asthma (Chronic) Type II diabetes mellitus (Chronic) Medical History: Medical History (Last Reviewed 03/02/19 @ 11:23 by Amparo Mcadams NP-C) Essential hypertension (Chronic) I10 Asthma with COPD (chronic obstructive pulmonary disease) (Chronic) J44.9 SHRUTHI (obstructive sleep apnea) (Chronic) G47.33 Hypersomnia (Chronic) G47.10 Hypoxia (Chronic) R09.02 HLD (hyperlipidemia) (Chronic) E78.5 Asthma (Chronic) J45.909 Type II diabetes mellitus (Chronic) E11.9 History of DVT (deep vein thrombosis) Z86.718 Depression F32.9 Fibromyalgia Osteoarthritis M19.90 Pulmonary embolism I26.99 RLS (restless legs syndrome) G25.81 Rheumatoid arthritis M06.9 Pneumonia J18.9 Allergies aztreonam Allergy (Verified 05/16/19 14:17) Unknown bee venom protein (honey bee) Allergy (Verified 05/16/19 14:17) Anaphylaxis Carbapenems Allergy (Verified 05/16/19 14:17) Unknown ciprofloxacin [From Cipro] Allergy (Verified 05/16/19 14:17) Anaphylaxis meperidine Allergy (Verified 05/16/19 14:17) Unknown Penicillins Allergy (Verified 05/16/19 14:17) Swelling Quinolones Allergy (Verified 05/16/19 14:17) Unknown talampicillin Allergy (Verified 05/16/19 14:17) Unknown tetracycline Allergy (Verified 05/16/19 14:17) Anaphylaxis tigecycline Allergy (Verified 05/16/19 14:17) Hives Home Medications: Ambulatory Orders Medication Instructions Recorded Albuterol Inhaler [Ventolin Hfa] 1 - 2 puff INHALATION Q4H PRN PRN 10/01/15 Loratadine [Claritin] 10 mg PO QHS 10/01/15 aspirin 81 mg tablet,delayed 81 mg PO DAILY 07/14/17 release atorvastatin 80 mg tablet 80 mg PO DAILY 07/14/17 fluoxetine 20 mg capsule 20 mg PO DAILY 07/14/17 fluticasone propionate 50 2 spray INTRANASAL DAILY 07/14/17 mcg/actuation nasal spray,suspension nitroglycerin 0.4 mg sublingual 0.4 mg SUBLINGUAL Q5M PRN 07/14/17 tablet Epi Pen (for allergic rxn) 0.3 mg SQ PRN PRN 12/08/17 Ezetimibe [Zetia] 10 mg PO DAILY 12/08/17 Multivitamins,Ther W-Minerals 1 tab PO BID 12/08/17 [Multivitamin With Minerals] Magnesium Oxide [Mag-Ox 400] 400 mg PO BID #30 tab 01/03/18 Alendronate Sodium [Fosamax] 70 mg PO DAILY 01/28/18 Apixaban [Eliquis] 5 mg PO BID 10/07/18 Insulin Glargine [Lantus SoloStar 50 units SUBCUT QHS 10/07/18 Pen] Budesonide/Formoterol Fumarate 2 puff IH BID 12/30/18 [Symbicort 80-4.5 Mcg Inhaler] Ibuprofen 600 mg PO DAILY PRN PRN 12/30/18 [place]-3 Fatty Acids/Fish Oil [Fish 1 cap PO DAILY 12/30/18 Oil 1,000 mg Capsule] gabapentin 300 mg capsule 300 mg PO DAILY cap 02/15/19 Cholecalciferol (Vitamin D3) 2,000 unit PO DAILY 05/16/19 [Vitamin D3] Estrogens, Conjugated [Premarin] 0.5 gm VG UD 05/16/19 Furosemide [Lasix] 20 mg PO DAILY 05/16/19 Gabapentin [Neurontin] 900 mg PO QHS 05/16/19 Isosorbide Mononitrate [Imdur] 60 mg PO DAILY 05/16/19 Lisinopril 30 mg PO DAILY 05/16/19 Omeprazole 40 mg PO DAILY 05/16/19 Surgical History: Surgical History (Last Reviewed 03/02/19 @ 11:23 by Amparo Mcadams NP-C) H/O right knee surgery Z98.890 1991 H/O tubal ligation Z98.51 1995 History of tonsillectomy Z90.89 S/P foot surgery, left Z98.890 1990 Surgical History: cataract, tonsillectomy, - - Right knee surgery, left foot surgery, tubal ligation. Psychiatric History: Depression [employer] MECH[employer]IC History: No pertinent [employer]IC history Lives: With Family Smoking Status: Former smoker - quit 2014. Alcohol: None Drugs: Marijuana - *Family History Maternal Family History: Family History (Last Reviewed 03/02/19 @ 11:23 by ORALIA Eid) Mother Hypertension Dementia Father Heart disease Hypertension HLD (hyperlipidemia) History Items: Hypertension Paternal Family History: Family History (Last Reviewed 03/02/19 @ 11:23 by ORALIA Eid) Mother Hypertension Dementia Father Heart disease Hypertension HLD (hyperlipidemia) History Items: High Cholesterol, Heart Disease, - Review of Systems Constitutional: Reports: Malaise. Denies: Chills, Fever, Weight Change HEENT: Denies: Head Aches, Sinus Congestion, Sinus Drainage Cardiovascular: Denies: Chest Pain, Chest Tightness, Edema, Light Headedness, Palpitations, Syncope Respiratory: Denies: Cough, Shortness of breath at rest, Sputum production Gastrointestinal: Reports: Abdominal Pain, Diarrhea. Denies: Nausea, Vomiting Genitourinary: Denies: Dysuria, Retention, Urgency Musculoskeletal: Denies: Joint Pain, Joint Tenderness Skin: Denies: Lesions, Rash, Wounds Neurological: Denies: Numbness, Tingling, Focal weakness Psychiatric: Denies: Anxiety, Depression, Homicidal Ideations, Suicidal Ideations Hematologic/ Lymphatic: Denies: Easy Bruising, Easy Bleeding VTE Information - Inpt Only VTE Present on Admission: No VTE Mechan Device Prophylaxis: None VTE Pharm Prophylaxis ordered?: Yes Patient Problems: Active and Suspected Problems (Last Reviewed 03/02/19 @ 11:23 by ORALIA Eid) Acute hyperkalemia (Acute) Transient hypotension (Acute) Hyperglycemia due to type 2 diabetes mellitus (Acute) TAE (acute kidney injury) (Acute) - Physical Exam Vitals/I&O's: Vital Signs Temp Pulse Resp BP Pulse Ox 97.6 F L 72 18 115/41 L 99 05/16/19 14:17 05/16/19 15:31 05/16/19 15:31 05/16/19 14:46 05/16/19 14:46 Oxygen Flow Rate (L/min) 2 Oxygen Delivery Method Nasal Cannula Weight: 230 lb Body Mass Index (BMI) 46.4 General: Alert, Oriented x3, Cooperative HEENT: Atraumatic, PERRLA, EOMI, Normocephalic Neck: Supple, No JVD, Negative Carotid Bruits Lungs: Clear to auscultation, Normal air movement Cardiovascular: Regular rate, No murmurs Abdomen: Bowel Sounds Present, Soft, Non Tender Extremities: No edema, Capillary Refill Less than 3 Seconds Skin: No rashes, No breakdown Musculoskeletal: No Tenderness to Palpation of Joints or Extremities Neurological: Cranial nerves II-XII grossly intact Psych/Mental Status: Normal Affect, Appropriate, Alert and oriented to time, place, person, mood and affect Laboratory Results 05/16/19 14:40: WBC 6.8, RBC 4.14 L, Hgb 10.9 L, Hct 36.8 L, MCV 88.9, MCH 26.3 L, MCHC 29.6 L, RDW Std Deviation 50.4 H, RDW Coeff of Eddi 15.5 H, Plt Count 172, MPV 8.9, Immature Gran % (Auto) 0.100, Neut % (Auto) 66.7, Lymph % (Auto) 22.1, Grand % (Auto) 7.5, Eos % (Auto) 3.2, Baso % (Auto) 0.4, Absolute Neuts (auto) 4.6, Absolute Lymphs (auto) 1.51, Nucleated RBC % 0 05/16/19 14:40: Sodium 137, Potassium 6.5 H*, Chloride 107, Carbon Dioxide 27.0, Anion Gap 3 L, BUN 40 H, Creatinine 1.43 H, Estim Creat Clear Calc 67.18, Est GFR (MDRD) Af Amer 48 L, Est GFR (MDRD) Non-Af 40 L, BUN/Creatinine Ratio 28.0 H, Glucose 207 H, Calcium 8.8, Troponin I < 0.015 05/16/19 14:40: Lactic Acid 1.5 05/16/19 14:40: B-Natriuretic Peptide 5.7 Assessment/Plan All Active Problems (Last Reviewed 03/02/19 @ 11:23 by Amparo Mcadams, DANA-C) Acute hyperkalemia (Acute) Transient hypotension (Acute) Hyperglycemia due to type 2 diabetes mellitus (Acute) TAE (acute kidney injury) (Acute) Candidiasis of mouth (Acute) Chest pain (Acute) Abdominal pain (Resolved) Hyperkalemia (Resolved) Hypocalcemia (Resolved) Hypokalemia (Resolved) Microcytic anemia (Resolved) Nonproductive cough (Resolved) Severe sepsis (Resolved) Shortness of breath (Resolved) Urinary tract infection (Resolved) 1. Hyperkalemia - unclear etiology - received albuterol, insulin, d50. Provide IV fluids and recheck K tonight. EKG unremarkable, NSR. LA negative. VSS. 2. Black stools - hgb 10.9 with normal mcv. check hemoccult. cycle h/h. IV ppi, NPO. check iron/tibc/ferritin. Check C diff - recently on abx for UTI. Hold oral anticoagulants - eliquis, aspirin, ibuprofen. 3. TAE - suspect dehyrated 2/2 diarrhea - IV fluids overnight. Hold AURY-I 4. Chronic hypoxic respiratory failure 2/2 asthma/copd mixed - at baseline. I do not hear any wheezing. continue albuterol prn, budesonide. She is 99% on her home o2 level. 2lpm via NC baseline. CXR negative, BNP negative. 5. SHRUTHI - not on CPAP / BiPAP 6. Hx DVT/PE - eliquis held for above 7. Hx RA/Fibro - hold nsaids, also on gabapentin 8. Depression - self treats insomnia with marijuana. continue fluoxetine 9. osteoporosis - fosamax (hold) 10. HLD - statin/zetia 11. Marijuana abuse - still smokes this. needs cessation given her lung disease and psychiatric disease. 12. DMt2 with morbid obesity - lantus, add SSI. dietary eval when appropriate. DVT ppx: SCDs This patient was seen by Tobi Valencia PA-C under the supervision of Dr. Serrano.
[2019-05-16] MEDS: MethylPREDNISolone 125 MG/2 ML Vial IV (16:29)
[2019-05-16] MEDS: 0.9% Normal Saline 1,000 ML 125 ML IV (17:59)
[2019-05-16 18:41] LABS: Bedside Glucose 140 mg/dL (70-110)
[2019-05-16 18:49] LABS: Ferritin 52 ng/mL (8-252); Iron 44 ug/dL (50-170); Iron Binding Capacity,Total 325 ug/dL (250-450); PERCENT IRON SATURATION 13.5 % (15.0-55.0)
[2019-05-16] MEDS: Budesonide Respules 0.5 MG/2 ML AMPUL.NEB. INHALATION (19:26)
[2019-05-16] MEDS: Gabapentin 300 MG Capsule 900 MG PO (21:28)
[2019-05-17] VITALS (14 sets, daily range): BP systolic 99–128; BP diastolic 46–60; PULSE 62–78; RESP 14–20; TEMP 36.3–36.7; O2SAT 96–98
[2019-05-17] MEDS: Insulin Lispro 100 UNIT/ML INSULN.PEN SC ×5 (00:10→22:32)
[2019-05-17 00:14] LABS: Hemoglobin 10.4 g/dL (12.0-15.0)
[2019-05-17 00:20] LABS: Bedside Glucose 278 mg/dL (70-110)
[2019-05-17 00:30] LABS: Potassium 6.5 mmol/L (3.5-5.1)
[2019-05-17] MEDS: Dextrose 50%-Water 25 GM/50 ML DISP.SYRIN IV (02:12)
[2019-05-17] MEDS: 0.9% Saline Lock 10 ML Syringe IV (02:15)
[2019-05-17] MEDS: Sodium Polystyrene Sulfonate 15 GM/60 ML UDC 30 GM PO ×2 (02:16→09:49)
[2019-05-17] MEDS: Insulin Lispro 10 UNIT in Syringe 0 ML 5 UNIT IV (02:23)
[2019-05-17] MEDS: 0.9% Normal Saline 1,000 ML 125 ML IV ×3 (02:27→21:52)
[2019-05-17] MEDS: Polyethylene Glycol 3350 17 GM PACKET 34 GM PO (04:30)
[2019-05-17 05:45] LABS: Hematocrit 35.2 % (37-47); Hemoglobin 10.2 g/dL (12.0-15.0); Mean Corpuscular Hgb 25.8 pg (27.0-32.0); Mean Corpuscular Volume 89.1 fL (81-99); Mean Platelet Vol. 9.3 fl (6.2-12.0); Platelet Count 154 K/mm3 (150-450); RBC Distribution Width CV 15.3 % (11.6-14.6); RBC Distribution Width SD 49.9 fl (35.1-43.9); Red Blood Count 3.95 M/mm3 (4.2-5.4)
[2019-05-17 06:15] LABS: ALB/GLOB Ratio 0.7 RATIO (0.9-2.4); AST(SGOT) 16 U/L (15-37); Alanine Aminotransfer ALT/SGPT 25 U/L (13-56); Albumin, Serum 2.7 g/dL (3.2-5.0); Alkaline Phosphatase 96 U/L (45-117); Anion Gap 10 (5-15); BUN 35 mg/dL (7-18); Calcium,Total 8.5 mg/dL (8.5-10.1); Chloride 108 mmol/L (98-107); Creatinine, Serum 1.52 mg/dL (0.55-1.02); EST Glomerular Filtration Rate 37 mL/min (>60); Est Glom Filt Rate - Afr Amer 45 mL/min (>60); Estimated Creatinine Clearance 63.15 ml/min; Globulin 4.1 g/dL (2.2-4.2); Glucose 318 mg/dL (74-106); Potassium 6.3 mmol/L (3.5-5.1); Protein, Total 6.8 g/dL (6.4-8.2); Sodium Level 139 mmol/L (136-145)
[2019-05-17 06:31] LABS: Bedside Glucose 275 mg/dL (70-110)
[2019-05-17] MEDS: Albuterol 2.5 MG/3 ML VIAL.NEB. INHALATION ×3 (06:59→22:03)
[2019-05-17] MEDS: Budesonide Respules 0.5 MG/2 ML AMPUL.NEB. INHALATION ×2 (06:59→22:03)
[2019-05-17] MEDS: Gabapentin 300 MG Capsule PO (09:01)
[2019-05-17] MEDS: Isosorbide Mononitrate 60 MG Tablet PO (09:01)
[2019-05-17] MEDS: FLUoxetine 20 MG Capsule PO (09:02)
[2019-05-17] MEDS: Ezetimibe 10 MG Tablet PO (09:11)
[2019-05-17] MEDS: Fluticasone 0.05% 1 SPRAY NASAL.SRY 2 SPRAY NASAL (09:11)
--- NOTE | 2019-05-17 10:16 | PN_ITS ---
Patient Problems: Active and Suspected Problems (Last Reviewed 03/02/19 @ 11:23 by ORALIA Eid) Acute hyperkalemia (Acute) Transient hypotension (Acute) Hyperglycemia due to type 2 diabetes mellitus (Acute) TAE (acute kidney injury) (Acute) Subjective: Patient complained of abdominal pain. Patient was sent to ER for shortness of breath and hypoxia found by physical therapist. In ED, she was found to have acute kidney injury with hyperkalemia. Patient also had UTI and was treated with Bactrim for 10 days, completed 3 days ago Patient also on lisinopril and a history of diabetes. Blood sugars are uncontrolled and high. She has persistent hyperkalemia 6.5, 6.3 and 6.3 and did not respond well with 2 dosages of Kayexalate 30 g since admission. Marketing Liaison consulted. Vitals/I&O's: Vital Signs Temp Pulse Resp BP Pulse Ox 97.3 F L 65 18 106/46 L 98 05/17/19 09:53 05/17/19 09:53 05/17/19 09:53 05/17/19 09:53 05/17/19 09:53 Oxygen Flow Rate (L/min) 2 Oxygen Delivery Method Nasal Cannula Weight: 229 lb 12.8 oz Body Mass Index (BMI) 46.4 Intake and Output for Last 24 Hours 05/15/19 05/16/19 05/17/19 23:59 23:59 23:59 Intake Total 551.72 / 551.72 1514.16 / 1514.16 Balance 551.72 / 551.72 1514.16 / 1514.16 General: Alert, Oriented x3, Cooperative HEENT: Atraumatic, PERRLA, EOMI, Normocephalic Neck: Supple, No JVD, Negative Carotid Bruits Lungs: Clear to auscultation, No wheeze, No rales, Diminished, Rhonchi Cardiovascular: Regular rate, Regular Rhythm, Normal S1, Normal S2, No murmurs Abdomen: Bowel Sounds Present, Soft, Non-Distended, Tender - Mild tenderness present around the umbilicus and hypogastric region Extremities: Capillary Refill Less than 3 Seconds, Edema Skin: No rashes, No breakdown Musculoskeletal: Arthritic Changes, Tenderness - Tenderness over bilateral feet. Probably diabetic neuropathy Neurological: Cranial nerves II-XII grossly intact, Deep Tendon Reflexes 2+/4 and Symmetrical, Neuro grossly intact Psych/Mental Status: Normal Affect, Appropriate Microbiology Past 72 Hours 05/16/19 16:25 Stool Stool Occult Blood (ELIZA) - Final Laboratory Results 05/16/19 14:40: WBC 6.8, RBC 4.14 L, Hgb 10.9 L, Hct 36.8 L, MCV 88.9, MCH 26.3 L, MCHC 29.6 L, RDW Std Deviation 50.4 H, RDW Coeff of Eddi 15.5 H, Plt Count 172, MPV 8.9, Immature Gran % (Auto) 0.100, Neut % (Auto) 66.7, Lymph % (Auto) 22.1, [place] % (Auto) 7.5, Eos % (Auto) 3.2, Baso % (Auto) 0.4, Absolute Neuts (auto) 4.6, Absolute Lymphs (auto) 1.51, Nucleated RBC % 0 05/16/19 14:40: Sodium 137, Potassium 6.5 H*, Chloride 107, Carbon Dioxide 27.0, Anion Gap 3 L, BUN 40 H, Creatinine 1.43 H, Estim Creat Clear Calc 67.18, Est GFR (MDRD) Af Amer 48 L, Est GFR (MDRD) Non-Af 40 L, BUN/Creatinine Ratio 28.0 H , Glucose 207 H, Calcium 8.8, Troponin I < 0.015 05/16/19 14:40: Lactic Acid 1.5 05/16/19 14:40: B-Natriuretic Peptide 5.7 05/16/19 17:21: Iron 44 L, TIBC 325, Iron Saturation 13.5 L, Ferritin 52 05/16/19 17:48: Blood Type B POSITIVE, Antibody Screen NEGATIVE 05/16/19 18:32: POC Glucose 140 H 05/16/19 23:58: POC Glucose 278 H 05/17/19 00:03: Hgb 10.4 L, Hct 35.0 L 05/17/19 00:03: Potassium 6.5 H* 05/17/19 05:14: WBC 8.0, RBC 3.95 L, Hgb 10.2 L, Hct 35.2 L, MCV 89.1, MCH 25.8 L, MCHC 29.0 L, RDW Std Deviation 49.9 H, RDW Coeff of Eddi 15.3 H, Plt Count 154, MPV 9.3 05/17/19 05:14: Sodium 139, Potassium 6.3 H*, Chloride 108 H, Carbon Dioxide 21.0, Anion Gap 10, BUN 35 H, Creatinine 1.52 H, Estim Creat Clear Calc 63.15, Est GFR (MDRD) Af Amer 45 L, Est GFR (MDRD) Non-Af 37 L, BUN/Creatinine Ratio 23.0 H, Glucose 318 H, Calcium 8.5, Total Bilirubin 0.20, AST 16, ALT 25, Alkaline Phosphatase 96, Total Protein 6.8, Albumin 2.7 L, Globulin 4.1, Albumin/Globulin Ratio 0.7 L 05/17/19 06:26: POC Glucose 275 H Current Medications Acetaminophen (Tylenol) 650 mg PO Q6H PRN PRN PRN Reason: Non-cardiac pain (mod-severe) Hydrocodone Bitart/Acetaminophen (Addison 5mg-325mg) 1 - 2 tablet PO Q4H PRN PRN PRN Reason: Pain Score 4-10/10 Albuterol Sulfate (Ventolin Aerosols) 2.5 mg INHALATION Q2H PRN PRN PRN Reason: dyspnea, wheezing Albuterol Sulfate (Ventolin Aerosols) 2.5 mg INHALATION Q6HWA.RT [facility] Last Admin: 05/17/19 06:59 Dose: 2.5 mg Documented by: Alendronate Sodium (Fosamax) 70 mg PO DAILY [facility] Atorvastatin Calcium (Lipitor) 80 mg PO DAILY@2200 [facility] Budesonide (Pulmicort Aerosol) 0.5 mg INHALATION Q12H.RT [facility] Last Admin: 05/17/19 06:59 Dose: 0.5 mg Documented by: Dextrose (D50w Syringe) 0 gm IV X1 PRN; Protocol PRN Reason: Hypoglycemia Ezetimibe (Zetia) 10 mg PO DAILY [facility] Last Admin: 05/17/19 09:11 Dose: 10 mg Documented by: Fluoxetine HCl (Prozac) 20 mg PO DAILY [facility] Last Admin: 05/17/19 09:02 Dose: 20 mg Documented by: Fluticasone Propionate (Flonase Nasal Cameron) 2 spray NASAL DAILY [facility] Last Admin: 05/17/19 09:11 Dose: 2 spray Documented by: Gabapentin (Neurontin) 300 mg PO DAILY@0800 [facility] Last Admin: 05/17/19 09:01 Dose: 300 mg Documented by: Gabapentin (Neurontin) 900 mg PO QHS [facility] Last Admin: 05/16/19 21:28 Dose: 900 mg Documented by: Glucagon () 1 mg IM .X1 PRN PRN Reason: Hypoglycemia Hydralazine HCl (Apresoline Iv) 10 mg IV Q4H PRN PRN PRN Reason: SBP > 160 Sodium Chloride () 1,000 mls @ 125 mls/hr IV .Q8H [facility] Last Infusion: 05/17/19 09:23 Dose: 125 mls/hr Documented by: Pantoprazole Sodium 40 mg/ (Sodium Chloride) 110 mls @ 330 mls/hr IV Q12 [facility] Last Infusion: 05/17/19 09:23 Dose: Infused Documented by: Insulin Human Lispro (Humalog Kwikpen (Bkc)) 0 unit SC Q6 [facility]; Protocol Last Admin: 05/17/19 06:56 Dose: 4 units Documented by: Isosorbide Mononitrate (Imdur) 60 mg PO DAILY [facility] Last Admin: 05/17/19 09:01 Dose: 60 mg Documented by: Morphine Sulfate () 1 - 2 mg IV Q4H PRN PRN PRN Reason: Pain Score 1-10/10 Nitroglycerin (Nitrostat) 0.4 mg SUBLINGUAL Q5M PRN PRN Reason: CARDIAC/CHEST PAIN Ondansetron HCl (Zofran) 4 mg IV Q6H PRN PRN PRN Reason: NAUSEA Polyethylene Glycol (Miralax) 34 gm PO X1 PRN PRN Reason: Bowel Movement Sodium Chloride () 10 - 40 ml IV UD PRN PRN Reason: SALINE FLUSH Last Admin: 05/17/19 02:15 Dose: 10 ml Documented by: STROKE Vital Signs/Narrative: Vital Signs Temp Pulse Resp BP Pulse Ox 05/17/19 09:53 97.3 F L 65 18 106/46 L 98 05/17/19 06:59 67 16 97 Medical Necessity - Tobacco Use Smoking Status: Former smoker Assessment/Plan All Active Problems (Last Reviewed 03/02/19 @ 11:23 by ORALIA Eid) Acute hyperkalemia (Acute) Transient hypotension (Acute) Hyperglycemia due to type 2 diabetes mellitus (Acute) TAE (acute kidney injury) (Acute) Candidiasis of mouth (Acute) Chest pain (Acute) Abdominal pain (Resolved) Hyperkalemia (Resolved) Hypocalcemia (Resolved) Hypokalemia (Resolved) Microcytic anemia (Resolved) Nonproductive cough (Resolved) Severe sepsis (Resolved) Shortness of breath (Resolved) Urinary tract infection (Resolved) The patient is a 64 year old F with history of asthma/copd overlap with chronic hypoxic respiratory failure baseline 2 lpm, SHRUTHI noncompliant CPAP/Bipap, PE/DVT on eliquis, Dmt2 with morbid obesity was admitted for abdominal discomfort. She was found short of breath and hypoxic. In ED, she was found hypokalemic with acute kidney injury, K6.5 and had hyperkalemia cocktail. 1. Persistent hyperkalemia with acute kidney injury-most probably secondary to Bactrim and other medications including lisinopril with history of diabetes mellitus and hypertension:-Patient had Kayexalate 30 g 2 times a stool K is 6.3. Discussed with the tangled yarn worker. Repeat BMP in morning. Patient has large incontinence of urine. On IV fluid normal saline. Patient prior creatinine was 0.72 in September 2018. 2. Abdominal pain; C. difficile infection ruled out. : Hemoccult less is negative. Enteric bacteriology panel and C. difficile are negative. CT abdomen was done which shows stable nonobstructive bilateral intrarenal calculi. Other chronic features include fatty liver, enlargement of right lobe of liver with stable 1.7 cm cyst in right lobe. 3. Chronic hypoxic respiratory failure 2/2 asthma/copd mixed - continue albuterol prn, budesonide. CXR negative, BNP negative. Pulse ox 98% on 2 L of oxygen. 5. SHRUTHI -noncompliant to CPAP / BiPAP 6. Hx DVT/PE - eliquis held for above 7. Hx RA/Fibro - hold nsaids, also on gabapentin 8. Depression - self treats insomnia with marijuana. continue fluoxetine 9. osteoporosis - fosamax (hold) 10. HLD - statin/zetia 11. Marijuana abuse - still smokes this. needs cessation given her lung disease and psychiatric disease. 12. DMt2 with morbid obesity - lantus, add SSI. dietary eval when appropriate. DVT ppx: SCDs Code Visit Inpatient E&M: 87266 Subs Hosp L2
--- NOTE | 2019-05-17 10:16 | CT_ITS ---
STUDY: CT ABDOMEN AND PELVIS WITH CONTRAST REASON FOR EXAM: Female, 64 years old. Mid and lower abdominal pain. RADIATION DOSAGE (If Supplied By Facility): CTDIvol = ( 22.64 ) mGy, DLP = ( 1057.77 ) mGycm TECHNIQUE: Transaxial images were obtained from the dome of the diaphragm to the symphysis pubis with oral contrast. Oral Gastrografin 15 was administered. Sagittal and coronal images were reconstructed. Individualized dose optimization techniques were used for this CT. COMPARISON: Comparison is made with prior examination of June 06, 2018. FINDINGS: Minimal degree of the left basilar atelectasis and/or scarring. The visualized portions of the heart are within normal limits. There is decreased attenuation of the liver consistent with steatosis. I suspect a 1.7 cm cyst in the inferior medial aspect of the right lobe of the liver. Enlargement of the right lobe of the liver. Normal gallbladder and extrahepatic biliary system. Normal spleen. Normal pancreas. Normal bilateral adrenal glands. There are 2 nonobstructive tiny intrarenal calculi in the right lower pole. There is also evidence of a 2 mm calculus in the lower pole calyx of the left kidney. Stable 3 cm x 3.3 cm cyst in the posterior lower pole of the left kidney. Normal visualized stomach. Normal small intestine. Mildly distended right hemicolon. The appendix is visualized and appears normal. Normal abdominal aorta. Normal inferior vena cava. Normal retroperitoneum. Normal urinary bladder. Small bilateral benign-appearing inguinal lymph nodes. Normal abdominal wall. Normal osseous structures. CT/Abdomen/Pel W ORAL Cont Only IMPRESSION: Fatty infiltration of the liver. Enlargement of the right lobe of the liver. Stable cyst in the right lobe of the liver. Stable nonobstructive bilateral intrarenal calculi. Electronically Signed: Anival Montano, at 14:27 EST , Service support ,
--- NOTE | 2019-05-17 10:38 | CASEMGMT ---
LAURA GARCIA assessment: Face to Face with patient for initial transition planning/care coordination assessment. LAURA GARCIA introduced self and role at [facility], pt voices understanding and consents to assessment at this time. Pt is sitting up in bed in no distress at this time. Pt is A/Ox4 at this time and answers all questions appropriately at this time. Care providers, pharmacy, and demographics verified at this time. PCP: [facility] Specialists: LUCRECIA Kwon; abigail Pinzon; Reed Padilla PA-C, urology at [facility] Preferred Pharmacy: [facility] Insurance: , [employer] Prescription Benefit: Yes, most likely thru [place] but pt is unsure at this time. Living Will/HPOA: Pt does have a HPOA and it is on file at [facility] at this time. Pt's daughter, Briseida Peres, is HPOA. Pt is aware that she does not have a LW and states that she would like to complete at this time. Sudhir IVORY aware at this time, voices understanding. LNOK: Briseida Peres, daughter/HPOA; Valentina Hurtado, daughter Living Arrangements: Pt states lives alone in [facility] with bedroom on 2nd floor but pt states she has not been going upstairs to sleep, she has been sleeping in her chair on the 1st floor. Pt states no further concerns at home at this time. Pt states she is independent with most ADL's, but her neighbor does help her, if needed. Transportation: Pt states that her neighbor drives her or she uses [employer] transportation and states no transportation concerns at this time. DME/HHC: Pt states has the following DME: cane, walker, medical alert, shower chair, nebulizer, cpap, and 2 liters home oxygen 01/02 thru [employer]. Pt states that she has not been using cpap 'because it turns off in the middle of the night.' Later in discussion, pt then states that [employer] can 'just come pick it up because that mask scares me, it covers my whole face.' Pt does have appt scheduled with Dr. Pinzon on 05/19/19 at 0945 so call to pulm office to notify that pt is admitted at this time and to update on cpap non-compliance and why, voice understanding. Call to [facility] and per Torie, pt did get a nasal mask delivered mid-April and she has not used her cpap since December. She states that maybe pulmonology will do some cpap training with pt at [facility] sleep lab to see if they can assist her in being more comfortable with cpap. Pt states has a CM thru the [facility], Brandie, and did have aides set up thru [employer] but 'they don't come any more and I don't know why.' Sudhir IVORY aware of [facility] CM, voices understanding. Pt has had [facility] in the past and has been to [facility] in the past. Pt is current with [facility] and [facility]a is aware of pt admission. She states pt was taken off potassium pill a week ago and Dr. Leigh was updated at this time, voices understanding. Pt states no concerns with going home at time of discharge. Pt is disabled. Pt states does not smoke or drink ETOH. Pt states no further concerns/needs at this time. CM to follow for any further discharge planning/needs. Advised pt to ask for CM if any further questions/concerns/needs arise, voices understanding. Pt Goal: Home Plan: Home Agustin SANCHEZ CM
--- NOTE | 2019-05-17 11:14 | CON.PCM_ITS ---
Problem List (1) Acute hyperkalemia Status: Acute (2) TAE (acute kidney injury) Status: Acute Consultation - Renal 05/17/19 PCP/ Referring MD: Requesting physician: Dr Leigh Primary care physician: Bronson Hunt DO Reason for Consultation:: TEA hyperkalemia - History of Present Illness History of Present Illness: The patient is a 64 year old F who was admitted to the hospital with complaints of shortness of breath. She has known history of COPD and is on oxygen at home. Apparently she went to therapy yesterday and was found to have shortness of breath. Oxygen was put on and despite that she had desaturations hence she was sent to the emergency room. She is currently being treated for COPD exacerba tion. Chest x-ray was clear. BNP was normal. Renal consulted for acute renal failure and hyperkalemia. Patient has known history of diabetes for at least 10 years. Blood sugars have been generally well controlled according to the patient. In hospital blood sugars are high. No history of proteinuria on the last urine analysis. Primary care physician is Dr. Hunt. Patient also has persistent hyperkalemia. Has been on lisinopril for many years now Uses ibuprofen about once a week for headaches Finished a 10-day course of Bactrim for UTI 3 days ago She did have similar episodes of hyperkalemia in the past which required hospitalization - Allergies Allergies: Allergies aztreonam Allergy (Verified 05/16/19 14:17) Unknown bee venom protein (honey bee) Allergy (Verified 05/16/19 14:17) Anaphylaxis Carbapenems Allergy (Verified 05/16/19 14:17) Unknown ciprofloxacin [From Cipro] Allergy (Verified 05/16/19 14:17) Anaphylaxis meperidine Allergy (Verified 05/16/19 14:17) Unknown Penicillins Allergy (Verified 05/16/19 14:17) Swelling Quinolones Allergy (Verified 05/16/19 14:17) Unknown talampicillin Allergy (Verified 05/16/19 14:17) Unknown tetracycline Allergy (Verified 05/16/19 14:17) Anaphylaxis tigecycline Allergy (Verified 05/16/19 14:17) Hives - Current Medications Current Medications: Current Medications Acetaminophen (Tylenol) 650 mg PO Q6H PRN PRN PRN Reason: Non-cardiac pain (mod-severe) Hydrocodone Bitart/Acetaminophen ([place] 5mg-325mg) 1 - 2 tablet PO Q4H PRN PRN PRN Reason: Pain Score 4-10/10 Albuterol Sulfate (Ventolin Aerosols) 2.5 mg INHALATION Q2H PRN PRN PRN Reason: dyspnea, wheezing Albuterol Sulfate (Ventolin Aerosols) 2.5 mg INHALATION Q6HWA.RT [facility] Last Admin: 05/17/19 06:59 Dose: 2.5 mg Documented by: Alendronate Sodium (Fosamax) 70 mg PO DAILY [facility] Atorvastatin Calcium (Lipitor) 80 mg PO DAILY@2200 [facility] Budesonide (Pulmicort Aerosol) 0.5 mg INHALATION Q12H.RT [facility] Last Admin: 05/17/19 06:59 Dose: 0.5 mg Documented by: Dextrose (D50w Syringe) 0 gm IV X1 PRN; Protocol PRN Reason: Hypoglycemia Ezetimibe (Zetia) 10 mg PO DAILY [facility] Last Admin: 05/17/19 09:11 Dose: 10 mg Documented by: Fluoxetine HCl (Prozac) 20 mg PO DAILY [facility] Last Admin: 05/17/19 09:02 Dose: 20 mg Documented by: Fluticasone Propionate (Flonase Nasal [place]) 2 spray NASAL DAILY [facility] Last Admin: 05/17/19 09:11 Dose: 2 spray Documented by: Gabapentin (Neurontin) 300 mg PO DAILY@0800 [facility] Last Admin: 05/17/19 09:01 Dose: 300 mg Documented by: Gabapentin (Neurontin) 900 mg PO QHS [facility] Last Admin: 05/16/19 21:28 Dose: 900 mg Documented by: Glucagon () 1 mg IM .X1 PRN PRN Reason: Hypoglycemia Hydralazine HCl (Apresoline Iv) 10 mg IV Q4H PRN PRN PRN Reason: SBP > 160 Sodium Chloride () 1,000 mls @ 125 mls/hr IV .Q8H [facility] Last Infusion: 05/17/19 09:23 Dose: 125 mls/hr Documented by: Pantoprazole Sodium 40 mg/ (Sodium Chloride) 110 mls @ 330 mls/hr IV Q12 [facility] Last Infusion: 05/17/19 09:23 Dose: Infused Documented by: Insulin Human Lispro (Humalog Kwikpen (Bkc)) 0 unit SC Q6 [facility]; Protocol Last Admin: 05/17/19 06:56 Dose: 4 units Documented by: Isosorbide Mononitrate (Imdur) 60 mg PO DAILY [facility] Last Admin: 05/17/19 09:01 Dose: 60 mg Documented by: Morphine Sulfate () 1 - 2 mg IV Q4H PRN PRN PRN Reason: Pain Score 1-10/10 Nitroglycerin (Nitrostat) 0.4 mg SUBLINGUAL Q5M PRN PRN Reason: CARDIAC/CHEST PAIN Ondansetron HCl (Zofran) 4 mg IV Q6H PRN PRN PRN Reason: NAUSEA Polyethylene Glycol (Miralax) 34 gm PO X1 PRN PRN Reason: Bowel Movement Sodium Chloride () 10 - 40 ml IV UD PRN PRN Reason: SALINE FLUSH Last Admin: 05/17/19 02:15 Dose: 10 ml Documented by: - Past Medical History Past Medical History (Chronic Problems): Chronic Problems (Last Reviewed 03/02/19 @ 11:23 by ORALIA Eid) COPD exacerbation (Chronic) Chronic respiratory failure with hypoxia (Chronic) DVT (deep venous thrombosis) (Chronic) Pulmonary emboli (Chronic) Marijuana abuse (Chronic) Essential hypertension (Chronic) Asthma with COPD (chronic obstructive pulmonary disease) (Chronic) SHRUTHI (obstructive sleep apnea) (Chronic) Hypersomnia (Chronic) Hypoxia (Chronic) HLD (hyperlipidemia) (Chronic) Asthma (Chronic) Type II diabetes mellitus (Chronic) - Past Surgical History Surgical History: cataract, tonsillectomy, - - Right knee surgery, left foot surgery, tubal ligation. - Social History Smoking Status: Former smoker Alcohol: None Drugs: Marijuana - Family History Maternal Family History: Family History (Last Reviewed 03/02/19 @ 11:23 by ORALIA Eid) Mother Hypertension Dementia Father Heart disease Hypertension HLD (hyperlipidemia) History Items: Hypertension Paternal Family History: Family History (Last Reviewed 03/02/19 @ 11:23 by ORALIA Eid) Mother Hypertension Dementia Father Heart disease Hypertension HLD (hyperlipidemia) History Items: High Cholesterol, Heart Disease, - Review of Systems Constitutional: Denies: Chills, Fever, Weight Change HEENT: Denies: Head Aches, Sinus Congestion, Sinus Drainage Cardiovascular: Denies: Chest Pain, Palpitations Respiratory: Denies: Cough, Shortness of breath at rest, Sputum production Gastrointestinal: Denies: Abdominal Pain, Nausea, Vomiting Genitourinary: Denies: Dysuria Musculoskeletal: Denies: Joint Pain, Joint Tenderness Skin: Denies: Rash, Wounds Neurological: Denies: Numbness, Tingling, Focal weakness Psychiatric: Denies: Anxiety, Depression, Homicidal Ideations, Suicidal Ideations Hematologic/ Lymphatic: Denies: Easy Bruising, Easy Bleeding Patient Problems: Active and Suspected Problems (Last Reviewed 03/02/19 @ 11:23 by CATA EidC) Acute hyperkalemia (Acute) Transient hypotension (Acute) Hyperglycemia due to type 2 diabetes mellitus (Acute) TAE (acute kidney injury) (Acute) - Physical Exam Vitals/I&O's: Vital Signs Temp Pulse Resp BP Pulse Ox 97.3 F L 65 18 106/46 L 98 05/17/19 09:53 05/17/19 09:53 05/17/19 09:53 05/17/19 09:53 05/17/19 10:32 Oxygen Flow Rate (L/min) 2 Oxygen Delivery Method Nasal Cannula Weight: 104.236 kg Body Mass Index (BMI) 46.4 Intake and Output for Last 24 Hours 05/15/19 05/16/19 05/17/19 23:59 23:59 23:59 Intake Total 551.72 / 551.72 1514.16 / 1514.16 Balance 551.72 / 551.72 1514.16 / 1514.16 General: Alert, Oriented x3, Cooperative HEENT: Atraumatic, PERRLA, EOMI, Normocephalic Neck: Supple, No JVD, Negative Carotid Bruits Lungs: Clear to auscultation, Normal air movement Cardiovascular: Regular rate, No murmurs Abdomen: Bowel Sounds Present, Soft, Non Tender Extremities: No edema, Capillary Refill Less than 3 Seconds Skin: No rashes, No breakdown Musculoskeletal: No Tenderness to Palpation of Joints or Extremities Neurological: Cranial nerves II-XII grossly intact Psych/Mental Status: Normal Affect, Appropriate Microbiology Past 72 Hours 05/17/19 08:30 Stool C. difficile DNA Amplification - Final 05/16/19 16:25 Stool Stool Occult Blood (ELIZA) - Final Laboratory Results 05/16/19 14:40: WBC 6.8, RBC 4.14 L, Hgb 10.9 L, Hct 36.8 L, MCV 88.9, MCH 26.3 L, MCHC 29.6 L, RDW Std Deviation 50.4 H, RDW Coeff of Eddi 15.5 H, Plt Count 172, MPV 8.9, Immature Gran % (Auto) 0.100, Neut % (Auto) 66.7, Lymph % (Auto) 22.1, [place] % (Auto) 7.5, Eos % (Auto) 3.2, Baso % (Auto) 0.4, Absolute Neuts (auto) 4.6, Absolute Lymphs (auto) 1.51, Nucleated RBC % 0 05/16/19 14:40: Sodium 137, Potassium 6.5 H*, Chloride 107, Carbon Dioxide 27.0, Anion Gap 3 L, BUN 40 H, Creatinine 1.43 H, Estim Creat Clear Calc 67.18, Est GFR (MDRD) Af Amer 48 L, Est GFR (MDRD) Non-Af 40 L, BUN/Creatinine Ratio 28.0 H , Glucose 207 H, Calcium 8.8, Troponin I < 0.015 05/16/19 14:40: Lactic Acid 1.5 05/16/19 14:40: B-Natriuretic Peptide 5.7 05/16/19 17:21: Iron 44 L, TIBC 325, Iron Saturation 13.5 L, Ferritin 52 05/16/19 17:48: Blood Type B POSITIVE, Antibody Screen NEGATIVE 05/16/19 18:32: POC Glucose 140 H 05/16/19 23:58: POC Glucose 278 H 05/17/19 00:03: Hgb 10.4 L, Hct 35.0 L 05/17/19 00:03: Potassium 6.5 H* 05/17/19 05:14: WBC 8.0, RBC 3.95 L, Hgb 10.2 L, Hct 35.2 L, MCV 89.1, MCH 25.8 L, MCHC 29.0 L, RDW Std Deviation 49.9 H, RDW Coeff of Eddi 15.3 H, Plt Count 154, MPV 9.3 05/17/19 05:14: Sodium 139, Potassium 6.3 H*, Chloride 108 H, Carbon Dioxide 21.0, Anion Gap 10, BUN 35 H, Creatinine 1.52 H, Estim Creat Clear Calc 63.15, Est GFR (MDRD) Af Amer 45 L, Est GFR (MDRD) Non-Af 37 L, BUN/Creatinine Ratio 23.0 H, Glucose 318 H, Calcium 8.5, Total Bilirubin 0.20, AST 16, ALT 25, Alkaline Phosphatase 96, Total Protein 6.8, Albumin 2.7 L, Globulin 4.1, Albumin/Globulin Ratio 0.7 L 05/17/19 06:26: POC Glucose 275 H Current Medications Acetaminophen (Tylenol) 650 mg PO Q6H PRN PRN PRN Reason: Non-cardiac pain (mod-severe) Hydrocodone Bitart/Acetaminophen ([place] 5mg-325mg) 1 - 2 tablet PO Q4H PRN PRN PRN Reason: Pain Score 4-10/10 Albuterol Sulfate (Ventolin Aerosols) 2.5 mg INHALATION Q2H PRN PRN PRN Reason: dyspnea, wheezing Albuterol Sulfate (Ventolin Aerosols) 2.5 mg INHALATION Q6HWA.RT [facility] Last Admin: 05/17/19 06:59 Dose: 2.5 mg Documented by: Alendronate Sodium (Fosamax) 70 mg PO DAILY [facility] Atorvastatin Calcium (Lipitor) 80 mg PO DAILY@2200 [facility] Budesonide (Pulmicort Aerosol) 0.5 mg INHALATION Q12H.RT [facility] Last Admin: 05/17/19 06:59 Dose: 0.5 mg Documented by: Dextrose (D50w Syringe) 0 gm IV X1 PRN; Protocol PRN Reason: Hypoglycemia Ezetimibe (Zetia) 10 mg PO DAILY [facility] Last Admin: 05/17/19 09:11 Dose: 10 mg Documented by: Fluoxetine HCl (Prozac) 20 mg PO DAILY [facility] Last Admin: 05/17/19 09:02 Dose: 20 mg Documented by: Fluticasone Propionate (Flonase Nasal [place]) 2 spray NASAL DAILY [facility] Last Admin: 05/17/19 09:11 Dose: 2 spray Documented by: Gabapentin (Neurontin) 300 mg PO DAILY@0800 [facility] Last Admin: 05/17/19 09:01 Dose: 300 mg Documented by: Gabapentin (Neurontin) 900 mg PO QHS [facility] Last Admin: 05/16/19 21:28 Dose: 900 mg Documented by: Glucagon () 1 mg IM .X1 PRN PRN Reason: Hypoglycemia Hydralazine HCl (Apresoline Iv) 10 mg IV Q4H PRN PRN PRN Reason: SBP > 160 Sodium Chloride () 1,000 mls @ 125 mls/hr IV .Q8H [facility] Last Infusion: 05/17/19 09:23 Dose: 125 mls/hr Documented by: Pantoprazole Sodium 40 mg/ (Sodium Chloride) 110 mls @ 330 mls/hr IV Q12 [facility] Last Infusion: 05/17/19 09:23 Dose: Infused Documented by: Insulin Human Lispro (Humalog Kwikpen (Bkc)) 0 unit SC Q6 [facility]; Protocol Last Admin: 05/17/19 06:56 Dose: 4 units Documented by: Isosorbide Mononitrate (Imdur) 60 mg PO DAILY [facility] Last Admin: 05/17/19 09:01 Dose: 60 mg Documented by: Morphine Sulfate () 1 - 2 mg IV Q4H PRN PRN PRN Reason: Pain Score 1-10/10 Nitroglycerin (Nitrostat) 0.4 mg SUBLINGUAL Q5M PRN PRN Reason: CARDIAC/CHEST PAIN Ondansetron HCl (Zofran) 4 mg IV Q6H PRN PRN PRN Reason: NAUSEA Polyethylene Glycol (Miralax) 34 gm PO X1 PRN PRN Reason: Bowel Movement Sodium Chloride () 10 - 40 ml IV UD PRN PRN Reason: SALINE FLUSH Last Admin: 05/17/19 02:15 Dose: 10 ml Documented by: Assessment/Plan All Active Problems (Last Reviewed 03/02/19 @ 11:23 by Amparo Mcadams, DANA-C) Acute hyperkalemia (Acute) Transient hypotension (Acute) Hyperglycemia due to type 2 diabetes mellitus (Acute) TAE (acute kidney injury) (Acute) Candidiasis of mouth (Acute) Chest pain (Acute) Abdominal pain (Resolved) Hyperkalemia (Resolved) Hypocalcemia (Resolved) Hypokalemia (Resolved) Microcytic anemia (Resolved) Nonproductive cough (Resolved) Severe sepsis (Resolved) Shortness of breath (Resolved) Urinary tract infection (Resolved) Acute renal failure. Baseline creatinine is normal as of September 2018. Patient has known history of kidney stones. No recent symptomatic stones. A CT of the abdomen and pelvis has been ordered and is pending. Recent urine analysis without significant proteinuria. She did have significant amount of leukocytes. TAE is likely related to Bactrim use. Hyperkalemia. Multiple risk factors including lisinopril, NSAIDs, recent Bactrim use, hyperglycemia, acute renal failure. All the medications are on hold now. She has received a dose of Kayexalate this morning. It seems she had episodes of hyperkalemia in the past. She may be a candidate for potassium binders in the long-term. continue fluids
[2019-05-17 11:51] LABS: Hematocrit 34.8 % (37-47); Hemoglobin 10.2 g/dL (12.0-15.0)
[2019-05-17 11:55] LABS: Bedside Glucose 275 mg/dL (70-110)
[2019-05-17 12:19] LABS: Potassium 6.3 mmol/L (3.5-5.1)
[2019-05-17 17:10] LABS: Bedside Glucose 132 mg/dL (70-110)
[2019-05-17 20:23] LABS: Anion Gap 4 (5-15); BUN 29 mg/dL (7-18); BUN/Creat Ratio 29.1 RATIO (10-20); Calcium,Total 8.5 mg/dL (8.5-10.1); Chloride 108 mmol/L (98-107); EST Glomerular Filtration Rate 60 mL/min (>60); Est Glom Filt Rate - Afr Amer 72 mL/min (>60); Estimated Creatinine Clearance 95.98 ml/min; Glucose 173 mg/dL (74-106); Potassium 4.8 mmol/L (3.5-5.1); Sodium Level 137 mmol/L (136-145)
[2019-05-17 22:21] LABS: Bedside Glucose 153 mg/dL (70-110)
[2019-05-17] MEDS: Atorvastatin Calcium 80 MG Tablet PO (22:27)
[2019-05-17] MEDS: Gabapentin 300 MG Capsule 900 MG PO (23:08)
[2019-05-18] VITALS (11 sets, daily range): BP systolic 106–151; BP diastolic 53–74; PULSE 65–76; RESP 16–18; TEMP 36.5–36.8; O2SAT 96–99
[2019-05-18] MEDS: 0.9% Normal Saline 1,000 ML 125 ML IV (05:25)
[2019-05-18 06:46] LABS: Bedside Glucose 142 mg/dL (70-110)
[2019-05-18] MEDS: Budesonide Respules 0.5 MG/2 ML AMPUL.NEB. INHALATION (07:11)
[2019-05-18] MEDS: Albuterol 2.5 MG/3 ML VIAL.NEB. INHALATION ×2 (07:11→13:08)
[2019-05-18] MEDS: Fluticasone 0.05% 1 SPRAY NASAL.SRY 2 SPRAY NASAL (08:38)
[2019-05-18] MEDS: FLUoxetine 20 MG Capsule PO (08:39)
[2019-05-18] MEDS: Gabapentin 300 MG Capsule PO (08:39)
[2019-05-18] MEDS: Ezetimibe 10 MG Tablet PO (08:40)
[2019-05-18] MEDS: Isosorbide Mononitrate 60 MG Tablet PO (08:40)
--- NOTE | 2019-05-18 09:18 | PCM.PN.REN ---
Patient Problems: Active and Suspected Problems (Last Reviewed 03/02/19 @ 11:23 by ORALIA Eid) Acute hyperkalemia (Acute) Transient hypotension (Acute) Hyperglycemia due to type 2 diabetes mellitus (Acute) TAE (acute kidney injury) (Acute) Subjective: no new complaints abdomen pain is better CT abd reviewed - Physical Exam Vitals/I&O's: Vital Signs Temp Pulse Resp BP Pulse Ox 98.3 F 76 16 151/74 H 99 05/18/19 08:33 05/18/19 08:33 05/18/19 08:33 05/18/19 08:33 05/18/19 08:33 Oxygen Flow Rate (L/min) 2 Oxygen Delivery Method Room Air Weight: 104.236 kg Body Mass Index (BMI) 46.4 Intake and Output for Last 24 Hours 05/16/19 05/17/19 05/18/19 23:59 23:59 23:59 Intake Total 551.72 / 551.72 2765.83 / 2765.83 1617.5 / 1617.5 Balance 551.72 / 551.72 2765.83 / 2765.83 1617.5 / 1617.5 General: Alert, Oriented x3, Cooperative HEENT: Atraumatic, PERRLA, EOMI, Normocephalic Neck: Supple, No JVD, Negative Carotid Bruits Lungs: Clear to auscultation, Normal air movement Cardiovascular: Regular rate, No murmurs Abdomen: Bowel Sounds Present, Soft, Non Tender Extremities: No edema, Capillary Refill Less than 3 Seconds Skin: No rashes, No breakdown Musculoskeletal: No Tenderness to Palpation of Joints or Extremities Neurological: Cranial nerves II-XII grossly intact Psych/Mental Status: Normal Affect, Appropriate Microbiology Past 72 Hours 05/17/19 08:30 Stool Enteric Bacteriology - Final 05/17/19 08:30 Stool C. difficile DNA Amplification - Final 05/16/19 16:25 Stool Stool Occult Blood (ELIZA) - Final Laboratory Results 05/17/19 11:36: Hgb 10.2 L, Hct 34.8 L 05/17/19 11:36: Potassium 6.3 H* 05/17/19 11:43: POC Glucose 275 H 05/17/19 17:02: POC Glucose 132 H 05/17/19 18:46: Sodium 137, Potassium 4.8, Chloride 108 H, Carbon Dioxide 25.0, Anion Gap 4 L, BUN 29 H, Creatinine 1.00, Estim Creat Clear Calc 95.98, Est GFR (MDRD) Af Amer 72, Est GFR (MDRD) Non-Af 60, BUN/Creatinine Ratio 29.1 H, Glucose 173 H, Calcium 8.5 05/17/19 22:14: POC Glucose 153 H 05/18/19 06:40: POC Glucose 142 H Current Medications Acetaminophen (Tylenol) 650 mg PO Q6H PRN PRN PRN Reason: Non-cardiac pain (mod-severe) Hydrocodone Bitart/Acetaminophen ([place] 5mg-325mg) 1 - 2 tablet PO Q4H PRN PRN PRN Reason: Pain Score 4-10/10 Albuterol Sulfate (Ventolin Aerosols) 2.5 mg INHALATION Q2H PRN PRN PRN Reason: dyspnea, wheezing Albuterol Sulfate (Ventolin Aerosols) 2.[address] [facility] Last Admin: 05/18/19 07:11 Dose: 2.5 mg Documented by: Alendronate Sodium (Fosamax) [address] [facility] Atorvastatin Calcium (Lipitor) 80 mg PO DAILY@2200 [facility] Last Admin: 05/17/19 22:27 Dose: 80 mg Documented by: Budesonide (Pulmicort Aerosol) 0.[address] [facility] Last Admin: 05/18/19 07:11 Dose: 0.5 mg Documented by: Dextrose (D50w Syringe) 0 gm IV X1 PRN; Protocol PRN Reason: Hypoglycemia Ezetimibe (Zetia) [address] [facility] Last Admin: 05/18/19 08:40 Dose: 10 mg Documented by: Fluoxetine HCl (Prozac) [address] [facility] Last Admin: 05/18/19 08:39 Dose: 20 mg Documented by: Fluticasone Propionate (Flonase Nasal [place]) [address] [facility] Last Admin: 05/18/19 08:38 Dose: 2 spray Documented by: Gabapentin (Neurontin) 300 mg PO DAILY@0800 [facility] Last Admin: 05/18/19 08:39 Dose: 300 mg Documented by: Gabapentin (Neurontin) [address] [facility] Last Admin: 05/17/19 23:08 Dose: 900 mg Documented by: Glucagon () 1 mg IM .X1 PRN PRN Reason: Hypoglycemia Hydralazine HCl (Apresoline Iv) 10 mg IV Q4H PRN PRN PRN Reason: SBP > 160 Sodium Chloride () 1,000 mls @ 125 mls/hr IV .Q8H [facility] Last Infusion: 05/18/19 08:43 Dose: 0 mls/hr Documented by: Pantoprazole Sodium 40 mg/ (Sodium Chloride) 110 mls @ 330 mls/hr IV Q12 [facility] Last Admin: 05/18/19 08:43 Dose: 330 mls/hr Documented by: Insulin Human Lispro (Humalog Kwikpen (Bkc)) [address] [facility]; Protocol Last Admin: 05/18/19 06:51 Dose: Not Given Documented by: Isosorbide Mononitrate (Imdur) [address] [facility] Last Admin: 05/18/19 08:40 Dose: 60 mg Documented by: Morphine Sulfate () 1 - 2 mg IV Q4H PRN PRN PRN Reason: Pain Score 1-10/10 Nitroglycerin (Nitrostat) 0.4 mg SUBLINGUAL Q5M PRN PRN Reason: CARDIAC/CHEST PAIN Ondansetron HCl (Zofran) 4 mg IV Q6H PRN PRN PRN Reason: NAUSEA Polyethylene Glycol (Miralax) 34 gm PO X1 PRN PRN Reason: Bowel Movement Sodium Chloride () 10 - 40 ml IV UD PRN PRN Reason: SALINE FLUSH Last Admin: 05/17/19 02:15 Dose: 10 ml Documented by: Medical Necessity - Tobacco Use Smoking Status: Former smoker Assessment/Plan All Active Problems (Last Reviewed 03/02/19 @ 11:23 by Amparo Mcadams NP-C) Acute hyperkalemia (Acute) Transient hypotension (Acute) Hyperglycemia due to type 2 diabetes mellitus (Acute) TAE (acute kidney injury) (Acute) Candidiasis of mouth (Acute) Chest pain (Acute) Abdominal pain (Resolved) Hyperkalemia (Resolved) Hypocalcemia (Resolved) Hypokalemia (Resolved) Microcytic anemia (Resolved) Nonproductive cough (Resolved) Severe sepsis (Resolved) Shortness of breath (Resolved) Urinary tract infection (Resolved) Acute renal failure. Baseline creatinine is normal as of September 2018. Patient has known history of kidney stones. No recent symptomatic stones. CT with non obstructive stones. Recent urine analysis without significant proteinuria. She did have significant amount of leukocytes. TAE is likely related to Bactrim use. cr is back to baseline now Hyperkalemia. Multiple risk factors including lisinopril, NSAIDs, recent Bactrim use, hyperglycemia, acute renal failure. All the medications are on hold now. K is normal as of last night from a renal standpoint, can dc fluids hold lisinopril at the time of dc. can resume as outpatient once Cr and K are stable
--- NOTE | 2019-05-18 09:24 | EKG12_ITS ---
Test Reason : CP Blood Pressure : / mmHG Vent. Rate : 072 BPM Atrial Rate : 072 BPM P-R Int : 188 ms QRS Dur : 086 ms QT Int : 386 ms P-R-T Axes : 067 033 072 degrees QTc Int : 422 ms Normal sinus rhythm Normal ECG Confirmed by TOMA CARRERO, NOHEMI ([id number]), online content editor BJ BERRY ([id number]) on 05/23/2019 3:01:33 PM Referred By: Lianet Serrano Confirmed By:NOHEMI CHUA MD
[2019-05-18] MEDS: Nitroglycerin (INPATIENT USE) 0.4 MG TAB.SUBL SUBLINGUAL ×3 (09:40→09:52)
--- NOTE | 2019-05-18 10:43 | CASEMGMT ---
Addendum entered by Ana Diallo 05/18/19 11:59: SW called [facility] and let them know [facility] [place] [facility] [place] PT, OT, aide, and SW were arranged for patient. Ana OTOOLE Original Note: DIANELYS called [facility] and let the coverage line know when patient came in and that she is being discharged today. Brandie Rogers is her family caseworker. Faxed d/c instructions to [facility]. Ana [employer]
[2019-05-18] MEDS: Insulin Lispro 100 UNIT/ML INSULN.PEN SC (11:37)
--- NOTE | 2019-05-18 11:38 | CASEMGMT ---
Addendum entered by Nalini Meek 05/18/19 11:47: Aba at [facility] is aware of pt discharge and that [facility] has been added, voices understanding. Per Aba, pt is pending eviction d/t bed bugs. SW added to [facility] at this time for further resources. Message left with Maday at [facility] regarding same. Agustin SANCHEZ CM Original Note: Pt is agreeable to [facility] for RN, PT/OT, aide at this time and states that she has been with [facility] in the past and would like to have them again. Call to Maday at [facility] and she states that they can take pt at this time and order placed in [facility] at this time. Maday is aware that pt to be discharged home today and that she is active with [facility] as well, voices understanding. Agustin SANCHEZ CM
--- NOTE | 2019-05-18 11:42 | DCINST_ITS ---
- Discharge Diagnoses Current Active Problems: Current Active and Chronic Problems (Last Reviewed 03/02/19 @ 11:23 by ORALIA Eid) Acute hyperkalemia (Acute) COPD Hyperglycemia due to type 2 diabetes mellitus (Acute) TAE (acute kidney injury) (Acute) Chronic respiratory failure with hypoxia (Chronic) DVT (deep venous thrombosis) (Chronic) Pulmonary emboli (Chronic) Marijuana abuse (Chronic) You will use the following diet at home:: Calorie/Carbohydrate Controlled (specify 1200, 1400, etc), Cardiac Discharge Activity: Return to Normal Activity Call your doctor if you observe: Shortness of breath, Dizziness, Fainting spells, Chest pain Additional Instructions: Your lisinopril was held at discharge due to your kidney function. This may be resumed as an outpatient pending repeat labs. Recommend discontinuing NSAIDs which include Advil, ibuprofen, Aleve, etc. Allergies/Adverse Reactions: Allergies aztreonam Allergy (Verified 05/16/19 14:17) Unknown bee venom protein (honey bee) Allergy (Verified 05/16/19 14:17) Anaphylaxis Carbapenems Allergy (Verified 05/16/19 14:17) Unknown ciprofloxacin [From Cipro] Allergy (Verified 05/16/19 14:17) Anaphylaxis meperidine Allergy (Verified 05/16/19 14:17) Unknown Penicillins Allergy (Verified 05/16/19 14:17) Swelling Quinolones Allergy (Verified 05/16/19 14:17) Unknown talampicillin Allergy (Verified 05/16/19 14:17) Unknown tetracycline Allergy (Verified 05/16/19 14:17) Anaphylaxis tigecycline Allergy (Verified 05/16/19 14:17) Hives Medications to take at Discharge Albuterol Inhaler [Ventolin Hfa] 1 - 2 puff INHALATION Q4H PRN PRN 10/01/15 Loratadine [Claritin] 10 mg PO QHS 10/01/15 aspirin 81 mg tablet,delayed release 81 mg PO DAILY 07/14/17 atorvastatin 80 mg tablet 80 mg PO DAILY 07/14/17 fluoxetine 20 mg capsule 20 mg PO DAILY 07/14/17 fluticasone propionate 50 mcg/actuation nasal spray,suspension 2 spray INTRANASAL DAILY 07/14/17 nitroglycerin 0.4 mg sublingual tablet 0.4 mg SUBLINGUAL Q5M PRN 01/03/18 Epi Pen (for allergic rxn) 0.3 mg SQ PRN PRN 12/08/17 Ezetimibe [Zetia] 10 mg PO DAILY 12/08/17 Multivitamins,Ther W-Minerals [Multivitamin With Minerals] 1 tab PO BID 12/08/17 Magnesium Oxide [Mag-Ox 400] 400 mg PO BID #30 tab 01/03/18 Alendronate Sodium [Fosamax] 70 mg PO DAILY 01/28/18 Apixaban [Eliquis] 5 mg PO BID 10/07/18 Insulin Glargine [Lantus SoloStar Pen] 50 units SUBCUT QHS 10/07/18 Budesonide/Formoterol Fumarate [Symbicort 80-4.5 Mcg Inhaler] 2 puff IH BID 12/30/18 [place]-3 Fatty Acids/Fish Oil [Fish Oil 1,000 mg Capsule] 1 cap PO DAILY 12/30/18 gabapentin 300 mg capsule 300 mg PO DAILY cap 02/15/19 Cholecalciferol (Vitamin D3) [Vitamin D3] 2,000 unit PO DAILY 05/16/19 Estrogens, Conjugated [Premarin] 0.5 gm VG UD 05/16/19 Furosemide [Lasix] 20 mg PO DAILY 05/16/19 Gabapentin [Neurontin] 900 mg PO QHS 05/16/19 Isosorbide Mononitrate [Imdur] 60 mg PO DAILY 05/16/19 Omeprazole 40 mg PO DAILY 05/16/19 Primary Care Physician: Bronson Hunt DO [Primary Care Provider] - Please follow up with your Primary Care Physician in: 1 Week Test Results: Test results from this visit will be discussed in further detail at your follow- up appointment, if applicable. Please Follow Up With: Edgar Pinzon MD When: As scheduled 05/19/19 Please Follow Up With: Sina Alvarez MD When: As scheduled 06/15/19 Please Follow Up With: Keke Dotson MD When: 2 Weeks Proposed Discharge Date: 05/18/19
--- NOTE | 2019-05-18 11:47 | PCM.DC.SUM ---
<Mary Carmen Huitron - Last Filed: 05/18/19 12:15> Discharge Date and Diagnosis Date of Admission: 05/16/19 Date of Discharge: 05/18/19 - Primary Discharge Diagnosis Active and Suspected Problems (Last Reviewed 03/02/19 @ 11:23 by Amparo Mcadmas NP-C) 1. Acute kidney injury with hyperkalemia 2. Non-cardiac Chest pain, ACS ruled out 3. Abdominal pain, unclear etiology-resolved 4. Chronic hypoxic respiratory failure to chronic COPD/asthma overlap syndrome 5. Type 2 diabetes mellitus 6. History of pulmonary embolism/recurrent DVT on chronic anticoagulation with Eliquis 7. Hypertension 8. Hyperlipidemia 9. SHRUTHI 10. Obesity 11. Rheumatoid arthritis/degenerative joint disease/fibromyalgia 12. Chronic normochromic normocytic anemia 13. Depression - Secondary Discharge Diagnosis Chronic Problems (Last Reviewed 03/02/19 @ 11:23 by Amparo Mcadams DIRECTOR OF STUDENT AFFAIRS-C) COPD exacerbation (Chronic) Chronic respiratory failure with hypoxia (Chronic) DVT (deep venous thrombosis) (Chronic) Pulmonary emboli (Chronic) Marijuana abuse (Chronic) Essential hypertension (Chronic) Asthma with COPD (chronic obstructive pulmonary disease) (Chronic) SHRUTHI (obstructive sleep apnea) (Chronic) Hypersomnia (Chronic) Hypoxia (Chronic) HLD (hyperlipidemia) (Chronic) Asthma (Chronic) Type II diabetes mellitus (Chronic) Hospital Course and Treatment Imaging Results: Diagnostic Data Chest X-Ray 05/16/19 14:33 IMPRESSION: No acute abnormality is seen. Electronically Signed: Anival Montano, at 14:48 EST , Service support , Abdomen CT 05/17/19 10:16 IMPRESSION: Fatty infiltration of the liver. Enlargement of the right lobe of the liver. Stable cyst in the right lobe of the liver. Stable nonobstructive bilateral intrarenal calculi. Electronically Signed: Anival Montano, at 14:27 EST , Service support , Dr. Dotson- Nephrology Operations: None Procedures: None Summary of Care Provided: The patient is a 64 year old F admitted 05/16/2019 due to abdominal discomfort. 1. Acute kidney injury with hyperkalemia-acute kidney injury resolved with IV fluids. Suspect secondary to Bactrim use. Hyperkalemia suspected multifactorial due to lisinopril, NSAIDs and recent Bactrim use. Hyperkalemia resolved. We will continue to hold lisinopril at discharge pending further outpatient repeat BMP. Follow-up with primary care provider in 1 week. Recommend routine follow-up with nephrology, in 2 weeks. 2. Non-cardiac Chest pain, ACS ruled out-patient reports intermittent chest discomfort at home which is associated with position change. EKG without ST-T changes. Troponin negative. Musculoskeletal in nature. Continue outpatient follow-up with Dr. Alvarez. 3. Abdominal pain, suspect secondary to gastroenteritis-resolved. Stool negative for occult blood. Negative for C. difficile and enteric bacteriology. CT of abdomen demonstrated fatty liver, stable nonobstructive bilateral intrarenal calculi. Continue home omeprazole regimen. 4. Chronic hypoxic respiratory failure to chronic COPD/asthma overlap syndrome-continue outpatient follow-up with Dr. Pinzon. 5. Type 2 diabetes mellitus-continue home insulin regimen. 6. History of pulmonary embolism/recurrent DVT on chronic anticoagulation with Eliquis 7. Hypertension-stable, continue current regimen. 8. Hyperlipidemia-continue statin, Zetia regimen. 9. SHRUTHI-continue CPAP regimen. 10. Obesity-encouraged diet and lifestyle modifications. 11. Rheumatoid arthritis/degenerative joint disease/fibromyalgia 12. Chronic normochromic normocytic anemia-stable. 13. Depression-continue home fluoxetine regimen. General: Alert, Oriented x3, Cooperative HEENT: Atraumatic, PERRLA, EOMI, Normocephalic Neck: Supple, No JVD, Negative Carotid Bruits Lungs: Clear to auscultation, Normal air movement Cardiovascular: Regular rate, No murmurs Abdomen: Bowel Sounds Present, Soft, Non Tender Extremities: No edema, Capillary Refill Less than 3 Seconds Skin: No rashes, No breakdown Musculoskeletal: No Tenderness to Palpation of Joints or Extremities Neurological: Cranial nerves II-XII grossly intact Psych/Mental Status: Normal Affect, Appropriate, Alert and oriented to time, place, person, mood and affect Patient seen and examined prior to discharge. Physical assessment as noted above. Patient is stable for discharge with follow up recommendations as noted above. This patient was seen by ORALIA Platt under the supervision of Dr. Leigh. - Physical Exam Vitals/I&O's: Vital Signs Temp Pulse Resp BP Pulse Ox 98.3 F 76 16 106/54 L 99 05/18/19 08:33 05/18/19 09:52 05/18/19 09:25 05/18/19 09:52 05/18/19 09:25 Oxygen Flow Rate (L/min) 2 Oxygen Delivery Method Room Air Weight: 229 lb 12.816 oz Body Mass Index (BMI) 46.4 Intake and Output for Last 24 Hours 05/16/19 05/17/19 05/18/19 23:59 23:59 23:59 Intake Total 551.72 / 551.72 2765.83 / 2765.83 1727.5 / 1727.5 Balance 551.72 / 551.72 2765.83 / 2765.83 1727.5 / 1727.5 Microbiology Past 72 Hours 05/17/19 08:30 Stool Enteric Bacteriology - Final 05/17/19 08:30 Stool C. difficile DNA Amplification - Final 05/16/19 16:25 Stool Stool Occult Blood (ELIZA) - Final Laboratory Results 05/17/19 11:36: Hgb 10.2 L, Hct 34.8 L 05/17/19 11:36: Potassium 6.3 H* 05/17/19 11:43: POC Glucose 275 H 05/17/19 17:02: POC Glucose 132 H 05/17/19 18:46: Sodium 137, Potassium 4.8, Chloride 108 H, Carbon Dioxide 25.0, Anion Gap 4 L, BUN 29 H, Creatinine 1.00, Estim Creat Clear Calc 95.98, Est GFR (MDRD) Af Amer 72, Est GFR (MDRD) Non-Af 60, BUN/Creatinine Ratio 29.1 H, Glucose 173 H, Calcium 8.5 05/17/19 22:14: POC Glucose 153 H 05/18/19 06:40: POC Glucose 142 H 05/18/19 09:50: Troponin I < 0.015 Current Medications Acetaminophen (Tylenol) 650 mg PO Q6H PRN PRN PRN Reason: Non-cardiac pain (mod-severe) Hydrocodone Bitart/Acetaminophen ([place] 5mg-325mg) 1 - 2 tablet PO Q4H PRN PRN PRN Reason: Pain Score 4-10/10 Albuterol Sulfate (Ventolin Aerosols) 2.5 mg INHALATION Q2H PRN PRN PRN Reason: dyspnea, wheezing Albuterol Sulfate (Ventolin Aerosols) 2.5 mg INHALATION Q6HWA.RT [facility] Last Admin: 05/18/19 07:11 Dose: 2.5 mg Documented by: Alendronate Sodium (Fosamax) 70 mg PO QWEEK [facility] Atorvastatin Calcium (Lipitor) 80 mg PO DAILY@2200 [facility] Last Admin: 05/17/19 22:27 Dose: 80 mg Documented by: Budesonide (Pulmicort Aerosol) 0.5 mg INHALATION Q12H.RT [facility] Last Admin: 05/18/19 07:11 Dose: 0.5 mg Documented by: Dextrose (D50w Syringe) 0 gm IV X1 PRN; Protocol PRN Reason: Hypoglycemia Ezetimibe (Zetia) 10 mg PO DAILY [facility] Last Admin: 05/18/19 08:40 Dose: 10 mg Documented by: Fluoxetine HCl (Prozac) 20 mg PO DAILY [facility] Last Admin: 05/18/19 08:39 Dose: 20 mg Documented by: Fluticasone Propionate (Flonase Nasal [place]) 2 spray NASAL DAILY [facility] Last Admin: 05/18/19 08:38 Dose: 2 spray Documented by: Gabapentin (Neurontin) 300 mg PO DAILY@0800 [facility] Last Admin: 05/18/19 08:39 Dose: 300 mg Documented by: Gabapentin (Neurontin) 900 mg PO QHS [facility] Last Admin: 05/17/19 23:08 Dose: 900 mg Documented by: Glucagon () 1 mg IM .X1 PRN PRN Reason: Hypoglycemia Hydralazine HCl (Apresoline Iv) 10 mg IV Q4H PRN PRN PRN Reason: SBP > 160 Sodium Chloride () 1,000 mls @ 125 mls/hr IV .Q8H [facility] Last Infusion: 05/18/19 09:03 Dose: 125 mls/hr Documented by: Pantoprazole Sodium 40 mg/ (Sodium Chloride) 110 mls @ 330 mls/hr IV Q12 [facility] Last Infusion: 05/18/19 09:03 Dose: Infused Documented by: Insulin Human Lispro (Humalog [place] (Bkc)) 0 unit SC ACHS [facility]; Protocol Last Admin: 05/18/19 11:37 Dose: 2 units Documented by: Isosorbide Mononitrate (Imdur) 60 mg PO DAILY [facility] Last Admin: 05/18/19 08:40 Dose: 60 mg Documented by: Morphine Sulfate () 1 - 2 mg IV Q4H PRN PRN PRN Reason: Pain Score 1-10/10 Nitroglycerin (Nitrostat) 0.4 mg SUBLINGUAL Q5M PRN PRN Reason: CARDIAC/CHEST PAIN Last Admin: 05/18/19 09:52 Dose: 0.4 mg Documented by: Ondansetron HCl (Zofran) 4 mg IV Q6H PRN PRN PRN Reason: NAUSEA Polyethylene Glycol (Miralax) 34 gm PO X1 PRN PRN Reason: Bowel Movement Sodium Chloride () 10 - 40 ml IV UD PRN PRN Reason: SALINE FLUSH Last Admin: 05/17/19 02:15 Dose: 10 ml Documented by: Discharge Diet: Low fat/ Low Cholesterol, Carb Control Diet Discharge Activity: Return to Normal Activity Call your doctor if you observe: Shortness of breath, Dizziness, Fainting spells, Chest pain Home Medications: Medications to take at Discharge Albuterol Inhaler [Ventolin Hfa] 1 - 2 puff INHALATION Q4H PRN PRN 10/01/15 Loratadine [Claritin] 10 mg PO QHS 10/01/15 aspirin 81 mg tablet,delayed release 81 mg PO DAILY 07/14/17 atorvastatin 80 mg tablet 80 mg PO DAILY 07/14/17 fluoxetine 20 mg capsule 20 mg PO DAILY 07/14/17 fluticasone propionate 50 mcg/actuation nasal spray,suspension 2 spray INTRANASAL DAILY 07/14/17 nitroglycerin 0.4 mg sublingual tablet 0.4 mg SUBLINGUAL Q5M PRN 07/14/17 Epi Pen (for allergic rxn) 0.3 mg SQ PRN PRN 12/08/17 Ezetimibe [Zetia] 10 mg PO DAILY 12/08/17 Multivitamins,Ther W-Minerals [Multivitamin With Minerals] 1 tab PO BID 12/08/17 Magnesium Oxide [Mag-Ox 400] 400 mg PO BID #30 tab 01/03/18 Alendronate Sodium [Fosamax] 70 mg PO DAILY 01/28/18 Apixaban [Eliquis] 5 mg PO BID 10/07/18 Insulin Glargine [Lantus SoloStar Pen] 50 units SUBCUT QHS 10/07/18 Budesonide/Formoterol Fumarate [Symbicort 80-4.5 Mcg Inhaler] 2 puff IH BID 12/30/18 [place]-3 Fatty Acids/Fish Oil [Fish Oil 1,000 mg Capsule] 1 cap PO DAILY 12/30/18 gabapentin 300 mg capsule 300 mg PO DAILY cap 02/15/19 Cholecalciferol (Vitamin D3) [Vitamin D3] 2,000 unit PO DAILY 05/16/19 Estrogens, Conjugated [Premarin] 0.5 gm VG UD 05/16/19 Furosemide [Lasix] 20 mg PO DAILY 05/16/19 Gabapentin [Neurontin] 900 mg PO QHS 05/16/19 Isosorbide Mononitrate [Imdur] 60 mg PO DAILY 05/16/19 Omeprazole 40 mg PO DAILY 05/16/19 Primary Care Physician: Bronson Hunt DO [Primary Care Provider] - Please follow up with your Primary Care Physician in: 1 Week Please Follow Up With: Edgar Pinzon MD When: As scheduled 05/19/19 Please Follow Up With: Sina Alvarez MD When: As scheduled 06/15/19 Please Follow Up With: Keke Dotson MD When: 2 Weeks Disposition: Home Minutes spent on discharge:: 35 Patient Condition:: Stable Medical Necessity - Tobacco Use Smoking Status: Former smoker Meaningful Use Info Meaningful Use Diagnoses (Choose all that apply): None applicable <Angel Leigh - Last Filed: 05/18/19 14:33> Discharge Date and Diagnosis - Secondary Discharge Diagnosis Chronic Problems (Last Reviewed 03/02/19 @ 11:23 by Amparo Mcadams NP-C) COPD exacerbation (Chronic) Chronic respiratory failure with hypoxia (Chronic) DVT (deep venous thrombosis) (Chronic) Pulmonary emboli (Chronic) Marijuana abuse (Chronic) Essential hypertension (Chronic) Asthma with COPD (chronic obstructive pulmonary disease) (Chronic) SHRUTHI (obstructive sleep apnea) (Chronic) Hypersomnia (Chronic) Hypoxia (Chronic) HLD (hyperlipidemia) (Chronic) Asthma (Chronic) Type II diabetes mellitus (Chronic) Hospital Course and Treatment Summary of Care Provided: This patient was seen in conjunction with Mary Carmen CORTEZ. I have independently interviewed and examined the patient and reviewed pertinent history, examination findings, laboratory and plan of management. I have reviewed the note and agree with the documented findings with the few additional points. In brief, patient is admitted for acute kidney injury with hyperkalemia, abdominal discomfort. She was also short of breath and hypoxia. She has history of COPD, chronic hypoxic respiratory failure on 2 L of oxygen and obstructive sleep apnea but does not use CPAP. Call Centre Supervisor was consulted. Does not have lower urinary tract symptoms. Patient was recently treated with 10 days of Bactrim and completed treatment 3 days prior to admission. Patient was treated with IV fluid normal saline, 2 dosages of Kayexalate and acute kidney injury and hyperkalemia resolved. Acute kidney injury and hyperkalemia thought secondary to Bactrim DS. Patient does not have rash. The patient was educated to take Bactrim in case UTI just for 3 days next time; if it is sensitive to Bactrim. Abdominal pain is resolved. Stool studies including C. difficile and respiratory panel negative. Chest pain resolved. Acute coronary syndrome ruled out. No ischemic ST-T changes on EKG. Patient has follow-up with Dr. Pinzon tomorrow a.m. Patient on Symbicort and albuterol. Advised CPAP. Other comorbidities including RA/fibromyalgia, depression, osteoporosis, dyslipidemia and DVT/PE stable. On Eliquis. Blood sugars was controlled. Discharge medication reconciliation done. Discharge follow-up instructions completed. Discharge process discussed with the patient and all questions were answered to patient's satisfaction. Total time spent, exact 35 minutes on discharge meds reconciliation, examination, review of imaging and blood test and discussion with the patient on follow-up instructions. I have discussed my assessment with DIRECTOR OF STUDENT AFFAIRSMary Carmen and orders have been reviewed. [] Subjective: Patient abdominal pain has resolved. Stool test C. difficile, occult blood and enteric bacterial D panel are negative. Patient is making urine. Acute kidney injury and hyperkalemia resolved. Complaint of chest pain for short time. She has history of on and off intermittent chest pain for 3 months last for short time unrelated to activity. Not associated with shortness of breath, diaphoresis or dizziness. Twelve-lead EKG was done and no change from previous EKG with no significant ST-T changes suggestive of ischemia. Normal sinus rhythm. Troponins normal. - Physical Exam Vitals/I&O's: Vital Signs Temp Pulse Resp BP Pulse Ox 97.7 F L 74 16 110/53 L 96 05/18/19 13:36 05/18/19 13:36 05/18/19 13:36 05/18/19 13:36 05/18/19 13:36 Oxygen Flow Rate (L/min) 2 Oxygen Delivery Method Room Air Weight: 229 lb 12.816 oz Body Mass Index (BMI) 46.4 Intake and Output for Last 24 Hours 05/16/19 05/17/19 05/18/19 23:59 23:59 23:59 Intake Total 551.72 / 551.72 2765.83 / 2765.83 1727.5 / 1727.5 Balance 551.72 / 551.72 2765.83 / 2765.83 1727.5 / 1727.5 General: Alert, Oriented x3, Cooperative HEENT: Atraumatic, PERRLA, EOMI, Normocephalic Neck: Supple, No JVD, Negative Carotid Bruits Lungs: Clear to auscultation, No rhonchi, No wheeze, No rales, Diminished Cardiovascular: Regular rate, Regular Rhythm, Normal S1, Normal S2, No murmurs Abdomen: Bowel Sounds Present, Soft, Non Tender, Non-Distended Extremities: No edema, Capillary Refill Less than 3 Seconds Skin: No rashes, No breakdown Musculoskeletal: No Tenderness to Palpation of Joints or Extremities, Arthritic Changes Neurological: Cranial nerves II-XII grossly intact, Deep Tendon Reflexes 2+/4 and Symmetrical, Neuro grossly intact Psych/Mental Status: Normal Affect, Appropriate Microbiology Past 72 Hours 05/17/19 08:30 Stool Enteric Bacteriology - Final 05/17/19 08:30 Stool C. difficile DNA Amplification - Final 05/16/19 16:25 Stool Stool Occult Blood (ELIZA) - Final Laboratory Results 05/17/19 17:02: POC Glucose 132 H 05/17/19 18:46: Sodium 137, Potassium 4.8, Chloride 108 H, Carbon Dioxide 25.0, Anion Gap 4 L, BUN 29 H, Creatinine 1.00, Estim Creat Clear Calc 95.98, Est GFR (MDRD) Af Amer 72, Est GFR (MDRD) Non-Af 60, BUN/Creatinine Ratio 29.1 H, Glucose 173 H, Calcium 8.5 05/17/19 22:14: POC Glucose 153 H 05/18/19 06:40: POC Glucose 142 H 05/18/19 09:50: Troponin I < 0.015 05/18/19 11:35: POC Glucose 191 H Current Medications Acetaminophen (Tylenol) 650 mg PO Q6H PRN PRN PRN Reason: Non-cardiac pain (mod-severe) Hydrocodone Bitart/Acetaminophen ([place] 5mg-325mg) 1 - 2 tablet PO Q4H PRN PRN PRN Reason: Pain Score 4-10/10 Albuterol Sulfate (Ventolin Aerosols) 2.5 mg INHALATION Q2H PRN PRN PRN Reason: dyspnea, wheezing Albuterol Sulfate (Ventolin Aerosols) 2.5 mg INHALATION Q6HWA.RT [facility] Last Admin: 05/18/19 13:08 Dose: 2.5 mg Documented by: Alendronate Sodium (Fosamax) 70 mg PO QWEEK [facility] Atorvastatin Calcium (Lipitor) 80 mg PO DAILY@2200 [facility] Last Admin: 05/17/19 22:27 Dose: 80 mg Documented by: Budesonide (Pulmicort Aerosol) 0.5 mg INHALATION Q12H.RT [facility] Last Admin: 05/18/19 07:11 Dose: 0.5 mg Documented by: Dextrose (D50w Syringe) 0 gm IV X1 PRN; Protocol PRN Reason: Hypoglycemia Ezetimibe (Zetia) 10 mg PO DAILY [facility] Last Admin: 05/18/19 08:40 Dose: 10 mg Documented by: Fluoxetine HCl (Prozac) 20 mg PO DAILY [facility] Last Admin: 05/18/19 08:39 Dose: 20 mg Documented by: Fluticasone Propionate (Flonase Nasal [place]) 2 spray NASAL DAILY [facility] Last Admin: 05/18/19 08:38 Dose: 2 spray Documented by: Gabapentin (Neurontin) 300 mg PO DAILY@0800 [facility] Last Admin: 05/18/19 08:39 Dose: 300 mg Documented by: Gabapentin (Neurontin) 900 mg PO QHS [facility] Last Admin: 05/17/19 23:08 Dose: 900 mg Documented by: Glucagon () 1 mg IM .X1 PRN PRN Reason: Hypoglycemia Hydralazine HCl (Apresoline Iv) 10 mg IV Q4H PRN PRN PRN Reason: SBP > 160 Sodium Chloride () 1,000 mls @ 125 mls/hr IV .Q8H [facility] Last Infusion: 05/18/19 09:03 Dose: 125 mls/hr Documented by: Pantoprazole Sodium 40 mg/ (Sodium Chloride) 110 mls @ 330 mls/hr IV Q12 [facility] Last Infusion: 05/18/19 09:03 Dose: Infused Documented by: Insulin Human Lispro (Humalog Kwikpen (Bkc)) 0 unit SC ACHS [facility]; Protocol Last Admin: 05/18/19 11:37 Dose: 2 units Documented by: Isosorbide Mononitrate (Imdur) 60 mg PO DAILY [facility] Last Admin: 05/18/19 08:40 Dose: 60 mg Documented by: Morphine Sulfate () 1 - 2 mg IV Q4H PRN PRN PRN Reason: Pain Score 1-10/10 Nitroglycerin (Nitrostat) 0.4 mg SUBLINGUAL Q5M PRN PRN Reason: CARDIAC/CHEST PAIN Last Admin: 05/18/19 09:52 Dose: 0.4 mg Documented by: Ondansetron HCl (Zofran) 4 mg IV Q6H PRN PRN PRN Reason: NAUSEA Polyethylene Glycol (Miralax) 34 gm PO X1 PRN PRN Reason: Bowel Movement Sodium Chloride () 10 - 40 ml IV UD PRN PRN Reason: SALINE FLUSH Last Admin: 05/17/19 02:15 Dose: 10 ml Documented by: Code Visit Inpatient E&M: [id number] Disch Hosp
--- NOTE | 2019-05-18 12:06 | PHA.DC.MR ---
Pharmacy Service has performed discharge medication reconciliation for this patient. No new medications at time of discharge. Medications reviewed are previously reported from home med list. The patient's discharge medication list was reviewed for discrepancies and discrepancies were resolved. Home Medications Albuterol Inhaler [Ventolin Hfa] 1 - 2 puff INHALATION Q4H PRN PRN 10/01/15 Loratadine [Claritin] 10 mg PO QHS 10/01/15 aspirin 81 mg tablet,delayed release 81 mg PO DAILY 07/14/17 atorvastatin 80 mg tablet 80 mg PO DAILY 07/14/17 fluoxetine 20 mg capsule 20 mg PO DAILY 07/14/17 fluticasone propionate 50 mcg/actuation nasal spray,suspension 2 spray INTRANASAL DAILY 07/14/17 nitroglycerin 0.4 mg sublingual tablet 0.4 mg SUBLINGUAL Q5M PRN 07/14/17 Epi Pen (for allergic rxn) 0.3 mg SQ PRN PRN 12/08/17 Ezetimibe [Zetia] 10 mg PO DAILY 12/08/17 Multivitamins,Ther W-Minerals [Multivitamin With Minerals] 1 tab PO BID 12/08/17 Magnesium Oxide [Mag-Ox 400] 400 mg PO BID #30 tab 01/03/18 Alendronate Sodium [Fosamax] 70 mg PO DAILY 01/28/18 Apixaban [Eliquis] 5 mg PO BID 10/07/18 Insulin Glargine [Lantus SoloStar Pen] 50 units SUBCUT QHS 10/07/18 Budesonide/Formoterol Fumarate [Symbicort 80-4.5 Mcg Inhaler] 2 puff IH BID 12/30/18 [place]-3 Fatty Acids/Fish Oil [Fish Oil 1,000 mg Capsule] 1 cap PO DAILY 12/30/18 gabapentin 300 mg capsule 300 mg PO DAILY cap 02/15/19 Cholecalciferol (Vitamin D3) [Vitamin D3] 2,000 unit PO DAILY 05/16/19 Estrogens, Conjugated [Premarin] 0.5 gm VG UD 05/16/19 Furosemide [Lasix] 20 mg PO DAILY 05/16/19 Gabapentin [Neurontin] 900 mg PO QHS 05/16/19 Isosorbide Mononitrate [Imdur] 60 mg PO DAILY 05/16/19 Omeprazole 40 mg PO DAILY 05/16/19
[2019-05-18 13:20] LABS: Bedside Glucose 191 mg/dL (70-110)
--- NOTE | 2019-05-19 15:26 | CASEMGMT ---
Addendum entered by Nalini Meek 05/22/19 16:15: This RN CM received call back from pt and per pt, she has been 'doing ok' since discharge. Pt states no questions regarding discharge instructions or medications at this time. Pt states saw pulmonology on 05/19/19 and saw PCP this am. Pt does state concern over some 'eye itching' while at [facility] and 'irritation from a band aid.' Pt states no further suggestions for [facility] at this time. Pt voices no further questions/concerns/needs at this time. Agustin SANCHEZ CM Original Note: RN CM Discharge F/U Phone Call LACE: 10 Strata: 3 Discharge date: 05/18/19 Call date: 05/19/19 Call time: [id number] Attempted to reach pt without success at this time, message left for pt to call this RN CM back if/when able. Agustin SANCHEZ CM Admission dx: TAE, hyperkalemia, COPD exac
== END 2019-05-18 15:22 | disposition home or self-care (01) | DRG 683 ==
LOC: ED 15:38 → PCU 16:08
PROVIDERS: Hospitalist; Physician Assistant; Admitting Provider Family Medicine; Emergency Provider Emergency Medicine; Family Provider Student in an Organized Health Care Education/Training Program; PCP Student in an Organized Health Care Education/Training Program; Referring Provider Family Medicine; Visit Provider Internal Medicine
DX: N17.9 Acute kidney failure, unspecified (principal); Z68.42 Body mass index [BMI] 45.0-49.9, adult; J96.11 Chronic respiratory failure with hypoxia; J44.1 Chronic obstructive pulmonary disease with (acute) exacerbation; E87.5 Hyperkalemia; Z99.81 Dependence on supplemental oxygen; E66.01 Morbid (severe) obesity due to excess calories; F12.10 Cannabis abuse, uncomplicated; N20.0 Calculus of kidney; M81.0 Age-related osteoporosis without current pathological fracture; J44.9 Chronic obstructive pulmonary disease, unspecified; I10 Essential (primary) hypertension; E78.5 Hyperlipidemia, unspecified; M79.7 Fibromyalgia; M19.90 Unspecified osteoarthritis, unspecified site; E11.65 Type 2 diabetes mellitus with hyperglycemia; M06.9 Rheumatoid arthritis, unspecified; F32.9 Major depressive disorder, single episode, unspecified; R10.9 Unspecified abdominal pain; G47.33 Obstructive sleep apnea (adult) (pediatric); T36.8X5A Adverse effect of other systemic antibiotics, initial encounter; Z79.83 Long term (current) use of bisphosphonates; Z86.718 Personal history of other venous thrombosis and embolism; Z79.4 Long term (current) use of insulin; Z79.01 Long term (current) use of anticoagulants; Z79.899 Other long term (current) drug therapy; Z86.711 Personal history of pulmonary embolism; Z87.891 Personal history of nicotine dependence
CPT/HCPCS: 36415; 71045; 74176; 80048; 80053; 82274; 82728; 82962; 83540; 83550; 83605; 83880; 84132; 84484; 85014; 85018; 85025; 85027; 86850; 86900; 86901; 87493; 87506; 93005; 94640; 97802; 99285; J7030; A4216

== ENCOUNTER → 2020-01-10 12:43 | Outpatient (CLI) | payer OTHER, MEDICAID, SELFPAY ==
[2019-10-17 08:47] VITALS: BMI 46.4
--- NOTE | 2020-01-11 09:34 | PFT ---
INTRODUCTION: The patient is a 64-year-old female that presents for pulmonary function studies secondary to a diagnosis of asthma. Respiratory therapy reports good patient effort. Bronchodilators were used during testing. INTERPRETATION: Forced expiration spirometry demonstrates the presence of a moderate large airways obstructive ventilatory defect. There was a significant response to aerosolized bronchodilators noted. Spirograms are of good quality and plateau normally. Body plethysmography was performed and reveals an elevated TLC and RV, indicative of underlying hyperinflation and air trapping. Diffusing capacity by single breath CO is preserved. There has been little overall change since PFTs were last completed in July 2018. IMPRESSION: Partially reversible moderate large airways obstructive ventilatory defect with associated hyperinflation and air trapping.
== END ==
PROVIDERS: PCP Student in an Organized Health Care Education/Training Program; Referring Provider Internal Medicine Critical Care Medicine; Visit Provider Internal Medicine Critical Care Medicine
DX: J96.11 Chronic respiratory failure with hypoxia (principal); J45.909 Unspecified asthma, uncomplicated
CPT/HCPCS: 94060; 94726; 94729

== ENCOUNTER → 2021-06-26 12:56 | Outpatient (CLI) | payer OTHER, MEDICAID, SELFPAY ==
[2021-02-10 12:44] VITALS: BMI 43.0
--- NOTE | 2021-06-27 07:39 | PFT ---
INTRODUCTION: The patient is a 66-year-old female that presents for pulmonary function studies secondary to a diagnosis of COPD. Respiratory therapy reported good patient effort. Bronchodilators were used during testing. INTERPRETATION: Forced expiration spirometry demonstrates the presence of a moderately severe large airways obstructive ventilatory defect. There was a significant response to aerosolized bronchodilators. Spirograms are of good quality and plateau normally. Body plethysmography was performed and revealed an elevated RV to 191% of predicted, indicative of underlying air trapping. Diffusing capacity by single breath CO is within normal limits. IMPRESSION: Partially reversible moderately severe large airways obstructive ventilatory defect with associated air trapping.
== END ==
PROVIDERS: PCP Student in an Organized Health Care Education/Training Program; Referring Provider Nurse Practitioner Acute Care; Visit Provider Nurse Practitioner Acute Care
DX: J44.9 Chronic obstructive pulmonary disease, unspecified (principal)
CPT/HCPCS: 94060; 94726; 94729

== ENCOUNTER 2021-07-21 12:28 | Outpatient (CLI) | payer OTHER, MEDICAID, SELFPAY ==
[2021-02-10 12:44] VITALS: BMI 43.0
[2021-07-21 13:02] VITALS: PULSE 106; PULSE 115; PULSE 116; PULSE 76; PULSE 85; PULSE 87; PULSE 90; O2SAT 87; O2SAT 90; O2SAT 92; O2SAT 93; O2SAT 95
--- NOTE | 2021-07-21 13:05 | CPS ---
Patient stated that she has O2 at home that she rarely to never wears. She will sometimes put it on when in the house with the concentrator. She never carries tanks with her when she is out due to them being so heavy, using a cane, and her knees hurting. Patient started the test on room air, SpO2 95%. She walked about 60 ft in the first two minutes before taking a very brief 5 second break. She took a quick break in the 3rd minute also and at 4 minutes she wanted to sit down due to severe knee pain and moderate shortness of breath. At this time she had walked almost 200 ft total and her SpO2 was 90%. After about 20 seconds of sitting patient's SpO2 was 87% briefly and 88% for about 20-30 seconds. Patient never wanted to start walking again during the last 2 minutes of testing. She did have to walk about 65 more feet back to the room and was able to maintain an SpO2 of 90-92%.
--- NOTE | 2021-07-22 09:44 | PCM.PSN.6M ---
PSN 6 Minute Walk Test 6 Minute Walk Test 6 Minute Walk Test: 6 Minute Walk Test PSN:6-Minute Walk Test Start: 07/21/21 13:02 Freq: Status: Active Protocol: RESP.6MINW Document 07/21/21 13:02 RASHMI (Rec: 07/21/21 13:12 RASHMI [id number]) 6 Minute Walk Test Date Performed 07/21/21 Time Performed 12:30 Height 4 ft 11 in Weight: 98.883 kg Weight in Pounds 218.[address]: Edgar Pinzon Assistive device used: Cane Pre-test Oxygen Delivery Method Room Air Pulse Ox (%) 95 Pulse Rate (60-100 beats/min) 85 Dyspnea Liban Scale (0-10) 6 1st minute Oxygen Delivery Method Room Air Pulse Ox (%) 93 Pulse Rate (60-100 beats/min) 106 H 2nd minute Oxygen Delivery Method Room Air Pulse Ox (%) 92 Pulse Rate (60-100 beats/min) 115 H Number of Rests Taken 1 3rd minute Oxygen Delivery Method Room Air Pulse Ox (%) 90 Pulse Rate (60-100 beats/min) 115 H Number of Rests Taken 1 4th minute Oxygen Delivery Method Room Air Pulse Ox (%) 90 Pulse Rate (60-100 beats/min) 116 H Number of Rests Taken 1 5th minute Oxygen Delivery Method Room Air Pulse Ox (%) 87 Pulse Rate (60-100 beats/min) 90 Number of Rests Taken 1 6th minute Oxygen Delivery Method Room Air Pulse Ox (%) 92 Pulse Rate (60-100 beats/min) 87 Dyspnea Liban Scale (0-10) 3 Exertion Liban Scale (6-20) 14 Post-test Oxygen Delivery Method Room Air Pulse Ox (%) 95 Pulse Rate (60-100 beats/min) 76 Full Laps Walked 3 Partial Lap, Number of Tiles Walked 20 Total Distance Walked (ft) 197 07/21/21 13:05 Cardiopulmonary Services by Sonia Davis Patient stated that she has O2 at home that she rarely to never wears. She will sometimes put it on when in the house with the concentrator. She never carries tanks with her when she is out due to them being so heavy, using a cane, and her knees hurting. Patient started the test on room air, SpO2 95%. She walked about 60 ft in the first two minutes before taking a very brief 5 second break. She took a quick break in the 3rd minute also and at 4 minutes she wanted to sit down due to severe knee pain and moderate shortness of breath. At this time she had walked almost 200 ft total and her SpO2 was 90%. After about 20 seconds of sitting patient's SpO2 was 87% briefly and 88% for about 20-30 seconds. Patient never wanted to start walking again during the last 2 minutes of testing. She did have to walk about 65 more feet back to the room and was able to maintain an SpO2 of 90-92%. Initialized on 07/21/21 13:05 - END OF NOTE Interpretation Interpretation: The patient ambulated 197 feet over the course of 4 minutes with the use of a cane. Pretesting oxygen saturation was noted to be 95% on room air. With ambulation, the kevin oxygen saturation was 90%. It was noted the patient briefly desaturated to 87% while sitting. She was unable to ambulate during the last 2 minutes of the test due to shortness of breath and knee pain. Recommendations Recommendations: This study is somewhat limited due to the patient's inability to ambulate for the full 6 minutes. This testing did indicate the presence of significant exertional oxygen desaturation.
== END 2021-07-21 23:59 | disposition short-term general hospital (02) ==
LOC: PSN 12:29
PROVIDERS: PCP Student in an Organized Health Care Education/Training Program; Referring Provider Nurse Practitioner Acute Care; Visit Provider Nurse Practitioner Acute Care
DX: J96.11 Chronic respiratory failure with hypoxia (principal)
CPT/HCPCS: 94618

== ENCOUNTER 2021-11-14 13:43 | Outpatient (RCR) | payer OTHER, MEDICAID, SELFPAY ==
--- NOTE | 2021-11-14 15:01 | HP.PTEVAL ---
Patient's Visit Information FELICITAS CURRY is a 66 year old F referred to Physical Therapy by ORALIA Aggarwal with a diagnosis of CHRONIC PAIN BILATERAL KNEES ,MORBID OBESITY. Date of Evaluation: 11/14/21 Physical Therapist: Jovanny Nova PT, Cert MDT, OCS - Visit Plan Frequency: 1 visit Plan: This patient has multiple comorbities to influence patient condition. Patient demonstrates difficulty with gait with cane ~ 100 ft with decrease SpO2 84% with SOB with poor endurance, weakness /pain bilateral knees decrease score 30sec sit-stand ,decrease balance ,h/o falls and with Romberg score 15 and Tug score 15.8. Patient limitation cannot be resolved by the use of appropriate fitted cane and walker 100ft with multiple stops with 02 SATS decreasing and pain knees. Patient mobility limitations cannot be resolved by use of manual w/c due to weakness of right shoulder and RTC and poor endurance. Patient has ability to transfer to and from POV ,maintain postural stability and ability to operate the tiller . Scooter will significantly improve beneficiary's ability to participate in MRADL's in the home and expressed willingness to use scooter in the home. The patient has mental and physical capabilities to safely operate scooter. Thus patient will benefit from scooter to maximize functional [place]. - Subjective This 66 y/o female presents to physical therapy for w/c mobility evaluation. Patient seen DR bear recommended evaluation with scooter. Patient is 4 '11' and 212#. Patient has difficulty with walking with weakness and pain in knees. Patient is able to walk ~ 100 ft become SOB and today Sp02 dropped to 84% and HR 122 beat~ About 2 mins return to 94% . Patient uses 02 2 L02 at night. Patient is able to dress self but requires assist with shoes and socks. Patient boyfriend assist with bathing and does cooking/cleaning. Patient has paresthesia/feet due to neuropathy. HOME SITUATION : 2 story home stays on 1st floor with entrance. Bathroom walk-in shower. Patient comorbities cervical radiculopathy, knee pain, DM-ll , UTI, sepsis, tremor ,shoulder pain ,chest pain, right TKR, SHRUTHI ,foot surgery, HTN ,fibromyalgia , gallstones. Patient will benefit from scooter to maximize functional mobility. SOCIAL: single, but lives with boyfriend. VOCATION: disability - Pain Bilateral Knee Pain Intensity (Out of 10): 8 Pain Intensity Range: 10 Right Shoulder Pain Intensity (Out of 10): 7 Pain Intensity Range: 10 Bilateral Neck Pain Intensity (Out of 10): 4 Pain Intensity Range: 10 - Objective POSTURE: mild forward posture ,hips/knees flexed. NEURO: c/o paresthesia/tingling feet light touch intact. GAIT: ambulated with straight cane 100 ft Sp02 84% ,HR 122 with several stops. BALANCE: fair+ with cane. AROM KNEE FLEXION:R 5-105 degrees ,L 0-95 degrees. MMT: quads/hams 4-/5,hip flexion/abduction 3+/5 ,ankle 4/5. AROM BUE: WFL shoulder flexion 130 degrees. MMT: BUE grossly 4-/5 except right shoulder RTC/deltoid 3/5,left 3+/5 - Balance/Special Test Scores CATSIB Score (Max score 120 seconds): 15 30 Second Chair Rise Test Seconds: 4 - Goals Goal 1:: Patient will benefit from scooter to maximize functional [place]. - Rehabilitation Potential Physical Therapy Diagnosis: This patient has multiple comorbities to influence patient condition. Patient demonstrates difficulty with gait with cane ~ 100 ft with decrease SpO2 84% with SOB with poor endurance, weakness /pain bilateral knees decrease score 30sec sit-stand ,decrease balance ,h/o falls and with Romberg score 15 and Tug score 15.8. Patient limitation cannot be resolved by the use of appropriate fitted cane and walker 100ft with multiple stops with 02 SATS decreasing and pain knees. Patient mobility limitations cannot be resolved by use of manual w/c due to weakness of right shoulder and RTC and poor endurance. Patient has ability to transfer to and from [facility] ,maintain postural stability and ability to operate the tiller . Scooter will significantly improve beneficiary's ability to participate in MRADL's in the home and expressed willingness to use scooter in the home. The patient has mental and physical capabilities to safely operate scooter, Rehabilitation Potential: Fair - Anticipated Interventions Patient/Client Instruction: Educate patient on: Condition For the Purpose of:: Other Other: scooter Thank you for the opportunity to evaluate your patient. For Medicare and Medicare HMO plans, please review the plan of care and approve it. It will need to be FAXED BACK to us at [phone] for Medicare purposes. For Medicare only, by signing this I certify the plan of care. Please let me know if there are questions or concerns regarding this plan of care. Physician Signature: Date:
== END 2021-11-14 19:00 | disposition home or self-care (01) ==
LOC: PT 13:43
PROVIDERS: PCP Student in an Organized Health Care Education/Training Program; Referring Provider Nurse Practitioner Family; Visit Provider Nurse Practitioner Family
DX: M25.561 Pain in right knee (principal); M25.562 Pain in left knee; G89.29 Other chronic pain; E66.01 Morbid (severe) obesity due to excess calories
CPT/HCPCS: 97162

== ENCOUNTER 2023-01-21 16:01 | Emergency (ER) | payer MEDICARE, MEDICAID, SELFPAY ==
[2023-01-21 16:03] VITALS: BP 109/64; PULSE 84; RESP 16; TEMP 36.4; O2SAT 95
[2023-01-21 16:24] VITALS: BMI 40.5
[2023-01-21] MEDS: 0.9% Normal Saline 1,000 ML 1000 ML IV (16:33)
--- NOTE | 2023-01-21 16:40 | EDS_ITS ---
HPI History of Present Illness Chief Complaint: Hyperglycemia Informant: patient and family Narrative Narrative: History is from patient and her daughter who is durable medical power of assistant prosecuting attorney. Patient has had some redness and raw areas in the vaginal area for a week or so. She has been burning with urination but all the burning is on the outside. She is not having frequent urination that she notices. She is on Macrobid 3 times a week chronically for UTI. She is also on azithromycin to prevent her from getting pneumonias. She is not having pneumonia symptoms. She went to urgent care because of the redness in the groin. They referred her here because her blood sugar was over 500. I find out the patient cannot check her sugars at home because her insurance does not cover the test strips and she has not been able to check for several months. Patient is eating and drinking. No nausea vomiting diarrhea. She does not feel sick. She is slightly tired. Despite her high sugar she is still denying polyuria. She may have a component of polydipsia. [facility] Medical History (Updated 01/21/23 @ 21:[address] 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) Depression Essential hypertension Fibromyalgia History of DVT (deep vein thrombosis) HLD (hyperlipidemia) Hypersomnia Hypoxia SHRUTHI (obstructive sleep apnea) Osteoarthritis Pneumonia Pulmonary embolism Rheumatoid arthritis RLS (restless legs syndrome) Type II diabetes mellitus Home Medications albuterol sulfate 90 mcg/actuation aerosol inhaler 1 - 2 puff inhalation Q4H PRN PRN Sob &/Or Wheezing 10/01/15 [History Last Taken 05/15/19] loratadine 10 mg tablet 10 mg PO QHS ALLERGIES 10/01/15 [History Last Taken 05/16/19] aspirin 81 mg tablet,delayed release (Adult Low Dose Aspirin) 81 mg PO DAILY HEART HEALTH 07/14/17 [History Last Taken 05/16/19] fluoxetine 20 mg capsule (Prozac) 20 mg PO DAILY MENTAL HEALTH 07/14/17 [History Last Taken 05/16/19] nitroglycerin 0.4 mg sublingual tablet 0.4 mg sublingual Q5M PRN CHEST PAIN 07/14/17 [History Last Taken 05/15/19] epinephrine 0.3 mg/0.3 mL injection, auto-injector 0.3 mg SQ PRN PRN ALLERGIC REACTION 12/08/17 [History Last Taken Unknown] ezetimibe 10 mg tablet 10 mg PO DAILY cholesterol 12/08/17 [History Last Taken 05/16/19] multivitamin,[id number] 27 mg-0.4 mg tablet 1 tab PO BID SUPPLEMENT 12/08/17 [History Last Taken 05/16/19] apixaban 5 mg tablet 5 mg PO BID blood thinner 10/07/18 [History Last Taken 05/16/19] omega-3 fatty acids-fish oil 340 mg-1,000 mg capsule 1 cap PO DAILY supplement 12/30/18 [History Last Taken 05/16/19] cholecalciferol (vitamin D3) 50 mcg (2,000 unit) capsule 2,000 unit PO DAILY vitamin 05/16/19 [History Last Taken 05/16/19] conjugated estrogens 0.625 mg/gram vaginal cream 0.5 g VG UD hormone replacement 05/16/19 [History Last Taken 05/13/19] isosorbide mononitrate 60 mg tablet,extended release 24 hr 60 mg PO DAILY blood pressure 05/16/19 [History Last Taken 05/16/19] omeprazole 40 mg capsule,delayed release 40 mg PO DAILY reflux 05/16/19 [History Last Taken 05/15/19] budesonide-formoterol HFA 80 mcg-4.5 mcg/actuation aerosol inhaler 2 inh inhalation BID breathing #10.2 grams 02/10/21 [Rx Last Taken Unknown] azithromycin 250 mg tablet See Rx Instructions PO .COMPLEX #6 tabs 08/31/22 [Rx Last Taken Unknown] budesonide-formoterol HFA 80 mcg-4.5 mcg/actuation aerosol inhaler (Symbicort) 1 puff inhalation ONCE 08/31/22 [History Last Taken Unknown] ezetimibe 10 mg tablet 10 mg PO DAILY 08/31/22 [History Last Taken Unknown] fluticasone propionate 50 mcg/actuation nasal spray,suspension 2 spray intranasal DAILY #16 grams 08/31/22 [Rx Last Taken Unknown] glimepiride 1 mg tablet 1 mg PO BID 08/31/22 [History Last Taken Unknown] insulin glargine 100 unit/mL (3 mL) subcutaneous pen 34 unit subcut HS diabetes 08/31/22 [History Last Taken Unknown] ipratropium 0.5 mg-albuterol 3 mg (2.5 mg base)/3 mL nebulization soln 3 ml inhalation Q4H PRN PRN SOB &/OR WHEEZING #180 mL 08/31/22 [Rx Last Taken Unknown] linagliptin 5 mg tablet (Tradjenta) 5 mg PO DAILY 08/31/22 [History Last Taken Unknown] lisinopril 10 mg tablet 10 mg PO DAILY 08/31/22 [History Last Taken Unknown] metoprolol succinate 25 mg tablet,extended release 24 hr 12.5 mg PO DAILY 08/31/22 [History Last Taken Unknown] prednisone 10 mg tablet 10 mg PO QDAY #30 tabs 08/31/22 [Rx Last Taken Unknown] pregabalin 50 mg capsule 50 mg PO BID 08/31/22 [History Last Taken Unknown] rosuvastatin 20 mg tablet 20 mg PO DAILY 08/31/22 [History Last Taken Unknown] clotrimazole 1 % vaginal cream (Clotrimazole-7) 1 appful vaginal QHS #45 grams 01/21/23 [Rx Last Taken Unknown] fluconazole 200 mg tablet (Diflucan) 200 mg PO .weekly #4 tabs 01/21/23 [Rx Last Taken Unknown] sulfamethoxazole 800 mg-trimethoprim 160 mg tablet (Bactrim DS) 1 tab PO BID #14 tabs 01/21/23 [Rx Last Taken Unknown] Allergy/AdvReac Type Severity Reaction Status Date / Time aztreonam Allergy Unknown Verified 01/21/23 16:03 bee venom protein (honey bee) Allergy Anaphylaxis Verified 01/21/23 16:03 Carbapenems Allergy Unknown Verified 01/21/23 16:03 ciprofloxacin [From Cipro] Allergy Anaphylaxis Verified 01/21/23 16:03 meperidine Allergy Unknown Verified 01/21/23 16:03 Penicillins Allergy Swelling Verified 01/21/23 16:03 Quinolones Allergy Unknown Verified 01/21/23 16:03 talampicillin Allergy Unknown Verified 01/21/23 16:03 tetracycline Allergy Anaphylaxis Verified 01/21/23 16:03 tigecycline Allergy Hives Verified 01/21/23 16:03 Family History Mother Hypertension Dementia Father Heart disease Hypertension HLD (hyperlipidemia) Surgical History H/O right knee surgery H/O tubal ligation History of tonsillectomy S/P foot surgery, left Social History household members: none housing: apartment pets and animals: Yes pets and animals: cat(s) Smoking Status: Former smoker quit date: 07/12/14 pack-years: 20 second hand exposure: No alcohol intake: never substance use type: does not use ROS ROS ED ROS Narrative A complete review of systems was performed and is negative except as documented in the history of present illness. Some specific details below. Constitutional: No recent fevers or chills. No notable malaise EYE: No visual complaints or pain. She denies blurring of vision ENT: No difficulty swallowing. No swelling. No pain. CV: No chest pain or palpitations. Respiratory: No dyspnea. No hemoptysis. No difficulty taking breaths. She does have chronic COPD but is not having any issues now GI: Denies nausea vomiting diarrhea or change in diet. She states she is eating fine. : External dysuria. Musculoskeletal: No recent trauma. No pains. Skin: See history of present illness. Patient has had thrush before also but is not having that now Neuro: No weakness or numbness. Endocrine: No polyuria or polydipsia. EXAM Physical Exam Narrative Exam Narrative: CONSTITUTIONAL: Patient is nontoxic in appearance. The patient looks comfortable. HEENT: No notable trauma. Mucous membranes minimally dry. There is no thrush. EYES: No conjunctival injection. No proptosis. CARDIOVASCULAR: Regular rate. Regular rhythm. No notable murmur. No JVD. RESPIRATORY: No respiratory distress. Breathing is unlabored. No wheezes. No rhonchi. No rales. No pain with a deep breath. GASTROINTESTINAL: Not distended. Bowel sounds are normal. No tenderness. GENITOURINARY: No tenderness over the bladder. No CVA tenderness. Patient does have some excoriation and erythema to the external genital area and in the skin folds. This looks to be more consistent with Molly. She has a history of herpes but I do not see any lesions that are consistent with this. Exam was done with nurse in attendance. MUSCULOSKELETAL: Atraumatic. No tenderness NEUROLOGICAL: Patient is alert and appropriate. No focal deficit noted. SKIN: No external skin rashes. See genitourinary exam. PSYCHIATRIC: Patient is calm. Mood is appropriate. Const Vital Signs: 01/21/23 16:03 01/21/23 16:20 01/21/23 18:35 Temperature 97.5 F L Temperature Source Temporal Pulse Rate 84 74 Respiratory Rate 16 16 Respiratory Pattern Tachypnea Blood Pressure 109/64 157/71 H Blood Pressure Mean 79 99 Pulse Ox 95 93 Oxygen Delivery Method Room Air MDM MDM MDM Narrative Medical decision making narrative: CBC is normal other than minimally low platelets. Patient's electrolytes show minimal elevation in creatinine. Sodium is little low but this is likely factitious when adjusted for her glucose level is quite high at 550. But her anion gap and bicarb her urine does show signs of infection with leukocyte esterase positive nitrites cloudy, 50-100 white cells and bacteria. I have reviewed multiple of the patient prior cultures. Many have been sensitive to Bactrim in fact, I only found one that was not. She can tolerate Bactrim. We will have her hold her 3 times a week Macrobid. I will start Bactrim. She will take her insulin at home tonight. I will also write for Diflucan and clotrimazole. We discussed reasons to return and follow-up. She is working with her doctor to be able to get test trips to her GERD at home Lab Data Attestation: I reviewed the patient's lab results. Labs: Laboratory Results - last 24 hr 01/21/23 01/21/23 01/21/23 16:33 16:43 18:31 WBC 4.9 RBC 4.80 Hgb 12.7 Hct 40.6 MCV 84.6 MCH 26.5 L MCHC 31.3 L RDW Std Deviation 43.8 RDW Coeff of Eddi 14.3 Plt Count 130 L MPV 9.5 Immature Gran % (Auto) 0.000 Neut % (Auto) 58.3 Lymph % (Auto) 25.2 [place] % (Auto) 11.0 H Eos % (Auto) 4.9 Baso % (Auto) 0.6 Absolute Neuts (auto) 2.9 Absolute Lymphs (auto) 1.24 Nucleated RBC % 0 Sodium 134 L Potassium 4.2 Chloride 98 Carbon Dioxide 28.0 Anion Gap 8 BUN 12 Creatinine 1.09 H Estim Creat Clear Calc 73.92 Est GFR (MDRD) Af Amer 65 Est GFR (MDRD) Non-Af 53 L BUN/Creatinine Ratio 11.0 Glucose 557 H* Calcium 8.2 L Urine Color Yellow Urine Clarity Cloudy Urine pH 7.0 Ur Specific [place] 1.010 Urine Protein 100 H Urine Glucose (UA) 1000 H Urine Ketones Negative Urine Occult Blood 25 H Urine Nitrite Positive H Urine Bilirubin Negative Urine Urobilinogen 1 H Ur Leukocyte Esterase 500 H POC Glucose 438 H Discharge Plan Triage Chief Complaint: Hyperglycemia Other Complaint: Abscess ED Provider: Todd Fairbanks Dx/Rx/DC Orders Clinical Impression: Urinary tract infection, Yeast vaginitis, Hyperglycemia Instructions: Urinary Tract Infections in Women, ED MOLLY VAGINITIS Prescriptions: New sulfamethoxazole-trimethoprim [Bactrim DS] 800-160 mg tablet 1 tab PO BID Qty: 14 0RF fluconazole [Diflucan] 200 mg tablet 200 mg PO .weekly Qty: 4 0RF clotrimazole [Clotrimazole-7] 1 % cream 1 appful vaginal QHS Qty: 45 0RF Rx Instructions: Apply externally once a day for 7 days. No Action aspirin [Adult Low Dose Aspirin] 81 mg tablet,delayed release (DR/EC) 81 mg PO DAILY nitroglycerin 0.4 mg tablet, sublingual 0.4 mg SUBLINGUAL Q5M PRN (Reason: CHEST PAIN) fluoxetine [Prozac] 20 mg capsule 20 mg PO DAILY budesonide-formoterol 80-4.5 mcg/actuation HFA aerosol inhaler 2 inh INHALATION BID Qty: 10.2 6RF budesonide-formoterol [Symbicort] 80-4.5 mcg/actuation HFA aerosol inhaler 1 puff inhalation ONCE ezetimibe 10 mg tablet 10 mg PO DAILY glimepiride 1 mg tablet 1 mg PO BID lisinopril 10 mg tablet 10 mg PO DAILY metoprolol succinate 25 mg tablet extended release 24 hr 12.5 mg PO DAILY pregabalin 50 mg capsule 50 mg PO BID rosuvastatin 20 mg tablet 20 mg PO DAILY Tradjenta 5 mg tablet 5 mg PO DAILY fluticasone propionate 50 mcg/actuation spray,suspension 2 spray intranasal DAILY Qty: 16 3RF ipratropium-albuterol 0.5 mg-3 mg(2.5 mg base)/3 mL solution for nebulization 3 ml inhalation Q4H PRN PRN (Reason: SOB &/OR WHEEZING) Qty: 180 6RF azithromycin 250 mg tablet See Rx Instructions PO .COMPLEX Qty: 6 0RF Rx Instructions: take 500 mg today (day 1), then 250 mg for 4 days (days 2-5) PO prednisone 10 mg tablet 10 mg PO QDAY Qty: 30 0RF Rx Instructions: take 4 tabs for three days, then 3 tabs for three days, then 2 tabs for three days, then 1 tab for 3 days albuterol sulfate 1 INHALER inhaler 1 - 2 puff inhalation Q4H PRN PRN (Reason: Sob &/Or Wheezing) Patient Comments: breathing loratadine 10 MG tablet 10 mg PO QHS Patient Comments: allergies epinephrine 0.3 MG syringe 0.3 mg SQ PRN PRN (Reason: ALLERGIC REACTION) ezetimibe 10 MG tablet 10 mg PO DAILY multivitamin,[id number] 1 TABLET tablet 1 tab PO BID Patient Comments: vitamin apixaban 5 MG tablet 5 mg PO BID insulin glargine 100 unit/mL (3 mL) insulin pen 34 unit subcut QHS omega-3 fatty acids-fish oil 1 EACH capsule 1 cap PO DAILY omeprazole 40 MG capsule,delayed release(DR/EC) 40 mg PO DAILY isosorbide mononitrate 60 MG tablet 60 mg PO DAILY conjugated estrogens 1 DOSE cream 0.5 g VG UD cholecalciferol (vitamin D3) 2,000 UNIT capsule 2,000 unit PO DAILY Primary Care Provider: [facility] Doctor,Out of Referrals: [facility] Doctor,Out of [Primary Care Provider] - Activity Restrictions/Additional Instructions: Follow-up with your doctor if not better in 3 to 5 days. Disposition Disposition: Home, Self Care
[2023-01-21] MEDS: Insulin Lispro 100 UNIT/ML INSULN.PEN 15 UNIT SC ×2 (16:47→19:52)
[2023-01-21 16:53] LABS: Absolute Lymphocyte Count 1.24 X10^3/uL (0.83-4.51); Absolute Neutrophil Count 2.9 X10^3/uL (2.0-7.7); Basophil# 0.03 X10^3/uL; Basophil% 0.6 % (0-1); Eosinophil# 0.24 X10^3/uL; Eosinophils% 4.9 % (0-5); Hematocrit 40.6 % (37-47); Hemoglobin 12.7 g/dL (12.0-15.0); Lymphocyte # 1.24 X10^3/ul (0.83-4.51); Lymphocyte % 25.2 % (19-41); Mean Corp Hgb Conc 31.3 g/dL (32-36); Mean Corpuscular Hgb 26.5 pg (27.0-32.0); Mean Corpuscular Volume 84.6 fL (81-99); Mean Platelet Vol. 9.5 fl (6.2-12.0); Monocyte# 0.54 X10^3/uL; NRBC Flagged by Analyzer 0 % (0-5); Neutrophil # 2.87 X10^3/uL (2.7-7.7); Neutrophil % 58.3 % (47-70); Platelet Count 130 K/mm3 (150-450); RBC Distribution Width CV 14.3 % (11.6-14.6); RBC Distribution Width SD 43.8 fl (35.1-43.9); White Blood Count 4.9 K/mm3 (4.4-11.0)
[2023-01-21 17:21] LABS: Anion Gap 8 (5-15); BUN 12 mg/dL (7-18); Calcium,Total 8.2 mg/dL (8.5-10.1); Chloride 98 mmol/L (98-107); Creatinine, Serum 1.09 mg/dL (0.55-1.02); EST Glomerular Filtration Rate 53 mL/min (>60); Est Glom Filt Rate - Afr Amer 65 mL/min (>60); Estimated Creatinine Clearance 73.92 ml/min; Glucose 557 mg/dL (74-106); Potassium 4.2 mmol/L (3.5-5.1); Sodium Level 134 mmol/L (136-145)
[2023-01-21 18:35] VITALS: BP 157/71; PULSE 74; RESP 16; O2SAT 93
[2023-01-21 18:48] LABS: Bedside Glucose 438 mg/dL (74-106)
[2023-01-21 18:53] LABS: Mucous, Urine 0 SEEN /hpf (<or=2+)
[2023-01-21 18:58] LABS: Color, Urine Yellow (Yellow); Glucose, Dipstick 1000 mg/dl (Normal); Ketone-Dipstick Negative (Negative); Leukocyte Esterase-Dipstick 500 /ul (Negative); Nitrite-Dipstick Positive (Negative); Occult Blood-Urine 25 /ul (Negative); Protein-Dipstick 100 mg/dl (Negative); Urine Bilirubin Dipstick Negative (Negative); Urine Clarity Cloudy (Clear); Urine Urobilinogen 1 mg/dl (Normal)
[2023-01-21 19:08] LABS: White Blood Cells 50-100 SEEN /hpf (0-5)
[2023-01-21 19:09] LABS: Bacteria 1+ /hpf (None Seen); Red Blood Cells-Urine 0-5 SEEN /hpf (0-5); Squamous Epithelial Cells - UA 0-5 SEEN /hpf (5-10)
[2023-01-21 20:04] VITALS: BP 129/63; PULSE 72; RESP 16; TEMP 36.7; O2SAT 95
[2023-01-21 20:08] LABS: Bedside Glucose 393 mg/dL (74-106)
[2023-01-21 20:47] LABS: Bedside Glucose 345 mg/dL (74-106)
== END 2023-01-21 21:35 | disposition home or self-care (01) ==
PROVIDERS: Emergency Provider Emergency Medicine; Visit Provider Emergency Medicine
DX: N39.0 Urinary tract infection, site not specified (principal); J44.9 Chronic obstructive pulmonary disease, unspecified; E11.65 Type 2 diabetes mellitus with hyperglycemia; B37.31 Acute candidiasis of vulva and vagina; E78.5 Hyperlipidemia, unspecified; I10 Essential (primary) hypertension; Z79.01 Long term (current) use of anticoagulants; Z79.899 Other long term (current) drug therapy; Z79.84 Long term (current) use of oral hypoglycemic drugs; Z87.891 Personal history of nicotine dependence
CPT/HCPCS: 80048; 81001; 82962; 85025; 87077; 87086; 87088; 87186; 96360; 96361; 99285; J7030; P9612